=== PATIENT | female | born 1985 | race Caucasian/White ===

== ENCOUNTER 2016-11-21 13:14 | Inpatient (IN) | payer OTHER ==
[2016-11-21] MEDS ORDERED: ONDANSETRON 4 MG/2 ML VIAL IVP STA (13:32)
[2016-11-21] MEDS ORDERED: SODIUM CHLORIDE 0.9% 1,000 ML IV STA (13:32)
[2016-11-21] MEDS ORDERED: DICYCLOMINE 10 MG/ML 2 ML AMP IM STA (13:32)
[2016-11-21] MEDS ORDERED: FAMOTIDINE 20 MG/2 ML VIAL IV STA (13:33)
[2016-11-21] MEDS ORDERED: HYDROmorphone 1 MG/ML 1 ML SYRINGE IVP STA (13:35)
--- NOTE | 2016-11-21 13:38 | ED ---
General Adult HPI - General Chief complaint: Nausea/Vomiting/Diarrhea Stated complaint: Diarrhea Time Seen by Provider: 11/21/16 13:26 Source: patient, RN notes reviewed Limitations: no limitations - History of Present Illness Initial comments: Patient is a pleasant 30-year-old female presenting to the emergency Department with abdominal discomfort and diarrhea. Symptoms present for a couple of days. Patient has nausea and a couple episodes of emesis. Patient did take Zofran with some improvement of nausea. Patient has had loose stools and diarrhea. Patient has abdominal discomfort that is diffuse but mostly lower. Patient has had C. diff 3 times previously and believes this is occurring again. Patient had a fever this morning. - Related Data Home Medications Medication Instructions Recorded Confirmed Diazepam [Valium] 10 mg PO TID 12/27/14 11/21/16 PARoxetine HCL 40 mg PO DAILY 12/27/14 11/21/16 Ranitidine HCl [Zantac] 150 mg PO BID 12/27/14 11/21/16 Methylphenidate HCl [Ritalin] 20 mg PO TID 07/07/15 11/21/16 Ibuprofen [Motrin] 800 mg PO TID 07/08/15 11/21/16 Cyclobenzaprine [Flexeril] 10 mg PO TID PRN 03/27/16 11/21/16 Ondansetron [Zofran] 8 mg PO DAILY PRN 11/21/16 11/21/16 Previous Rx's Medication Instructions Recorded HYDROcodone/APAP 10-325MG [[place] 1 tab PO Q6HR PRN #28 tab 07/09/15 10-325] Allergies Allergy/AdvReac Type Severity Reaction Status Date / Time codeine Allergy Rash/Hives Verified 11/21/16 14:11 haloperidol [From Haldol] Allergy Anaphylaxis Verified 11/21/16 14:11 haloperidol lactate Allergy Anaphylaxis Verified 11/21/16 14:11 [From Haldol] Iodinated Contrast Media - Allergy kidney Verified 11/21/16 14:11 Oral and failure [Iodinated Contrast Media - IV Dye] morphine Allergy Rash/Hives Verified 11/21/16 14:11 Penicillins AdvReac Unknown Verified 11/21/16 14:11 Childhood anabolic steriod Allergy Rash/Hives Uncoded 08/22/16 13:12 Review of Systems ROS Statement: Those systems with pertinent positive or pertinent negative responses have been documented in the HPI. ROS Other: All systems not noted in ROS Statement are negative. Constitutional: Reports: fever Eyes: Denies: eye pain ENT: Denies: ear pain Respiratory: Denies: cough Cardiovascular: Denies: chest pain Endocrine: Reports: fatigue Gastrointestinal: Reports: abdominal pain, nausea, vomiting, diarrhea Genitourinary: Denies: dysuria Musculoskeletal: Denies: back pain Skin: Denies: rash Neurological: Denies: weakness Past Medical History Past Medical History: Asthma, Cancer, Fibromyalgia, GERD/Reflux, Osteoarthritis (OA), Renal Disease Additional Past Medical History / Comment(s): kidney failure x2 due to iodine allergy, lupus, hypoglycemia, back pain, sciatica, cervical CA, ?crohns, c diff dx'd february 2015, knee injury, ovarian cysts History of Any Multi-Drug Resistant Organisms: C-DIFF Date of last positivie culture/infection: 04/13/15 MDRO Source:: stool Past Surgical History: Appendectomy, Cholecystectomy, Hysterectomy, Orthopedic Surgery, Tubal Ligation Additional Past Surgical History / Comment(s): several upper endoscopies, surgery on bilat knees, left wrist, exploratory lap and biopsy of abdomen. Pt states she has had a total of OVER 50 surgeries. PARTIAL HYSTERECTOMY Past Anesthesia/Blood Transfusion Reactions: No Reported Reaction Past Psychological History: ADD/ADHD, Anxiety, Bipolar, PTSD Additional Psychological History / Comment(s): Pt states she is bipolar, manic/ ' depressive, and has anxiety. She is on meds for these and states that they help her. Smoking Status: Current every day smoker Past Alcohol Use History: None Reported Additional Past Alcohol Use History / Comment(s): Pt states she has smoked for 20 yrs about a pack a day or alittle less. Past Drug Use History: None Reported - Past Family History Father Family Medical History: Cancer Additional Family Medical History / Comment(s): "You name it, both sides of my family have had it." Mother Family Medical History: Cancer General Exam Limitations: no limitations General appearance: alert, in no apparent distress Head exam: Present: atraumatic Eye exam: Present: normal appearance, PERRL ENT exam: Present: normal oropharynx Neck exam: Present: normal inspection Respiratory exam: Present: normal lung sounds bilaterally Cardiovascular Exam: Present: regular rate, normal rhythm GI/Abdominal exam: Present: soft, tenderness (Mild diffuse tenderness, moderate lower tenderness), guarding, normal bowel sounds. Absent: distended, rebound, rigid, pulsatile mass Extremities exam: Present: normal inspection Neurological exam: Present: alert Psychiatric exam: Present: normal affect, normal mood Skin exam: Absent: rash Course Vital Signs 11/21/16 13:21 Temperature 99.2 F Pulse Rate 137 H Respiratory 18 Rate Blood Pressure 130/76 O2 Sat by Pulse 98 Oximetry Medical Decision Making - Medical Decision Making Patient reexamined and still complains of discomfort. Abdominal discomfort is more lower right abdomen. Ultrasound has been ordered. Case was discussed in detail with Dr. pugh, who will admit for Dr. Yepez with consult for GI. - Lab Data Result diagrams: 11/21/16 13:35 11/21/16 13:35 Lab Results 11/21/16 11/21/16 11/21/16 Range/Units 13:35 13:35 13:35 WBC 9.1 (3.8-10.6) k/uL RBC 4.35 (3.80-5.40) m/uL Hgb 13.9 (11.4-16.0) gm/dL Hct 42.7 (34.0-46.0) % MCV 98.3 (80.0-100.0) fL MCH 32.1 (25.0-35.0) pg MCHC 32.6 (31.0-37.0) g/dL RDW 14.0 (11.5-15.5) % Plt Count 349 (150-450) k/uL Neutrophils % 73 % Lymphocytes % 22 % Monocytes % 4 % Eosinophils % 1 % Basophils % 1 % Neutrophils # 6.6 (1.3-7.7) k/uL Lymphocytes # 2.0 (1.0-4.8) k/uL Monocytes # 0.4 (0-1.0) k/uL Eosinophils # 0.1 (0-0.7) k/uL Basophils # 0.1 (0-0.2) k/uL PT (9.0-12.0) sec INR (<1.1) APTT (22.0-30.0) sec Sodium 141 (137-145) mmol/L Potassium 4.8 (3.5-5.1) mmol/L Chloride 107 (98-107) mmol/L Carbon Dioxide 22 (22-30) mmol/L Anion Gap 12 mmol/L BUN 5 L (7-17) mg/dL Creatinine 0.68 (0.52-1.04) mg/dL Est GFR (MDRD) Af Amer >60 (>60 ml/min/1.73 sqM) Est GFR (MDRD) Non-Af >60 (>60 ml/min/1.73 sqM) Glucose 106 H (74-99) mg/dL Calcium 9.7 (8.4-10.2) mg/dL Total Bilirubin 0.4 (0.2-1.3) mg/dL AST 18 (14-36) U/L ALT 25 (9-52) U/L Alkaline Phosphatase 84 (38-126) U/L Total Protein 6.8 (6.3-8.2) g/dL Albumin 4.2 (3.5-5.0) g/dL Amylase 63 (30-110) U/L Lipase 85 (23-300) U/L Urine Color Urine Appearance (Clear) Urine pH (5.0-8.0) Ur Specific [place] (1.001-1.035) Urine Protein (Negative) Urine Glucose (UA) (Negative) Urine Ketones (Negative) Urine Blood (Negative) Urine Nitrate (Negative) Urine Bilirubin (Negative) Urine Urobilinogen (<2.0) mg/dL Ur Leukocyte Esterase (Negative) Urine RBC (0-5) /hpf Urine WBC (0-5) /hpf Ur Squamous Epith Cells (0-4) /hpf Urine Mucus (None) /hpf Urine Yeast (Budding) (None) /hpf C. difficile (EIA) Intrp Negative (Negative) 11/21/16 11/21/16 Range/Units 13:35 13:35 WBC (3.8-10.6) k/uL RBC (3.80-5.40) m/uL Hgb (11.4-16.0) gm/dL Hct (34.0-46.0) % MCV (80.0-100.0) fL MCH (25.0-35.0) pg MCHC (31.0-37.0) g/dL RDW (11.5-15.5) % Plt Count (150-450) k/uL Neutrophils % % Lymphocytes % % Monocytes % % Eosinophils % % Basophils % % Neutrophils # (1.3-7.7) k/uL Lymphocytes # (1.0-4.8) k/uL Monocytes # (0-1.0) k/uL Eosinophils # (0-0.7) k/uL Basophils # (0-0.2) k/uL PT 10.5 (9.0-12.0) sec INR 1.0 (<1.1) APTT 25.2 (22.0-30.0) sec Sodium (137-145) mmol/L Potassium (3.5-5.1) mmol/L Chloride (98-107) mmol/L Carbon Dioxide (22-30) mmol/L Anion Gap mmol/L BUN (7-17) mg/dL Creatinine (0.52-1.04) mg/dL Est GFR (MDRD) Af Amer (>60 ml/min/1.73 sqM) Est GFR (MDRD) Non-Af (>60 ml/min/1.73 sqM) Glucose (74-99) mg/dL Calcium (8.4-10.2) mg/dL Total Bilirubin (0.2-1.3) mg/dL AST (14-36) U/L ALT (9-52) U/L Alkaline Phosphatase (38-126) U/L Total Protein (6.3-8.2) g/dL Albumin (3.5-5.0) g/dL Amylase (30-110) U/L Lipase (23-300) U/L Urine Color Light Yellow Urine Appearance Cloudy H (Clear) Urine pH 6.0 (5.0-8.0) Ur Specific [place] 1.006 (1.001-1.035) Urine Protein Negative (Negative) Urine Glucose (UA) Negative (Negative) Urine Ketones Negative (Negative) Urine Blood Negative (Negative) Urine Nitrate Negative (Negative) Urine Bilirubin Negative (Negative) Urine Urobilinogen <2.0 (<2.0) mg/dL Ur Leukocyte Esterase Negative (Negative) Urine RBC <1 (0-5) /hpf Urine WBC 1 (0-5) /hpf Ur Squamous Epith Cells 11 H (0-4) /hpf Urine Mucus Rare H (None) /hpf Urine Yeast (Budding) Rare H (None) /hpf C. difficile (EIA) Intrp (Negative) - Radiology Data Radiology results: image reviewed (Computed tomography scan of the abdomen and pelvis shows left adnexal cyst. Enteritis/colitis.) Disposition Clinical Impression: Acute colitis Disposition: ADMITTED IP TO THIS HOSP
[2016-11-21 14:13] LABS: Basophils # (A) 0.1 k/uL (0-0.2); Basophils % (A) 1 %; CH 32.9; CHCM 33.7; Eosinophils # (A) 0.1 k/uL (0-0.7); Eosinophils % (A) 1 %; HCT 42.7 % (34.0-46.0); HDW 2.36; HGB 13.9 gm/dL (11.4-16.0); Luc # (Auto) 0.05; Luc % (Auto) 1; Lymphocytes % (A) 22 %; MCH 32.1 pg (25.0-35.0); MCHC 32.6 g/dL (31.0-37.0); MCV 98.3 fL (80.0-100.0); Mean Platelet Volume 7.8; Monocytes # (A) 0.4 k/uL (0-1.0); Monocytes % (A) 4 %; Neutrophils # (A) 6.6 k/uL (1.3-7.7); Neutrophils % (A) 73 %; RBC 4.35 m/uL (3.80-5.40); WBC 9.1 k/uL (3.8-10.6); WBC (Perox) 9.01
[2016-11-21 14:19] LABS: Appearance,Urine Cloudy (Clear); Bilirubin,Urine Negative (Negative); Glucose,Urine (UA) Negative (Negative); Ketones,Urine Negative (Negative); Leukocyte Esterase,Urine Negative (Negative); Mucus,Urine Rare /hpf; Nitrite,Urine Negative (Negative); Particle Count 2998; Protein,Urine Negative (Negative); RBC,Urine <1 /hpf (0-5); Specific Gravity,Urine 1.006 (1.001-1.035); Squamous Epithelial Cell,Urine 11 /hpf (0-4); UA Billing (MACRO vs. MICRO) MICRO; Urobilinogen,Urine <2.0 mg/dL (<2.0); WBC,Urine 1 /hpf (0-5)
[2016-11-21 14:20] LABS: ALT 25 U/L (9-52); AST 18 U/L (14-36); Alkaline Phosphatase 84 U/L (38-126); Amylase 63 U/L (30-110); Anion Gap 12 mmol/L; Blood Urea Nitrogen 5 mg/dL (7-17); Calcium 9.7 mg/dL (8.4-10.2); Carbon Dioxide 22 mmol/L (22-30); Chloride 107 mmol/L (98-107); Glucose 106 mg/dL (74-99); Non-African American GFR(MDRD) >60 (>60 ml/min/1.73 sqM); Potassium 4.8 mmol/L (3.5-5.1); Sodium 141 mmol/L (137-145); Total Bilirubin 0.4 mg/dL (0.2-1.3); Total Protein 6.8 g/dL (6.3-8.2)
[2016-11-21 14:26] LABS: Partial Thromboplastin Time 25.2 sec (22.0-30.0); Prothrombin Time 10.5 sec (9.0-12.0)
--- NOTE | 2016-11-21 15:01 | CT ---
EXAMINATION TYPE: CT abdomen pelvis wo con DATE OF EXAM: 11/21/2016 2:33 PM COMPARISON: Prior CT abdomen pelvis dated July 2015 HISTORY: Generalized abdominal pain and diarrhea. History of c diff. CT DLP: 149.80 mGycm Automated exposure control for dose reduction was used. TECHNIQUE: Helical acquisition of images from the lung bases through the pelvis. FINDINGS: LUNG BASES: No significant abnormality is appreciated. Lack of contrast could compromise sensitivity. AORTA: No significant abnormality is appreciated. LIVER/GB: Patient is status post cholecystectomy, liver unremarkable as seen PANCREAS: No significant abnormality is seen. SPLEEN: No significant abnormality is seen. ADRENALS: No significant abnormality is seen. KIDNEYS: No significant abnormality is seen. REPRODUCTIVE ORGANS: There is a cystic left adnexal mass measuring approximately 4 cm in size. Uteru s is not seen. URINARY BLADDER: No significant abnormality is seen. BOWEL: Some colonic wall thickening is nonspecific. There are fluid-filled loops of small bowel. FREE AIR: No Free Air is visible. ASCITES: None visible. PELVIC ADENOPATHY: None visualized. RETROPERITONEAL ADENOPATHY: No Retroperitoneal Adenopathy visible. OSSEOUS STRUCTURES: No significant abnormality is seen. IMPRESSION: CYSTIC LEFT ADNEXAL MASS, RECOMMEND FOLLOW-UP, CONSIDER MANAGEMENT PSYCHOLOGIST CONSULT, CORRELATE FOR ENTERITIS, COLITIS noncontrast exam, follow-up as indicated.
[2016-11-21] MEDS ORDERED: NALOXONE 0.4 MG/ML 1 ML VIAL IV PRN (16:01)
[2016-11-21] MEDS ORDERED: metroNIDAZOLE-NS PMX 500 MG in SALINE 1 100ML.BAG IVPB STA (16:03)
[2016-11-21] MEDS ORDERED: HYDROmorphone 1 MG/ML 1 ML SYRINGE IVP PRN ×3 (16:03→19:20)
[2016-11-21] MEDS ORDERED: SODIUM CHLORIDE 0.9% 1,000 ML IV SCH (16:15)
[2016-11-21] MEDS ORDERED: LORazepam 2 MG/ML SYRINGE IV STA (16:54)
--- NOTE | 2016-11-21 16:54 | US ---
EXAMINATION TYPE: US transvaginal DATE OF EXAM: 11/21/2016 4:42 PM COMPARISON: on PACS CLINICAL HISTORY: Pain, left cystic mass. Partial hyst x 10 years ago TECHNIQUE: Transvaginal (TV) Date of LMP: Partial Hysterectomy EXAM MEASUREMENTS: Uterus: Surgically absent cm Endometrial Stripe: Surgically absent cm Right Ovary: 2.8 x 1.8 x 1.7 cm Left Ovary: 4.3 x 4.6 x 4.2 cm TECHNOLOGIST IMPRESSION: 1. Uterus: Removed 2. Endometrium: Surgically absent 3. Right Ovary: follicles 4. Left Ovary: cyst with internal debris= 3.8 x 4.2 x 3.3 cm Spectral, color and waveform doppler imaging shows good arterial and venous flow within the ovaries ; there is no evidence for ovarian torsion. 5. Bilateral Adnexa: Free fluid seen adjacent to LO 6. Posterior cul-de-sac: no free fluid Grayscale, color Doppler, spectral Doppler imaging performed. IMPRESSION: Left ovarian cystic neoplasm, BODY HANGER consult suggested. Ovarian torsion not evident.
[2016-11-21] MEDS ORDERED: CYCLOBENZAPRINE 10 MG TAB PO PRN (18:55)
[2016-11-21] MEDS ORDERED: DIAZEPAM 2 MG TAB PO SCH (19:00)
[2016-11-21] MEDS ORDERED: DIAZEPAM 5 MG TAB PO SCH (19:21)
[2016-11-21] MEDS: FAMOTIDINE 20 MG TAB PO SCH (20:50)
[2016-11-21] MEDS: ONDANSETRON 4 MG/2 ML VIAL IVP PRN (20:50)
[2016-11-21] MEDS: HYDROmorphone 1 MG/ML 1 ML SYRINGE IVP PRN (23:44)
[2016-11-22] MEDS: SODIUM CHLORIDE 0.9% 1,000 ML IV SCH ×4 (00:41→22:06)
[2016-11-22] MEDS: METHYLPHENIDATE HCL 10 MG TAB PO SCH ×4 (01:34→20:43)
[2016-11-22] MEDS: HYDROmorphone 1 MG/ML 1 ML SYRINGE IVP PRN ×7 (03:35→22:34)
[2016-11-22] MEDS: DIAZEPAM 5 MG TAB PO PRN ×4 (03:48→22:55)
[2016-11-22] MEDS: ONDANSETRON 4 MG/2 ML VIAL IVP PRN ×3 (05:46→18:51)
[2016-11-22 07:52] LABS: Anion Gap 9 mmol/L; Blood Urea Nitrogen 4 mg/dL (7-17); Calcium 8.7 mg/dL (8.4-10.2); Carbon Dioxide 21 mmol/L (22-30); Chloride 111 mmol/L (98-107); Glucose 97 mg/dL (74-99); Non-African American GFR(MDRD) >60 (>60 ml/min/1.73 sqM); Potassium 4.2 mmol/L (3.5-5.1); Sodium 141 mmol/L (137-145)
[2016-11-22] MEDS ORDERED: metroNIDAZOLE 500 MG TAB PO SCH (09:00)
[2016-11-22] MEDS: PARoxetine 20 MG TAB PO SCH (11:10)
[2016-11-22] MEDS: FAMOTIDINE 20 MG TAB PO SCH ×2 (11:15→20:43)
[2016-11-22] MEDS: ENOXAPARIN 40 MG/0.4 ML SYRINGE SQ SCH (11:16)
[2016-11-22] MEDS: PANTOPRAZOLE 40 MG/10 ML VIAL IV SCH (11:21)
--- NOTE | 2016-11-22 12:55 | HP ---
DATE OF ADMISSION: 11/21/2016 PRESENTING COMPLAINT: Diarrhea. HISTORY OF PRESENTING COMPLAINT: This is a 30-year-old patient who has had multiple presentations to the ER. Patient's chronic medical conditions stable include fibromyalgia, GERD, ADHD. Patient also has history of irritable bowel syndrome. Patient also has got chronic pain management through Dr. Salomon. Patient does follow up at [facility]. Patient presented after 5 days of multiple loose stools, watery, no blood, abdominal pain, nausea. She had some vomiting at home, no obvious fever. Patient's fiance is at the bedside. Patient smokes 1-1/2 packs a day. REVIEW OF SYSTEMS: CONSTITUTIONAL: Tired. HEENT: None. RESPIRATORY: None. CARDIOVASCULAR: None. GASTROINTESTINAL: As above. GENITOURINARY: None. MUSCULOSKELETAL: Aches and pains in multiple joints. DERMATOLOGICAL: None. HEMATOLOGICAL: None. LYMPHATIC: None. PSYCHIATRY: Very anxious. NEUROLOGICAL: None. PAST MEDICAL HISTORY: Irritable bowel syndrome, fibromyalgia, GERD, ADHD, rectal cancer, C. diff x1, ovarian cyst. PAST SURGICAL HISTORY: Appendectomy, cholecystectomy, hysterectomy, several upper endoscopy, surgery in both the knees, exploratory laparoscopy and biopsy of the abdomen. Past psych history of bipolar, PTSD, ADHD. Smokes over 1-1/2 packs a day. Lives with fiance. Family history of cancers. HOME MEDICATIONS: 1. Zantac 150 mg p.o. b.i.d. 2. Paxil 40 mg a day. 3. Sertraline 20 mg t.i.d. 4. Motrin 800 mg p.o. t.i.d. 5. [place] 10 one tablet q.6 p.r.n. 6. Valium 5 mg p.o. t.i.d. Allergies to CODEINE, HALDOL, IV CONTRAST DYE, PENICILLIN, ANABOLIC STEROIDS. On examination, temperature 99.2, pulse 137, repeat 114, respiration 18, blood pressure 130/74, pulse ox 99% on room air. GENERAL APPEARANCE: Thin build, sitting, anxious, rather melodramatic. EYES: Pupils equal. Conjunctivae normal. HEENT: External appearance of nose and ears normal. Oral cavity normal. NECK: JVD not raised. Mass not palpable. Respiratory effort normal. LUNGS: Slightly decreased breath sounds. CARDIOVASCULAR: First and second sounds normal. No edema. ABDOMEN: Soft, but patient was even jumping up before even I could touch the belly. No guarding or rigidity, liver and spleen not palpable. LYMPHATIC: No lymph nodes palpable in neck or axillae. PSYCHIATRY: Alert and oriented x3. Mood and affect extremely anxious. NEUROLOGICAL: Moving all 4 limbs. INVESTIGATIONS: White count normal, hemoglobin 13.9. No left shift. Potassium 4.8, BUN 5, creatinine 0.68. CT scan of the abdomen shows a possible left ovarian cyst, questionable colitis. ASSESSMENT: 1. Possible acute gastroenteritis causing dehydration and tachycardia. 2. Chronic nicotine dependence. Patient is an active cigarette smoker. 3. Chronic fibromyalgia. 4. Gastroesophageal reflux disease. 5. Attention deficit hyperactivity disorder. 6. Chronic pain, being followed by Dr. Salomon. PLAN: Patient's C. diff has come back negative, there is no white count. No fever. Tachycardia is likely from patient being dehydrated and being very anxious. I did run a ( ) with the ER physician, Dr. White., The patient claims she was taken 10 mg of Valium. She is actually taking 5. I will put her back on the 5. Will give her 0.5 mg of Dilaudid q.4 unt6il further evaluation by GI and Dr. Gonzalez. Patient has had multiple scopes in the past. Also run on a stool for all parasites and fecal leukocytes. Patient will be put on a clear liquid diet.
[2016-11-22] MEDS: HYDROcodone/APAP 10-325MG 1 EACH TAB PO PRN ×2 (13:55→20:44)
[2016-11-22] MEDS: metroNIDAZOLE-NS PMX 500 MG in SALINE 1 100ML.BAG IVPB SCH ×2 (14:10→22:22)
--- NOTE | 2016-11-22 15:09 | P.GSCN ---
History of Present Illness Consult date: 11/22/16 Reason for Consult: Colitis Requesting physician: Denny Sanchez History of present illness: Patient is a 30-year-old female with complex medical history significant for GERD, cervical cancer, irritable bowel syndrome, and C. diff presenting to the emergency department with complaints of abdominal pain and watery loose stools associated with nausea and vomiting for [address] of abdomen and pelvis with evidence of colonic wall thickening and fluid-filled loops of small bowel; cystic left adnexal mass. Ultrasound with evidence of left ovarian cystic neoplasm. Stool for C. difficile negative 2. Stool culture some process. Surgical consult requested for acute colitis. Upon examination, patient is sitting up in bed crying. Patient complains of lower abdominal pain wrapping around to her back on the right and left side. Patient rates pain 10 out of 10 and is asking to have her Dilaudid increased. Patient complains of nausea without vomiting. Patient states she hasn't had a bowel movement since admission. Denies melena, hematemesis, or hematemesis. T- max in last 24 hours 99.9. No evidence of leukocytosis. Past Medical History Past Medical History: Asthma, Cancer, Fibromyalgia, GERD/Reflux, Osteoarthritis (OA), Renal Disease Additional Past Medical History / Comment(s): kidney failure x2 due to iodine allergy, possibly lupus, hypoglycemia, chronic back pain, sciatica, cervical CA with sx, ?crohns, c diff dx'd february 2016, L knee injury, negative Cdiff , ovarian cysts History of Any Multi-Drug Resistant Organisms: None Reported Year Discovered:: None MDRO Source:: None Past Surgical History: Appendectomy, Cholecystectomy, Hysterectomy, Orthopedic Surgery, Tubal Ligation Additional Past Surgical History / Comment(s): several upper endoscopies, surgery on left knee, left wrist ganglion cystectomy, exploratory lap and biopsy Pt states she has had a total of OVER 50 surgeries. PARTIAL HYSTERECTOMY Past Anesthesia/Blood Transfusion Reactions: No Reported Reaction Past Psychological History: ADD/ADHD, Anxiety, Bipolar, PTSD Additional Psychological History / Comment(s): Pt states she is bipolar, manic/ ' depressive, and has anxiety. She is on meds for these and states that they help her. She resides with her significant other. She has 2 anthony's living with her as well. She is normally independent. Smoking Status: Current every day smoker Past Alcohol Use History: None Reported Additional Past Alcohol Use History / Comment(s): Pt states she has smoked for 20 yrs about a pack a day or alittle less. Past Drug Use History: None Reported - Past Family History Father Family Medical History: Cancer Additional Family Medical History / Comment(s): "You name it, both sides of my family have had it." Mother Family Medical History: Cancer Medications and Allergies Home Medications Medication Instructions Recorded Confirmed Type Diazepam [Valium] 10 mg PO TID 12/27/14 11/21/16 History PARoxetine HCL 40 mg PO DAILY 12/27/14 11/21/16 History Ranitidine HCl [Zantac] 150 mg PO BID 12/27/14 11/21/16 History Methylphenidate HCl [Ritalin] 20 mg PO TID 07/07/15 11/21/16 History Ibuprofen [Motrin] 800 mg PO TID 07/08/15 11/21/16 History Cyclobenzaprine [Flexeril] 10 mg PO TID PRN 03/27/16 11/21/16 History Ondansetron [Zofran] 8 mg PO DAILY PRN 11/21/16 11/21/16 History Allergies Allergy/AdvReac Type Severity Reaction Status Date / Time codeine Allergy Rash/Hives Verified 11/21/16 14:11 haloperidol [From Haldol] Allergy Anaphylaxis Verified 11/21/16 14:11 haloperidol lactate Allergy Anaphylaxis Verified 11/21/16 14:11 [From Haldol] Iodinated Contrast Media - Allergy kidney Verified 11/21/16 14:11 Oral and failure [Iodinated Contrast Media - IV Dye] morphine Allergy Rash/Hives Verified 11/21/16 14:11 Penicillins AdvReac Unknown Verified 11/21/16 14:11 Childhood anabolic steriod Allergy Rash/Hives Uncoded 08/22/16 13:12 Surgical - Exam Vital Signs Temp Pulse Resp BP Pulse Ox 99.2 F 137 H 18 130/76 98 11/21/16 13:21 11/21/16 13:21 11/21/16 13:21 11/21/16 13:21 11/21/16 13:21 GENERAL: Pt awake and alert, sitting up in bed crying, appears in mild distress. ENT: Moist mucous membranes. LUNGS: Breath sounds clear to auscultation bilaterally. No wheezes, rales, or rhonchi. HEART: Heart S1, S2, no S3 or S4. Regular rate and rhythm. No murmurs, rubs or gallops. ABDOMEN: Soft, moderate lower abdomen tenderness, nondistended, normoactive bowel sounds. NEUROLOGICAL: Pt oriented x 3. Results - Labs 11/21/16 13:35 11/22/16 06:45 Abnormal Lab Results - Last 24 Hours (Table) 11/22/16 Range/Units 06:45 Chloride 111 H (98-107) mmol/L Carbon Dioxide 21 L (22-30) mmol/L BUN 4 L (7-17) mg/dL Diabetes panel 11/22/16 Range/Units 06:45 Sodium 141 (137-145) mmol/L Potassium 4.2 (3.5-5.1) mmol/L Chloride 111 H (98-107) mmol/L Carbon Dioxide 21 L (22-30) mmol/L BUN 4 L (7-17) mg/dL Creatinine 0.69 (0.52-1.04) mg/dL Glucose 97 (74-99) mg/dL Calcium 8.7 (8.4-10.2) mg/dL Calcium panel 11/22/16 Range/Units 06:45 Calcium 8.7 (8.4-10.2) mg/dL Pituitary panel 11/22/16 Range/Units 06:45 Sodium 141 (137-145) mmol/L Potassium 4.2 (3.5-5.1) mmol/L Chloride 111 H (98-107) mmol/L Carbon Dioxide 21 L (22-30) mmol/L BUN 4 L (7-17) mg/dL Creatinine 0.69 (0.52-1.04) mg/dL Glucose 97 (74-99) mg/dL Calcium 8.7 (8.4-10.2) mg/dL Adrenal panel 11/22/16 Range/Units 06:45 Sodium 141 (137-145) mmol/L Potassium 4.2 (3.5-5.1) mmol/L Chloride 111 H (98-107) mmol/L Carbon Dioxide 21 L (22-30) mmol/L BUN 4 L (7-17) mg/dL Creatinine 0.69 (0.52-1.04) mg/dL Glucose 97 (74-99) mg/dL Calcium 8.7 (8.4-10.2) mg/dL - Imaging CT scan - abdomen: report reviewed CT scan - pelvis: report reviewed US - pelvic: report reviewed Assessment and Plan Plan: Impression: 1. Intractable abdominal pain associated with nausea and vomiting and loose stools, present on admission. C. diff negative. CT of abdomen and pelvis with evidence of nonspecific colonic wall thickening and fluid-filled loops of small bowel suspect secondary to enteritis. 2. Left ovarian cystic neoplasm. Recommend MANAGER MONITORING consult. 3. History of chronic abdominal pain 5 years duration. Plan: 1. Continue to monitor patient. Continue clear liquid diet, advance as tolerated. Continue supportive treatment and pain management. Continue medical management by medical team. Patient is not a surgical candidate at this time. We'll continue to follow patient. The above impression and plan have been discussed and directed by Dr. Gonzalez. Lonnie HILL acting as scribe for Dr. Fernández.
[2016-11-22 15:20] VITALS: BMI 19.6
[2016-11-22] MEDS ORDERED: metroNIDAZOLE-NS PMX 500 MG in SALINE 1 100ML.BAG IVPB SCH ×2 (16:00)
[2016-11-22] MEDS: DIPHENOX-ATROP 2.5-0.025 MG 1 EACH TAB PO SCH ×2 (20:43→22:21)
[2016-11-23] MEDS: ONDANSETRON 4 MG/2 ML VIAL IVP PRN ×4 (00:48→18:32)
[2016-11-23] MEDS: HYDROmorphone 1 MG/ML 1 ML SYRINGE IVP PRN ×4 (01:25→10:58)
[2016-11-23] MEDS: HYDROcodone/APAP 10-325MG 1 EACH TAB PO PRN ×4 (02:43→21:01)
[2016-11-23] MEDS: DIAZEPAM 5 MG TAB PO PRN ×4 (05:02→22:41)
[2016-11-23] MEDS: SODIUM CHLORIDE 0.9% 1,000 ML IV SCH ×3 (06:16→22:41)
[2016-11-23] MEDS: metroNIDAZOLE-NS PMX 500 MG in SALINE 1 100ML.BAG IVPB SCH ×3 (06:17→22:42)
[2016-11-23] MEDS: ENOXAPARIN 40 MG/0.4 ML SYRINGE SQ SCH (08:52)
[2016-11-23] MEDS: PANTOPRAZOLE 40 MG/10 ML VIAL IV SCH (08:53)
[2016-11-23] MEDS: DIPHENOX-ATROP 2.5-0.025 MG 1 EACH TAB PO SCH (08:53)
[2016-11-23] MEDS: FAMOTIDINE 20 MG TAB PO SCH ×2 (08:53→21:01)
[2016-11-23] MEDS: METHYLPHENIDATE HCL 10 MG TAB PO SCH ×3 (09:15→22:23)
[2016-11-23] MEDS: PARoxetine 20 MG TAB PO SCH (09:15)
--- NOTE | 2016-11-23 11:13 | P.PN ---
Subjective Principal diagnosis: Enteritis Patient is a 30-year-old female with medical history significant for GERD, cervical cancer, irritable bowel syndrome, and C. diff colitis admitted with evidence of enteritis and left ovarian cystic neoplasm. Patient is feeling slightly better than yesterday. Continues to complain of nausea and lower abdominal pain with radiation to her back. Patient had loose stool last night, none this morning. T-max 99.1 at midnight. Objective - Vital Signs Vital signs: Vital Signs Temp 98.5 F 11/23/16 07:55 Pulse 94 11/23/16 07:55 Resp 16 11/23/16 07:55 BP 115/69 11/23/16 07:55 Pulse Ox 99 11/23/16 07:55 Intake & Output 11/22/16 11/23/16 11/23/16 18:59 06:59 18:59 Intake Total 200 120 Output Total 904 500 Balance -704 -380 Weight 50.349 kg Intake: Oral 200 120 Output: Urine 900 500 Stool 4 Other: Voiding Method Bedside Commode # Voids 1 1 1 # Bowel Movements 1 - Exam GENERAL: Pt awake and alert, appears in no acute distress. ENT: Moist mucous membranes. LUNGS: Breath sounds clear to auscultation bilaterally. No wheezes, rales, or rhonchi. HEART: Heart S1, S2, no S3 or S4. Regular rate and rhythm. No murmurs, rubs or gallops. ABDOMEN: Soft, moderate lower abdominal tenderness, nondistended, normoactive bowel sounds. No peritoneal signs. NEUROLOGICAL: Pt oriented x 3. - Labs CBC & Chem 7: 11/21/16 13:35 11/22/16 06:45 Labs: Microbiology - Last 24 Hours (Table) 11/22/16 13:10 Stool for WBCs - Final Stool Assessment and Plan Plan: Impression: 1. Intractable abdominal pain associated with nausea and vomiting and loose stools, present on admission. C. diff negative. CT of abdomen and pelvis with evidence of nonspecific colonic wall thickening and fluid-filled loops of small bowel suspect secondary to enteritis. 2. Left ovarian cystic neoplasm. Recommend CERAMIC TILE INSTALLER consult. 3. History of chronic abdominal pain 5 years duration. Plan: 1. Continue to monitor patient. Continue clear liquid diet, advance as tolerated. Continue supportive treatment and pain management. Continue medical management by medical team. Patient is not a surgical candidate at this time. We'll continue to follow patient. The above impression and plan have been discussed and directed by Dr. Gonzalez. Lonnie HILL acting as scribe for Dr. Fernández.
[2016-11-23] MEDS ORDERED: DIPHENOX-ATROP 2.5-0.025 MG 1 EACH TAB PO PRN (12:16)
--- NOTE | 2016-11-23 15:54 | P.CONS ---
History of Present Illness - Chief Complaint Abdominal pain - History of Present Illness I had the opportunity to see patient for inpatient consultation regard to pain management. Patient is known to me from chronic pain management for neck and general body ache for which she is receiving [place] 10 mg 4 times a day, successfully. The patient now admitted with abdominal discomfort. Abdominal CT negative. C. difficile stool [address] Gonzalez and no surgery indication. Awaiting consultation to Dr. Gar. Review of my office chart indicates that I have had a normal C-spine MRI, lower extremity EMG. Bone scan positive for some uptake in knees and ankles, only. Previous functional history: 30-year-old right-handed white female who is engaged lives with her fianc. Smokes up to pack and a half per day. Denies recreational drugs or alcohol. Is unemployed/disabled, disability pending. Describes independent with cooking laundry standing shower. Apparently lost her license but states that she will get it back. Review of Systems Review of systems: ENT: Denies sneezes or discharge. Eyes: Denies discharge or photophobia. Cardiac: Denies chest pain or palpitation. Pulmonary: Denies cough or shortness of breath. Breast: Denies discharge or lumps. Gastrointestinal: Abdominal discomfort. Genitourinary: Denies discharge or frequency. Musculoskeletal: Gen./whole body aches. Neurologic: Denies motor or sensory change. Endocrine: Denies shakes or sweats. Oncology: Denies cancers. Dermatologic: Denies rash, itching, pruritus. ALLERGY/immunology: Denies sneezes, rashes. Past Medical History Past Medical History: Asthma, Cancer, Fibromyalgia, GERD/Reflux, Osteoarthritis (OA), Renal Disease Additional Past Medical History / Comment(s): kidney failure x2 due to iodine allergy, possibly lupus, hypoglycemia, chronic back pain, sciatica, cervical CA with sx, ?crohns, c diff dx'd february 2016, L knee injury, negative Cdiff , ovarian cysts History of Any Multi-Drug Resistant Organisms: None Reported Year Discovered:: None MDRO Source:: None Past Surgical History: Appendectomy, Cholecystectomy, Hysterectomy, Orthopedic Surgery, Tubal Ligation Additional Past Surgical History / Comment(s): several upper endoscopies, surgery on left knee, left wrist ganglion cystectomy, exploratory lap and biopsy Pt states she has had a total of OVER 50 surgeries. PARTIAL HYSTERECTOMY Past Anesthesia/Blood Transfusion Reactions: No Reported Reaction Past Psychological History: ADD/ADHD, Anxiety, Bipolar, PTSD Additional Psychological History / Comment(s): Pt states she is bipolar, manic/ ' depressive, and has anxiety. She is on meds for these and states that they help her. She resides with her significant other. She has 2 anthony's living with her as well. She is normally independent. Smoking Status: Current every day smoker Past Alcohol Use History: None Reported Additional Past Alcohol Use History / Comment(s): Pt states she has smoked for 20 yrs about a pack a day or alittle less. Past Drug Use History: None Reported - Past Family History Father Family Medical History: Cancer Additional Family Medical History / Comment(s): "You name it, both sides of my family have had it." Mother Family Medical History: Cancer Medications and Allergies Home Medications Medication Instructions Recorded Confirmed Type Diazepam [Valium] 10 mg PO TID 12/27/14 11/21/16 History PARoxetine HCL 40 mg PO DAILY 12/27/14 11/21/16 History Ranitidine HCl [Zantac] 150 mg PO BID 12/27/14 11/21/16 History Methylphenidate HCl [Ritalin] 20 mg PO TID 07/07/15 11/21/16 History Ibuprofen [Motrin] 800 mg PO TID 07/08/15 11/21/16 History Cyclobenzaprine [Flexeril] 10 mg PO TID PRN 03/27/16 11/21/16 History Ondansetron [Zofran] 8 mg PO DAILY PRN 11/21/16 11/21/16 History Allergies Allergy/AdvReac Type Severity Reaction Status Date / Time codeine Allergy Rash/Hives Verified 11/21/16 14:11 haloperidol [From Haldol] Allergy Anaphylaxis Verified 11/21/16 14:11 haloperidol lactate Allergy Anaphylaxis Verified 11/21/16 14:11 [From Haldol] Iodinated Contrast Media - Allergy kidney Verified 11/21/16 14:11 Oral and failure [Iodinated Contrast Media - IV Dye] morphine Allergy Rash/Hives Verified 11/21/16 14:11 Penicillins AdvReac Unknown Verified 11/21/16 14:11 Childhood anabolic steriod Allergy Rash/Hives Uncoded 08/22/16 13:12 Physical Exam Vitals: Vital Signs Temp Pulse Pulse Pulse Resp BP Pulse Ox 11/23/16 10:50 98.4 F 90 20 119/83 100 11/23/16 07:55 98.5 F 94 16 115/69 99 11/23/16 04:00 90 18 11/23/16 00:00 99.1 F 90 18 110/78 98 11/22/16 20:30 98.7 F 90 20 126/75 100 11/22/16 16:40 98.7 F 92 16 103/67 99 Intake and Output 11/23/16 11/23/16 11/23/16 06:59 14:59 22:59 Other: # Voids 1 Skin: Good color, texture, turgor. General: Thin build and comfortable appearance. Head: Normocephalic, atraumatic. Eyes: Symmetric. Pupils equal round. Ears: Symmetric. Hearing within normal limits. Mouth: Clear. Neck: Supple. Carotid without bruit. Cardiac: Regular rate and rhythm. Lungs: Clear anteriorly and posteriorly. Abdomen: Soft active nontender. Extremities: Normal tone. Thin limbs. Neurological: Mental status: Alert, cooperative, pleasant. Cranial nerves: Symmetric facial tone and trapezius. Motor: Normal strength and isolation all 4 limbs. Sensation: Intact throughout. DTRs: Trace, Symmetric and equal throughout. Mobility: Reports that she is bathroom privileges and up and about independently. Results CBC & Chem 7: 11/21/16 13:35 11/22/16 06:45 Labs: Microbiology - Last 24 Hours (Table) 11/22/16 13:10 Stool for WBCs - Final Stool Assessment and Plan (1) Abdominal pain Status: Acute Plan: Impression: 1. Acute abdominal pain. 2. Fibromyalgia and diffuse and multiple pain. 3. Mild osteoarthritis. Comments and plan: Patient had been on Dilaudid IM injection but now discontinued as is not a surgical patient. She is on [place] 10 4 times a day, which is her normal chronic pain management program. Tells me that she can tolerate it currently. Has asked for Flexeril 3 times a day and will allow. This should be her current pain management plan and is of course her chronic pain management program. Noted patient just received a prescription for her [place] and should not require prescription upon discharge. Should follow up with me for her chronic pain management.
[2016-11-23] MEDS: CYCLOBENZAPRINE 10 MG TAB PO SCH ×2 (16:10→21:01)
[2016-11-23 17:01] VITALS: RESP 16
[2016-11-24] MEDS: ONDANSETRON 4 MG/2 ML VIAL IVP PRN ×2 (00:47→08:17)
[2016-11-24] MEDS: HYDROcodone/APAP 10-325MG 1 EACH TAB PO PRN ×2 (03:54→08:50)
[2016-11-24] MEDS: DIAZEPAM 5 MG TAB PO PRN ×2 (04:59→11:26)
[2016-11-24] MEDS: metroNIDAZOLE-NS PMX 500 MG in SALINE 1 100ML.BAG IVPB SCH (06:05)
[2016-11-24] MEDS: SODIUM CHLORIDE 0.9% 1,000 ML IV SCH (07:23)
[2016-11-24] MEDS: CYCLOBENZAPRINE 10 MG TAB PO SCH (08:12)
[2016-11-24] MEDS: METHYLPHENIDATE HCL 10 MG TAB PO SCH (08:13)
[2016-11-24 08:23] VITALS: BP 103/59; PULSE 83; TEMP 98.1
[2016-11-24] MEDS: PANTOPRAZOLE 40 MG/10 ML VIAL IV SCH (08:50)
[2016-11-24] MEDS: FAMOTIDINE 20 MG TAB PO SCH (08:50)
[2016-11-24] MEDS: ENOXAPARIN 40 MG/0.4 ML SYRINGE SQ SCH (08:51)
[2016-11-24] MEDS: PARoxetine 20 MG TAB PO SCH (08:51)
--- NOTE | 2016-11-24 11:36 | P.PN ---
Subjective Principal diagnosis: Enteritis Patient is a 30-year-old female with medical history significant for GERD, cervical cancer, irritable bowel syndrome, and C. diff colitis admitted with evidence of enteritis and left ovarian cystic neoplasm. Patient continues to complain of nausea and lower abdominal pain with radiation to her back. Patient reports no improvement in pain since yesterday. Reports flatus without bowel movement. Tolerating liquid diet. Afebrile. Objective - Vital Signs Vital signs: Vital Signs Temp 98.1 F 11/24/16 08:00 Pulse 83 11/24/16 08:00 Resp 16 11/24/16 08:00 BP 103/59 11/24/16 08:00 Pulse Ox 97 11/24/16 08:00 Intake & Output 11/23/16 11/24/16 11/24/16 18:59 06:59 18:59 Intake Total 337 Balance 337 Intake: Oral 337 Other: Voiding Method Bedside Commode # Voids 1 - Exam GENERAL: Pt awake and alert, appears in no acute distress. ENT: Moist mucous membranes. LUNGS: Breath sounds clear to auscultation bilaterally. No wheezes, rales, or rhonchi. HEART: Heart S1, S2, no S3 or S4. Regular rate and rhythm. No murmurs, rubs or gallops. ABDOMEN: Soft, moderate lower abdominal tenderness, mildly distended, normoactive bowel sounds. No peritoneal signs. NEUROLOGICAL: Pt oriented x 3. - Labs CBC & Chem 7: 11/21/16 13:35 11/22/16 06:45 Assessment and Plan Plan: Impression: 1. Intractable abdominal pain associated with nausea and vomiting and loose stools, present on admission. C. diff negative 2. CT of abdomen and pelvis with evidence of nonspecific colonic wall thickening and fluid-filled loops of small bowel suspect secondary to enteritis. 2. Left ovarian cystic neoplasm. Recommend [facility] consult. 3. History of chronic abdominal pain 5 years duration. Plan: 1. Continue to monitor patient. Continue clear liquid diet, advance as tolerated. Continue supportive treatment and pain management. Continue medical management by medical team. Patient is not a surgical candidate at this time. We'll continue to follow patient. The above impression and plan have been discussed and directed by Dr. Gonzalez. Lonnie HILL acting as scribe for Dr. Fernández.
--- NOTE | 2016-11-26 10:18 | DS ---
DATE OF ADMISSION: 11/21/2016 DATE LEFT AGAINST MEDICAL ADVICE: 11/24/2016 FINAL DIAGNOSES: 1. Acute gastroenteritis, probably viral. 2. Chronic nicotine dependence in an active cigarette smoker. 3. Chronic fibromyalgia. 4. Gastroesophageal reflux disease. 5. Attention deficit hyperactivity disorder. CONSULTATION: Dr. Gonzalez from general surgery, Dr. Wang from GI and Dr. Brien Salomon from pain services. HOSPITAL COURSE: This patient presented with abdominal pain, diarrhea. Negative for C. diff. Patient's diarrhea completely resolved. C. diff. was negative x2. Seen by Dr. Gonzalez from general surgery. Initially put the patient on IV Dilaudid, then felt there was no need for the same. MAPS was carried out on the patient. She was getting 5 mg Valium that was restarted. Dr. Salomon was consulted for further pain management. Dr. Wang gave orders for the pain management. I do not see his dictated consult in there. Patient is doing much better by the time of discharge, but patient decided to leave AGAINST MEDICAL ADVICE early in the day. On examination, abdomen was soft, minimal tenderness. Patient is tolerating some clear liquids. Diarrhea actually has resolved. Patient is afebrile. Normal white count.
[2016-11-28 05:28] LABS: Cryptosporidium parvum Not detected (Not detected); Isospora belli Not detected (Not detected); Microsporidium Not detected (Not detected); Routine Ova and Parasites Not detected
== END 2016-11-24 13:00 | disposition left against medical advice (07) | DRG 392 ==
LOC: EC 13:14 → OBSVTOIN 16:01 → 6PED 16:01 → INTOOBSV 16:01 → 6PED 11-23 02:37 → 5MS5E 11-23 19:32
PROVIDERS: ADMIT Hospitalist; ATTEND Hospitalist
DX: A08.4 Viral intestinal infection, unspecified (principal); E86.0 Dehydration; F31.9 Bipolar disorder, unspecified; F41.9 Anxiety disorder, unspecified; F17.210 Nicotine dependence, cigarettes, uncomplicated; M79.7 Fibromyalgia; K21.9 Gastro-esophageal reflux disease without esophagitis; F90.9 Attention-deficit hyperactivity disorder, unspecified type; Z85.41 Personal history of malignant neoplasm of cervix uteri; M19.90 Unspecified osteoarthritis, unspecified site; J45.909 Unspecified asthma, uncomplicated; F43.10 Post-traumatic stress disorder, unspecified; K58.9 Irritable bowel syndrome, unspecified; G89.29 Other chronic pain; R10.9 Unspecified abdominal pain; M54.9 Dorsalgia, unspecified; N83.209 Unspecified ovarian cyst, unspecified side; M54.30 Sciatica, unspecified side; Z90.49 Acquired absence of other specified parts of digestive tract; Z90.710 Acquired absence of both cervix and uterus; Z91.041 Radiographic dye allergy status; Z88.5 Allergy status to narcotic agent; Z88.8 Allergy status to other drugs, medicaments and biological substances; Z85.048 Personal history of other malignant neoplasm of rectum, rectosigmoid junction, and anus; Z79.1 Long term (current) use of non-steroidal anti-inflammatories (NSAID); Z79.899 Other long term (current) drug therapy
CPT/HCPCS: 36415; 74176; 76830; 80048; 80053; 80299; 81001; 82150; 83690; 85025; 85610; 85730; 87040; 87045; 87046; 87086; 87177; 87207; 87209; 87324; 89055; 93975; 96361; 96365; 96375; 96376; 99285

== ENCOUNTER 2017-03-22 16:20 | Observation (INO) | payer OTHER ==
[2017-03-22] MEDS ORDERED: ONDANSETRON 4 MG/2 ML VIAL IVP STA (17:01)
[2017-03-22] MEDS ORDERED: HYDROmorphone 1 MG/ML 1 ML SYRINGE IVP STA ×2 (17:01→18:52)
[2017-03-22] MEDS ORDERED: SODIUM CHLORIDE 0.9% 1,000 ML IV STA (17:01)
--- NOTE | 2017-03-22 17:24 | ED ---
Abdominal Pain HPI - General Chief Complaint: Abdominal Pain Stated Complaint: Diverticulitis Time Seen by Provider: 03/22/17 16:54 Source: patient, RN notes reviewed Mode of arrival: wheelchair Limitations: no limitations - History of Present Illness Initial Comments: 31-year-old female presents to the emergency department with a chief complaints of left lower quadrant abdominal pain. Patient has been having this pain for the past few days. Patient went to her doctor today and was referred her to the emergency room. Patient notes nausea vomiting diarrhea. She admits to an appendectomy and a cholecystectomy. Patient states that she has had her tubes tied as well. Patient states she continues to have this pain and discomfort so she was concerned. Patient denies any nausea vomiting fever or chills. Patient states she is not currently having any other symptoms. Patient denies any recent fever, chills, shortness of breath, chest pain, back pain, numbness or tingling, dysuria or hematuria, constipation or diarrhea, headaches or visual changes, or any other current symptoms. - Related Data Home Medications Medication Instructions Recorded Confirmed Diazepam [Valium] 10 mg PO TID 12/27/14 03/22/17 PARoxetine HCL 40 mg PO DAILY 12/27/14 03/22/17 Ranitidine HCl [Zantac] 150 mg PO BID 12/27/14 03/22/17 Methylphenidate HCl [Ritalin] 20 mg PO TID 07/07/15 03/22/17 Ibuprofen [Motrin] 800 mg PO TID 07/08/15 03/22/17 Cyclobenzaprine [Flexeril] 10 mg PO TID PRN 03/27/16 03/22/17 Ondansetron [Zofran ODT] 8 mg PO Q12HR PRN 03/22/17 03/22/17 Previous Rx's Medication Instructions Recorded HYDROcodone/APAP 10-325MG [[place] 1 tab PO Q6HR PRN #28 tab 07/09/15 10-325] Allergies Allergy/AdvReac Type Severity Reaction Status Date / Time codeine Allergy Rash/Hives Verified 03/22/17 17:17 morphine Allergy Itching/Bur Verified 03/22/17 17:17 kasi Penicillins Allergy Unknown Verified 03/22/17 17:17 Childhood haloperidol [From Haldol] AdvReac Dystonic Verified 03/22/17 17:17 Reaction Iodinated Contrast Media - AdvReac Kidney Verified 03/22/17 17:17 Oral and Failure [Iodinated Contrast Media - IV Dye] Review of Systems ROS Statement: Those systems with pertinent positive or pertinent negative responses have been documented in the HPI. ROS Other: All systems not noted in ROS Statement are negative. Past Medical History Past Medical History: Asthma, Cancer, Fibromyalgia, GERD/Reflux, Osteoarthritis (OA), Renal Disease Additional Past Medical History / Comment(s): kidney failure x2 due to iodine allergy, possibly lupus, hypoglycemia, chronic back pain, sciatica, cervical CA with sx, ?crohns, c diff dx'd february 2016, L knee injury, negative Cdiff , ovarian cysts History of Any Multi-Drug Resistant Organisms: None Reported Date of last positivie culture/infection: None MDRO Source:: None Past Surgical History: Appendectomy, Cholecystectomy, Hysterectomy, Orthopedic Surgery, Tubal Ligation Additional Past Surgical History / Comment(s): several upper endoscopies, surgery on left knee, left wrist ganglion cystectomy, exploratory lap and biopsy Pt states she has had a total of OVER 50 surgeries. PARTIAL HYSTERECTOMY Past Anesthesia/Blood Transfusion Reactions: No Reported Reaction Past Psychological History: ADD/ADHD, Anxiety, Bipolar, PTSD Additional Psychological History / Comment(s): Pt states she is bipolar, manic/ ' depressive, and has anxiety. She is on meds for these and states that they help her. She resides with her significant other. She has 2 anthony's living with her as well. She is normally independent. Smoking Status: Current every day smoker Past Alcohol Use History: None Reported Additional Past Alcohol Use History / Comment(s): Pt states she has smoked for 20 yrs about a pack a day or alittle less. Past Drug Use History: None Reported - Past Family History Father Family Medical History: Cancer Additional Family Medical History / Comment(s): "You name it, both sides of my family have had it." Mother Family Medical History: Cancer General Exam - General Exam Comments Initial Comments: General: The patient is awake and alert, in no distress, and does not appear acutely ill. Eye: Pupils are equal, round and reactive to light, extra-ocular movements are intact; there is normal conjunctiva bilaterally. No signs of icterus. Ears, nose, mouth and throat: There are moist mucous membranes and no oral lesions. Neck: The neck is supple, there is no tenderness. Cardiovascular: There is a regular rate and rhythm. No murmur, rub or gallop is appreciated. Respiratory: Lungs are clear to auscultation, respirations are non-labored, breath sounds are equal. No wheezes, stridor, rales, or rhonchi. Gastrointestinal: Soft, non-distended, left lower quadrant tenderness of the abdomen without masses or organomegaly noted. There is no rebound or guarding. No CVA tenderness. Bowel sounds are unremarkable. Back: There is no tenderness to palpation in the midline. There is no obvious deformity. No rashes noted. Musculoskeletal: Normal ROM, no tenderness, There is no pedal edema. There is no calf tenderness or swelling. Sensation intact. Pulses equal bilaterally 2+. Neurological: CN II-XII intact, There are no obvious motor or sensory deficits. Coordination appears grossly intact. Speech is normal. Skin: Skin is warm and dry and no rashes or lesions are noted. Psychiatric: Cooperative, appropriate mood & affect, normal judgment. Limitations: no limitations Course Vital Signs 03/22/17 16:33 Temperature 98.9 F Pulse Rate 114 H Respiratory 20 Rate Blood Pressure 136/86 O2 Sat by Pulse 97 Oximetry Medical Decision Making - Medical Decision Making 30-year-old female presents for left lower quadrant abdominal pain. This time even after multiple doses of pain medication the patient continues to have pain and she continues to be tender. This time CAT scan is negative for multiple procedures there is concern for infection versus an etiology for the patient's pain. At this time we will admit the patient for further evaluation. - Lab Data Result diagrams: 03/22/17 17:27 03/22/17 17:27 Lab Results 03/22/17 03/22/17 03/22/17 Range/Units 17:27 17:27 17:27 WBC 8.7 (3.8-10.6) k/uL RBC 3.80 (3.80-5.40) m/uL Hgb 12.4 (11.4-16.0) gm/dL Hct 37.5 (34.0-46.0) % MCV 98.8 (80.0-100.0) fL MCH 32.6 (25.0-35.0) pg MCHC 33.0 (31.0-37.0) g/dL RDW 13.8 (11.5-15.5) % Plt Count 512 H (150-450) k/uL Neutrophils % 61 % Lymphocytes % 33 % Monocytes % 3 % Eosinophils % 1 % Basophils % 1 % Neutrophils # 5.3 (1.3-7.7) k/uL Lymphocytes # 2.9 (1.0-4.8) k/uL Monocytes # 0.2 (0-1.0) k/uL Eosinophils # 0.1 (0-0.7) k/uL Basophils # 0.1 (0-0.2) k/uL Sodium 141 (137-145) mmol/L Potassium 3.8 (3.5-5.1) mmol/L Chloride 112 H (98-107) mmol/L Carbon Dioxide 21 L (22-30) mmol/L Anion Gap 8 mmol/L BUN 3 L (7-17) mg/dL Creatinine 0.65 (0.52-1.04) mg/dL Est GFR (MDRD) Af Amer >60 (>60 ml/min/1.73 sqM) Est GFR (MDRD) Non-Af >60 (>60 ml/min/1.73 sqM) Glucose 88 (74-99) mg/dL Plasma Lactic Acid Horace 0.7 (0.7-2.0) mmol/L Calcium 9.7 (8.4-10.2) mg/dL Total Bilirubin 0.5 (0.2-1.3) mg/dL AST 10 L (14-36) U/L ALT 17 (9-52) U/L Alkaline Phosphatase 79 (38-126) U/L Total Protein 6.6 (6.3-8.2) g/dL Albumin 4.1 (3.5-5.0) g/dL Amylase 70 (30-110) U/L Lipase 82 (23-300) U/L Urine Color Urine Appearance (Clear) Urine pH (5.0-8.0) Ur Specific [place] (1.001-1.035) Urine Protein (Negative) Urine Glucose (UA) (Negative) Urine Ketones (Negative) Urine Blood (Negative) Urine Nitrite (Negative) Urine Bilirubin (Negative) Urine Urobilinogen (<2.0) mg/dL Ur Leukocyte Esterase (Negative) 03/22/17 Range/Units 18:48 WBC (3.8-10.6) k/uL RBC (3.80-5.40) m/uL Hgb (11.4-16.0) gm/dL Hct (34.0-46.0) % MCV (80.0-100.0) fL MCH (25.0-35.0) pg MCHC (31.0-37.0) g/dL RDW (11.5-15.5) % Plt Count (150-450) k/uL Neutrophils % % Lymphocytes % % Monocytes % % Eosinophils % % Basophils % % Neutrophils # (1.3-7.7) k/uL Lymphocytes # (1.0-4.8) k/uL Monocytes # (0-1.0) k/uL Eosinophils # (0-0.7) k/uL Basophils # (0-0.2) k/uL Sodium (137-145) mmol/L Potassium (3.5-5.1) mmol/L Chloride (98-107) mmol/L Carbon Dioxide (22-30) mmol/L Anion Gap mmol/L BUN (7-17) mg/dL Creatinine (0.52-1.04) mg/dL Est GFR (MDRD) Af Amer (>60 ml/min/1.73 sqM) Est GFR (MDRD) Non-Af (>60 ml/min/1.73 sqM) Glucose (74-99) mg/dL Plasma Lactic Acid Horace (0.7-2.0) mmol/L Calcium (8.4-10.2) mg/dL Total Bilirubin (0.2-1.3) mg/dL AST (14-36) U/L ALT (9-52) U/L Alkaline Phosphatase (38-126) U/L Total Protein (6.3-8.2) g/dL Albumin (3.5-5.0) g/dL Amylase (30-110) U/L Lipase (23-300) U/L Urine Color Colorless Urine Appearance Clear (Clear) Urine pH 6.0 (5.0-8.0) Ur Specific [place] 1.002 (1.001-1.035) Urine Protein Negative (Negative) Urine Glucose (UA) Negative (Negative) Urine Ketones Negative (Negative) Urine Blood Negative (Negative) Urine Nitrite Negative (Negative) Urine Bilirubin Negative (Negative) Urine Urobilinogen <2.0 (<2.0) mg/dL Ur Leukocyte Esterase Negative (Negative) Disposition Clinical Impression: Intractable abdominal pain, Hx of Clostridium difficile infection, Abdominal adhesions Disposition: ADMITTED IP TO THIS HOSP Condition: Stable Referrals: Tom Sanchez DO [Primary Care Provider] - 1-2 days Time of Disposition: 19:28 Decision Date: 03/22/17 Decision Time: 19:29
[2017-03-22 17:44] LABS: Basophils # (A) 0.1 k/uL (0-0.2); Basophils % (A) 1 %; CH 32.8; CHCM 33.4; Eosinophils # (A) 0.1 k/uL (0-0.7); Eosinophils % (A) 1 %; HCT 37.5 % (34.0-46.0); HDW 2.35; HGB 12.4 gm/dL (11.4-16.0); Luc # (Auto) 0.12; Luc % (Auto) 1; Lymphocytes # (A) 2.9 k/uL (1.0-4.8); Lymphocytes % (A) 33 %; MCH 32.6 pg (25.0-35.0); MCV 98.8 fL (80.0-100.0); Mean Platelet Volume 7.2; Monocytes # (A) 0.2 k/uL (0-1.0); Monocytes % (A) 3 %; Neutrophils # (A) 5.3 k/uL (1.3-7.7); Neutrophils % (A) 61 %; RDW 13.8 % (11.5-15.5); WBC 8.7 k/uL (3.8-10.6); WBC (Perox) 9.17
[2017-03-22 17:54] LABS: ALT 17 U/L (9-52); AST 10 U/L (14-36); Alkaline Phosphatase 79 U/L (38-126); Amylase 70 U/L (30-110); Anion Gap 8 mmol/L; Blood Urea Nitrogen 3 mg/dL (7-17); Calcium 9.7 mg/dL (8.4-10.2); Carbon Dioxide 21 mmol/L (22-30); Chloride 112 mmol/L (98-107); Glucose 88 mg/dL (74-99); Non-African American GFR(MDRD) >60 (>60 ml/min/1.73 sqM); Potassium 3.8 mmol/L (3.5-5.1); Sodium 141 mmol/L (137-145); Total Bilirubin 0.5 mg/dL (0.2-1.3); Total Protein 6.6 g/dL (6.3-8.2)
--- NOTE | 2017-03-22 18:54 | CT ---
EXAMINATION TYPE: CT abdomen pelvis wo con DATE OF EXAM: 03/22/2017 6:16 PM COMPARISON: 11/21/2016 HISTORY: Generalized pain with nausea CT DLP: 246.6 mGycm Automated exposure control for dose reduction was used. TECHNIQUE: Helical acquisition of images was performed from the lung bases through the pelvis. FINDINGS: Lung bases are clear of infiltrate. There is no pleural effusion. Liver spleen pancreas appear normal. There are clips from cholecystectomy. Bile ducts are not dilated . There is no adrenal mass. Kidneys have normal size and contour. There is no hydronephrosis. Ureters are not dilated. There is no retroperitoneal adenopathy. There is no ascites. I see no intestinal wa ll thickening. There are no dilated loops. Bladder distends smoothly. Appendix is not definitely seen . There is no sign of appendicitis. There is no sign of a pelvic mass. I see no bony destructive proc ess. IMPRESSION: NO SIGN OF ACUTE ABDOMEN AND PELVIS. CHOLECYSTECTOMY. THERE IS CLEARING OF A LEFT OVARIAN CYST APPARE NTLY COMPARED TO LAST EXAM.
[2017-03-22 19:25] LABS: Appearance,Urine Clear (Clear); Bilirubin,Urine Negative (Negative); Glucose,Urine (UA) Negative (Negative); Ketones,Urine Negative (Negative); Leukocyte Esterase,Urine Negative (Negative); Nitrite,Urine Negative (Negative); Protein,Urine Negative (Negative); Specific Gravity,Urine 1.002 (1.001-1.035); UA Billing (MACRO vs. MICRO) CHEM; Urobilinogen,Urine <2.0 mg/dL (<2.0)
[2017-03-22] MEDS ORDERED: ACETAMINOPHEN TAB 325 MG TAB PO PRN (19:29)
[2017-03-22] MEDS ORDERED: NALOXONE 0.4 MG/ML 1 ML VIAL IV PRN (19:29)
[2017-03-22] MEDS ORDERED: DIAZEPAM 5 MG/ML 2 ML SYRINGE IVP STA (19:34)
[2017-03-22] MEDS: IBUPROFEN 800 MG TAB PO SCH (19:58)
[2017-03-22] MEDS ORDERED: DIAZEPAM 5 MG TAB ONE (19:58)
[2017-03-22] MEDS: FAMOTIDINE 20 MG TAB PO SCH (21:30)
[2017-03-22] MEDS: METHYLPHENIDATE HCL 10 MG TAB PO SCH (21:30)
[2017-03-22] MEDS: HYDROcodone/APAP 5-325MG 1 EACH TAB PO PRN (21:30)
[2017-03-22] MEDS ORDERED: DIAZEPAM 10 MG PO SCH (22:00)
[2017-03-22] MEDS: SODIUM CHLORIDE 0.9% 1,000 ML IV SCH (22:08)
[2017-03-22] MEDS: DIAZEPAM 5 MG TAB PO SCH (22:09)
[2017-03-22] MEDS: CYCLOBENZAPRINE 10 MG TAB PO PRN (22:51)
[2017-03-22] MEDS: HYDROmorphone 1 MG/ML 1 ML SYRINGE IV PRN (22:51)
[2017-03-23] MEDS: HYDROmorphone 1 MG/ML 1 ML SYRINGE IV PRN ×8 (01:23→22:25)
[2017-03-23] MEDS: ONDANSETRON 4 MG/2 ML VIAL IVP PRN ×4 (01:23→23:48)
[2017-03-23] MEDS: HYDROcodone/APAP 5-325MG 1 EACH TAB PO PRN ×3 (01:28→11:26)
[2017-03-23] MEDS: SODIUM CHLORIDE 0.9% 1,000 ML IV SCH ×2 (04:38→13:35)
[2017-03-23 05:42] VITALS: BMI 18.8
[2017-03-23] MEDS: CYCLOBENZAPRINE 10 MG TAB PO PRN (07:24)
[2017-03-23] MEDS: PARoxetine 20 MG TAB PO SCH (08:17)
[2017-03-23] MEDS: IBUPROFEN 800 MG TAB PO SCH ×3 (08:24→21:33)
[2017-03-23] MEDS: DIAZEPAM 5 MG TAB PO SCH ×3 (08:24→21:33)
[2017-03-23] MEDS: METHYLPHENIDATE HCL 10 MG TAB PO SCH ×3 (08:26→21:32)
[2017-03-23] MEDS: FAMOTIDINE 20 MG TAB PO SCH ×2 (08:26→21:32)
[2017-03-23 09:39] LABS: ALT 14 U/L (9-52); AST 11 U/L (14-36); Alkaline Phosphatase 53 U/L (38-126); Anion Gap 8 mmol/L; Blood Urea Nitrogen 4 mg/dL (7-17); Calcium 8.9 mg/dL (8.4-10.2); Carbon Dioxide 20 mmol/L (22-30); Chloride 114 mmol/L (98-107); Glucose 85 mg/dL (74-99); Non-African American GFR(MDRD) >60 (>60 ml/min/1.73 sqM); Potassium 3.7 mmol/L (3.5-5.1); Sodium 142 mmol/L (137-145); Total Bilirubin 0.5 mg/dL (0.2-1.3); Total Protein 5.8 g/dL (6.3-8.2)
[2017-03-23 09:43] LABS: Basophils # (A) 0.1 k/uL (0-0.2); Basophils % (A) 1 %; CH 32.2; CHCM 31.3; Eosinophils # (A) 0.3 k/uL (0-0.7); Eosinophils % (A) 3 %; HCT 35.2 % (34.0-46.0); HDW 2.38; HGB 11.2 gm/dL (11.4-16.0); Luc # (Auto) 0.17; Luc % (Auto) 2; Lymphocytes # (A) 4.1 k/uL (1.0-4.8); Lymphocytes % (A) 50 %; MCH 32.8 pg (25.0-35.0); MCHC 31.7 g/dL (31.0-37.0); MCV 103.3 fL (80.0-100.0); Macrocytosis Slight; Mean Platelet Volume 7.3; Monocytes # (A) 0.3 k/uL (0-1.0); Monocytes % (A) 4 %; Neutrophils # (A) 3.4 k/uL (1.3-7.7); Neutrophils % (A) 41 %; RBC 3.41 m/uL (3.80-5.40); RDW 13.8 % (11.5-15.5); WBC 8.4 k/uL (3.8-10.6); WBC (Perox) 8.34
[2017-03-23 13:10] LABS: Manual Review Performed
--- NOTE | 2017-03-23 14:50 | P.GSCN ---
History of Present Illness Consult date: 03/23/17 Reason for Consult: Intractable abdominal pain Requesting physician: Ramirez Garcia History of present illness: Patient is a 31-year-old female, patient of Dr. Sanchez in the outpatient setting. Medical history significant for fibromyalgia, chronic back pain, sciatica, C. difficile colitis, and cervical cancer. Surgical history significant for appendectomy, cholecystectomy, hysterectomy, and tubal ligation. Patient presenting to the emergency department with complains of left lower quadrant pain associated with nausea, vomiting, and diarrhea. Onset of symptoms 2 days ago. No history of fevers, chills, shortness of breath, or chest pain. No history of urinary urgency, hematuria, or dysuria. No history of melena, hematochezia, or hematemesis. CT of abdomen and pelvis negative for acute abdomen with no interstitial no wall thickening. No evidence of leukocytosis. Other admission labs essentially unremarkable. Upon exam, patient complains of umbilical and right lower quadrant pain. Patient states pain is slightly better than yesterday. Patient complains of nausea without vomiting. No further episodes of diarrhea since admission. Patient complains of a mild headache and states she just needs some pain medication so she can sleep. Tolerating clear liquid diet. Past Medical History Past Medical History: Asthma, Cancer, Fibromyalgia, GERD/Reflux, Osteoarthritis (OA), Renal Disease Additional Past Medical History / Comment(s): kidney failure x2 due to iodine allergy, possibly lupus, hypoglycemia, chronic back pain, sciatica, cervical CA with sx, ?crohns, c diff dx'd february 2016, L knee injury, ovarian cysts History of Any Multi-Drug Resistant Organisms: None Reported Year Discovered:: None MDRO Source:: None Past Surgical History: Appendectomy, Cholecystectomy, Hysterectomy, Orthopedic Surgery, Tubal Ligation Additional Past Surgical History / Comment(s): several upper endoscopies, surgery on left knee, left wrist ganglion cystectomy, exploratory lap and biopsy Pt states she has had a total of OVER 50 surgeries. PARTIAL HYSTERECTOMY Past Anesthesia/Blood Transfusion Reactions: No Reported Reaction Past Psychological History: ADD/ADHD, Anxiety, Bipolar, PTSD Additional Psychological History / Comment(s): Pt states she is bipolar, manic/ ' depressive, and has anxiety. She is on meds for these and states that they help her. She resides with her parents. She has 2 anthony's living with her as well. PPO against previous significant other. She is normally independent. Smoking Status: Current every day smoker Past Alcohol Use History: None Reported Additional Past Alcohol Use History / Comment(s): Pt states she has smoked for 20 yrs about a pack a day or alittle less. Past Drug Use History: None Reported - Past Family History Father Family Medical History: Cancer Additional Family Medical History / Comment(s): "You name it, both sides of my family have had it." Mother Family Medical History: Cancer Medications and Allergies Home Medications Medication Instructions Recorded Confirmed Type Diazepam [Valium] 10 mg PO TID 12/27/14 03/22/17 History PARoxetine HCL 40 mg PO DAILY 12/27/14 03/22/17 History Ranitidine HCl [Zantac] 150 mg PO BID 12/27/14 03/22/17 History Methylphenidate HCl [Ritalin] 20 mg PO TID 07/07/15 03/22/17 History Ibuprofen [Motrin] 800 mg PO TID 07/08/15 03/22/17 History Cyclobenzaprine [Flexeril] 10 mg PO TID PRN 03/27/16 03/22/17 History Ondansetron [Zofran ODT] 8 mg PO Q12HR PRN 03/22/17 03/22/17 History Allergies Allergy/AdvReac Type Severity Reaction Status Date / Time codeine Allergy Rash/Hives Verified 03/22/17 17:17 morphine Allergy Itching/Bur Verified 03/22/17 17:17 kasi Penicillins Allergy Unknown Verified 03/22/17 17:17 Childhood haloperidol [From Haldol] AdvReac Dystonic Verified 03/22/17 17:17 Reaction Iodinated Contrast Media - AdvReac Kidney Verified 03/22/17 17:17 Oral and Failure [Iodinated Contrast Media - IV Dye] Surgical - Exam Vital Signs Temp Pulse Resp BP Pulse Ox 98.9 F 114 H 20 136/86 97 03/22/17 16:33 03/22/17 16:33 03/22/17 16:33 03/22/17 16:33 03/22/17 16:33 GENERAL: Pt awake and alert, appears in no acute distress. ENT: Moist mucous membranes. LUNGS: Breath sounds clear to auscultation bilaterally. No wheezes, rales, or rhonchi. HEART: Heart S1, S2, no S3 or S4. Regular rate and rhythm. No murmurs, rubs or gallops. ABDOMEN: Soft, moderate periumbilical and right lower quadrant tenderness, nondistended, normoactive bowel sounds. No peritoneal signs. NEUROLOGICAL: Pt oriented x 3. Results - Labs 03/23/17 08:35 03/23/17 08:35 Abnormal Lab Results - Last 24 Hours (Table) 03/22/17 03/22/17 03/23/17 Range/Units 17:27 17: 08:35 RBC 3.41 L (3.80-5.40) m/uL Hgb 11.2 L (11.4-16.0) gm/dL MCV 103.3 H (80.0-100.0) fL Plt Count 512 H (150-450) k/uL Chloride 112 H (98-107) mmol/L Carbon Dioxide 21 L (22-30) mmol/L BUN 3 L (7-17) mg/dL AST 10 L (14-36) U/L Total Protein (6.3-8.2) g/dL 03/23/17 Range/Units 08:35 RBC (3.80-5.40) m/uL Hgb (11.4-16.0) gm/dL MCV (80.0-100.0) fL Plt Count (150-450) k/uL Chloride 114 H (98-107) mmol/L Carbon Dioxide 20 L (22-30) mmol/L BUN 4 L (7-17) mg/dL AST 11 L (14-36) U/L Total Protein 5.8 L (6.3-8.2) g/dL Diabetes panel 03/22/17 03/23/17 Range/Units 17:27 08:35 Sodium 141 142 (137-145) mmol/L Potassium 3.8 3.7 (3.5-5.1) mmol/L Chloride 112 H 114 H (98-107) mmol/L Carbon Dioxide 21 L 20 L (22-30) mmol/L BUN 3 L 4 L (7-17) mg/dL Creatinine 0.65 0.65 (0.52-1.04) mg/dL Glucose 88 85 (74-99) mg/dL Calcium 9.7 8.9 (8.4-10.2) mg/dL AST 10 L 11 L (14-36) U/L ALT 17 14 (9-52) U/L Alkaline Phosphatase 79 53 (38-126) U/L Total Protein 6.6 5.8 L (6.3-8.2) g/dL Albumin 4.1 3.5 (3.5-5.0) g/dL Calcium panel 03/22/17 03/23/17 Range/Units 17:27 08:35 Calcium 9.7 8.9 (8.4-10.2) mg/dL Albumin 4.1 3.5 (3.5-5.0) g/dL Pituitary panel 03/22/17 03/23/17 Range/Units 17: 08:35 Sodium 141 142 (137-145) mmol/L Potassium 3.8 3.7 (3.5-5.1) mmol/L Chloride 112 H 114 H (98-107) mmol/L Carbon Dioxide 21 L 20 L (22-30) mmol/L BUN 3 L 4 L (7-17) mg/dL Creatinine 0.65 0.65 (0.52-1.04) mg/dL Glucose 88 85 (74-99) mg/dL Calcium 9.7 8.9 (8.4-10.2) mg/dL Adrenal panel 03/22/17 03/23/17 Range/Units 17:27 08:35 Sodium 141 142 (137-145) mmol/L Potassium 3.8 3.7 (3.5-5.1) mmol/L Chloride 112 H 114 H (98-107) mmol/L Carbon Dioxide 21 L 20 L (22-30) mmol/L BUN 3 L 4 L (7-17) mg/dL Creatinine 0.65 0.65 (0.52-1.04) mg/dL Glucose 88 85 (74-99) mg/dL Calcium 9.7 8.9 (8.4-10.2) mg/dL Total Bilirubin 0.5 0.5 (0.2-1.3) mg/dL AST 10 L 11 L (14-36) U/L ALT 17 14 (9-52) U/L Alkaline Phosphatase 79 53 (38-126) U/L Total Protein 6.6 5.8 L (6.3-8.2) g/dL Albumin 4.1 3.5 (3.5-5.0) g/dL - Imaging CT scan - pelvis: report reviewed US - abdomen: report reviewed Assessment and Plan Plan: Impression: 1. Intractable abdominal pain associated with nausea and vomiting and diarrhea , present on admission, improved. CT of abdomen and pelvis unremarkable. 2. History of chronic abdominal pain 5 years duration. Plan: Continue to monitor patient. Continue clear liquid diet, advance as tolerated. Continue IV hydration. Obtain C. diff culture. Continue supportive treatment and pain management. Continue to follow with medical team and gastrointestinal service team. We will continue to follow patient. The above impression and plan have been discussed and directed by Dr. Gonzalez. Lonnie HILL acting as scribe for Dr. Gonzalez.
[2017-03-23] MEDS: HYDROcodone/APAP 5-325MG 1 EACH TAB PO SCH ×3 (15:39→23:48)
[2017-03-23] MEDS: CYCLOBENZAPRINE 10 MG TAB PO SCH ×2 (15:39→21:34)
--- NOTE | 2017-03-23 19:48 | HP ---
DATE OF ADMISSION: CHIEF COMPLAINT: Abdominal pain. HISTORY OF PRESENT ILLNESS: This 31-year-old woman with a past medical history of multiple medical problems, including asthma, history of fibromyalgia, GERD, history of C difficile colitis, history of kidney failure, ADHD, anxiety, bipolar, PTSD, being followed by Dr. Sanchez in the outpatient setting, was not feeling well over the past several days. Patient was complaining of abdominal pain in the left lower quadrant and patient also had some diarrhea on and off. The patient came to [facility] and was admitted for further evaluation and treatment. The patient also had some nausea. In the ER the white count was 8.7, platelets 512. The patient also had a CT scan of the abdomen and pelvis which showed no signs of acute abdomen and cholecystectomy and clearing of a left ovarian cyst, also. The patient was admitted for further evaluation and treatment. There is no history of any fever, rigor, or chills. No history of any headache, loss of consciousness, seizures. Surgical evaluation is in progress. PAST MEDICAL HISTORY: 1. History of asthma. 2. Fibromyalgia. 3. GERD. 4. History of DJD. 5. History of renal failure. 6. History of C difficile. 7. History of appendectomy. 8. Cholecystectomy. HOME MEDICATIONS: 1. Ranitidine 150 mg p.o. b.i.d. 2. Paxil 40 mg p.o. daily. 3. Zofran 8 mg b.i.d. p.r.n. 4. Ritalin 20 mg p.o. t.i.d. 5. Motrin 800 mg t.i.d. 6. Cong[place] 10 mg q.6 p.r.n. 7. Valium 10 mg p.o. t.i.d. 8. Flexeril 10 mg t.i.d. p.r.n. ALLERGIES: 1. CODEINE. 2. MORPHINE. 3. PENICILLINS. 4. HALOPERIDOL. 5. IODINATED CONTRAST DYES. FAMILY HISTORY: History of cancers in the family. SOCIAL HISTORY: History of smoking. No history of alcohol intake. REVIEW OF SYSTEMS: ENT: No diminishing hearing. No diminished vision. CARDIOVASCULAR: No angina or palpitations. RESPIRATORY: As mentioned earlier. GI: As mentioned earlier. : No dysuria, retention. NERVOUS SYSTEM: No numbness or weakness. ALLERGY/IMMUNOLOGY: No asthma, hayfever. MUSCULOSKELETAL: As mentioned earlier. HEMATOLOGY/ONCOLOGY: No history of anemia. ENDOCRINE: No history of diabetes, hypothyroidism. CONSTITUTIONAL: As mentioned earlier. DERMATOLOGY: Negative. RHEUMATOLOGY: Negative. PSYCHIATRY: As mentioned earlier. PHYSICAL EXAMINATION: Patient alert and oriented x3. Pulse 92, blood pressure 113/80, respiration 16, temperature 98 degrees, pulse ox 98% on room air. HEENT: Conjunctivae normal. Oral mucosa moist. NECK: No jugular venous distention. No carotid bruit. No lymph node enlargement. CARDIOVASCULAR SYSTEM: S1, S2 muffled. No S3. No S4. RESPIRATORY SYSTEM: Breath sounds diminished at the bases. No rhonchi. No crackles. ABDOMEN: Soft. Mild diffuse discomfort on palpation. No guarding. No rigidity. No mass palpable. No ascites. Bowel sounds present. LEGS: No edema. No swelling. NERVOUS SYSTEM: Higher functions as mentioned earlier. Moves all 4 limbs. No focal motor or sensory deficit. LYMPHATICS: No lymph node palpable in neck, axillae or groin. SKIN: No ulcer, rash, bleeding. LABS: WBC 8.4, hemoglobin 11.2, MCV 103.3. Sodium 142, potassium 3.7. AST 11. Total protein is 5.8. ASSESSMENT: 1. Abdominal pain, diarrhea, nausea, vomiting for evaluation; possible acute gastroenteritis. 2. Rule out gastritis or peptic ulcer disease. 3. Rule out Clostridium difficile colitis. 4. Anemia, macrocytic anemia, possibly nutritional. 5. Increased chloride. 6. History of Clostridium difficile colitis. 7. History of asthma. 8. History of fibromyalgia. 9. History of gastroesophageal reflux disease. 10. Degenerative joint disease. 11. Severe abdominal pain. 12. History of lupus possibly. 13. History of hypoglycemia. 14. History of degenerative joint disease and chronic back pain. 15. History of Crohn's, apparently. 16. History of cholecystectomy. 17. History of attention deficit disorder, attention deficit hyperactivity disorder. 18. Anxiety, bipolar, post-traumatic stress disorder. 19. History of continued ongoing nicotine dependence. RECOMMENDATIONS AND DISCUSSION: In this 31-year-old woman who presented with multiple complex medical issues, at this time I recommend to continue with the current medications, continue with symptomatic treatment. Otherwise, surgical evaluation. See orders for further details. Prognosis guarded. Further recommendations to follow. Resume the home medications. The pain medication has been addressed. Dr. Salomon is following the patient for pain management. [facility]
[2017-03-23] MEDS: TEMAZEPAM 15 MG CAP PO PRN (22:29)
[2017-03-24] MEDS: HYDROmorphone 1 MG/ML 1 ML SYRINGE IV PRN ×8 (01:36→23:31)
[2017-03-24] MEDS: HYDROcodone/APAP 5-325MG 1 EACH TAB PO SCH ×6 (03:58→23:30)
[2017-03-24] MEDS: SODIUM CHLORIDE 0.9% 1,000 ML IV SCH ×3 (06:25→11:37)
[2017-03-24] MEDS: ONDANSETRON 4 MG/2 ML VIAL IVP PRN ×3 (07:42→23:30)
[2017-03-24] MEDS: FAMOTIDINE 20 MG TAB PO SCH ×2 (08:27→20:36)
[2017-03-24] MEDS: PARoxetine 20 MG TAB PO SCH ×2 (08:27→08:34)
[2017-03-24] MEDS: METHYLPHENIDATE HCL 10 MG TAB PO SCH ×3 (08:31→23:30)
[2017-03-24] MEDS: IBUPROFEN 800 MG TAB PO SCH ×3 (08:31→23:30)
[2017-03-24] MEDS: DIAZEPAM 5 MG TAB PO SCH ×3 (10:16→23:30)
[2017-03-24] MEDS: CYCLOBENZAPRINE 10 MG TAB PO SCH ×3 (10:16→23:30)
--- NOTE | 2017-03-24 10:53 | P.CONS ---
History of Present Illness - Reason for Consult Consult date: 03/24/17 abdominal pain Requesting physician: Andrew Ahmadi - History of Present Illness 31-year-old female patient of Dr. Sanchez with a past medical history of cervical carcinoma, fibromyalgia, GERD, IBS, cholecystectomy, lupus, kidney failure, sciatica with chronic back pain, osteoarthritis, and Clostridium difficile colitis February 2016. Presents with intractable nausea vomiting and multiple episodes of nonbloody watery diarrhea that started over the weekend. Diarrhea improving; small loose stool last night not quantitatively enough to send for analysis. Presently resting comfortably. She was expressing right sided/right lower quadrant abdominal pain. Evaluated by general surgery is no plans for surgical intervention at this time. CT abdomen and pelvis reported no sign of acute abdomen and pelvis. White count 8.4. Hemoglobin 11.2. Platelet 440. LFTs within normal limits. Afebrile. Patient takes multiple medications for abdominal pain and home including Motrin [place] 10, Valium, and Flexeril. Persistently asking nursing staff for IV and oral pain medications. Review of Systems Constitutional: Denies fever, chills, sweats, weight gain, or loss. HEENT: Negative for migraines, blurred vision or loss, earaches, drainage, tinnitus, oral mucosal lesions, dysphagia, or odynophagia. CARDIAC: Negative for chest pain, arrhythmias, or palpitation. RESPIRATORY: Negative for shortness of breath, hemoptysis, cough, or sputum production. GI: See HPI for pertinent findings. : Negative for hematuria, urgency, frequency, polyuria, or dysuria. GYNc: Cervical carcinoma. Denies possibility of . Negative vaginal discharge. MUSCULOSKELETAL: Fibromyalgia. Chronic back pain. Sciatica. Negative for muscle aches, swelling, arthritis, and arthralgias. NEUROLOGIC: Negative for stroke or TIA. ENDOCRINE: Negative for thyroid problems. SKIN: Negative for rash or itching. PSYCHIATRIC: Negative history for depression and anxiety All systems: negative (See HPI) Past Medical History Past Medical History: Asthma, Cancer, Fibromyalgia, GERD/Reflux, Osteoarthritis (OA), Renal Disease Additional Past Medical History / Comment(s): kidney failure x2 due to iodine allergy, possibly lupus, hypoglycemia, chronic back pain, sciatica, cervical CA with sx, ?crohns, c diff dx'd february 2016, L knee injury, ovarian cysts History of Any Multi-Drug Resistant Organisms: None Reported Year Discovered:: None MDRO Source:: None Past Surgical History: Appendectomy, Cholecystectomy, Hysterectomy, Orthopedic Surgery, Tubal Ligation Additional Past Surgical History / Comment(s): several upper endoscopies, surgery on left knee, left wrist ganglion cystectomy, exploratory lap and biopsy Pt states she has had a total of OVER 50 surgeries. PARTIAL HYSTERECTOMY Past Anesthesia/Blood Transfusion Reactions: No Reported Reaction Past Psychological History: ADD/ADHD, Anxiety, Bipolar, PTSD Additional Psychological History / Comment(s): Pt states she is bipolar, manic/ ' depressive, and has anxiety. She is on meds for these and states that they help her. She resides with her parents. She has 2 anthony's living with her as well. PPO against previous significant other. She is normally independent. Smoking Status: Current every day smoker Past Alcohol Use History: None Reported Additional Past Alcohol Use History / Comment(s): Pt states she has smoked for 20 yrs about a pack a day or alittle less. Past Drug Use History: None Reported - Past Family History Father Family Medical History: Cancer Additional Family Medical History / Comment(s): "You name it, both sides of my family have had it." Mother Family Medical History: Cancer Medications and Allergies Home Medications Medication Instructions Recorded Confirmed Type Diazepam [Valium] 10 mg PO TID 12/27/14 03/22/17 History PARoxetine HCL 40 mg PO DAILY 12/27/14 03/22/17 History Ranitidine HCl [Zantac] 150 mg PO BID 12/27/14 03/22/17 History Methylphenidate HCl [Ritalin] 20 mg PO TID 07/07/15 03/22/17 History Ibuprofen [Motrin] 800 mg PO TID 07/08/15 03/22/17 History Cyclobenzaprine [Flexeril] 10 mg PO TID PRN 03/27/16 03/22/17 History Ondansetron [Zofran ODT] 8 mg PO Q12HR PRN 03/22/17 03/22/17 History Allergies Allergy/AdvReac Type Severity Reaction Status Date / Time codeine Allergy Rash/Hives Verified 03/22/17 17:17 morphine Allergy Itching/Bur Verified 03/22/17 17:17 kasi Penicillins Allergy Unknown Verified 03/22/17 17:17 Childhood haloperidol [From Haldol] AdvReac Dystonic Verified 03/22/17 17:17 Reaction Iodinated Contrast Media - AdvReac Kidney Verified 03/22/17 17:17 Oral and Failure [Iodinated Contrast Media - IV Dye] Physical Exam Vitals: Vital Signs Temp Pulse Resp BP Pulse Ox 03/24/17 08:00 89 16 03/24/17 07:00 98 F 89 16 112/66 99 03/23/17 23:00 97.6 F 91 16 110/83 100 03/23/17 15:42 91 16 03/23/17 15:00 98.5 F 91 16 125/79 98 Intake and Output 03/23/17 03/24/17 03/24/17 22:59 06:59 14:59 Other: Voiding Method Bedside Commode Bedside Commode Bedside Commode # Voids 3 6 6 # Bowel Movements 0 Weight 49.895 kg 49.895 kg Patient Weight 03/25/17 06:59 Weight 49.895 kg General appearance: The patient is alert, oriented, in no acute distress. HET: Head is normocephalic and atraumatic. Pupils are equal and reactive. Oropharynx is clear without lesions. Neck: Supple without lymphadenopathy. Trachea midline. Heart: S1 S2. Regular rate and rhythm. Lungs: No crackles or wheezes are heard. Abdomen: Soft, mild midabdominal tenderness, nondistended with bowel sounds. No peritoneal signs. No palpable organomegaly or masses. Extremities: Normal skin color and turgor. No cyanosis, rash, ulceration, clubbing, or edema. Radial and pedal pulses are 2/4 bilaterally. Neurological: No focal deficits. Strength and sensation are grossly intact. Results CBC & Chem 7: 03/23/17 08:35 03/23/17 08:35 Labs: Abnormal Lab Results - Last 24 Hours (Table) 03/23/17 Range/Units 08:35 RBC 3.41 L (3.80-5.40) m/uL Hgb 11.2 L (11.4-16.0) gm/dL MCV 103.3 H (80.0-100.0) fL Microbiology - Last 24 Hours (Table) 03/22/17 17:27 Blood Culture - Preliminary Blood No Growth after [address] scan - abdomen: report reviewed (Reviewed by Dr. Wang) Assessment and Plan (1) Abdominal pain Narrative/Plan: Acute on chronic etiology unclear possible gastroenteritis self-limiting with watery diarrhea improved underlying IBS. Status: Acute Plan: 1. Continue supportive measures per discharge per medicine. If diarrhea worsens sent for stool culture and fecal leukocytes and Clostridium difficile toxin. Wean off IV opiates continue with home medications. Diet as tolerated. Patient can follow up in the GI office after discharge in 2-3 weeks if her symptoms do not improve. Will Follow as needed. Thank you for this kind referral and the opportunity to participate in the care of your patient. This consultation was discussed with Dr. Wang. The impression and plan of care have been directed as dictated.
[2017-03-24] MEDS: LACTATED RINGERS 1,000 ML IV SCH (17:16)
--- NOTE | 2017-03-24 17:17 | P.PN ---
Subjective Patient is a 31-year-old female admitted with intractable abdominal pain. Upon examination, patient continues to complain of umbilical and right lower quadrant pain but states it's better than yesterday. Patient states she had an episode of vomiting this morning. No further diarrhea since admission. Patient is tolerating a clear liquid diet. Afebrile. Objective - Vital Signs Vital signs: Vital Signs Temp 98.0 F 03/24/17 15:00 Pulse 84 03/24/17 15:00 Resp 16 03/24/17 15:00 BP 117/67 03/24/17 15:00 Pulse Ox 98 03/24/17 15:00 Intake & Output 03/23/17 03/24/17 03/24/17 18:59 06:59 18:59 Intake Total 700 Balance 700 Weight 49.895 kg 49.895 kg Intake: Intake, IV Titration 700 Amount Sodium Chloride 0.9% 1, 700 000 ml @ 100 mls/hr IV . Q10H [facility] Rx#:[id number] Other: Voiding Method Bedside Commode Bedside Commode Bedside Commode # Voids 3 6 4 # Bowel Movements 0 - Exam GENERAL: Pt awake and alert, appears in no acute distress. ENT: Moist mucous membranes. LUNGS: Breath sounds clear to auscultation bilaterally. No wheezes, rales, or rhonchi. HEART: Heart S1, S2, no S3 or S4. Regular rate and rhythm. No murmurs, rubs or gallops. ABDOMEN: Soft, moderate periumbilical and right lower quadrant tenderness, nondistended, normoactive bowel sounds. No peritoneal signs. NEUROLOGICAL: Pt oriented x 3. - Labs CBC & Chem 7: 03/23/17 08:35 03/23/17 08:35 Labs: Microbiology - Last 24 Hours (Table) 03/22/17 17:27 Blood Culture - Preliminary Blood No Growth after 24 hours Assessment and Plan Plan: Impression: 1. Intractable abdominal pain associated with nausea and vomiting and diarrhea , present on admission, improved. CT of abdomen and pelvis unremarkable. 2. History of chronic abdominal pain 5 years duration. Plan: Patient will undergo an EGD tomorrow. Patient will be nothing by mouth after midnight. Continue IV hydration. Obtain C. diff culture. Continue supportive treatment and pain management. Continue to follow with medical team and gastrointestinal service team. We will continue to follow patient. The above impression and plan have been discussed and directed by Dr. Gonzalez. Lonnie HILL acting as scribe for Dr. Gonzalez.
--- NOTE | 2017-03-24 19:25 | PN ---
DATE OF SERVICE: 03/24/2017 This 31-year-old woman was admitted with diffuse abdominal pain and also had some diarrhea. The patient also had the gastritis. No chest pain or palpitations. No fever. Gastroenterology and Surgery are following the patient closely. On exam, alert and oriented x3. Pulse 91, blood pressure 120/83, respirations 16, temperature 97.6, pulse ox 100% on room air. HEENT: Conjunctivae normal. NECK: No jugular venous distension. CARDIOVASCULAR: S1 and S2 muffled. RESPIRATORY: Breath sounds diminished in the bases. No rhonchi. No crackles. ABDOMEN: Soft. Mild diffuse tenderness present. No guarding. No rigidity. No mass palpable. LEGS: No edema. NERVOUS SYSTEM: No focal deficits. LABS: WBC 8.3, hemoglobin is 11.2. Otherwise, other labs are noted. ASSESSMENT: 1. Diffuse abdominal pain, diarrhea, nausea, vomiting, present on admission, possible acute gastroenteritis. 2. Rule out gastritis or peptic ulcer disease. 3. Rule out Clostridium difficile colitis. 4. Anemia, macrocytic anemia, possibly nutritional. 5. Increased chloride. 6. History of Clostridium difficile colitis. 7. History of asthma, fibromyalgia. 8. History of gastroesophageal reflux disease. 9. History of degenerative joint disease. 10. History of severe abdominal pain. 11. History of lupus possibly. 12. History of hypoglycemia. 13. History of degenerative joint disease and chronic back pain. 14. History of Crohn disease apparently. 15. History of cholecystectomy. 17. Anxiety, posttraumatic disorder and continued ongoing nicotine dependence. 18. FULL CODE. RECOMMENDATIONS AND DISCUSSION: I recommend to continue current symptomatic treatment. Otherwise, will check the CRP and ESR. Otherwise, I would also recommend possible upper endoscopy with the possible peptic ulcer disease or gastritis. Will follow the patient closely. Prognosis guarded. Further recommendations to follow. See orders for further details. MTDD
[2017-03-24] MEDS: TEMAZEPAM 15 MG CAP PO PRN (23:30)
[2017-03-25] MEDS: SODIUM CHLORIDE 0.9% 1,000 ML IV SCH ×3 (00:06→17:35)
[2017-03-25] MEDS: HYDROmorphone 1 MG/ML 1 ML SYRINGE IV PRN ×7 (02:26→22:46)
[2017-03-25] MEDS: HYDROcodone/APAP 5-325MG 1 EACH TAB PO SCH ×6 (03:58→23:34)
[2017-03-25] MEDS: CYCLOBENZAPRINE 10 MG TAB PO SCH ×3 (07:52→23:34)
[2017-03-25] MEDS: FAMOTIDINE 20 MG TAB PO SCH ×2 (07:52→20:14)
[2017-03-25] MEDS: PARoxetine 20 MG TAB PO SCH (07:53)
[2017-03-25] MEDS: METHYLPHENIDATE HCL 10 MG TAB PO SCH ×3 (07:57→21:54)
[2017-03-25] MEDS: ONDANSETRON 4 MG/2 ML VIAL IVP PRN ×2 (07:58→15:40)
[2017-03-25] MEDS: IBUPROFEN 800 MG TAB PO SCH ×3 (07:58→21:54)
[2017-03-25] MEDS: DIAZEPAM 5 MG TAB PO SCH ×3 (07:59→23:35)
[2017-03-25] MEDS ORDERED: GLYCOPYRROLATE 0.2 MG/ML 2 ML VIAL ONE (14:25)
[2017-03-25] MEDS ORDERED: MIDAZOLAM 2 MG/2 ML VIAL ONE (14:25)
[2017-03-25] MEDS ORDERED: PROPOFOL 10 MG/ML 20 ML VIAL IV ONE (14:25)
[2017-03-25] MEDS ORDERED: LIDOCAINE 1% INJ 10MG/ML (20 ML MDV) ONE (14:25)
[2017-03-25] MEDS ORDERED: fentaNYL (PF) 50 MCG/ML 2 ML AMP ONE (14:25)
[2017-03-25] MEDS ORDERED: IV FLUID CONTINUATION 1,000 ML IV ONE (14:26)
--- NOTE | 2017-03-25 14:35 | P.OP ---
Date of Procedure: 03/25/17 Preoperative Diagnosis: Epigastric abdominal pain Postoperative Diagnosis: Antral ulcer Procedure(s) Performed: EGD Implants: Anesthesia: MAC Surgeon: Shaan Gonzalez Pathology: other (Antral ulcer) Condition: stable Disposition: PACU Indications for Procedure: Operative Findings: Description of Procedure: The patient's placed on the endoscopy table in the lateral position. She received IV sedation. The gastroscope placed oropharynx passed into the esophagus and stomach. The scope was then placed through the pylorus. The first and second portion of the duodenum appeared normal. The scope was then brought back the antrum and at the pylorus there was a large ulcer seen. There was a fibrinopurulent exudate in the ulcer. There is no active bleeding. The edge of the ulcer was biopsied. And photographed. The scope was unretroflexed and remainder of the stomach appeared normal. The GE junction at 47 is. The distal esophagus appeared minimally inflamed the proximal esophagus. Normal. Scope was withdrawn for patient.
[2017-03-25] MEDS: LACTATED RINGERS 1,000 ML IV SCH (16:11)
--- NOTE | 2017-03-25 17:21 | PN ---
DATE OF SERVICE: 03/25/2017 This 31-year-old woman was admitted with severe abdominal pain. She had an EGD done by Dr. Gonzalez and the EGD showed a large pyloric ulcer. Fibrinopurulent exudate was also noted. The patient is being closely monitored. No chest. No palpitation. No fever. On exam, alert and oriented x3. Pulse is 72, blood pressure 100/61, respiration 18, temperature 97.8, pulse ox 99% on room air. HEENT: Conjunctivae normal. NECK: No jugular venous distention. CARDIOVASCULAR SYSTEM: S1, S2 muffled. RESPIRATORY SYSTEM: Breath sounds diminished at the bases. No rhonchi. No crackles. ABDOMEN: Soft. Mild diffuse discomfort. No guarding. No rigidity. No mass palpable. LEGS: No edema. No swelling. NERVOUS SYSTEM: No focal deficit. LABS: WBC 8.4, hemoglobin 11.2. ASSESSMENT: 1. Diffuse abdominal pain, severe, status post esophagogastroduodenoscopy showing peptic ulcer disease and a pyloric ulcer. 2. Diarrhea, nausea, vomiting; possible acute gastroenteritis, present on admission. 3. No evidence of Clostridium difficile colitis. 4. Anemia, macrocytic; anemia of possibly nutrition. 5. Increased chloride. 6. History of Clostridium difficile colitis. 7. History of asthma. 8. Fibromyalgia. 9. History of gastroesophageal reflux disease. 10. History of degenerative joint disease. 11. Severe abdominal pain. 12. History of lupus, possibly. 13. History of hypoglycemia. 14. History of degenerative joint disease and chronic back pain. 15. History of Crohn's disease, apparently. 16. History of cholecystectomy. 17. History of anxiety, post-traumatic stress disorder. 18. Continued ongoing nicotine dependence. 19. FULL CODE. RECOMMENDATIONS AND DISCUSSION: I recommend to continue with the current medications, continue with the monitoring, symptomatic treatment. Otherwise, at this time I would recommend proton pump inhibitors. Closely monitor with Surgery and Gastroenterology. Guarded prognosis because of multiple complex medical issues. Further recommendations to follow. Patient is still complaining of severe abdominal pain. We will initiate the diet and advance it slowly as tolerated.
[2017-03-25] MEDS: PANTOPRAZOLE 40 MG/10 ML VIAL IVP SCH (20:14)
[2017-03-25 22:21] VITALS: RESP 16
[2017-03-25] MEDS: TEMAZEPAM 15 MG CAP PO PRN (23:35)
[2017-03-26] MEDS: HYDROcodone/APAP 5-325MG 1 EACH TAB PO SCH ×5 (04:08→19:59)
[2017-03-26] MEDS: ONDANSETRON 4 MG/2 ML VIAL IVP PRN ×2 (06:31→16:13)
[2017-03-26] MEDS: METHYLPHENIDATE HCL 10 MG TAB PO SCH ×3 (07:32→22:25)
[2017-03-26] MEDS: FAMOTIDINE 20 MG TAB PO SCH ×2 (07:33→21:01)
[2017-03-26] MEDS: PANTOPRAZOLE 40 MG/10 ML VIAL IVP SCH ×2 (07:33→21:01)
[2017-03-26] MEDS: CYCLOBENZAPRINE 10 MG TAB PO SCH ×2 (07:33→16:13)
[2017-03-26] MEDS: HYDROmorphone 1 MG/ML 1 ML SYRINGE IV PRN ×4 (07:34→22:25)
[2017-03-26] MEDS: DIAZEPAM 5 MG TAB PO SCH ×2 (07:37→16:13)
[2017-03-26] MEDS: IBUPROFEN 800 MG TAB PO SCH (07:38)
[2017-03-26] MEDS: SODIUM CHLORIDE 0.9% 1,000 ML IV SCH ×2 (09:49→15:29)
[2017-03-26] MEDS: PARoxetine 20 MG TAB PO SCH (09:52)
--- NOTE | 2017-03-26 10:22 | P.PN ---
Progress Note - Text The patient states that she still has some complaints of abdominal pain. She is also had some diarrhea. On exam her vital signs are stable. Her abdomen soft. There is minimal tenderness throughout. There is no rebound or guarding. I discussed with patient that she has a large ulcer. Patient states that she consumed a large quantity of Motrin recently. I discussed through that all NSAIDs will need to be stopped. She'll continue IV Protonix.
[2017-03-26] MEDS: SUCRALFATE 1 GM TAB PO SCH (21:01)
[2017-03-26 21:58] VITALS: TEMP 97.7
[2017-03-27] MEDS: CYCLOBENZAPRINE 10 MG TAB PO SCH ×2 (00:03→08:00)
[2017-03-27] MEDS: HYDROcodone/APAP 5-325MG 1 EACH TAB PO SCH ×4 (00:03→12:44)
[2017-03-27] MEDS: DIAZEPAM 5 MG TAB PO SCH ×2 (00:03→07:59)
[2017-03-27] MEDS: TEMAZEPAM 15 MG CAP PO PRN (00:03)
[2017-03-27] MEDS: ONDANSETRON 4 MG/2 ML VIAL IVP PRN ×2 (00:08→08:00)
[2017-03-27] MEDS: HYDROmorphone 1 MG/ML 1 ML SYRINGE IV PRN ×2 (04:57→12:44)
[2017-03-27 07:14] LABS: Basophils % (A) 1 %; CH 32.3; CHCM 31.9; Eosinophils # (A) 0.4 k/uL (0-0.7); Eosinophils % (A) 6 %; HCT 36.4 % (34.0-46.0); HDW 2.38; HGB 11.4 gm/dL (11.4-16.0); Luc # (Auto) 0.12; Luc % (Auto) 2; Lymphocytes # (A) 2.8 k/uL (1.0-4.8); Lymphocytes % (A) 41 %; MCH 31.9 pg (25.0-35.0); MCHC 31.4 g/dL (31.0-37.0); MCV 101.8 fL (80.0-100.0); Macrocytosis Slight; Mean Platelet Volume 7.3; Monocytes # (A) 0.3 k/uL (0-1.0); Monocytes % (A) 5 %; Neutrophils # (A) 3.1 k/uL (1.3-7.7); Neutrophils % (A) 46 %; RBC 3.58 m/uL (3.80-5.40); RDW 13.8 % (11.5-15.5); WBC 6.9 k/uL (3.8-10.6); WBC (Perox) 7.21
[2017-03-27 07:44] LABS: Anion Gap 8 mmol/L; Blood Urea Nitrogen 6 mg/dL (7-17); Calcium 9.3 mg/dL (8.4-10.2); Carbon Dioxide 26 mmol/L (22-30); Chloride 108 mmol/L (98-107); Glucose 99 mg/dL (74-99); Non-African American GFR(MDRD) >60 (>60 ml/min/1.73 sqM); Potassium 3.9 mmol/L (3.5-5.1); Sodium 142 mmol/L (137-145)
[2017-03-27] MEDS: METHYLPHENIDATE HCL 10 MG TAB PO SCH (07:59)
[2017-03-27] MEDS: SUCRALFATE 1 GM TAB PO SCH ×2 (08:00→12:45)
[2017-03-27] MEDS: FAMOTIDINE 20 MG TAB PO SCH (08:00)
[2017-03-27] MEDS: PANTOPRAZOLE 40 MG/10 ML VIAL IVP SCH (08:00)
[2017-03-27] MEDS: PARoxetine 20 MG TAB PO SCH (08:01)
[2017-03-27 09:16] VITALS: BP 112/69; PULSE 69
--- NOTE | 2017-03-27 09:26 | PN ---
DATE OF SERVICE: 03/26/2017 This 31-year-old woman who was admitted to step-down unit also has peptic ulcer disease. The patient is. No chest pain or palpitations. No fever. On exam, alert, oriented x3. Pulse 92, blood pressure 190/74, respirations 16, pulse ox 97% on room air. HEENT: Conjunctivae normal. NECK: Supple. No JVD. CARDIOVASCULAR: S1 and S2 muffled. LUNGS: Breath sounds diminished in the bases. No rhonchi, no crackles. ABDOMEN: Soft. Mild diffuse discomfort. No guarding. No rebound. No mass palpable. EXTREMITIES: Legs, no edema. NERVOUS SYSTEM: No focal deficits. LABS: WBC 8, hemoglobin 11.2, CO2 is 20. ASSESSMENT: 1. Diffuse abdominal pains, severe, status post EGD showing peptic ulcer disease and pyloric ulcers, possibly secondary to NSAID usage. 2. Diarrhea, nausea, vomiting, possible acute gastroenteritis, present on admission. 3. No evidence of Clostridium difficile colitis. 4. Anemia, microcytic anemia, possibly nutritional. 5. Increased chloride. 6. History of Clostridium difficile colitis. 7. History of asthma. 8. Fibromyalgia. 9. History of gastroesophageal reflux disease. 10. History of degenerative joint disease. 11. Severe abdominal pain. 12. History of lupus, possible. 13. History of degenerative joint disease as well as chronic back pain. 14. History of Crohn disease in the past. 15. History of cholecystectomy. 16. Anxiety, posttraumatic stress disorder. 17. Continued ongoing nicotine dependence. 18. FULL CODE. RECOMMENDATIONS: Continue with monitoring. Continue with monitoring and symptomatic treatment. At this time I would recommend to monitor closely. Continue with current medications. Continue with . Prognosis is guarded because of multiple complex medical issues. Further recommendations to follow. MTDD
--- NOTE | 2017-03-27 13:00 | P.PN ---
Progress Note - Text The patient is doing well. She'll be discharged home today. On exam her vital signs stable her abdomen soft. There patient was discharged home. She will receive omeprazole. She's been instructed to stop all NSAIDs.
--- NOTE | 2017-03-28 15:02 | DS ---
DATE OF ADMISSION: 03/22/2017 DATE OF DISCHARGE: 03/27/2017 FINAL DIAGNOSES: 1. Diffuse abdominal pain, severe. Status post esophagogastroduodenoscopy showing peptic ulcer disease and pyloric ulcer, possibly secondary to NSAID usage. 2. Diarrhea, nausea and vomiting, possible acute gastroenteritis, present on admission. 3. No evidence of Clostridium difficile colitis. 4. Anemia, microcytic anemia, possibly nutritional. 5. Increased chloride. 6. History of Clostridium difficile colitis remotely. 7. History of asthma. 8. Fibromyalgia. 9. History of gastroesophageal reflux disease. 10. History of degenerative joint disease. 11. History of severe abdominal pain. 12. History of lupus possibly previously. 13. History of degenerative joint disease as well as chronic back pain. 14. History of Crohn's disease in the past. 15. History of cholecystectomy. 16. Anxiety, posttraumatic stress disorder. 17. Continued ongoing nicotine dependence. 18. FULL CODE. DISCHARGE DISPOSITION: Patient will be discharged in stable condition with guarded prognosis. Cleared by surgery. HISTORY OF PRESENT ILLNESS: This 31-year-old woman with a past medical history of multiple medical problems being followed by Dr. Sanchez in the outpatient setting presented with abdominal pain. The patient underwent EGD by Dr. Gonzalez which showed pyloric ulcer, treated symptomatically and improved significantly. On exam, vitals are stable. CARDIOVASCULAR SYSTEM: S1, S2 muffled. ABDOMEN: Soft. CENTRAL NERVOUS SYSTEM: No focal deficits. LABS: Hemoglobin 11.4. DISCHARGE ADVICE : 1. Diet is soft, bland. 2. No tea. 3. No coffee. 4. No pop. MEDICATIONS: 1. Flexeril 10 mg t.i.d. p.r.n. 2. Valium 10 mg p.o. t.i.d. 3. [place] 10 mg q.6 p.r.n. 4. Ritalin 20 mg p.o. t.i.d. 5. Zofran 8 mg b.i.d. 6. Protonix 40 mg b.i.d. 7. Paxil 40 mg p.o. daily. 8. Carafate 1 gram p.o. a.c. and q.h.s. Follow-up with Dr. Gonzalez as recommended.
== END 2017-03-27 13:30 | disposition home or self-care (01) ==
LOC: EC 16:20 → SUPCPDRO 16:20 → 5MS5E 19:43 → INTOOBSV 19:43
PROVIDERS: ADMIT Internal Medicine; ATTEND Internal Medicine
DX: K25.9 Gastric ulcer, unspecified as acute or chronic, without hemorrhage or perforation (principal); M79.7 Fibromyalgia; M19.90 Unspecified osteoarthritis, unspecified site; K21.9 Gastro-esophageal reflux disease without esophagitis; J45.909 Unspecified asthma, uncomplicated; G89.29 Other chronic pain; F90.9 Attention-deficit hyperactivity disorder, unspecified type; F43.10 Post-traumatic stress disorder, unspecified; F31.9 Bipolar disorder, unspecified; F17.200 Nicotine dependence, unspecified, uncomplicated; R51 Headache; K50.90 Crohn's disease, unspecified, without complications; D50.9 Iron deficiency anemia, unspecified; K58.9 Irritable bowel syndrome, unspecified; M54.30 Sciatica, unspecified side; K29.50 Unspecified chronic gastritis without bleeding; Z79.899 Other long term (current) drug therapy; Z88.5 Allergy status to narcotic agent; Z88.0 Allergy status to penicillin; Z88.8 Allergy status to other drugs, medicaments and biological substances; Z91.041 Radiographic dye allergy status; Z85.41 Personal history of malignant neoplasm of cervix uteri; Z86.19 Personal history of other infectious and parasitic diseases
CPT/HCPCS: 43239 ×2; 96376 ×5; 96361 ×3; 96374; 96375; 99285; 36415; 88305; 80053 ×2; 80048; 85652; 82150; 83605; 83690; 85025 ×3; 86140; 81003; 88342; 87040; 74176; G0378 ×7; J2250; J2405 ×6; J2001; J3010; J1170 ×6; J2704; C9113 ×3

== ENCOUNTER 2017-04-11 13:01 | Observation (INO) | payer OTHER ==
[2017-04-11] MEDS ORDERED: SODIUM CHLORIDE 0.9% 1,000 ML IV STA (13:27)
[2017-04-11] MEDS ORDERED: HYDROmorphone 1 MG/ML 1 ML SYRINGE IVP STA ×2 (13:27→15:47)
[2017-04-11] MEDS ORDERED: METOCLOPRAMIDE 5 MG/ML 2 ML VIAL IVP STA (13:27)
[2017-04-11] MEDS ORDERED: PANTOPRAZOLE 40 MG/10 ML VIAL IVP STA (13:27)
[2017-04-11] MEDS ORDERED: SODIUM CHLORIDE 0.9% 2,000 ML IV STA (13:27)
--- NOTE | 2017-04-11 13:39 | ED ---
General Adult HPI - General Chief complaint: Abdominal Pain Stated complaint: Abd Pain Time Seen by Provider: 04/11/17 13:12 Source: patient, EMS, RN notes reviewed, old records reviewed Mode of arrival: EMS Limitations: no limitations - History of Present Illness Initial comments: If complaint and history of present illness is a 31-year-old female here with a complaint of abdominal pain. For the past 2 days she's had what she thinks a recurrence of her C. diff diarrhea. She's had a 4 times in the past. Patient was recently in hospital for abdominal pain and she was diagnosed according to her with a stomach ulcer. She was supposed to have another EGD done which was supposed to be scheduled for the future. Patient complains of nausea vomiting and diarrhea - Related Data Home Medications Medication Instructions Recorded Confirmed Methylphenidate HCl [Ritalin] 20 mg PO BID 07/07/15 04/11/17 Cyclobenzaprine [Flexeril] 10 mg PO TID PRN 03/27/16 04/11/17 Ondansetron [Zofran ODT] 8 mg PO Q12HR PRN 03/22/17 04/11/17 Diazepam [Valium] 5 mg PO TID 04/11/17 04/11/17 Lurasidone HCl [Latuda] 20 mg PO DAILY 04/11/17 04/11/17 Previous Rx's Medication Instructions Recorded HYDROcodone/APAP 10-325MG [[place] 1 tab PO Q6HR PRN #28 tab 07/09/15 10-325] Pantoprazole Sodium [Protonix] 40 mg PO BID #60 tablet. 03/27/17 Sucralfate [Carafate] 1 gm PO ACHS #120 tab 03/27/17 Allergies Allergy/AdvReac Type Severity Reaction Status Date / Time codeine Allergy Rash/Hives Verified 04/11/17 14:36 morphine Allergy Itching/Bur Verified 04/11/17 14:36 kasi Penicillins Allergy Unknown Verified 04/11/17 14:36 Childhood haloperidol [From Haldol] AdvReac Dystonic Verified 04/11/17 14:36 Reaction Iodinated Contrast Media - AdvReac Kidney Verified 04/11/17 14:36 Oral and Failure [Iodinated Contrast Media - IV Dye] Review of Systems ROS Statement: Those systems with pertinent positive or pertinent negative responses have been documented in the HPI. Review of systems no headache or visual acuity changes no chest pain or shortness of breath. Patient reports with this intestinal discomfort also has some low back pain denies any blood in the vomit or the stool. States it appears to be the same as when she had C. diff on 4 previous occasions. Patient denying any neuro deficits. All systems were reviewed. Past medical problems significant for cervical cancer, asthma, fibromyalgia, GERD, she also reports stomach ulcer. Also osteoarthritis, renal disease i.e. kidney failure on 2 occasions 1 because of steroids second because of iodine dye. Patient states she has on occasion recently taken Motrin which I discussed with her bed both for the ulcer bed for her kidneys. Tylenol only. The patient's past medical problems also include ADD, ADHD bipolar disorder and PTSD. Her surgeries include appendectomy, partial hysterectomy, cholecystectomy , tubal ligation prior to that several upper endoscopies. Her ALLERGIES include codeine, morphine, penicillin, haloperidol, and iodine contrast material. Patient reports she can take Dilaudid. Patient does smoke strongly encouraged to stop also advised that this makes stomach ulcers and gastritis worse. Denies alcohol use. ROS Other: All systems not noted in ROS Statement are negative. Past Medical History Past Medical History: Asthma, Cancer, Fibromyalgia, GERD/Reflux, Osteoarthritis (OA), Renal Disease Additional Past Medical History / Comment(s): kidney failure x2 due to iodine allergy, possibly lupus, hypoglycemia, chronic back pain, sciatica, cervical CA with sx, ?crohns, c diff dx'd february 2016, L knee injury, ovarian cysts History of Any Multi-Drug Resistant Organisms: None Reported, C-DIFF Date of last positivie culture/infection: March 2016 MDRO Source:: None Past Surgical History: Appendectomy, Cholecystectomy, Hysterectomy, Orthopedic Surgery, Tubal Ligation Additional Past Surgical History / Comment(s): several upper endoscopies, surgery on left knee, left wrist ganglion cystectomy, exploratory lap and biopsy Pt states she has had a total of OVER 50 surgeries. PARTIAL HYSTERECTOMY Past Anesthesia/Blood Transfusion Reactions: No Reported Reaction Past Psychological History: ADD/ADHD, Anxiety, Bipolar, PTSD Additional Psychological History / Comment(s): Pt states she is bipolar, manic/ ' depressive, and has anxiety. She is on meds for these and states that they help her. She resides with her parents. She has 2 anthony's living with her as well. PPO against previous significant other. She is normally independent. Smoking Status: Current every day smoker Past Alcohol Use History: None Reported Additional Past Alcohol Use History / Comment(s): Pt states she has smoked for 20 yrs about a pack a day or alittle less. Past Drug Use History: None Reported - Past Family History Father Family Medical History: Cancer Additional Family Medical History / Comment(s): "You name it, both sides of my family have had it." Mother Family Medical History: Cancer General Exam - General Exam Comments Initial Comments: General: The patient is awake and alert, no abdominal pain and diarrhea. No blood noted in the stool. Vital signs temp 98.9 pulse 1:15 over story rate 18 pulse ox 90% room air blood pressure 140/77 Eye: Pupils are equal, round and reactive to light, extra-ocular movements are intact ; there is normal conjunctiva bilaterally. No signs of icterus. Ears, nose, mouth and throat: There are moist mucous membranes and no oral lesions. Neck: The neck is supple, there is no tenderness . Cardiovascular: And chronic heart rate, 1:15. No murmur, rub or gallop is appreciated. Respiratory: Lungs are clear to auscultation, respirations are non-labored, breath sounds are equal. No wheezes, stridor, rales, or rhonchi. Gastrointestinal: Tender abdomen to palpation. Voluntary guarding. Active bowel sounds. Diarrhea.. Back: No rashes, complains low back discomfort associated with the diarrhea. Musculoskeletal: Normal ROM, no tenderness, There is no pedal edema. There is no calf tenderness or swelling. Sensation intact. Neurological: CN II-XII intact, There are no obvious motor or sensory deficits. Coordination appears grossly intact. Speech is normal. Skin: Skin is warm and dry and no rashes or lesions are noted. Psychiatric: She bipolar disorder and PTSD. No complaints of depression at this time. Limitations: no limitations Course Vital Signs 04/11/17 13:03 Temperature 98.9 F Pulse Rate 115 H Respiratory 18 Rate Blood Pressure 140/77 O2 Sat by Pulse 98 Oximetry Medical Decision Making - Medical Decision Making Vital decision making the patient's white count 8 hemoglobin 12.4 hematocrit of 37, the potassium is 4.8 BUN 3 creatinine 0.55 GFR greater than 60 amylase lipase normal limits. Urine clean. C. diff is negative. X-ray was done and reviewed by radiologist his impression is; nonspecific abdomen single prominent bowel loop was seen in the right abdomen which could relate to ileus, enteritis, ileus or colitis. Correlate clinically. As read by Dr. mora Case discussed Dr. Velez patient be admitted to hospital for gastroenteritis. She most the patient started on Levaquin and Flagyl until cultures return. - Lab Data Result diagrams: 04/11/17 14:15 04/11/17 14:15 Lab Results 04/11/17 04/11/17 04/11/17 Range/Units 14:15 14:15 14:15 WBC 8.0 (3.8-10.6) k/uL RBC 3.79 L (3.80-5.40) m/uL Hgb 12.4 (11.4-16.0) gm/dL Hct 37.7 (34.0-46.0) % MCV 99.6 (80.0-100.0) fL MCH 32.6 (25.0-35.0) pg MCHC 32.8 (31.0-37.0) g/dL RDW 14.1 (11.5-15.5) % Plt Count 405 (150-450) k/uL Neutrophils % 73 % Lymphocytes % 22 % Monocytes % 4 % Eosinophils % 0 % Basophils % 0 % Neutrophils # 5.8 (1.3-7.7) k/uL Lymphocytes # 1.7 (1.0-4.8) k/uL Monocytes # 0.3 (0-1.0) k/uL Eosinophils # 0.0 (0-0.7) k/uL Basophils # 0.0 (0-0.2) k/uL Sodium 139 (137-145) mmol/L Potassium 4.8 (3.5-5.1) mmol/L Chloride 114 H (98-107) mmol/L Carbon Dioxide 19 L (22-30) mmol/L Anion Gap 6 mmol/L BUN 3 L (7-17) mg/dL Creatinine 0.55 (0.52-1.04) mg/dL Est GFR (MDRD) Af Amer >60 (>60 ml/min/1.73 sqM) Est GFR (MDRD) Non-Af >60 (>60 ml/min/1.73 sqM) Glucose 104 H (74-99) mg/dL Plasma Lactic Acid Horace (0.7-2.0) mmol/L Calcium 9.1 (8.4-10.2) mg/dL Total Bilirubin 0.5 (0.2-1.3) mg/dL AST 15 (14-36) U/L ALT 15 (9-52) U/L Alkaline Phosphatase 77 (38-126) U/L Total Protein 6.1 L (6.3-8.2) g/dL Albumin 3.7 (3.5-5.0) g/dL Amylase 53 (30-110) U/L Lipase 94 (23-300) U/L Urine Color Urine Appearance (Clear) Urine pH (5.0-8.0) Ur Specific [place] (1.001-1.035) Urine Protein (Negative) Urine Glucose (UA) (Negative) Urine Ketones (Negative) Urine Blood (Negative) Urine Nitrite (Negative) Urine Bilirubin (Negative) Urine Urobilinogen (<2.0) mg/dL Ur Leukocyte Esterase (Negative) C. difficile (EIA) Intrp Negative (Negative) 04/11/17 04/11/17 Range/Units 14:15 14:15 WBC (3.8-10.6) k/uL RBC (3.80-5.40) m/uL Hgb (11.4-16.0) gm/dL Hct (34.0-46.0) % MCV (80.0-100.0) fL MCH (25.0-35.0) pg MCHC (31.0-37.0) g/dL RDW (11.5-15.5) % Plt Count (150-450) k/uL Neutrophils % % Lymphocytes % % Monocytes % % Eosinophils % % Basophils % % Neutrophils # (1.3-7.7) k/uL Lymphocytes # (1.0-4.8) k/uL Monocytes # (0-1.0) k/uL Eosinophils # (0-0.7) k/uL Basophils # (0-0.2) k/uL Sodium (137-145) mmol/L Potassium (3.5-5.1) mmol/L Chloride (98-107) mmol/L Carbon Dioxide (22-30) mmol/L Anion Gap mmol/L BUN (7-17) mg/dL Creatinine (0.52-1.04) mg/dL Est GFR (MDRD) Af Amer (>60 ml/min/1.73 sqM) Est GFR (MDRD) Non-Af (>60 ml/min/1.73 sqM) Glucose (74-99) mg/dL Plasma Lactic Acid Horace 0.7 (0.7-2.0) mmol/L Calcium (8.4-10.2) mg/dL Total Bilirubin (0.2-1.3) mg/dL AST (14-36) U/L ALT (9-52) U/L Alkaline Phosphatase (38-126) U/L Total Protein (6.3-8.2) g/dL Albumin (3.5-5.0) g/dL Amylase (30-110) U/L Lipase (23-300) U/L Urine Color Yellow Urine Appearance Clear (Clear) Urine pH 6.0 (5.0-8.0) Ur Specific [place] 1.007 (1.001-1.035) Urine Protein Negative (Negative) Urine Glucose (UA) Negative (Negative) Urine Ketones Negative (Negative) Urine Blood Negative (Negative) Urine Nitrite Negative (Negative) Urine Bilirubin Negative (Negative) Urine Urobilinogen <2.0 (<2.0) mg/dL Ur Leukocyte Esterase Negative (Negative) C. difficile (EIA) Intrp (Negative) Disposition Clinical Impression: Gastroenteritis Disposition: ADMITTED IP TO THIS [facility] Condition: Fair Referrals: Tom Sanchez DO [Primary Care Provider] - 1-2 days
[2017-04-11 14:35] LABS: Basophils % (A) 0 %; CH 32.7; Eosinophils % (A) 0 %; HCT 37.7 % (34.0-46.0); HDW 2.39; HGB 12.4 gm/dL (11.4-16.0); Luc # (Auto) 0.09; Luc % (Auto) 1; Lymphocytes # (A) 1.7 k/uL (1.0-4.8); Lymphocytes % (A) 22 %; MCH 32.6 pg (25.0-35.0); MCHC 32.8 g/dL (31.0-37.0); MCV 99.6 fL (80.0-100.0); Mean Platelet Volume 7.4; Monocytes # (A) 0.3 k/uL (0-1.0); Monocytes % (A) 4 %; Neutrophils # (A) 5.8 k/uL (1.3-7.7); Neutrophils % (A) 73 %; RBC 3.79 m/uL (3.80-5.40); RDW 14.1 % (11.5-15.5); WBC (Perox) 8.65
[2017-04-11 14:39] LABS: ALT 15 U/L (9-52); AST 15 U/L (14-36); Alkaline Phosphatase 77 U/L (38-126); Amylase 53 U/L (30-110); Anion Gap 6 mmol/L; Blood Urea Nitrogen 3 mg/dL (7-17); Calcium 9.1 mg/dL (8.4-10.2); Carbon Dioxide 19 mmol/L (22-30); Chloride 114 mmol/L (98-107); Glucose 104 mg/dL (74-99); Non-African American GFR(MDRD) >60 (>60 ml/min/1.73 sqM); Potassium 4.8 mmol/L (3.5-5.1); Sodium 139 mmol/L (137-145); Total Bilirubin 0.5 mg/dL (0.2-1.3); Total Protein 6.1 g/dL (6.3-8.2)
[2017-04-11 14:40] LABS: Appearance,Urine Clear (Clear); Bilirubin,Urine Negative (Negative); Glucose,Urine (UA) Negative (Negative); Ketones,Urine Negative (Negative); Leukocyte Esterase,Urine Negative (Negative); Nitrite,Urine Negative (Negative); Protein,Urine Negative (Negative); Specific Gravity,Urine 1.007 (1.001-1.035); UA Billing (MACRO vs. MICRO) CHEM; Urobilinogen,Urine <2.0 mg/dL (<2.0)
--- NOTE | 2017-04-11 15:06 | XR ---
EXAMINATION TYPE: XR abdomen 2V DATE OF EXAM: 04/11/2017 COMPARISON: NONE HISTORY: Nausea, vomiting and diarrhea TECHNIQUE: 3 view abdominal series FINDINGS: The osseous structures are intact. The bowel gas pattern is nonspecific. Lung bases are clear. Surg ical clips are noted. Calcification pelvis is nonspecific but likely vascular. IMPRESSION: 1. Nonspecific abdomen. Single prominent bowel loop is seen in the right abdomen which could relate to an ileus, enteritis, ileus or colitis. Correlate clinically
[2017-04-11] MEDS ORDERED: metroNIDAZOLE-NS PMX 500 MG in SALINE 1 100ML.BAG IVPB STA (15:57)
[2017-04-11] MEDS ORDERED: LEVOFLOXACIN 500MG-D5W PMX 500 MG in DEXTROSE/WATER 1 100ML.BAG IVPB STA (15:58)
[2017-04-11] MEDS ORDERED: ONDANSETRON 4 MG/2 ML VIAL IVP PRN (16:02)
[2017-04-11] MEDS ORDERED: NALOXONE 0.4 MG/ML 1 ML VIAL IV PRN (16:02)
[2017-04-11] MEDS: HYDROmorphone 1 MG/ML 1 ML SYRINGE IV PRN ×3 (16:57→22:49)
[2017-04-11] MEDS: SODIUM CHLORIDE 0.9% 1,000 ML IV SCH (18:05)
[2017-04-11] MEDS: DIAZEPAM 5 MG TAB PO PRN (19:37)
[2017-04-11] MEDS: ONDANSETRON 4 MG/2 ML VIAL IVP PRN (19:38)
[2017-04-11] MEDS: HYDROcodone/APAP 10-325MG 1 EACH TAB PO PRN (19:38)
[2017-04-11] MEDS: METHYLPHENIDATE HCL 10 MG TAB PO SCH (19:52)
[2017-04-11 23:22] VITALS: RESP 16
[2017-04-11] MEDS: metroNIDAZOLE-NS PMX 500 MG in SALINE 1 100ML.BAG IVPB SCH (23:59)
[2017-04-12] MEDS: HYDROcodone/APAP 10-325MG 1 EACH TAB PO PRN ×4 (01:18→19:22)
[2017-04-12] MEDS: ONDANSETRON 4 MG/2 ML VIAL IVP PRN ×4 (01:18→21:35)
[2017-04-12] MEDS: CYCLOBENZAPRINE 10 MG TAB PO PRN ×3 (01:19→17:23)
[2017-04-12] MEDS: HYDROmorphone 1 MG/ML 1 ML SYRINGE IV PRN ×6 (01:44→21:35)
[2017-04-12] MEDS: SODIUM CHLORIDE 0.9% 1,000 ML IV SCH ×2 (01:47→14:24)
[2017-04-12] MEDS: metroNIDAZOLE-NS PMX 500 MG in SALINE 1 100ML.BAG IVPB SCH ×4 (06:19→23:24)
[2017-04-12] MEDS: METHYLPHENIDATE HCL 10 MG TAB PO SCH ×3 (07:11→18:23)
[2017-04-12] MEDS: PANTOPRAZOLE 40 MG/10 ML VIAL IV SCH (07:55)
[2017-04-12 07:56] LABS: Basophils # (A) 0.1 k/uL (0-0.2); Basophils % (A) 1 %; CH 32.6; CHCM 31.9; Eosinophils # (A) 0.1 k/uL (0-0.7); Eosinophils % (A) 2 %; HDW 2.31; HGB 11.4 gm/dL (11.4-16.0); Luc # (Auto) 0.16; Luc % (Auto) 2; Lymphocytes # (A) 3.5 k/uL (1.0-4.8); Lymphocytes % (A) 43 %; MCH 32.5 pg (25.0-35.0); MCHC 31.6 g/dL (31.0-37.0); Macrocytosis Slight; Mean Platelet Volume 7.3; Monocytes # (A) 0.3 k/uL (0-1.0); Monocytes % (A) 4 %; Neutrophils # (A) 3.9 k/uL (1.3-7.7); Neutrophils % (A) 48 %; RBC 3.49 m/uL (3.80-5.40); WBC (Perox) 8.13
[2017-04-12 07:57] LABS: ALT 15 U/L (9-52); AST 16 U/L (14-36); Alkaline Phosphatase 73 U/L (38-126); Anion Gap 8 mmol/L; Blood Urea Nitrogen <2 mg/dL (7-17); Carbon Dioxide 16 mmol/L (22-30); Chloride 118 mmol/L (98-107); Glucose 113 mg/dL (74-99); Non-African American GFR(MDRD) >60 (>60 ml/min/1.73 sqM); Sodium 142 mmol/L (137-145); Total Bilirubin 0.5 mg/dL (0.2-1.3); Total Protein 5.9 g/dL (6.3-8.2)
[2017-04-12] MEDS: LURASIDONE 40 MG TAB PO SCH ×2 (07:57→08:27)
[2017-04-12] MEDS: PARoxetine 20 MG TAB PO SCH ×2 (07:58→08:27)
[2017-04-12] MEDS: DIAZEPAM 5 MG TAB PO PRN ×3 (08:04→23:31)
[2017-04-12] MEDS: BARIUM SULFATE 450 ML ORAL.SUSP BOTTLE PO PRN ×2 (13:36→17:18)
[2017-04-12] MEDS ORDERED: LEVOFLOXACIN 500MG-D5W PMX 500 MG in DEXTROSE/WATER 1 100ML.BAG IVPB SCH (16:00)
--- NOTE | 2017-04-12 16:01 | HP ---
DATE OF ADMISSION: 04/11/2017 This dictation is both H&P and discharge summary. HISTORY AND PHYSICAL EXAMINATION/DISCHARGE SUMMARY: Patient is a 31-year-old female with a history of peptic ulcer disease with recent upper GI endoscopy showing peptic ulcer disease came in with abdominal pain in the right lower quadrant and she does believe she has colitis. Patient has severe 10/10 pain, nonradiating in the right lower quadrant along with nausea, vomiting, although nausea and vomiting was not evidence of any of the staff here. The patient was also complaining of diarrhea and C. difficile is negative. The patient so far did not have any diarrhea today and patient believes she has colitis. Patient was started on levofloxacin and metronidazole and was subsequently admitted here. The patient is ALLERGIC TO CONTRAST and probably because of that reason, CT of the abdomen was not done but we do a prep and do a CT with contrast and if that is negative, patient will be discharged. That will complete her work-up for her abdominal pain. Patient in the past was extensively worked up in the past except for the peptic ulcer disease. No significant abnormality was evident at that time and patient denied any fever, chills. Patient denied any dysuria. Patient was complaining of minimal dysuria but UA is within normal limits. Patient is requesting to increase Dilaudid to 1 mg which I declined to do unless I see any evidence of pathology that contributes to her pain. Patient does not have any leukocytosis. ESR and CRP will be obtained. Patient was once diagnosed with Crohn's disease, although there is no evidence of Crohn's disease in her extensive medical record review in the past. ROS: all others systems were reviewed and were negative. Home medications include: 1. Methylphenidate. 2. Cyclobenzaprine. 3. Ondansetron. 4. Diazepam. 5. Latuda. 6. Hydrocodone acetaminophen. 7. Pantoprazole. 8. ( ). ALLERGIES: CODEINE, MORPHINE, PENICILLIN, HALOPERIDOL, IODINATED RADIOCONTRAST. Past medical history significant for fibromyalgia, gastroesophageal reflux disease, osteoarthritis, renal disease, sciatica, appendectomy, cholecystectomy, hysterectomy, orthopedic surgery and tubal ligation surgery, ADHD, anxiety, bipolar, PTSD. The patient does smoke every day. Denied any alcohol abuse or drug abuse. FAMILY HISTORY: Father had cancer and mother had some kind of cancer. PHYSICAL EXAMINATION: Temperature 98.0, pulse of 93, respiratory rate of 16, blood pressure is 121/71. Saturating at 97% on room air. GENERAL: The patient is alert and oriented x3, not in any acute distress. Well developed, well nourished. HEENT: Pupils are round and equally reacting to light. EOMI. No scleral icterus. No conjunctival pallor. Normocephalic, atraumatic. No pharyngeal erythema. No thyromegaly. CARDIOVASCULAR: S1 and S2 present. No murmurs, rubs, or gallops. PULMONARY: Chest is clear to auscultation, no wheezing or crackles. ABDOMEN: Soft, nontender. Patient has voluntary guarding. No rigidity. Patient does not have any guarding but does have tenderness in the right lower quadrant that is subjective in nature, although I do not believe patient has any real tenderness in that area. MUSCULOSKELETAL: No joint swelling or deformity. EXTREMITIES: No cyanosis, clubbing, or pedal edema. NEUROLOGICAL: Gross neurological examination did not reveal any focal deficits. SKIN: No rashes. LABORATORY DATA: CBC, CMP are abnormal for elevated MCV of 103.0, chloride of 118 leading to nonanion gap metabolic acidosis with bicarbonate of 16. IV fluids will be discontinued. I do not see a necessity for IV fluids either as I did not see any significant diarrhea today and patient does not appear to be dehydrated. Patient appears to be well hydrated clinically. ASSESSMENT AND PLAN: 1. Abdominal pain; unsure of the exact etiology. Further work-up will be done. My suspicion is high that patient is malingering with primary gain of seeking narcotics. We will obtain a CT of the abdomen to complete the work-up and also ESR and CRP, if they are negative, patient will be discharged without any pain medications, although patient is taking ibuprofen. The patient stopped taking ibuprofen, it is documented in the list that patient is taking ibuprofen. Patient cannot take that medication because of peptic ulcer disease and that will be discontinued. Patient is on pantoprazole here, will be given Prilosec instead of Zantac and if all the work-up above mentioned work-up is negative, patient will be discharged today. 2. Peptic ulcer disease, management as mentioned above. Patient is supposed to follow up with Dr. Gonzalez which he will do as an outpatient. Patient will be discharged to follow up with Dr. Tom Sanchez in 3 to 7 days. 3. Fibromyalgia. 4. Posttraumatic stress disorder. 5. Non-anion gap metabolic acidosis secondary to hyperchloremia, which is again secondary to IV fluids, which will be discontinued. Patient will be discharged if all the work-up is negative and if any other work-ups shows any significant abnormality. Patient will be treated accordingly. As of now, my suspicion is high the patient is malingering. Until then, the patient IV antibiotics will be continued until we rule out colitis. This dictation is both H&P and discharge summary. [facility]
--- NOTE | 2017-04-12 19:21 | CT ---
EXAMINATION TYPE: CT abdomen pelvis wo con DATE OF EXAM: 04/12/2017 COMPARISON: 03/22/2017 HISTORY: Right lower quadrant pain. History of C. diff and diverticulitis. CT DLP: 600.00 mGycm Automated exposure control for dose reduction was used. TECHNIQUE: Helical acquisition of images was performed from the lung bases through the pelvis. FINDINGS: The lung bases are clear. There is no pleural effusion. Heart size is normal. Liver spleen pancreas appear normal. Bile ducts are not dilated. There are clips from cholecystectomy . There is no adrenal mass. Kidneys have normal size. There is no hydronephrosis. There is no retroperi toneal adenopathy. Bladder distends smoothly. I see no intestinal wall thickening. There are no dilat ed loops. I see no bony destructive process. There appears to be some free fluid in the pelvis. Appen hitesh is not definitely seen. I see no specific sign of appendicitis. IMPRESSION: THERE IS NEW FREE FLUID IN THE PELVIS COMPARED TO LAST EXAM. The clinical significance is not clear. Appendix is not seen.
[2017-04-12 21:40] VITALS: TEMP 98.2
[2017-04-13] MEDS: HYDROmorphone 1 MG/ML 1 ML SYRINGE IV PRN ×4 (00:26→09:23)
[2017-04-13] MEDS: HYDROcodone/APAP 10-325MG 1 EACH TAB PO PRN ×2 (01:09→08:08)
[2017-04-13] MEDS: ONDANSETRON 4 MG/2 ML VIAL IVP PRN ×2 (03:29→09:22)
[2017-04-13] MEDS: CYCLOBENZAPRINE 10 MG TAB PO PRN (03:31)
[2017-04-13] MEDS: METHYLPHENIDATE HCL 10 MG TAB PO SCH (06:14)
[2017-04-13] MEDS: metroNIDAZOLE-NS PMX 500 MG in SALINE 1 100ML.BAG IVPB SCH (06:15)
[2017-04-13 07:36] VITALS: BP 112/76; PULSE 89
[2017-04-13] MEDS: DIAZEPAM 5 MG TAB PO PRN (08:07)
[2017-04-13] MEDS: PANTOPRAZOLE 40 MG/10 ML VIAL IV SCH (08:09)
[2017-04-13] MEDS: LURASIDONE 40 MG TAB PO SCH (08:09)
[2017-04-13] MEDS: PARoxetine 20 MG TAB PO SCH (08:10)
--- NOTE | 2017-04-14 07:26 | DS ---
DATE OF ADMISSION: 04/11/2017 DATE OF DISCHARGE: 04/13/2017 Please refer to my dictation of H&P for further details. Patient is still complaining of abdominal pain now today on the left side. I believe patient is malingering. No significant pathology was identified on her workup. A CT of the abdomen did show some free fluid in the pelvis, although significance of which is I do not believe it is significant. Patient will be discharged to follow with primary care physician. Patient definitely has narcotic seeking behavior. The patient was seen and examined on the day of discharge. Vitals are stable. PHYSICAL EXAMINATION: GENERAL: The patient is alert and oriented x3, not in any acute distress. Well developed, well nourished. HEENT: Pupils are round and equally reacting to light. EOMI. No scleral icterus. No conjunctival pallor. Normocephalic, atraumatic. No pharyngeal erythema. No thyromegaly. CARDIOVASCULAR: S1 and S2 present. No murmurs, rubs, or gallops. PULMONARY: Chest is clear to auscultation, no wheezing or crackles. ABDOMEN: The patient has subjective tenderness on the left side of the abdomen. Right side tenderness resolved at this point of time. MUSCULOSKELETAL: No joint swelling or deformity. EXTREMITIES: No cyanosis, clubbing, or pedal edema. NEUROLOGICAL: Gross neurological examination did not reveal any focal deficits. SKIN: No rashes. ASSESSMENT AND PLAN: 1. Abdominal pain. The patient does have history of peptic ulcer disease because of which ibuprofen will be discontinued and patient will need to continue with Protonix. Patient has follow up with Dr. Gonzalez for possible Steph fundoplication evaluation as an outpatient. 2. Peptic ulcer disease. 3. Fibromyalgia. 4. Posttraumatic stress disorder. 5. Non-anion gap metabolic acidosis secondary to hyperchloremia. IV fluids were discontinued. Patient will be discharged today. DISCHARGE DIET: Low spicy diet. Activity as tolerated. Follow up as mentioned above. Spent greater than 35 minutes in total discharge process.
== END 2017-04-13 10:58 | disposition home or self-care (01) ==
LOC: EC 13:01 → 5MS5E 16:03
PROVIDERS: ADMIT Internal Medicine; ATTEND Internal Medicine
DX: R10.9 Unspecified abdominal pain (principal); K27.9 Peptic ulcer, site unspecified, unspecified as acute or chronic, without hemorrhage or perforation; M79.7 Fibromyalgia; F43.10 Post-traumatic stress disorder, unspecified; E87.2 Acidosis; E87.8 Other disorders of electrolyte and fluid balance, not elsewhere classified; Z76.5 Malingerer [conscious simulation]; R11.2 Nausea with vomiting, unspecified; F31.9 Bipolar disorder, unspecified; F41.9 Anxiety disorder, unspecified; K21.9 Gastro-esophageal reflux disease without esophagitis; M19.90 Unspecified osteoarthritis, unspecified site; A04.7 Enterocolitis due to Clostridium difficile; N19 Unspecified kidney failure; J45.909 Unspecified asthma, uncomplicated; Z85.41 Personal history of malignant neoplasm of cervix uteri; Z79.899 Other long term (current) drug therapy; Z88.5 Allergy status to narcotic agent; Z88.0 Allergy status to penicillin; Z88.8 Allergy status to other drugs, medicaments and biological substances; Z91.041 Radiographic dye allergy status; Z90.49 Acquired absence of other specified parts of digestive tract; F17.210 Nicotine dependence, cigarettes, uncomplicated; Z90.710 Acquired absence of both cervix and uterus
CPT/HCPCS: 96375 ×3; 96361 ×4; 96376 ×2; 96365 ×2; 99285 ×2; 96366; 96367; 36415; 80053 ×2; 85652; 82150; 83605; 83690; 85025 ×2; 86140; 81003; 87324; 87086; 87045; 87046; 74020; 74176; G0378 ×3; J2765; J2405 ×3; J1956; J1170 ×3; C9113 ×3

== ENCOUNTER 2017-08-01 12:50 | Observation (INO) | payer OTHER ==
[2017-08-01] MEDS ORDERED: ONDANSETRON 4 MG/2 ML VIAL IVP STA (14:34)
[2017-08-01] MEDS ORDERED: SODIUM CHLORIDE 0.9% 2,000 ML IV STA (14:34)
[2017-08-01] MEDS ORDERED: FAMOTIDINE 20 MG/2 ML VIAL IV STA (14:37)
--- NOTE | 2017-08-01 14:42 | ED ---
Nausea/Vomiting/Diarrhea HPI - General Chief complaint: Nausea/Vomiting/Diarrhea Stated complaint: Dr Sent/Vomiting Time Seen by Provider: 08/01/17 14:17 Source: patient Mode of arrival: ambulatory Limitations: no limitations - History of Present Illness Initial comments: Patient presents for nausea vomiting diarrhea. States she was seen her primary care office today, tried drinking after antiemetics there and vomited it up, so she was sent to the ER. This has been a recurrent problem for the patient over at least the past year. Patient has a history of intractable abdominal pain, peptic ulcer disease, fibromyalgia, C. diff, multiple abdominal surgeries. Patient states she has been expressing nausea vomiting diarrhea for the past 1 week. Patient states her abdominal pain is the same as it usually is. Patient denies fevers at home. Denies blood in her stool, vaginal discharge, vaginal bleeding, urinary symptoms. Patient states she's been eating and drinking less. Patient states she was seen 4 days ago at [facility] for the same symptoms, was told she had strep throat although confirmation test was not done , was discharged on azithromycin. Denies sore throat this time. MD complaint: nausea, vomiting, diarrhea, abdominal pain Description of Vomiting: food contents, watery Associated Abdominal Pain: Yes (Chronic) Location: epigastric Radiation: none Severity: mild Quality: other (Burning) Consistency: constant Worsens with: eating - Related Data Home Medications Medication Instructions Recorded Confirmed Methylphenidate HCl [Ritalin] 20 mg PO TID 07/07/15 08/01/17 Diazepam [Valium] 10 mg PO TID 04/11/17 08/01/17 Ondansetron HCl [Zofran] 4 mg PO Q8H PRN 04/11/17 08/01/17 PARoxetine HCL [Paxil] 40 mg PO DAILY 04/11/17 08/01/17 Previous Rx's Medication Instructions Recorded HYDROcodone/APAP 10-325MG [Powderly 1 tab PO Q6HR PRN #28 tab 07/09/15 10-325] Omeprazole [PriLOSEC] 40 mg PO AC-BRKFST #30 capsule. 04/13/17 Allergies Allergy/AdvReac Type Severity Reaction Status Date / Time codeine Allergy Rash/Hives Verified 08/01/17 14:47 morphine Allergy Itching/Bur Verified 08/01/17 14:47 kasi Penicillins Allergy Unknown Verified 08/01/17 14:47 Childhood haloperidol [From Haldol] AdvReac Dystonic Verified 08/01/17 14:47 Reaction Iodinated Contrast- Oral and AdvReac Kidney Verified 08/01/17 14:47 IV Dye Failure [Iodinated Contrast Media - IV Dye] Review of Systems ROS Statement: Those systems with pertinent positive or pertinent negative responses have been documented in the HPI. ROS Other: All systems not noted in ROS Statement are negative. Constitutional: Denies: fever, chills Eyes: Denies: vision change ENT: Denies: ear pain, throat pain Respiratory: Denies: cough, dyspnea Cardiovascular: Denies: chest pain, palpitations Endocrine: Reports: fatigue Gastrointestinal: Reports: abdominal pain, nausea, vomiting, diarrhea. Denies: constipation, hematemesis, melena, hematochezia Genitourinary: Denies: urgency, dysuria Musculoskeletal: Denies: back pain Skin: Denies: rash Neurological: Denies: headache, weakness, numbness, paresthesias, confusion Past Medical History Past Medical History: Asthma, Cancer, Fibromyalgia, GERD/Reflux, Osteoarthritis (OA), Renal Disease Additional Past Medical History / Comment(s): egd-antral ulcer, kidney failure x2 due to iodine allergy, "possibly lupus", hypoglycemia, chronic back pain, sciatica, cervical CA with sx, "?crohns", had c diff february 2016(first dx 4 years ago) , L knee injury, ovarian cysts History of Any Multi-Drug Resistant Organisms: None Reported Date of last positivie culture/infection: March 2016 MDRO Source:: None Past Surgical History: Appendectomy, Cholecystectomy, Hysterectomy, Orthopedic Surgery, Tubal Ligation Additional Past Surgical History / Comment(s): several upper endoscopies, surgery on left knee, left wrist ganglion cystectomy, exploratory lap and biopsy Pt states she has had a total of OVER 50 surgeries. PARTIAL HYSTERECTOMY Past Anesthesia/Blood Transfusion Reactions: No Reported Reaction Additional Past Anesthesia/Blood Transfusion Reaction / Comment(s): clausterphobia Past Psychological History: ADD/ADHD, Anxiety, Bipolar, PTSD Smoking Status: Current every day smoker Past Alcohol Use History: None Reported Past Drug Use History: None Reported - Past Family History Father History Unknown: Yes Family Medical History: Cancer Additional Family Medical History / Comment(s): does'nt know her real dad's med hx. but grandpa had cancer Mother Family Medical History: Cancer, Diabetes Mellitus, Hypertension Additional Family Medical History / Comment(s): past etoh abuse, breast cancer, cardiac problems General Exam Limitations: no limitations General appearance: alert, in no apparent distress, other (Sitting up in bed. No acute distress. Conversing normally. Not appear in pain.) Head exam: Present: atraumatic, normocephalic Eye exam: Present: normal appearance ENT exam: Present: normal oropharynx, normal external ear exam Neck exam: Present: normal inspection Respiratory exam: Present: normal lung sounds bilaterally. Absent: respiratory distress, wheezes, rhonchi, stridor, accessory muscle use Cardiovascular Exam: Present: regular rate, normal rhythm GI/Abdominal exam: Present: soft, normal bowel sounds. Absent: distended, tenderness, guarding Extremities exam: Present: other (No obvious deformities) Neurological exam: Present: alert, oriented X3 Psychiatric exam: Present: normal affect, normal mood Skin exam: Present: warm, dry. Absent: rash Course Vital Signs 08/01/17 08/01/17 08/01/17 13:25 13:34 16:50 Temperature 99.4 F 97.8 F Pulse Rate 125 H 102 H Respiratory 22 16 Rate Blood Pressure 158/95 119/75 O2 Sat by Pulse 100 99 Oximetry 08/01/17 17:39 Temperature Pulse Rate 100 Respiratory 20 Rate Blood Pressure 131/67 O2 Sat by Pulse 98 Oximetry Medical Decision Making - Medical Decision Making Patient has a history of similar chronic symptoms. The symptoms are not new, recurrent over the past one year. Patient states she is concerned she may have C. diff again. Patient able to provide urine sample and stool studies in the ER , we'll send for C. diff. Patient given IV fluids, Zofran, Pepcid. Patient does not request pain medications upon initial evaluation, per patient's previous discharge summary patient did exhibit narcotic seeking behavior. C. diff negative White blood count cell count within normal limits KUB shows nonobstructive pattern or free air per ED read. 17:28 patient reassess. Patient states she still feels nauseated after IV nausea meds. Heart rate is improved after IV fluids. Patient states she tried taking a small sip of water and Tylenol pill, however she vomited up. Patient states she does not feel comfortable going home, states she cannot eat or drink anything despite nausea meds at home. Patient has tried Zofran ODT, Zofran tablets, Reglan at home wihtout relief. Patient states she feels she needs to stay at least one day in the hospital for IV hydration and IV nausea medications. Patient does state that Toradol resolved her abdominal pain. Plan for admission for intractable nausea, inability to tolerate oral intake. Spoke with Dr. Ahmadi, Updated with patient condition results, agrees with observation. Well admit to observation at this time. Patient updated with all results and plan. - Lab Data Result diagrams: 08/01/17 15:00 08/01/17 15:00 Lab Results 08/01/17 08/01/17 08/01/17 Range/Units 15:00 15:00 15:00 WBC 9.6 (3.8-10.6) k/uL RBC 4.25 (3.80-5.40) m/uL Hgb 13.6 (11.4-16.0) gm/dL Hct 41.3 (34.0-46.0) % MCV 97.3 (80.0-100.0) fL MCH 32.1 (25.0-35.0) pg MCHC 33.0 (31.0-37.0) g/dL RDW 13.6 (11.5-15.5) % Plt Count 398 (150-450) k/uL Neutrophils % 71 % Lymphocytes % 23 % Monocytes % 3 % Eosinophils % 1 % Basophils % 1 % Neutrophils # 6.9 (1.3-7.7) k/uL Lymphocytes # 2.2 (1.0-4.8) k/uL Monocytes # 0.3 (0-1.0) k/uL Eosinophils # 0.1 (0-0.7) k/uL Basophils # 0.0 (0-0.2) k/uL Sodium 138 (137-145) mmol/L Potassium 4.7 (3.5-5.1) mmol/L Chloride 110 H (98-107) mmol/L Carbon Dioxide 19 L (22-30) mmol/L Anion Gap 9 mmol/L BUN 4 L (7-17) mg/dL Creatinine 0.80 (0.52-1.04) mg/dL Est GFR (MDRD) Af Amer >60 (>60 ml/min/1.73 sqM) Est GFR (MDRD) Non-Af >60 (>60 ml/min/1.73 sqM) Glucose 92 (74-99) mg/dL Calcium 10.0 (8.4-10.2) mg/dL Total Bilirubin 0.5 (0.2-1.3) mg/dL AST 20 (14-36) U/L ALT 38 (9-52) U/L Alkaline Phosphatase 83 (38-126) U/L Total Protein 6.9 (6.3-8.2) g/dL Albumin 4.4 (3.5-5.0) g/dL Lipase 113 (23-300) U/L Urine Color Urine Appearance (Clear) Urine pH (5.0-8.0) Ur Specific [place] (1.001-1.035) Urine Protein (Negative) Urine Glucose (UA) (Negative) Urine Ketones (Negative) Urine Blood (Negative) Urine Nitrite (Negative) Urine Bilirubin (Negative) Urine Urobilinogen (<2.0) mg/dL Ur Leukocyte Esterase (Negative) Urine HCG, Qual Not Detected (Not Detectd) C. difficile (EIA) Intrp (Negative) 08/01/17 08/01/17 Range/Units 15:00 16:41 WBC (3.8-10.6) k/uL RBC (3.80-5.40) m/uL Hgb (11.4-16.0) gm/dL Hct (34.0-46.0) % MCV (80.0-100.0) fL MCH (25.0-35.0) pg MCHC (31.0-37.0) g/dL RDW (11.5-15.5) % Plt Count (150-450) k/uL Neutrophils % % Lymphocytes % % Monocytes % % Eosinophils % % Basophils % % Neutrophils # (1.3-7.7) k/uL Lymphocytes # (1.0-4.8) k/uL Monocytes # (0-1.0) k/uL Eosinophils # (0-0.7) k/uL Basophils # (0-0.2) k/uL Sodium (137-145) mmol/L Potassium (3.5-5.1) mmol/L Chloride (98-107) mmol/L Carbon Dioxide (22-30) mmol/L Anion Gap mmol/L BUN (7-17) mg/dL Creatinine (0.52-1.04) mg/dL Est GFR (MDRD) Af Amer (>60 ml/min/1.73 sqM) Est GFR (MDRD) Non-Af (>60 ml/min/1.73 sqM) Glucose (74-99) mg/dL Calcium (8.4-10.2) mg/dL Total Bilirubin (0.2-1.3) mg/dL AST (14-36) U/L ALT (9-52) U/L Alkaline Phosphatase (38-126) U/L Total Protein (6.3-8.2) g/dL Albumin (3.5-5.0) g/dL Lipase (23-300) U/L Urine Color Colorless Urine Appearance Clear (Clear) Urine pH 6.0 (5.0-8.0) Ur Specific [place] 1.002 (1.001-1.035) Urine Protein Negative (Negative) Urine Glucose (UA) Negative (Negative) Urine Ketones Negative (Negative) Urine Blood Negative (Negative) Urine Nitrite Negative (Negative) Urine Bilirubin Negative (Negative) Urine Urobilinogen <2.0 (<2.0) mg/dL Ur Leukocyte Esterase Negative (Negative) Urine HCG, Qual (Not Detectd) C. difficile (EIA) Intrp Negative (Negative) Disposition Clinical Impression: Intractable nausea and vomiting Disposition: ADMITTED IP TO THIS HOSP Condition: Good Referrals: Tom Sanchez DO [Primary Care Provider] - 1-2 days - Out of Hospital Transfer - Req. Specs Out of Hospital Transfer - Requested Specifics: Other Non-Acute (Observation)
[2017-08-01 15:36] LABS: Appearance,Urine Clear (Clear); Bilirubin,Urine Negative (Negative); Glucose,Urine (UA) Negative (Negative); Ketones,Urine Negative (Negative); Leukocyte Esterase,Urine Negative (Negative); Nitrite,Urine Negative (Negative); Protein,Urine Negative (Negative); Specific Gravity,Urine 1.002 (1.001-1.035); UA Billing (MACRO vs. MICRO) CHEM; Urobilinogen,Urine <2.0 mg/dL (<2.0)
[2017-08-01 15:37] LABS: Basophils % (A) 1 %; CH 32.3; CHCM 33.3; Eosinophils # (A) 0.1 k/uL (0-0.7); Eosinophils % (A) 1 %; HCT 41.3 % (34.0-46.0); HDW 2.46; HGB 13.6 gm/dL (11.4-16.0); Luc # (Auto) 0.13; Luc % (Auto) 1; Lymphocytes # (A) 2.2 k/uL (1.0-4.8); Lymphocytes % (A) 23 %; MCH 32.1 pg (25.0-35.0); MCV 97.3 fL (80.0-100.0); Mean Platelet Volume 7.3; Monocytes # (A) 0.3 k/uL (0-1.0); Monocytes % (A) 3 %; Neutrophils # (A) 6.9 k/uL (1.3-7.7); Neutrophils % (A) 71 %; RBC 4.25 m/uL (3.80-5.40); RDW 13.6 % (11.5-15.5); WBC 9.6 k/uL (3.8-10.6); WBC (Perox) 9.46
[2017-08-01 15:50] LABS: ALT 38 U/L (9-52); AST 20 U/L (14-36); Alkaline Phosphatase 83 U/L (38-126); Anion Gap 9 mmol/L; Blood Urea Nitrogen 4 mg/dL (7-17); Carbon Dioxide 19 mmol/L (22-30); Chloride 110 mmol/L (98-107); Glucose 92 mg/dL (74-99); Non-African American GFR(MDRD) >60 (>60 ml/min/1.73 sqM); Potassium 4.7 mmol/L (3.5-5.1); Sodium 138 mmol/L (137-145); Total Bilirubin 0.5 mg/dL (0.2-1.3); Total Protein 6.9 g/dL (6.3-8.2)
--- NOTE | 2017-08-01 15:59 | XR ---
EXAMINATION TYPE: XR KUB DATE OF EXAM: 08/01/2017 COMPARISON: 08/22/2016 HISTORY: Nausea and vomiting TECHNIQUE: One view abdominal series FINDINGS: The osseous structures are intact. The bowel gas pattern is nonspecific. Lung bases are clear. Prev ious surgery involving the gallbladder fossa noted. 3 mm calcification overlying the right kidney. IMPRESSION: 1. Nonspecific abdomen. Questionable 3 mm right renal calculus.
[2017-08-01] MEDS ORDERED: KETOROLAC 30 MG/ML 1 ML VIAL IVP STA (16:06)
[2017-08-01] MEDS ORDERED: ACETAMINOPHEN TAB 325 MG TAB PO STA (16:07)
[2017-08-01] MEDS ORDERED: METOCLOPRAMIDE 5 MG/ML 2 ML VIAL IVP STA (17:25)
[2017-08-01] MEDS ORDERED: ONDANSETRON 4 MG/2 ML VIAL IVP PRN (17:42)
[2017-08-01] MEDS ORDERED: SODIUM CHLORIDE 0.9% 1,000 ML IV SCH (17:45)
[2017-08-01 20:43] VITALS: BMI 22.4
[2017-08-01] MEDS ORDERED: TEMAZEPAM 15 MG CAP PO PRN (20:52)
[2017-08-01] MEDS: NICOTINE 14MG/24HR PATCH TRANSDERM SCH (21:10)
[2017-08-01] MEDS: METHYLPHENIDATE HCL 10 MG TAB PO SCH (21:10)
[2017-08-01] MEDS: HEPARIN SODIUM,PORCINE 5,000 UNIT/ML 1 ML VIAL SQ SCH (21:20)
[2017-08-01] MEDS: LORazepam 2 MG/ML INJ IV PRN (21:20)
[2017-08-01] MEDS: D5-0.9% NACL WITH KCL 20 MEQ/L 1,000 ML IV SCH (21:38)
[2017-08-01] MEDS: KETOROLAC 30 MG/ML 1 ML VIAL IVP SCH (23:14)
[2017-08-02] MEDS: HYDROmorphone 1 MG/ML 1 ML SYRINGE IVP PRN ×2 (01:13→07:44)
[2017-08-02] MEDS: ONDANSETRON 4 MG/2 ML VIAL IVP PRN ×4 (01:23→19:45)
[2017-08-02] MEDS: LORazepam 2 MG/ML INJ IV PRN ×4 (03:23→21:06)
[2017-08-02] MEDS: KETOROLAC 30 MG/ML 1 ML VIAL IVP SCH ×3 (05:04→18:08)
--- NOTE | 2017-08-02 06:09 | HP ---
HISTORY AND PHYSICAL DATE OF SERVICE: 08/01/2017 CHIEF COMPLAINT: Chief complaints are nausea, vomiting, diarrhea. HISTORY OF PRESENT ILLNESS: This 31-year-old woman with a past medical history of recurrent C difficile colitis, history of asthma, history fibromyalgia, DJD being followed by Dr. Sanchez in the outpatient setting also had ADD/ADHD, anxiety, bipolar, PTSD. Apparently patient had recurrent C difficile colitis but the most recent C difficile colitis was negative, but currently the patient is complaining of diarrhea, nausea, vomiting, abdominal pain. The patient went to [facility] and was diagnosed to have and as well as influenza. Patient was started on medication. Because of diarrhea, the patient stopped Zithromax and the patient was recommended to come to the hospital at this time. There is no history of any fever, rigors. No history of headache, loss of consciousness or seizures. Otherwise the initial labs were CBC within normal limits. The patient was admitted for further evaluation. C. difficile was negative. A chest x-ray was also done on admission which showed nonspecific findings also. There is no history of any fever or rigors. No history of headache, loss of consciousness or seizures. Patient had a CAT scan on 04/12/2017, which showed free fluid in the pelvis, the clinical significance unclear. PAST MEDICAL HISTORY: History of a past medical history of GERD, fibromyalgia, DJD, history of appendectomy and cholecystectomy, ADD/ADHD. MEDICATIONS: Medications prior to admission include: 1. Paxil 40 mg p.o. daily. 2. Zofran 4 mg p.o. q.8 p.r.n. 3. Prilosec 40 mg p.o. breakfast. 4. Ritalin 20 mg p.o. t.i.d. 5. Brea 10 mg q.6 p.r.n. 6. Valium 10 mg p.o. t.i.d. ALLERGIES: Allergies are CODEINE, MORPHINE, PENICILLIN, HALDOL. FAMILY HISTORY: History of cancer in the family. SOCIAL HISTORY: History of smoking. No history of alcohol intake. REVIEW OF SYSTEMS: ENT: No diminished hearing or diminished vision. CARDIOVASCULAR SYSTEM: As mentioned earlier. RESPIRATORY SYSTEM: As mentioned earlier. GI: As mentioned earlier. No dysuria. NERVOUS SYSTEM: No numbness or weakness. ALLERGY/IMMUNOLOGY: No asthma or hayfever. MUSCULOSKELETAL: As mentioned earlier. HEMATOLOGY/ONCOLOGY: No history of anemia. ENDOCRINE: No history of diabetes or hypothyroidism. CONSTITUTIONAL: As mentioned earlier. DERMATOLOGY: Negative. RHEUMATOLOGY: Negative. PSYCHIATRY: As mentioned earlier. PHYSICAL EXAMINATION: The patient is alert and oriented x3. Pulse is 100, blood pressure 131/67, respirations 20, temperature 97.8, pulse ox 98% on room air. HEENT: Conjunctivae clear. NECK: No jugular venous distention. CARDIOVASCULAR: S1 and S2 muffled. RESPIRATORY: Breath sounds diminished at the bases. A few scattered rhonchi and crackles. ABDOMEN: Soft, diffuse discomfort to palpation. LEGS: No edema, no swelling. NERVOUS SYSTEM: Higher function as mentioned. Moves all 4 limbs. no focal deficits. LYMPHATICS: No lymphadenopathy of the skin, axillae or groin. SKIN: No ulcers, rashes or bleeding. LABS: Labs are CBC within normal. CO2 19, otherwise UA noted. ASSESSMENT: 1. Nausea, vomiting, diarrhea, rule out acute gastroenteritis and Clostridium difficile colitis. 2. History of recently diagnosed influenza and as well as strep infection. 3. History of asthma. 4. Fibromyalgia. 5. History of previous recurrent Clostridium difficile colitis in the remote past. 6. History of degenerative joint disease. 7. History hyperglycemia. 8. Chronic back pain. 9. History of Crohn disease. 10.History of appendectomy. 11.History of cholecystectomy. 12.History of attention deficit disorder/attention deficit hyperactivity disorder, bipolar, anxiety posttraumatic stress disorder. 13.nicotine dependence. RECOMMENDATIONS AND DISCUSSION: This 31-year-old woman who presented with multiple complex medical issues, will monitor the patient closely. Continue the current medications. Continue symptomatic treatment. Check for C. difficile colitis. I would also get a surgical and infectious disease opinion also. Prognosis guarded because of multiple complex medical issues. Further recommendations to follow A copy of dictation forwarded to otherwise continue to monitor. See orders for details. IV fluids. Symptomatic treatment of pain and medications reconciliation will also be done. Prognosis guarded. Discussed with the patient who understands and agrees. JUSTYNA / AMERICO: [id number] / KIERRA
[2017-08-02] MEDS: PANTOPRAZOLE 40 MG/10 ML VIAL IV SCH (07:46)
[2017-08-02 07:55] LABS: Basophils % (A) 1 %; CH 31.9; CHCM 32.4; Eosinophils # (A) 0.2 k/uL (0-0.7); Eosinophils % (A) 4 %; HCT 35.1 % (34.0-46.0); HGB 11.4 gm/dL (11.4-16.0); Luc # (Auto) 0.14; Luc % (Auto) 2; Lymphocytes # (A) 2.8 k/uL (1.0-4.8); Lymphocytes % (A) 45 %; MCH 32.1 pg (25.0-35.0); MCHC 32.4 g/dL (31.0-37.0); Mean Platelet Volume 6.8; Monocytes # (A) 0.3 k/uL (0-1.0); Monocytes % (A) 5 %; Neutrophils # (A) 2.8 k/uL (1.3-7.7); Neutrophils % (A) 44 %; RBC 3.55 m/uL (3.80-5.40); RDW 13.5 % (11.5-15.5); WBC 6.3 k/uL (3.8-10.6); WBC (Perox) 6.62
[2017-08-02] MEDS: D5-0.9% NACL WITH KCL 20 MEQ/L 1,000 ML IV SCH ×2 (08:19→18:08)
[2017-08-02 08:22] LABS: ALT 31 U/L (9-52); AST 14 U/L (14-36); Alkaline Phosphatase 56 U/L (38-126); Anion Gap 8 mmol/L; Blood Urea Nitrogen 3 mg/dL (7-17); Calcium 8.8 mg/dL (8.4-10.2); Carbon Dioxide 19 mmol/L (22-30); Chloride 113 mmol/L (98-107); Glucose 93 mg/dL (74-99); Magnesium 1.9 mg/dL (1.6-2.3); Non-African American GFR(MDRD) >60 (>60 ml/min/1.73 sqM); Phosphorus 3.2 mg/dL (2.5-4.5); Potassium 4.2 mmol/L (3.5-5.1); Sodium 140 mmol/L (137-145); Total Bilirubin 0.3 mg/dL (0.2-1.3); Total Protein 5.7 g/dL (6.3-8.2)
[2017-08-02] MEDS: HEPARIN SODIUM,PORCINE 5,000 UNIT/ML 1 ML VIAL SQ SCH ×2 (09:26→21:06)
[2017-08-02] MEDS: PARoxetine 20 MG TAB PO SCH (09:27)
[2017-08-02] MEDS: METHYLPHENIDATE HCL 10 MG TAB PO SCH ×3 (09:27→23:35)
[2017-08-02] MEDS: HYDROmorphone 0.5 MG/0.5 ML SYRINGE IVP PRN ×3 (13:04→21:06)
--- NOTE | 2017-08-02 13:29 | P.GSCN ---
History of Present Illness Consult date: 08/02/17 Reason for Consult: Abdominal pain History of present illness: 31-year-old female being seen at the request of the attending for a surgical eval for a chief complaint of nausea vomiting diarrhea and abdominal pain patient apparently was at her primary care doctor's office on the day of the event stated that she could not keep anything down was given an antiemetic was told to come to the emergency room. Patient stated over the last year she has had reoccurring episodes. Patient gives a history of having persistent abdominal pain, C. diff, peptic ulcer disease and fibromyalgia. Patient states about 4 days ago she was at [facility] for the same symptoms and was told at that time she had strep throat discharged on prescription for antibiotics denies any sore throat or difficulty swallowing on admission additionally patient reports that she has had since midnight couple watery stools painless no blood noted patient on March 22 this year underwent EGD as part of a workup for epigastric pain. EGD showed antral ulcer no acute findings patient is very talkative and is asking for her iv dilaudid dose and frequency be increased. Patient does not appear in any acute distress. Stool culture sent progress currently showing no growth to date nursing reports is been no document stool no documented nausea or vomiting Review of Systems Essentially unremarkable except as mentioned in the present illness Past Medical History Past Medical History: Asthma, Cancer, Fibromyalgia, GERD/Reflux, Osteoarthritis (OA), Renal Disease Additional Past Medical History / Comment(s): egd-antral ulcer, kidney failure x2 due to iodine allergy, "possibly lupus", hypoglycemia, chronic back pain, sciatica, cervical CA with sx, "?crohns", had c diff february 2016(first dx 4 years ago) , L knee injury, ovarian cysts, scoliosis History of Any Multi-Drug Resistant Organisms: None Reported Year Discovered:: March 2016 MDRO Source:: None Past Surgical History: Appendectomy, Cholecystectomy, Hysterectomy, Orthopedic Surgery, Tubal Ligation Additional Past Surgical History / Comment(s): several upper endoscopies,13 surgerys on left knee, left wrist ganglion cystectomy, exploratory lap and biopsy Pt states she has had a total of OVER 50 surgeries. PARTIAL HYSTERECTOMY Past Anesthesia/Blood Transfusion Reactions: No Reported Reaction Additional Past Anesthesia/Blood Transfusion Reaction / Comm: clausterphobia Past Psychological History: ADD/ADHD, Anxiety, Bipolar, PTSD Additional Psychological History / Comment(s): Pt states she is bipolar, manic/ ' depressive, and has anxiety. She is on meds for these and states that they help her. She resides with her parents. She has 2 anthony's living with her as well. PPO against previous significant other. She is normally independent. Smoking Status: Current every day smoker Past Alcohol Use History: None Reported Additional Past Alcohol Use History / Comment(s): Pt states she hstarted smoking at age 11, was smoking 3 ppd now down to 1 ppd. Past Drug Use History: None Reported - Past Family History Father History Unknown: Yes Family Medical History: Cancer Additional Family Medical History / Comment(s): does'nt know her real dad's med hx. but grandpa had cancer Mother Family Medical History: Cancer, Diabetes Mellitus, Hypertension Additional Family Medical History / Comment(s): past etoh abuse, breast cancer, cardiac problems Medications and Allergies Home Medications Medication Instructions Recorded Confirmed Type Methylphenidate HCl [Ritalin] 20 mg PO TID 07/07/15 08/01/17 History HYDROcodone/APAP 10-325MG [[place] 1 tab PO Q6HR PRN #28 tab 07/09/15 08/01/17 Rx 10-325] Diazepam [Valium] 10 mg PO TID 04/11/17 08/01/17 History Ondansetron HCl [Zofran] 4 mg PO Q8H PRN 04/11/17 08/01/17 History PARoxetine HCL [Paxil] 40 mg PO DAILY 04/11/17 08/01/17 History [facility]eprazole [PriLOSEC] [facility] 04/13/17 08/01/17 Rx Cyclobenzaprine [Flexeril] 1 tab PO TID 08/01/17 08/01/17 History Allergies Allergy/AdvReac Type Severity Reaction Status Date / Time codeine Allergy Rash/Hives Verified 08/01/17 14:47 morphine Allergy Itching/Bur Verified 08/01/17 14:47 kasi Penicillins Allergy Unknown Verified 08/01/17 14:47 Childhood haloperidol [From Haldol] AdvReac Dystonic Verified 08/01/17 14:47 Reaction Iodinated Contrast- Oral and AdvReac Kidney Verified 08/01/17 14:47 IV Dye Failure [Iodinated Contrast Media - IV Dye] steriods Allergy Unknown Uncoded 08/01/17 20:53 Surgical - Exam Vital Signs Pulse Resp BP Pulse Ox 125 H 22 158/95 100 08/01/17 13:25 08/01/17 13:25 08/01/17 13:25 08/01/17 13:25 GENERAL APPEARANCE: 31-year-old female patient is alert, oriented, in no acute distress. Talkative VITAL SIGNS: Reviewed HEENT: Head is normocephalic and atraumatic. Pupils are equal and reactive. The nares are patent. Oropharynx is clear without lesions. No evidence of oral thrush NECK: Supple without lymphadenopathy. Traches midline. HEART: S1, S2. Regular rate and rhythm. No murmur noted LUNGS: No crackles or wheezes are heard. On room air no cough noted ABDOMEN: Soft, nontender, nondistended with good bowel sounds. No peritoneal signs. No palpable organomegaly or masses. No facial grimacing with palpitation to the abdominal wall EXTREMITIES: Normal skin color and turgor. No cyanosis, rash, ulceration, clubbing or edema. Radial pedal pulses are 2/4 bilaterally. NEUROLOGICAL: No focal deficits. Strength and sensation are grossly intact. Results - Labs 08/02/17 07:39 08/02/17 07:39 Abnormal Lab Results - Last 24 Hours (Table) 08/01/17 08/02/17 08/02/17 Range/Units 15:00 07:39 07:39 RBC 3.55 L (3.80-5.40) m/uL Chloride 110 H 113 H (98-107) mmol/L Carbon Dioxide 19 L 19 L (22-30) mmol/L BUN 4 L 3 L (7-17) mg/dL Total Protein 5.7 L (6.3-8.2) g/dL Albumin 3.4 L (3.5-5.0) g/dL Microbiology - Last 24 Hours (Table) 08/01/17 16:41 Stool for WBCs - Final Stool 08/01/17 16:41 Stool Culture - Preliminary Stool Diabetes panel 08/01/17 08/02/17 Range/Units 15:00 07:39 Sodium 138 140 (137-145) mmol/L Potassium 4.7 4.2 (3.5-5.1) mmol/L Chloride 110 H 113 H (98-107) mmol/L Carbon Dioxide 19 L 19 L (22-30) mmol/L BUN 4 L 3 L (7-17) mg/dL Creatinine 0.80 0.74 (0.52-1.04) mg/dL Glucose 92 93 (74-99) mg/dL Calcium 10.0 8.8 (8.4-10.2) mg/dL AST 20 14 (14-36) U/L ALT 38 31 (9-52) U/L Alkaline Phosphatase 83 56 (38-126) U/L Total Protein 6.9 5.7 L (6.3-8.2) g/dL Albumin 4.4 3.4 L (3.5-5.0) g/dL Calcium panel 08/01/17 08/02/17 Range/Units 15:00 07:39 Calcium 10.0 8.8 (8.4-10.2) mg/dL Phosphorus 3.2 (2.5-4.5) mg/dL Albumin 4.4 3.4 L (3.5-5.0) g/dL Pituitary panel 08/01/17 08/02/17 Range/Units 15:00 07:39 Sodium 138 140 (137-145) mmol/L Potassium 4.7 4.2 (3.5-5.1) mmol/L Chloride 110 H 113 H (98-107) mmol/L Carbon Dioxide 19 L 19 L (22-30) mmol/L BUN 4 L 3 L (7-17) mg/dL Creatinine 0.80 0.74 (0.52-1.04) mg/dL Glucose 92 93 (74-99) mg/dL Calcium 10.0 8.8 (8.4-10.2) mg/dL Adrenal panel 08/01/17 08/02/17 Range/Units 15:00 07:39 Sodium 138 140 (137-145) mmol/L Potassium 4.7 4.2 (3.5-5.1) mmol/L Chloride 110 H 113 H (98-107) mmol/L Carbon Dioxide 19 L 19 L (22-30) mmol/L BUN 4 L 3 L (7-17) mg/dL Creatinine 0.80 0.74 (0.52-1.04) mg/dL Glucose 92 93 (74-99) mg/dL Calcium 10.0 8.8 (8.4-10.2) mg/dL Total Bilirubin 0.5 0.3 (0.2-1.3) mg/dL AST 20 14 (14-36) U/L ALT 38 31 (9-52) U/L Alkaline Phosphatase 83 56 (38-126) U/L Total Protein 6.9 5.7 L (6.3-8.2) g/dL Albumin 4.4 3.4 L (3.5-5.0) g/dL Assessment and Plan Plan: Impression Present on admission nausea vomiting frequent stooling unclear etiology possible viral gastroenteritis History of a recent diagnosis of influenza as well as strep per patient report 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 Attention deficit disorder Anxiety depressive disorder nonspecified Active dependent nicotine dependency EGD done 03/25/2017 showed antral ulcer Plan No evidence of an acute surgical abdomen at this time No plan to repeat an EGD Defer to admitting service and other consultants of management of other medical issues as they arise Follow up on stool studies pending Continue the PPI as ordered Anti-emetics as ordered Pain management per the attending IV fluid for rehydration Will follow surgical course addressing clinical issues as they arise The above impression and plan of care have been discussed and directed by signing physician. Shana Saxena nurse practitioner acting as scribe for signing physician.
[2017-08-02] MEDS: ERYTHROMYCIN IV 500 MG in SODIUM CHLORIDE 0.9% 250 ML IVPB SCH ×2 (15:05→22:15)
[2017-08-02] MEDS: CYCLOBENZAPRINE 10 MG TAB PO SCH ×2 (15:05→23:35)
--- NOTE | 2017-08-02 18:57 | PN ---
PROGRESS NOTE DATE OF SERVICE: 08/02/2017 INTERVAL HISTORY: This 31-year-old woman who was admitted with nausea, vomiting and diarrhea and possibly acute gastritis is being closely monitored at this time. Surgery is following the patient closely. The C. diff. is negative. Influenza also negative. EXAM: Alert, oriented x3. Pulse 92, blood pressure 114/70, respirations 18, temperature 99.4, pulse ox 99% on room air. HEENT: Conjunctivae normal. NECK: No jugular venous distention. CARDIOVASCULAR: S1, S2 muffled. RESPIRATORY: Breath sounds diminished in the bases. No rhonchi. No crackles. ABDOMEN: Soft. Mild diffuse discomfort on palpation. No guarding. No rigidity. No mass palpable. LEGS: No edema. NERVOUS SYSTEM: No focal deficits. LABS: CBC within normal limits. Sodium 140, potassium 4.2. ASSESSMENT: 1. Nausea, vomiting diarrhea, possible acute gastroenteritis. Clostridium difficile ruled out. 2. Influenza negative. 3. History of asthma. 4. Fibromyalgia. 5. History of previous recurrent Clostridium difficile colitis in the remote past. 6. History of degenerative joint disease. 7. History hypoglycemia. 8. Chronic back pain. 9. History of Crohn disease. 10.History of appendectomy. 11.History of cholecystectomy. 12.History attention deficit hyperactivity disorder, anxiety, posttraumatic stress disorder. 13.History of nicotine dependence. 14.FULL CODE. DISCUSSION AND RECOMMENDATIONS: I recommend to continue current management. Continue monitoring and symptomatic treatment. Otherwise at this time, I recommend continuing to monitor. Otherwise, the prognosis guarded and further recommendations to follow. MMODL / IJN: [id number] /
[2017-08-02] MEDS: NICOTINE 14MG/24HR PATCH TRANSDERM SCH ×2 (21:06→21:11)
--- NOTE | 2017-08-02 22:57 | P.CONS ---
History of Present Illness - Reason for Consult Consult date: 08/02/17 - Chief Complaint Abdominal pain - History of Present Illness 31-year-old female who presents to the emergency center with ongoing difficulty with abdominal pain associated with nausea and emesis and feeling very weak overall. His related over the last several days she has had several emergency room visits. She was at [facility], as well as [facility]. She relates that did nothing for her and she left both facilities. She relates that she's been having worsening abdominal pain. She is having copious amounts of diarrhea. She relates that she has a history of C. diff in the past. And is concerned that it does come back. She feels quite poorly overall. Innocent desire of improved pain control. She relates that Dilaudid is effective. Zofran also helps. But is having some emesis even despite having Zofran therapy. She is denying hematemesis, melena or hematochezia. She relates that the bowel and stool feel like when she had C. diff in the past. She believes she had a fever at home. Review of Systems Patient relates that she is miserable. HEENT:Denies headache or acute visual change. Denies sinus or mouth discomforts. Denies neck stiffness or pain. Denies difficulty on swallowing. Complains of some oral cavity dryness and discomfort no true difficulty swallowing Lungs: Denies significant shortness of breath, cough, sputum production, or hemoptysis. Cardiovascular: Denies significant shortness of breath, chest pain, chest wall pain, orthopnea, dyspnea on exertion, syncope Gastrointestinal: As per the HPI Musculoskeletal: denies significant myalgias or arthralgias. No new joint swelling. Denies new back pain. Skin: Denies new rash or lesions. No new ulcers or wounds are related.. Neuro: Complains of headache feels poorly overall. Psychiatric: Chronic anxiety and depression, bipolar Endocrine: Complains of severe fatigue and has had some mild weight loss Past Medical History Past Medical History: Asthma, Cancer, Fibromyalgia, GERD/Reflux, Osteoarthritis (OA), Renal Disease Additional Past Medical History / Comment(s): egd-antral ulcer, kidney failure x2 due to iodine allergy, "possibly lupus", hypoglycemia, chronic back pain, sciatica, cervical CA with sx, "?crohns", had c diff february 2016(first dx 4 years ago) , L knee injury, ovarian cysts, scoliosis History of Any Multi-Drug Resistant Organisms: None Reported Year Discovered:: March 2016 MDRO Source:: None Past Surgical History: Appendectomy, Cholecystectomy, Hysterectomy, Orthopedic Surgery, Tubal Ligation Additional Past Surgical History / Comment(s): several upper endoscopies,13 surgerys on left knee, left wrist ganglion cystectomy, exploratory lap and biopsy Pt states she has had a total of OVER 50 surgeries. PARTIAL HYSTERECTOMY Past Anesthesia/Blood Transfusion Reactions: No Reported Reaction Additional Past Anesthesia/Blood Transfusion Reaction / Comm: clausterphobia Past Psychological History: ADD/ADHD, Anxiety, Bipolar, PTSD Additional Psychological History / Comment(s): Pt states she is bipolar, manic/ ' depressive, and has anxiety. She is on meds for these and states that they help her. She resides with her parents. She has 2 daughters that live with her .PPO against previous significant other. She is normally independent. Smoking Status: Current every day smoker Past Alcohol Use History: None Reported Additional Past Alcohol Use History / Comment(s): Pt states she hstarted smoking at age 11, was smoking 3 ppd now down to 1 ppd. Past Drug Use History: None Reported - Past Family History Father History Unknown: Yes Family Medical History: Cancer Additional Family Medical History / Comment(s): does'nt know her real dad's med hx. but grandpa had cancer Mother Family Medical History: Cancer, Diabetes Mellitus, Hypertension Additional Family Medical History / Comment(s): past etoh abuse, breast cancer, cardiac problems Medications and Allergies Home Medications and Allergies Comment(s): Current Medications Benzocaine/Menthol (Cepacol Lozenge) 1 each MUCOUS MEM Q4HR PRN PRN Reason: Sore Throat Cyclobenzaprine HCl (Flexeril) 10 mg PO TID MAC Last Admin: 08/02/17 15:05 Dose: 10 mg Heparin Sodium (Porcine) (Heparin) 5,000 unit SQ Q12HR MAC Last Admin: 08/02/17 21:06 Dose: 5,000 unit Hydromorphone HCl (Dilaudid Syringe) 0.5 mg IVP Q4HR PRN PRN Reason: Severe Pain Last Admin: 08/02/17 21:06 Dose: 0.5 mg Potassium Chloride/Dextrose/Sod Cl (D5%-Ns-Kcl 20 Meq/L Iv Solution) 1,000 mls @ 100 mls/hr IV .Q10H [facility] Last Admin: 08/02/17 18:08 Dose: 100 mls/hr Erythromycin Lactobionate 500 (mg/ Sodium Chloride) 250 mls @ 125 mls/hr IVPB Q6H [facility] Last Admin: 08/02/17 22:15 Dose: 125 mls/hr Lorazepam (Ativan) 1 mg IV Q6HR PRN PRN Reason: Anxiety Last Admin: 08/02/17 21:06 Dose: 1 mg Methylphenidate HCl (Ritalin) 20 mg PO TID [facility] Last Admin: 08/02/17 15:05 Dose: 20 mg Nicotine (Habitrol 14mg/24hr Patch) 1 patch TRANSDERM HS [facility] Last Admin: 08/02/17 21:11 Dose: Not Given Ondansetron HCl (Zofran) 4 mg IVP Q6HR PRN PRN Reason: Nausea And Vomiting Last Admin: 08/02/17 19:45 Dose: 4 mg Pantoprazole Sodium (Protonix) 40 mg IV DAILY [facility] Last Admin: 08/02/17 07:46 Dose: 40 mg Paroxetine HCl (Paxil) 40 mg PO DAILY [facility] Last Admin: 08/02/17 09:27 Dose: Not Given Temazepam (Restoril) 15 mg PO HS PRN PRN Reason: Insomnia Home Medications Medication Instructions Recorded Confirmed Type Methylphenidate HCl [Ritalin] 20 mg PO TID 07/07/15 08/01/17 History HYDROcodone/APAP 10-325MG [[place] 1 tab PO Q6HR PRN #28 tab 07/09/15 08/01/17 Rx 10-325] Diazepam [Valium] 10 mg PO TID 04/11/17 08/01/17 History Ondansetron HCl [Zofran] 4 mg PO Q8H PRN 04/11/17 08/01/17 History PARoxetine HCL [Paxil] 40 mg PO DAILY 04/11/17 08/01/17 History Omeprazole [PriLOSEC] 40 mg PO [facility] #30 capsule. 04/13/17 08/01/17 Rx Cyclobenzaprine [Flexeril] 1 tab PO TID 08/01/17 08/01/17 History Allergies Allergy/AdvReac Type Severity Reaction Status Date / Time codeine Allergy Rash/Hives Verified 08/01/17 14:47 morphine Allergy Itching/Bur Verified 08/01/17 14:47 kasi Penicillins Allergy Unknown Verified 08/01/17 14:47 Childhood haloperidol [From Haldol] AdvReac Dystonic Verified 08/01/17 14:47 Reaction Iodinated Contrast- Oral and AdvReac Kidney Verified 08/01/17 14:47 IV Dye Failure [Iodinated Contrast Media - IV Dye] steriods Allergy Unknown Uncoded 08/01/17 20:53 Physical Exam Vitals: Vital Signs Temp Pulse Resp BP Pulse Ox 08/02/17 18:54 97.0 F L 78 20 111/68 94 L 08/02/17 15:00 97.5 F L 107 H 18 126/77 97 08/02/17 07:00 99.4 F 92 18 114/70 99 08/01/17 23:00 98.4 F 95 18 122/87 100 Intake and Output 08/02/17 08/02/17 08/02/17 06:59 14:59 22:59 Intake Total 0 Output Total 50 Balance 0 -50 Intake: Oral 0 Output: Emesis 50 Other: # Voids 3 1 1 # Bowel Movements 1 31-year-old female who appears to be uncomfortable HEENT: Anicteric conjunctiva are pink and moist nasal mucosa grossly intact without significant lesions, thrush without other lesions Neck: The neck is supple without significant lymphadenopathy or thyromegaly. Lungs: Symmetrical air entry however expiratory wheezes are scattered without tate bronchial sounds. No dullness or egophony Heart: Regular rate and rhythm with an audible S1-S2, no S3 no S4. There is no significant murmur click or rub, PMI was nondisplaced. Abdomen: Positive bowel sounds soft there is distinct tenderness in the right lower quadrant. Other quadrants have only minimal tenderness. There was no guarding or rebound. No organomegaly. No bruising to the abdominal wall. Extremities: The upper extremities have excellent pulses they are symmetric, no significant petechiae or telangiectasia. No splinter hemorrhages were noted. The lower extremities are free from significant edema. The peripheral pulses were 2+ and symmetric. Neuro: Awake alert oriented to person place and time. There are no acute new gross focal sensory motor deficits. Patient is very anxious. Results Results: Laboratory Results WBC 6.3 k/uL (3.8-10.6) 08/02/17 07:39 RBC 3.55 m/uL (3.80-5.40) L 08/02/17 07:39 Hgb 11.4 gm/dL (11.4-16.0) 08/02/17 07:39 Hct 35.1 % (34.0-46.0) 08/02/17 07:39 MCV 99.0 fL (80.0-100.0) 08/02/17 07:39 MCH 32.1 pg (25.0-35.0) 08/02/17 07:39 MCHC 32.4 g/dL (31.0-37.0) 08/02/17 07:39 RDW 13.5 % (11.5-15.5) 08/02/17 07:39 Plt Count 345 k/uL (150-450) 08/02/17 07:39 Neutrophils % 44 % 08/02/17 07:39 Lymphocytes % 45 % 08/02/17 07:39 Monocytes % 5 % 08/02/17 07:39 Eosinophils % 4 % 08/02/17 07:39 Basophils % 1 % 08/02/17 07:39 Neutrophils # 2.8 k/uL (1.3-7.7) 08/02/17 07:39 Lymphocytes # 2.8 k/uL (1.0-4.8) 08/02/17 07:39 Monocytes # 0.3 k/uL (0-1.0) 08/02/17 07:39 Eosinophils # 0.2 k/uL (0-0.7) 08/02/17 07:39 Basophils # 0.0 k/uL (0-0.2) 08/02/17 07:39 Sodium 140 mmol/L (137-145) 08/02/17 07:39 Potassium 4.2 mmol/L (3.5-5.1) 08/02/17 07:39 Chloride 113 mmol/L (98-107) H 08/02/17 07:39 Carbon Dioxide 19 mmol/L (22-30) L 08/02/17 07:39 Anion Gap 8 mmol/L 08/02/17 07:39 BUN 3 mg/dL (7-17) L 08/02/17 07:39 Creatinine 0.74 mg/dL (0.52-1.04) 08/02/17 07:39 Est GFR (MDRD) Af Amer >60 (>60 ml/min/1.73 sqM) 08/02/17 07:39 Est GFR (MDRD) Non-Af >60 (>60 ml/min/1.73 sqM) 08/02/17 07:39 Glucose 93 mg/dL (74-99) 08/02/17 07:39 Calcium 8.8 mg/dL (8.4-10.2) 08/02/17 07:39 Phosphorus 3.2 mg/dL (2.5-4.5) 08/02/17 07:39 Magnesium 1.9 mg/dL (1.6-2.3) 08/02/17 07:39 Total Bilirubin 0.3 mg/dL (0.2-1.3) 08/02/17 07:39 AST 14 U/L (14-36) 08/02/17 07:39 ALT 31 U/L (9-52) 08/02/17 07:39 Alkaline Phosphatase 56 U/L (38-126) 08/02/17 07:39 Total Protein 5.7 g/dL (6.3-8.2) L 08/02/17 07:39 Albumin 3.4 g/dL (3.5-5.0) L 08/02/17 07:39 Lipase 121 U/L (23-300) 08/02/17 07:39 Urine Color Colorless 08/01/17 15:00 Urine Appearance Clear (Clear) 08/01/17 15:00 Urine pH 6.0 (5.0-8.0) 08/01/17 15:00 Ur Specific [place] 1.002 (1.001-1.035) 08/01/17 15:00 Urine Protein Negative (Negative) 08/01/17 15:00 Urine Glucose (UA) Negative (Negative) 08/01/17 15:00 Urine Ketones Negative (Negative) 08/01/17 15:00 Urine Blood Negative (Negative) 08/01/17 15:00 Urine Nitrite Negative (Negative) 08/01/17 15:00 Urine Bilirubin Negative (Negative) 08/01/17 15:00 Urine Urobilinogen <2.0 mg/dL (<2.0) 08/01/17 15:00 Ur Leukocyte Esterase Negative (Negative) 08/01/17 15:00 Urine HCG, Qual Not Detected (Not Detectd) 08/01/17 15:00 C. difficile (EIA) Intrp Negative (Negative) 08/01/17 16:41 Influenza Type A RNA Not Detected (Not Detectd) 08/01/17 23:40 Influenza Type B (PCR) Not Detected (Not Detectd) 08/01/17 23:40 CBC & Chem 7: 08/02/17 07:39 08/02/17 07:39 Labs: Abnormal Lab Results - Last 24 Hours (Table) 08/02/17 08/02/17 Range/Units 07:39 07:39 RBC 3.55 L (3.80-5.40) m/uL Chloride 113 H (98-107) mmol/L Carbon Dioxide 19 L (22-30) mmol/L BUN 3 L (7-17) mg/dL Total Protein 5.7 L (6.3-8.2) g/dL Albumin 3.4 L (3.5-5.0) g/dL Microbiology - Last 24 Hours (Table) 08/01/17 16:41 Stool for WBCs - Final Stool 08/01/17 16:41 Stool Culture - Preliminary Stool Microbiology 08/01/17 16:41 Stool Stool for WBCs - Final 08/01/17 16:41 Stool Stool Culture - Preliminary Assessment and Plan (1) Intractable nausea and vomiting Narrative/Plan: 31-year-old female presents to hospital with ongoing nausea and emesis and worsening abdominal pain. She relates that she's been to 2 other hospitals in the last few days because it did nothing for her she came to our facility. Surgical consult is in progress. The patient is concerned that she has recurrent C. diff colitis. We discussed that her stool is been tested and is negative for C. diff. Over she continues to talk about her ongoing C. diff colitis she knows what is like when she has her C. diff. We discussed there are other potentials for abdominal pain and diarrhea. Stool cultures are in process. Patient does have some thrush and some Mycelex atrocious can be given. Pain control as per the primary service Needs ongoing significant anxiolytic therapy, would like to have Valium as well as her Ativan. Suggested this point in time that only one is appropriate and is being given per the primary service. She states that she is going to be good and not signout AMA until she feels better. It this time does not appear to have C. diff and constantly does not need antimicrobial therapy. Stool culture may further help direct if any other intervention is needed. Is noted she has no fever, no leukocytosis and is evidence of any bloody stool. Shiga toxin associated disease is highly unlikely. And she has no travel. Status: Acute (2) Abdominal pain Status: Acute
[2017-08-02] MEDS: BENZOCAINE/MENTHOL LOZENG 1 EACH LOZENGE MUCOUS MEM PRN (23:32)
[2017-08-03] MEDS: HYDROmorphone 0.5 MG/0.5 ML SYRINGE IVP PRN ×6 (01:13→21:26)
[2017-08-03] MEDS: ONDANSETRON 4 MG/2 ML VIAL IVP PRN ×4 (01:14→23:10)
[2017-08-03] MEDS: ERYTHROMYCIN IV 500 MG in SODIUM CHLORIDE 0.9% 250 ML IVPB SCH ×3 (03:39→16:50)
[2017-08-03] MEDS: LORazepam 2 MG/ML INJ IV PRN ×4 (03:39→21:26)
[2017-08-03] MEDS: BENZOCAINE/MENTHOL LOZENG 1 EACH LOZENGE MUCOUS MEM PRN ×4 (05:10→21:27)
[2017-08-03] MEDS: D5-0.9% NACL WITH KCL 20 MEQ/L 1,000 ML IV SCH ×2 (05:38→14:15)
[2017-08-03 07:58] LABS: Basophils % (A) 0 %; CH 32.8; CHCM 33.4; Eosinophils # (A) 0.3 k/uL (0-0.7); Eosinophils % (A) 4 %; HCT 33.8 % (34.0-46.0); Luc # (Auto) 0.13; Luc % (Auto) 2; Lymphocytes # (A) 2.7 k/uL (1.0-4.8); Lymphocytes % (A) 39 %; MCH 32.1 pg (25.0-35.0); MCHC 32.5 g/dL (31.0-37.0); MCV 98.8 fL (80.0-100.0); Mean Platelet Volume 7.5; Monocytes # (A) 0.3 k/uL (0-1.0); Monocytes % (A) 4 %; Neutrophils # (A) 3.5 k/uL (1.3-7.7); Neutrophils % (A) 51 %; RBC 3.42 m/uL (3.80-5.40); RDW 14.1 % (11.5-15.5); WBC 6.9 k/uL (3.8-10.6); WBC (Perox) 7.07
[2017-08-03] MEDS: METHYLPHENIDATE HCL 10 MG TAB PO SCH ×3 (08:01→23:18)
[2017-08-03] MEDS: CYCLOBENZAPRINE 10 MG TAB PO SCH ×3 (08:01→23:18)
[2017-08-03] MEDS: PARoxetine 20 MG TAB PO SCH (08:02)
[2017-08-03 08:06] LABS: Anion Gap 8 mmol/L; Blood Urea Nitrogen 2 mg/dL (7-17); Carbon Dioxide 20 mmol/L (22-30); Chloride 110 mmol/L (98-107); Glucose 87 mg/dL (74-99); Non-African American GFR(MDRD) >60 (>60 ml/min/1.73 sqM); Potassium 3.9 mmol/L (3.5-5.1); Sodium 138 mmol/L (137-145)
[2017-08-03] MEDS: PANTOPRAZOLE 40 MG/10 ML VIAL IV SCH (08:57)
[2017-08-03] MEDS: HEPARIN SODIUM,PORCINE 5,000 UNIT/ML 1 ML VIAL SQ SCH ×2 (08:57→21:28)
--- NOTE | 2017-08-03 12:23 | P.PN ---
Subjective Progress Note Date: 08/03/17 31-year-old female being seen and examined at the bedside. Patient is sitting up in bed. Patient states that she continues to have nausea sensation reportedly has been vomiting. Nursing reports they have not witnessed any emesis. Patient states no blood in the emesis. Patient states that if she drinks something she vomits right after. Patient is known to Dr. pérez service. Patient recently underwent an EGD in February 2017 as reported findings that showed antral ulcer with no acute findings.. Patient states abdominal pain unchanged. Objective - Vital Signs Vital signs: Vital Signs Temp 98.1 F 08/03/17 05:50 Pulse 89 08/03/17 05:50 Resp 20 08/03/17 05:50 BP 105/62 08/03/17 05:50 Pulse Ox 97 08/03/17 05:50 Intake & Output 08/02/17 08/03/17 08/03/17 18:59 06:59 18:59 Output Total 50 Balance -50 Output: Emesis 50 Other: # Voids 1 5 # Bowel Movements 1 - Exam Physical exam 31-year-old female sitting up in bed talkative anxious appears in no acute distress Lungs essentially clear adequate air movement Heart S1-S2 audible regular no murmur Abdomen soft not able to appreciate any facial grimacing with palpitation to the abdominal wall positive bowel sounds no document stool reports a nausea sensation Extremities no edema noted - Labs CBC & Chem 7: 08/03/17 07:29 08/03/17 07:29 Labs: Abnormal Lab Results - Last 24 Hours (Table) 08/03/17 08/03/17 Range/Units 07:29 07:29 RBC 3.42 L (3.80-5.40) m/uL Hgb 11.0 L (11.4-16.0) gm/dL Hct 33.8 L (34.0-46.0) % Chloride 110 H (98-107) mmol/L Carbon Dioxide 20 L (22-30) mmol/L BUN 2 L (7-17) mg/dL Assessment and Plan Plan: Impression Present on admission nausea vomiting frequent stooling unclear etiology possible viral gastroenteritis History of a recent diagnosis of influenza as well as strep per patient report 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 Attention deficit disorder Anxiety depressive disorder nonspecified Active dependent nicotine dependency EGD done 03/25/2017 showed antral ulcer Plan No evidence of an acute surgical abdomen at this time No plan to repeat an EGD Defer to admitting service and other consultants of management of other medical issues as they arise Continue the PPI as ordered Anti-emetics as ordered Pain management per the attending IV fluid for rehydration Will follow surgical course addressing clinical issues as they arise The above impression and plan of care have been discussed and directed by signing physician. Shana Saxena nurse practitioner acting as scribe for signing physician.
[2017-08-03] MEDS ORDERED: AZITHROMYCIN 500 MG in SODIUM CHLORIDE 0.9% 250 ML IVPB SCH ×2 (16:00→22:00)
--- NOTE | 2017-08-03 18:52 | PN ---
PROGRESS NOTE DATE OF SERVICE: 08/03/2017 This 31-year-old woman who was admitted with intractable nausea and vomiting is being closely monitored at this time. The patient has less abdominal pain, also. The patient had previous C. difficile colitis and there is no evidence of any active C. difficile colitis at this time. No chest pain. No palpitations. No fever. The patient is mildly anxious. EXAM: Alert and oriented x3. Pulse 89, blood pressure 104/62, respirations 20, temperature 98.1, pulse ox 97% room air. HEENT: Conjunctivae normal. NECK: No jugular venous distention. CARDIOVASCULAR: S1, S2 muffled. RESPIRATORY: Breath sounds diminished in the bases. No rhonchi. No crackles. ABDOMEN: Soft. Mild diffuse tenderness. No guarding. No rigidity. No mass palpable. LEGS: No edema. NERVOUS SYSTEM: No focal deficits. LABS: WBC 6.9, hemoglobin is 11. ASSESSMENT: 1. Nausea, vomiting, diarrhea, possible acute gastroenteritis. Clostridium difficile ruled out. Possible irritable bowel syndrome acute exacerbation. 2. Influenza negative. 3. History of asthma. 4. Fibromyalgia. 5. History of anxiety state. 6. History of previous Clostridium difficile colitis in the remote past. 7. History of degenerative joint disease. 8. History hypoglycemia. 9. Chronic back pain. 10.History of Crohn disease. 11.History of appendectomy. 12.History of cholecystectomy. 13.History of attention deficit hyperactivity disorder. 14.Anxiety, posttraumatic stress disorder. 15.History of nicotine dependence. 16.FULL CODE. RECOMMENDATIONS AND DISCUSSION: Recommended to continue current management. Continue symptomatic treatment. Otherwise at this time, will monitor the patient closely. Continue the current medications. Otherwise psychiatric evaluation and follow closely with multiple consultants, including Surgery as well as Infectious Disease. Further recommendations to follow. See orders for further details. MMODL / IJN: [id number] /
[2017-08-03] MEDS: NICOTINE 14MG/24HR PATCH TRANSDERM SCH (21:28)
--- NOTE | 2017-08-03 21:40 | P.PN ---
Subjective Progress Note Date: 08/03/17 Principal diagnosis: Abdominal pain with nausea and emesis 31-year-old female who presents to the emergency center with ongoing difficulty with abdominal pain associated with nausea and emesis and feeling very weak overall. His related over the last several days she has had several emergency room visits. She was at [facility], as well as [facility]. She relates that did nothing for her and she left both facilities. She relates that she's been having worsening abdominal pain. She is having copious amounts of diarrhea. She relates that she has a history of C. diff in the past. And is concerned that it does come back. She feels quite poorly overall. Innocent desire of improved pain control. She relates that Dilaudid is effective. Zofran also helps. But is having some emesis even despite having Zofran therapy. She is denying hematemesis, melena or hematochezia. She relates that the bowel and stool feel like when she had C. diff in the past. She believes she had a fever at home. Patient was eating some brady crackers. Shortly after ingesting them she again has emesis. With her abdominal pain is modestly well controlled with current medications. Objective - Vital Signs Vital signs: Vital Signs Temp 97.4 F L 08/03/17 15:00 Pulse 99 08/03/17 15:00 Resp 16 08/03/17 15:00 BP 120/78 08/03/17 15:00 Pulse Ox 96 08/03/17 15:00 Intake & Output 08/03/17 08/03/17 08/04/17 06:59 18:59 06:59 Output Total 50 Balance -50 Output: Emesis 50 Other: # Voids 5 4 - Exam 31-year-old female who appears to be uncomfortable HEENT: Anicteric conjunctiva are pink and moist nasal mucosa grossly intact without significant lesions, thrush without other lesions the oral cavity is dry Neck: The neck is supple without significant lymphadenopathy or thyromegaly. Lungs: Symmetrical air entry however expiratory wheezes are scattered without tate bronchial sounds. No dullness or egophony Heart: Regular rate and rhythm with an audible S1-S2, no S3 no S4. There is no significant murmur click or rub, PMI was nondisplaced. Abdomen: Positive bowel sounds soft there is distinct tenderness in the right lower quadrant. Other quadrants have only minimal tenderness. There was no guarding or rebound. No organomegaly. No bruising to the abdominal wall. Extremities: The upper extremities have excellent pulses they are symmetric, no significant petechiae or telangiectasia. No splinter hemorrhages were noted. The lower extremities are free from significant edema. The peripheral pulses were 2+ and symmetric. Neuro: Awake alert oriented to person place and time. There are no acute new gross focal sensory motor deficits. Patient is very anxious. - Labs CBC & Chem 7: 08/03/17 07:29 08/03/17 07:29 Labs: Abnormal Lab Results - Last 24 Hours (Table) 08/03/17 08/03/17 08/03/17 Range/Units 07: 07: 17:06 RBC 3.42 L (3.80-5.40) m/uL Hgb 11.0 L (11.4-16.0) gm/dL Hct 33.8 L (34.0-46.0) % Chloride 110 H (98-107) mmol/L Carbon Dioxide 20 L (22-30) mmol/L BUN 2 L (7-17) mg/dL U Benzodiazepines Scrn Detected H (NotDetected) Laboratory Results WBC 6.9 k/uL (3.8-10.6) 08/03/17: RBC 3.42 m/uL (3.80-5.40) L 08/03/17: Hgb 11.0 gm/dL (11.4-16.0) L 08/03/17: Hct 33.8 % (34.0-46.0) L 08/03/17: MCV 98.8 fL (80.0-100.0) 08/03/17: MCH 32.1 pg (25.0-35.0) 08/03/17: MCHC 32.5 g/dL (31.0-37.0) 08/03/17: RDW 14.1 % (11.5-15.5) 08/03/17: Plt Count 321 k/uL (150-450) 08/03/17: Neutrophils % 51 % 08/03/17: Lymphocytes % 39 % 08/03/17 07:29 Monocytes % 4 % 08/03/17 07:29 Eosinophils % 4 % 08/03/17 07:29 Basophils % 0 % 08/03/17 07:29 Neutrophils # 3.5 k/uL (1.3-7.7) 08/03/17 07:29 Lymphocytes # 2.7 k/uL (1.0-4.8) 08/03/17 07:29 Monocytes # 0.3 k/uL (0-1.0) 08/03/17 07:29 Eosinophils # 0.3 k/uL (0-0.7) 08/03/17 07:29 Basophils # 0.0 k/uL (0-0.2) 08/03/17 07:29 Sodium 138 mmol/L (137-145) 08/03/17 07:29 Potassium 3.9 mmol/L (3.5-5.1) 08/03/17 07:29 Chloride 110 mmol/L (98-107) H 08/03/17 07:29 Carbon Dioxide 20 mmol/L (22-30) L 08/03/17 07:29 Anion Gap 8 mmol/L 08/03/17 07:29 BUN 2 mg/dL (7-17) L 08/03/17 07:29 Creatinine 0.73 mg/dL (0.52-1.04) 08/03/17 07:29 Est GFR (MDRD) Af Amer >60 (>60 ml/min/1.73 sqM) 08/03/17 07:29 Est GFR (MDRD) Non-Af >60 (>60 ml/min/1.73 sqM) 08/03/17 07:29 Glucose 87 mg/dL (74-99) 08/03/17 07:29 Calcium 9.0 mg/dL (8.4-10.2) 08/03/17 07:29 Phosphorus 3.2 mg/dL (2.5-4.5) 08/02/17 07:39 Magnesium 1.9 mg/dL (1.6-2.3) 08/02/17 07:39 Total Bilirubin 0.3 mg/dL (0.2-1.3) 08/02/17 07:39 AST 14 U/L (14-36) 08/02/17 07:39 ALT 31 U/L (9-52) 08/02/17 07:39 Alkaline Phosphatase 56 U/L (38-126) 08/02/17 07:39 Total Protein 5.7 g/dL (6.3-8.2) L 08/02/17 07:39 Albumin 3.4 g/dL (3.5-5.0) L 08/02/17 07:39 Lipase 121 U/L (23-300) 08/02/17 07:39 Urine Color Colorless 08/01/17 15:00 Urine Appearance Clear (Clear) 08/01/17 15:00 Urine pH 6.0 (5.0-8.0) 08/01/17 15:00 Ur Specific [place] 1.002 (1.001-1.035) 08/01/17 15:00 Urine Protein Negative (Negative) 08/01/17 15:00 Urine Glucose (UA) Negative (Negative) 08/01/17 15:00 Urine Ketones Negative (Negative) 08/01/17 15:00 Urine Blood Negative (Negative) 08/01/17 15:00 Urine Nitrite Negative (Negative) 08/01/17 15:00 Urine Bilirubin Negative (Negative) 08/01/17 15:00 Urine Urobilinogen <2.0 mg/dL (<2.0) 08/01/17 15:00 Ur Leukocyte Esterase Negative (Negative) 08/01/17 15:00 Urine HCG, Qual Not Detected (Not Detectd) 08/01/17 15:00 Urine Opiates Screen Not Detected (NotDetected) 08/03/17 17:06 Ur Oxycodone Screen Not Detected (NotDetected) 08/03/17 17:06 Urine Methadone Screen Not Detected (NotDetected) 08/03/17 17:06 Ur Propoxyphene Screen Not Detected (NotDetected) 08/03/17 17:06 Ur Barbiturates Screen Not Detected (NotDetected) 08/03/17 17:06 U Tricyclic Antidepress Not Detected (NotDetected) 08/03/17 17:06 Ur Phencyclidine Scrn Not Detected (NotDetected) 08/03/17 17:06 Ur Amphetamines Screen Not Detected (NotDetected) 08/03/17 17:06 U Methamphetamines Scrn Not Detected (NotDetected) 08/03/17 17:06 U Benzodiazepines Scrn Detected (NotDetected) H 08/03/17 17:06 Urine Cocaine Screen Not Detected (NotDetected) 08/03/17 17:06 U Marijuana (THC) Screen Not Detected (NotDetected) 08/03/17 17:06 C. difficile (EIA) Intrp Negative (Negative) 08/01/17 16:41 Influenza Type A RNA Not Detected (Not Detectd) 08/01/17 23:40 Influenza Type B (PCR) Not Detected (Not Detectd) 08/01/17 23:40 Microbiology 08/01/17 16:41 Stool Stool for WBCs - Final 08/01/17 16:41 Stool Stool Culture - Preliminary Assessment and Plan (1) Intractable nausea and vomiting Narrative/Plan: 31-year-old female presents to hospital with ongoing nausea and emesis and worsening abdominal pain. She relates that she's been to 2 other hospitals in the last few days because it did nothing for her she came to our facility. Surgical consult is in progress. The patient is concerned that she has recurrent C. diff colitis. We discussed that her stool is been tested and is negative for C. diff. Over she continues to talk about her ongoing C. diff colitis she knows what is like when she has her C. diff. We discussed there are other potentials for abdominal pain and diarrhea. Stool cultures are in process. Patient does have some thrush and some Mycelex troches can be given. Pain control as per the primary service Needs ongoing significant anxiolytic therapy, would like to have Valium as well as her Ativan. Suggested this point in time that only one is appropriate and is being given per the primary service. She states that she is going to be good and not signout AMA until she feels better. It this time does not appear to have C. diff and constantly does not need antimicrobial therapy. Stool culture may further help direct if any other intervention is needed. Is noted she has no fever, no leukocytosis and is evidence of any bloody stool. Shiga toxin associated disease is highly unlikely. And she has no travel. Patient does appear to be somewhat dehydrated. A liter of fluid be given today. Will hopefully help with her nausea and emesis. Continue with the current supportive care. Status: Acute (2) Abdominal pain Status: Acute
[2017-08-03] MEDS ORDERED: SODIUM CHLORIDE 0.9% 1,000 ML IV ONE (21:41)
[2017-08-03] MEDS: CLOTRIMAZOLE TROCHE 10 MG TROCHE MUCOUS MEM SCH (23:19)
[2017-08-04] MEDS: CLOTRIMAZOLE TROCHE 10 MG TROCHE MUCOUS MEM SCH ×2 (00:41→07:46)
[2017-08-04] MEDS: D5-0.9% NACL WITH KCL 20 MEQ/L 1,000 ML IV SCH (00:42)
[2017-08-04] MEDS: HYDROmorphone 0.5 MG/0.5 ML SYRINGE IVP PRN ×3 (01:05→09:13)
[2017-08-04] MEDS: LORazepam 2 MG/ML INJ IV PRN ×2 (03:31→09:14)
[2017-08-04] MEDS ORDERED: AZITHROMYCIN 500 MG in SODIUM CHLORIDE 0.9% 250 ML IVPB SCH (06:00)
[2017-08-04] MEDS: ONDANSETRON 4 MG/2 ML VIAL IVP PRN (06:31)
[2017-08-04 08:03] LABS: Basophils % (A) 1 %; CH 32.1; CHCM 32.6; Eosinophils # (A) 0.2 k/uL (0-0.7); Eosinophils % (A) 4 %; HCT 35.8 % (34.0-46.0); HDW 2.43; HGB 11.5 gm/dL (11.4-16.0); Luc # (Auto) 0.14; Luc % (Auto) 2; Lymphocytes % (A) 46 %; MCH 31.9 pg (25.0-35.0); MCHC 32.2 g/dL (31.0-37.0); MCV 99.1 fL (80.0-100.0); Mean Platelet Volume 6.8; Monocytes # (A) 0.3 k/uL (0-1.0); Monocytes % (A) 4 %; Neutrophils # (A) 2.8 k/uL (1.3-7.7); Neutrophils % (A) 44 %; RBC 3.62 m/uL (3.80-5.40); RDW 13.2 % (11.5-15.5); WBC 6.5 k/uL (3.8-10.6); WBC (Perox) 6.72
[2017-08-04 08:17] VITALS: BP 125/75; PULSE 102; RESP 18; TEMP 97.4
[2017-08-04 08:20] LABS: Anion Gap 11 mmol/L; Blood Urea Nitrogen 2 mg/dL (7-17); Calcium 9.2 mg/dL (8.4-10.2); Carbon Dioxide 20 mmol/L (22-30); Chloride 110 mmol/L (98-107); Glucose 92 mg/dL (74-99); Non-African American GFR(MDRD) >60 (>60 ml/min/1.73 sqM); Potassium 3.7 mmol/L (3.5-5.1); Sodium 141 mmol/L (137-145)
[2017-08-04] MEDS: PANTOPRAZOLE 40 MG/10 ML VIAL IV SCH (09:14)
[2017-08-04] MEDS: METHYLPHENIDATE HCL 10 MG TAB PO SCH (09:14)
[2017-08-04] MEDS: PARoxetine 20 MG TAB PO SCH (09:15)
[2017-08-04] MEDS: CYCLOBENZAPRINE 10 MG TAB PO SCH (09:15)
[2017-08-04] MEDS: HEPARIN SODIUM,PORCINE 5,000 UNIT/ML 1 ML VIAL SQ SCH (09:15)
--- NOTE | 2017-08-04 12:57 | P.DS ---
Providers Date of admission: 08/02/17 08:44 Attending physician: Andrew Ahmadi Consults: 08/01/17 20:51 Consult Physician Routine Consulting Provider: Shaan Gonzalez Consult Reason/Comments: abd pain Do you want consulting provider notified?: Yes 08/01/17 20:54 Consult Physician Routine Consulting Provider: Tino Mckeon Consult Reason/Comments: recent flu? Do you want consulting provider notified?: Yes 08/03/17 13:01 Consult Physician Routine Consulting Provider: Miguel Henry Consult Reason/Comments: anxiety, bipolar, depression Do you want consulting provider notified?: Yes Primary care physician: [facility] Course: This 28-year-old woman was admitted with abdominal pain nausea vomiting and multiple symptomology. Treated symptomatically. However the patient left the hospital hospital AGAINST MEDICAL ADVICE. Prognosis guarded. Final diagnosis 1. Nausea and diarrhea possible acute gastroenteritis C. difficile ruled out, possibility of bowel syndrome acute exacerbation. 2. Influenza negative 3. History of asthma. 4. Fibromyalgia. 5. History of anxiety state. 6. History of previous C. difficile colitis in the remote past. 7. History of DJD. 8. History of hypoglycemia. 9. Chronic back pain. 10. History: Crohn's disease. 11. History of appendectomy. 12. History of cholecystectomy. 13. History of ADHD. 14. Anxiety posttraumatic stress disorder. Patient Condition at Discharge: Good Plan - Discharge Summary New Discharge Prescriptions: New Erythromycin Base [Erythromycin] 500 mg PO Q8HR #30 tablet Ondansetron [Zofran] 4 mg PO Q8HR PRN #21 tab PRN Reason: Nausea And Vomiting No Action Methylphenidate HCl [Ritalin] 20 mg PO TID HYDROcodone/APAP 10-325MG [[place] 10-325] 1 tab PO Q6HR PRN #28 tab PRN Reason: Pain Diazepam [Valium] 10 mg PO TID Ondansetron HCl [Zofran] 4 mg PO Q8H PRN PRN Reason: Nausea PARoxetine HCL [Paxil] 40 mg PO DAILY Omeprazole [PriLOSEC] 40 mg PO AC-BRKFST #30 capsule. Cyclobenzaprine [Flexeril] 1 tab PO TID Discharge Medication List Methylphenidate HCl [Ritalin] 20 mg PO TID 07/07/15 [History] HYDROcodone/APAP 10-325MG [[place] 10-325] 1 tab PO Q6HR PRN #28 tab 07/09/15 [Rx] Diazepam [Valium] 10 mg PO TID 04/11/17 [History] Ondansetron HCl [Zofran] 4 mg PO Q8H PRN 04/11/17 [History] PARoxetine HCL [Paxil] 40 mg PO DAILY 04/11/17 [History] Omeprazole [PriLOSEC] 40 mg PO AC-BRKFST #30 capsule. 04/13/17 [Rx] Cyclobenzaprine [Flexeril] 1 tab PO TID 08/01/17 [History] Erythromycin Base [Erythromycin] 500 mg PO Q8HR #30 tablet 08/04/17 [Rx] Ondansetron [Zofran] 4 mg PO Q8HR PRN #21 tab 08/04/17 [Rx] Follow up Appointment(s)/Referral(s): Braydon Hickman DO [Medical Doctor] - 1 Week Tom Sanchez DO [Primary Care Provider] - 1-2 days Discharge Disposition: Left Against Medical Advice
--- NOTE | 2017-08-04 20:00 | P.PN ---
Subjective Progress Note Date: 08/04/17 Principal diagnosis: Abdominal pain with nausea and emesis 31-year-old female who presents to the emergency center with ongoing difficulty with abdominal pain associated with nausea and emesis and feeling very weak overall. His related over the last several days she has had several emergency room visits. She was at [facility], as well as [facility]. She relates that did nothing for her and she left both facilities. She relates that she's been having worsening abdominal pain. She is having copious amounts of diarrhea. She relates that she has a history of C. diff in the past. And is concerned that it does come back. She feels quite poorly overall. Innocent desire of improved pain control. She relates that Dilaudid is effective. Zofran also helps. But is having some emesis even despite having Zofran therapy. She is denying hematemesis, melena or hematochezia. She relates that the bowel and stool feel like when she had C. diff in the past. She believes she had a fever at home. With her abdominal pain is modestly well controlled with current medications. Patient however is very unhappy about her stay. He will be signing out AMA. Objective - Vital Signs Vital signs: Vital Signs Temp 97.4 F L 08/04/17 07:00 Pulse 102 H 08/04/17 07:00 Resp 18 08/04/17 07:00 BP 125/75 08/04/17 07:00 Pulse Ox 97 08/04/17 07:00 Intake & Output 08/04/17 08/04/17 08/05/17 06:59 18:59 06:59 Other: # Voids 5 - Exam 31-year-old female who appears to be uncomfortable HEENT: Anicteric conjunctiva are pink and moist nasal mucosa grossly intact without significant lesions, thrush without other lesions the oral cavity is dry Neck: The neck is supple without significant lymphadenopathy or thyromegaly. Lungs: Symmetrical air entry however expiratory wheezes are scattered without tate bronchial sounds. No dullness or egophony Heart: Regular rate and rhythm with an audible S1-S2, no S3 no S4. There is no significant murmur click or rub, PMI was nondisplaced. Abdomen: Positive bowel sounds soft there is distinct tenderness in the right lower quadrant. Other quadrants have only minimal tenderness. There was no guarding or rebound. No organomegaly. No bruising to the abdominal wall. Extremities: The upper extremities have excellent pulses they are symmetric, no significant petechiae or telangiectasia. No splinter hemorrhages were noted. The lower extremities are free from significant edema. The peripheral pulses were 2+ and symmetric. Neuro: Awake alert oriented to person place and time. There are no acute new gross focal sensory motor deficits. Patient is very anxious. Relates she'll be signing out AMA. Does not like how she is treated. - Labs CBC & Chem 7: 08/04/17 07:38 08/04/17 07:38 Labs: Abnormal Lab Results - Last 24 Hours (Table) 08/04/17 08/04/17 Range/Units 07:38 07:38 RBC 3.62 L (3.80-5.40) m/uL Chloride 110 H (98-107) mmol/L Carbon Dioxide 20 L (22-30) mmol/L BUN 2 L (7-17) mg/dL Microbiology - Last 24 Hours (Table) 08/01/17 16:41 Stool Culture - Final Stool Laboratory Results WBC 6.5 k/uL (3.8-10.6) 08/04/17 07:38 RBC 3.62 m/uL (3.80-5.40) L 08/04/17 07:38 Hgb 11.5 gm/dL (11.4-16.0) 08/04/17 07:38 Hct 35.8 % (34.0-46.0) 08/04/17 07:38 MCV 99.1 fL (80.0-100.0) 08/04/17 07:38 MCH 31.9 pg (25.0-35.0) 08/04/17 07:38 MCHC 32.2 g/dL (31.0-37.0) 08/04/17 07:38 RDW 13.2 % (11.5-15.5) 08/04/17 07:38 Plt Count 350 k/uL (150-450) 08/04/17 07:38 Neutrophils % 44 % 08/04/17 07:38 Lymphocytes % 46 % 08/04/17 07:38 Monocytes % 4 % 08/04/17 07:38 Eosinophils % 4 % 08/04/17 07:38 Basophils % 1 % 08/04/17 07:38 Neutrophils # 2.8 k/uL (1.3-7.7) 08/04/17 07:38 Lymphocytes # 3.0 k/uL (1.0-4.8) 08/04/17 07:38 Monocytes # 0.3 k/uL (0-1.0) 08/04/17 07:38 Eosinophils # 0.2 k/uL (0-0.7) 08/04/17 07:38 Basophils # 0.0 k/uL (0-0.2) 08/04/17 07:38 Sodium 141 mmol/L (137-145) 08/04/17 07:38 Potassium 3.7 mmol/L (3.5-5.1) 08/04/17 07:38 Chloride 110 mmol/L (98-107) H 08/04/17 07:38 Carbon Dioxide 20 mmol/L (22-30) L 08/04/17 07:38 Anion Gap 11 mmol/L 08/04/17 07:38 BUN 2 mg/dL (7-17) L 08/04/17 07:38 Creatinine 0.77 mg/dL (0.52-1.04) 08/04/17 07:38 Est GFR (MDRD) Af Amer >60 (>60 ml/min/1.73 sqM) 08/04/17 07:38 Est GFR (MDRD) Non-Af >60 (>60 ml/min/1.73 sqM) 08/04/17 07:38 Glucose 92 mg/dL (74-99) 08/04/17 07:38 Calcium 9.2 mg/dL (8.4-10.2) 08/04/17 07:38 Phosphorus 3.2 mg/dL (2.5-4.5) 08/02/17 07:39 Magnesium 1.9 mg/dL (1.6-2.3) 08/02/17 07:39 Total Bilirubin 0.3 mg/dL (0.2-1.3) 08/02/17 07:39 AST 14 U/L (14-36) 08/02/17 07:39 ALT 31 U/L (9-52) 08/02/17 07:39 Alkaline Phosphatase 56 U/L (38-126) 08/02/17 07:39 Total Protein 5.7 g/dL (6.3-8.2) L 08/02/17 07:39 Albumin 3.4 g/dL (3.5-5.0) L 08/02/17 07:39 Lipase 121 U/L (23-300) 08/02/17 07:39 Urine Color Colorless 08/01/17 15:00 Urine Appearance Clear (Clear) 08/01/17 15:00 Urine pH 6.0 (5.0-8.0) 08/01/17 15:00 Ur Specific [place] 1.002 (1.001-1.035) 08/01/17 15:00 Urine Protein Negative (Negative) 08/01/17 15:00 Urine Glucose (UA) Negative (Negative) 08/01/17 15:00 Urine Ketones Negative (Negative) 08/01/17 15:00 Urine Blood Negative (Negative) 08/01/17 15:00 Urine Nitrite Negative (Negative) 08/01/17 15:00 Urine Bilirubin Negative (Negative) 08/01/17 15:00 Urine Urobilinogen <2.0 mg/dL (<2.0) 08/01/17 15:00 Ur Leukocyte Esterase Negative (Negative) 08/01/17 15:00 Urine HCG, Qual Not Detected (Not Detectd) 08/01/17 15:00 Urine Opiates Screen Not Detected (NotDetected) 08/03/17 17:06 Ur Oxycodone Screen Not Detected (NotDetected) 08/03/17 17:06 Urine Methadone Screen Not Detected (NotDetected) 08/03/17 17:06 Ur Propoxyphene Screen Not Detected (NotDetected) 08/03/17 17:06 Ur Barbiturates Screen Not Detected (NotDetected) 08/03/17 17:06 U Tricyclic Antidepress Not Detected (NotDetected) 08/03/17 17:06 Ur Phencyclidine Scrn Not Detected (NotDetected) 08/03/17 17:06 Ur Amphetamines Screen Not Detected (NotDetected) 08/03/17 17:06 U Methamphetamines Scrn Not Detected (NotDetected) 08/03/17 17:06 U Benzodiazepines Scrn Detected (NotDetected) H 08/03/17 17:06 Urine Cocaine Screen Not Detected (NotDetected) 08/03/17 17:06 U Marijuana (THC) Screen Not Detected (NotDetected) 08/03/17 17:06 C. difficile (EIA) Intrp Negative (Negative) 08/01/17 16:41 Influenza Type A RNA Not Detected (Not Detectd) 08/01/17 23:40 Influenza Type B (PCR) Not Detected (Not Detectd) 08/01/17 23:40 Microbiology 08/01/17 16:41 Stool Stool Culture - Final 08/01/17 16:41 Stool Stool for WBCs - Final Assessment and Plan (1) Intractable nausea and vomiting Narrative/Plan: 31-year-old female presents to hospital with ongoing nausea and emesis and worsening abdominal pain. She relates that she's been to 2 other hospitals in the last few days because it did nothing for her she came to our facility. Surgical consult is in progress. The patient is concerned that she has recurrent C. diff colitis. We discussed that her stool is been tested and is negative for C. diff. Over she continues to talk about her ongoing C. diff colitis she knows what is like when she has her C. diff. We discussed there are other potentials for abdominal pain and diarrhea. Stool cultures are in process. Patient does have some thrush and some Mycelex troches can be given. Pain control as per the primary service Needs ongoing significant anxiolytic therapy, would like to have Valium as well as her Ativan. Suggested this point in time that only one is appropriate and is being given per the primary service. She states that she is going to be good and not signout AMA until she feels better. It this time does not appear to have C. diff and constantly does not need antimicrobial therapy. Stool culture may further help direct if any other intervention is needed. Is noted she has no fever, no leukocytosis and is evidence of any bloody stool. Shiga toxin associated disease is highly unlikely. And she has no travel. Patient was fluid resuscitated with some improvement. She however is very unhappy with her overall situation, especially reducing pain medications. She will leaving AMA. Her throat Meissen is described to her pharmacy to complete treatment of her strep throat. Status: Acute (2) Abdominal pain Status: Acute
== END 2017-08-04 11:58 | disposition left against medical advice (07) ==
LOC: EC 12:50 → 4MS4W 17:42 → OBSVTOIN 08-02 08:44 → INTOOBSV 08-02 08:44
PROVIDERS: ADMIT Hospitalist; ATTEND Hospitalist
DX: R19.7 Diarrhea, unspecified (principal); R11.2 Nausea with vomiting, unspecified; J45.909 Unspecified asthma, uncomplicated; F31.9 Bipolar disorder, unspecified; M79.7 Fibromyalgia; F41.1 Generalized anxiety disorder; K21.9 Gastro-esophageal reflux disease without esophagitis; G89.29 Other chronic pain; M19.90 Unspecified osteoarthritis, unspecified site; F90.9 Attention-deficit hyperactivity disorder, unspecified type; F43.10 Post-traumatic stress disorder, unspecified; F17.200 Nicotine dependence, unspecified, uncomplicated; K50.90 Crohn's disease, unspecified, without complications; M41.9 Scoliosis, unspecified; E86.0 Dehydration; B37.9 Candidiasis, unspecified; J02.0 Streptococcal pharyngitis; Z86.19 Personal history of other infectious and parasitic diseases; Z79.899 Other long term (current) drug therapy; Z87.11 Personal history of peptic ulcer disease; Z88.5 Allergy status to narcotic agent; Z88.0 Allergy status to penicillin; Z88.8 Allergy status to other drugs, medicaments and biological substances; Z91.041 Radiographic dye allergy status; Z85.41 Personal history of malignant neoplasm of cervix uteri; Z90.49 Acquired absence of other specified parts of digestive tract; Z82.49 Family history of ischemic heart disease and other diseases of the circulatory system
CPT/HCPCS: 96376 ×4; 96361 ×4; 96365; 96366 ×3; 96367; 96372 ×4; 96375 ×3; 96374; 99285; 36415; 80053 ×2; 80048 ×2; 83690 ×2; 83735; 84100; 85025 ×4; 81003; 81025; 87324; 80306; 87045; 89055; 87046; 87502; 74000; G0378 ×4; J1364 ×2; J2060 ×4; J1644 ×4; J2765; J2405 ×4; J0456; J1885 ×2; J1170 ×4; C9113 ×3

== ENCOUNTER 2017-09-08 17:41 | Emergency (ER) | payer OTHER ==
[2017-09-08] MEDS ORDERED: LORazepam 1 MG TAB PO STA (17:53)
--- NOTE | 2017-09-08 17:57 | ED ---
Anxiety HPI - General Chief Complaint: Anxiety Stated Complaint: Anxiety Time Seen by Provider: 09/08/17 17:42 Source: patient, EMS, RN notes reviewed, old records reviewed Mode of arrival: EMS - History of Present Illness Initial Comments: 31-year-old female presents emergency Department chief complaint of anxiety attack. Patient reports that she woke up this morning and had it. Patient states that she suffered from anxiety for a long time. She is to have medication. Patient states that she's had no suicidal thoughts. She called EMS that she fell she couldn't breathe anymore. Patient states that she got an argument with her brother last night which spurred on this anxiety attack. Patient states that she has no fever or chills, chest pain, nausea or vomiting. She states that she feels like her heart is racing cannot stop. Patient reports she did not see any counseling services for psych services at this time. - Related Data Home Medications: Home Medications Medication Instructions Recorded Confirmed Methylphenidate HCl [Ritalin] 20 mg PO TID 07/07/15 09/08/17 Diazepam [Valium] 10 mg PO TID 04/11/17 09/08/17 Ondansetron HCl [Zofran] 4 mg PO Q8H PRN 04/11/17 09/08/17 PARoxetine HCL [Paxil] 40 mg PO DAILY 04/11/17 09/08/17 Cyclobenzaprine [Flexeril] 1 tab PO TID 08/01/17 09/08/17 Fluticasone Nasal [place] [Flonase 2 spray EA NOSTRIL DAILY 09/08/17 09/08/17 Nasal [place]] Loratadine 10 mg PO DAILY 09/08/17 09/08/17 Lurasidone [Latuda] 40 mg PO DAILY 09/08/17 09/08/17 Naproxen [Naprosyn] 500 mg PO BID 09/08/17 09/08/17 Propranolol HCl [Propranolol HCl 60 mg PO DAILY 09/08/17 09/08/17 ER] Ranitidine HCl [Zantac] 150 mg PO BID 09/08/17 09/08/17 Previous Rx's Medication Instructions Recorded LORazepam [Ativan] 0.5 mg PO BID #8 tab 09/08/17 Allergies/Adverse Reactions: Allergies Allergy/AdvReac Type Severity Reaction Status Date / Time codeine Allergy Rash/Hives Verified 09/08/17 18:53 morphine Allergy Itching/Bur Verified 09/08/17 18:53 kasi Penicillins Allergy Unknown Verified 09/08/17 18:53 Childhood haloperidol [From Haldol] AdvReac Dystonic Verified 09/08/17 18:53 Reaction Iodinated Contrast- Oral and AdvReac Kidney Verified 09/08/17 18:53 IV Dye Failure [Iodinated Contrast Media - IV Dye] steriods Allergy Unknown Uncoded 09/08/17 17:43 Review of Systems ROS Statement: Those systems with pertinent positive or pertinent negative responses have been documented in the HPI. ROS Other: All systems not noted in ROS Statement are negative. Past Medical History Past Medical History: Asthma, Cancer, Fibromyalgia, GERD/Reflux, Osteoarthritis (OA), Renal Disease Additional Past Medical History / Comment(s): egd-antral ulcer, kidney failure x2 due to iodine allergy, "possibly lupus", hypoglycemia, chronic back pain, sciatica, cervical CA with sx, "?crohns", had c diff february 2016(first dx 4 years ago) , L knee injury, ovarian cysts, scoliosis History of Any Multi-Drug Resistant Organisms: None Reported Date of last positivie culture/infection: March 2016 MDRO Source:: None Past Surgical History: Appendectomy, Cholecystectomy, Hysterectomy, Orthopedic Surgery, Tubal Ligation Additional Past Surgical History / Comment(s): several upper endoscopies,13 surgerys on left knee, left wrist ganglion cystectomy, exploratory lap and biopsy Pt states she has had a total of OVER 50 surgeries. PARTIAL HYSTERECTOMY Past Anesthesia/Blood Transfusion Reactions: No Reported Reaction Additional Past Anesthesia/Blood Transfusion Reaction / Comment(s): clausterphobia Past Psychological History: ADD/ADHD, Anxiety, Bipolar, PTSD Smoking Status: Current every day smoker Past Alcohol Use History: None Reported Past Drug Use History: None Reported - Past Family History Father History Unknown: Yes Family Medical History: Cancer Additional Family Medical History / Comment(s): does'nt know her real dad's med hx. but grandpa had cancer Mother Family Medical History: Cancer, Diabetes Mellitus, Hypertension Additional Family Medical History / Comment(s): past etoh abuse, breast cancer, cardiac problems General Exam - General Exam Comments Initial Comments: 31-year-old female. No acute distress. Patient is anxious and tearful. General appearance: alert, in no apparent distress Head exam: Present: atraumatic, normocephalic, normal inspection Eye exam: Present: normal appearance, PERRL, EOMI. Absent: scleral icterus, conjunctival injection, periorbital swelling ENT exam: Present: normal exam, mucous membranes moist Neck exam: Present: normal inspection. Absent: tenderness, meningismus, lymphadenopathy Respiratory exam: Present: normal lung sounds bilaterally. Absent: respiratory distress, wheezes, rales, rhonchi, stridor Cardiovascular Exam: Present: regular rate, normal rhythm, normal heart sounds. Absent: systolic murmur, diastolic murmur, rubs, gallop, clicks GI/Abdominal exam: Present: soft, normal bowel sounds. Absent: distended, tenderness, guarding, rebound, rigid Extremities exam: Present: normal inspection, full ROM, normal capillary refill. Absent: tenderness, pedal edema, joint swelling, calf tenderness Back exam: Present: normal inspection Neurological exam: Present: alert, oriented X3, CN II-XII intact Psychiatric exam: Present: normal mood, anxious. Absent: normal affect Skin exam: Present: warm, dry, intact, normal color. Absent: rash Course Vital Signs 09/08/17 09/08/17 17:43 20:03 Temperature 97.1 F L 98.3 F Pulse Rate 116 H 120 H Respiratory 20 18 Rate Blood Pressure 150/84 144/84 O2 Sat by Pulse 97 100 Oximetry - Reevaluation(s) Reevaluation #1: 09/08/17 19:08 patient was reevaluated, she reports she's been feeling somewhat better, less anxious after receiving the Ativan. She reports she still continues to have occasional tightness in her throat and chest. Patient will receive an EKG. Medical Decision Making - Medical Decision Making 31-year-old female presents emergency Department chief complaint of anxiety attack. Patient reports that she woke up this morning and had it. Patient states that she suffered from anxiety for a long time. PAtient given PO ativan and reevaluated. Patient was feeling better afterward, at that time she related that she has had intermittent chest discomfort, her EKG shows no acute abnormalities. Patient relates that her symptoms are sprarted from her anxiety. She states that she does not see a counselor at this time. Patent was no suicidal thoughts, and does not want to seek help form EPS at this time. PAtient will be discharged with short Rx ofor ativan for acute anxiety attack. Discussed close follow up with [facility] or PCP. Return paramters discussed. 09/08/17 19:51 EKG shows sinus tachycardia, possible left atrial margin. Anterior septal infarct. Age undetermined. Ventricular rate of 110 bpm. : 42 muscles. Yazidism 82 ms. QT QTc is 320/433 ms. No evidence of ST elevation or T-wave inversion. EKG was compared to previous EKG of 02/04/2016 and shows no acute changes. Disposition Clinical Impression: Acute anxiety Disposition: HOME SELF-CARE Condition: Good Instructions: Generalized Anxiety Disorder (ED) Additional Instructions: Is advised to follow up with [facility]. Patient should return to the emergency department if any alarming signs or symptoms occur. Prescriptions: LORazepam [Ativan] 0.5 mg PO BID #8 tab Referrals: Nura Roe PAC [REFERRING] - 1-2 days Time of Disposition: 19:47
[2017-09-08] MEDS ORDERED: ACETAMINOPHEN TAB 500 MG TAB PO STA (19:25)
[2017-09-08] MEDS ORDERED: IBUPROFEN 600 MG STARTER PACK 4 TAB BTL PO STA (19:25)
[2017-09-08 20:04] VITALS: BP 144/84; PULSE 120; RESP 18; TEMP 98.3
== END 2017-09-08 20:11 | disposition home or self-care (01) ==
LOC: EC 17:41
DX: F41.9 Anxiety disorder, unspecified (principal); J45.909 Unspecified asthma, uncomplicated; M79.7 Fibromyalgia; F31.9 Bipolar disorder, unspecified; F43.10 Post-traumatic stress disorder, unspecified; K21.9 Gastro-esophageal reflux disease without esophagitis; F17.200 Nicotine dependence, unspecified, uncomplicated; Z85.41 Personal history of malignant neoplasm of cervix uteri; Z79.1 Long term (current) use of non-steroidal anti-inflammatories (NSAID); Z79.51 Long term (current) use of inhaled steroids; Z79.899 Other long term (current) drug therapy; Z88.0 Allergy status to penicillin; Z88.5 Allergy status to narcotic agent; Z88.8 Allergy status to other drugs, medicaments and biological substances; Z91.041 Radiographic dye allergy status
CPT/HCPCS: 93005; 99284

== ENCOUNTER 2018-03-02 15:25 | Emergency (ER) | payer OTHER ==
[2018-03-02 15:51] VITALS: BP 143/90; PULSE 85; RESP 20; TEMP 98.8
--- NOTE | 2018-03-02 16:34 | ED ---
General Adult HPI - General Chief complaint: Recheck/Abnormal Lab/Rx Stated complaint: med refill Time Seen by Provider: 03/02/18 16:10 Source: patient, RN notes reviewed Mode of arrival: ambulatory Limitations: no limitations - History of Present Illness Initial comments: This is a 32-year-old female who presents to the emergency department with chief complaint of dental pain and request for med refill. Patient states that she recently moved to [place] from [place] a couple of days ago. She requests to have Ritalin and Valium refilled. Patient also complains of right lower dental pain that has been present for the past one week. Patient states that she has been taking Motrin with minimal relief. Patient states that pain radiates to her right here but denies radiation to her neck. Denies recent fevers or chills, abdominal pain, chest pain or shortness breath, nausea or vomiting. - Related Data Home Medications Medication Instructions Recorded Confirmed Ibuprofen [Motrin Ib] 800 mg PO TID PRN 03/02/18 03/02/18 Allergies Allergy/AdvReac Type Severity Reaction Status Date / Time codeine Allergy Rash/Hives Verified 03/02/18 16:25 morphine Allergy Itching/Bur Verified 03/02/18 16:25 kasi Penicillins Allergy Unknown Verified 03/02/18 16:25 Childhood haloperidol [From Haldol] AdvReac Dystonic Verified 03/02/18 16:25 Reaction Iodinated Contrast- Oral and AdvReac Kidney Verified 03/02/18 16:25 IV Dye Failure [Iodinated Contrast Media - IV Dye] steriods Allergy Unknown Uncoded 03/02/18 15:51 Review of Systems ROS Statement: Those systems with pertinent positive or pertinent negative responses have been documented in the HPI. ROS Other: All systems not noted in ROS Statement are negative. Past Medical History Past Medical History: Asthma, Cancer, Fibromyalgia, GERD/Reflux, Osteoarthritis (OA), Renal Disease Additional Past Medical History / Comment(s): egd-antral ulcer, kidney failure x2 due to iodine allergy, "possibly lupus", hypoglycemia, chronic back pain, sciatica, cervical CA with sx, "?crohns", had c diff february 2016(first dx 4 years ago) , L knee injury, ovarian cysts, scoliosis History of Any Multi-Drug Resistant Organisms: None Reported Date of last positivie culture/infection: March 2016 MDRO Source:: None Past Surgical History: Appendectomy, Cholecystectomy, Hysterectomy, Orthopedic Surgery, Tubal Ligation Additional Past Surgical History / Comment(s): several upper endoscopies,13 surgerys on left knee, left wrist ganglion cystectomy, exploratory lap and biopsy Pt states she has had a total of OVER 50 surgeries. PARTIAL HYSTERECTOMY Past Anesthesia/Blood Transfusion Reactions: No Reported Reaction Additional Past Anesthesia/Blood Transfusion Reaction / Comment(s): clausterphobia Past Psychological History: ADD/ADHD, Anxiety, Bipolar, PTSD Smoking Status: Current every day smoker Past Alcohol Use History: None Reported Past Drug Use History: None Reported - Past Family History Father History Unknown: Yes Family Medical History: Cancer Additional Family Medical History / Comment(s): does'nt know her real dad's med hx. but grandpa had cancer Mother Family Medical History: Cancer, Diabetes Mellitus, Hypertension Additional Family Medical History / Comment(s): past etoh abuse, breast cancer, cardiac problems General Exam - General Exam Comments Initial Comments: General: Awake and alert, well-developed; in no apparent distress. HEENT: Head atraumatic, normocephalic. Pupils are equal, round and reactive to light. Extraocular movements intact. Oropharynx moist without erythema or exudate. Poor dentition throughout. Teeth #29 through 31 are fractured and cavities are noted. Gumline is tender on palpation. No masses or areas of fluctuance noted. Neck: Supple. Normal ROM. Cardiovascular: Regular rate and rhythm. No murmurs, rubs or gallops. Chest symmetrical. Respiratory: Lungs clear to auscultation bilaterally. No wheezes, rales or rhonchi. Normal respiratory effort with no use of accessory muscles. Musculoskeletal: Normal ROM, no tenderness bilateral upper and lower extremities. Ambulating normally. Skin: [place], warm and dry without rashes or lesions. Neurological: Alert and oriented x3. CN II-XII grossly intact. Speech is fluent and answers are appropriate. No focal neuro deficits. Psychiatric: Normal mood and affect. No overt signs of depression or anxiety noted. Limitations: no limitations Course Vital Signs 03/02/18 15:49 Temperature 98.8 F Pulse Rate 85 Respiratory 20 Rate Blood Pressure 143/90 O2 Sat by Pulse 98 Oximetry Medical Decision Making - Medical Decision Making This is a 32-year-old female who presents to the emergency department with chief complaint of dental pain and request for med refill. Patient requests to have Ritalin and Valium refilled. I spoke with Dr. Das and patient is to find a primary care provider to prescribe these medications. Patient will be provided with contact information for on-call medical physicians. Patient also complained of dental pain for the past week. On physical examination, there are multiple dental caries and teeth 29 through 31 are fractured. Gumline is tender on palpation, however no abscesses are noted. Patient has a penicillin allergy from childhood and is unsure of her reaction. She also admits to 6 C. diff infections in the past 2 years. Due to clindamycin's profile of causing C. diff, it is recommended that patient does not take this medication. Patient is in agreement to this plan. I did recommend that she follow up as soon as possible with a dentist. Patient does state that she has [employer] and will call local dentists upon discharge. Patient's vital signs are stable and she is in no acute distress. She will be discharged home at this time. All questions answered. Disposition Clinical Impression: Toothache Disposition: HOME SELF-CARE Condition: Good Instructions: Toothache (ED) Additional Instructions: Please follow-up with a dentist as soon as possible. Please follow up with a primary care provider to receive refills for your medications. Return to emergency department if symptoms should worsen or any concerns arise. Is patient prescribed a controlled substance at d/c from ED?: No Referrals: None,Stated [Primary Care Provider] - 1-2 days Eleno Hill MD [REFERRING] - 1-2 days Alexia Talley MD [REFERRING] - 1-2 days Efren Sylvester MD [REFERRING] - 1-2 days Roshni Monreal MD [STAFF PHYSICIAN] - 1-2 days Time of Disposition: 16:33
== END 2018-03-02 16:45 | disposition home or self-care (01) ==
LOC: EC 15:25
DX: S02.5XXA Fracture of tooth (traumatic), initial encounter for closed fracture (principal); K02.9 Dental caries, unspecified; F17.200 Nicotine dependence, unspecified, uncomplicated; Z88.0 Allergy status to penicillin; Z88.5 Allergy status to narcotic agent; Z88.8 Allergy status to other drugs, medicaments and biological substances; Z91.041 Radiographic dye allergy status; X58.XXXA Exposure to other specified factors, initial encounter
CPT/HCPCS: 99282

== ENCOUNTER 2018-05-21 22:02 | Observation (INO) | payer OTHER ==
[2018-05-21] MEDS ORDERED: ONDANSETRON 4 MG/2 ML VIAL IVP STA (22:43)
[2018-05-21] MEDS ORDERED: SODIUM CHLORIDE 0.9% 1,000 ML IV STA (22:43)
[2018-05-21 23:19] LABS: Appearance,Urine Clear (Clear); Bilirubin,Urine Negative (Negative); Blood,Urine Negative (Negative); Color,Urine Colorless; Glucose,Urine (UA) Negative (Negative); Ketones,Urine Negative (Negative); Leukocyte Esterase,Urine Negative (Negative); Nitrite,Urine Negative (Negative); PH, Urine 6.5 (5.0-8.0); Protein,Urine Negative (Negative); Specific Gravity,Urine 1.003 (1.001-1.035); Urobilinogen,Urine <2.0 mg/dL (<2.0)
[2018-05-21 23:26] LABS: ALT 22 U/L (9-52); AST 16 U/L (14-36); Albumin 4.4 g/dL (3.5-5.0); Alkaline Phosphatase 76 U/L (38-126); Amylase 69 U/L (30-110); Anion Gap 8 mmol/L; Blood Urea Nitrogen 3 mg/dL (7-17); Calcium 10.1 mg/dL (8.4-10.2); Carbon Dioxide 20 mmol/L (22-30); Chloride 111 mmol/L (98-107); Glucose 109 mg/dL (74-99); Lipase 48 U/L (23-300); Potassium 4.8 mmol/L (3.5-5.1); Sodium 139 mmol/L (137-145); Total Bilirubin 0.2 mg/dL (0.2-1.3); Total Protein 6.8 g/dL (6.3-8.2)
[2018-05-21] MEDS ORDERED: KETOROLAC 30 MG/ML 1 ML VIAL IVP STA (23:30)
[2018-05-21 23:38] LABS: Basophils % (A) 1 %; Eosinophils # (A) 0.2 k/uL (0-0.7); Eosinophils % (A) 2 %; HCT 43.3 % (34.0-46.0); HGB 14.8 gm/dL (11.4-16.0); Lymphocytes # (A) 2.3 k/uL (1.0-4.8); Lymphocytes % (A) 27 %; MCH 31.6 pg (25.0-35.0); MCHC 34.1 g/dL (31.0-37.0); MCV 92.6 fL (80.0-100.0); Mean Platelet Volume 7.7; Monocytes # (A) 0.4 k/uL (0-1.0); Monocytes % (A) 4 %; Neutrophils # (A) 5.4 k/uL (1.3-7.7); Neutrophils % (A) 65 %; Platelet Count 348 k/uL (150-450); RBC 4.68 m/uL (3.80-5.40); RDW 13.2 % (11.5-15.5); WBC 8.3 k/uL (3.8-10.6)
--- NOTE | 2018-05-22 00:04 | XR ---
EXAMINATION TYPE: XR KUB DATE OF EXAM: 05/22/2018 COMPARISON: 08/01/2017 HISTORY: Abdominal pain TECHNIQUE: 2 upright views FINDINGS: There is no sign of intestinal obstruction or pneumoperitoneum. Fecal pattern is normal. Th ere are clips from cholecystectomy. There are no pathologic calcifications over the kidneys. IMPRESSION: Nonacute abdomen. No change.
[2018-05-22] MEDS ORDERED: MORPHINE SULFATE 4 MG/ML SYRINGE IVP STA (00:32)
[2018-05-22] MEDS ORDERED: diphenhydrAMINE 50 MG/ML 1 ML VIAL IVP STA (00:33)
[2018-05-22] MEDS ORDERED: METOCLOPRAMIDE 5 MG/ML 2 ML VIAL IVP STA (00:36)
--- NOTE | 2018-05-22 00:36 | ED ---
General Adult HPI - General Chief complaint: Abdominal Pain Stated complaint: Abd Pain/Vomiting Time Seen by Provider: 05/21/18 22:30 Source: patient, RN notes reviewed Mode of arrival: ambulatory Limitations: no limitations - History of Present Illness Initial comments: 32-year-old female presents to the emergency department for a chief complaint of abdominal pain for 2 days. Patient has been nauseous but has not vomited. Patient has had multiple bouts of diarrhea every hour for the past day. Patient has a history of cholecystectomy and appendectomy. Patient states last time she got IV contrast she was put into kidney failure. Patient states she has a history of C. diff infections multiple times and has been admitted for this. Patient denies any chance of . Patient has no other complaints at this time including shortness of breath, chest pain, abdominal pain, nausea or vomiting, headache, or visual changes. - Related Data Home Medications Medication Instructions Recorded Confirmed Ibuprofen [Motrin Ib] 800 mg PO TID PRN 03/02/18 03/02/18 Allergies Allergy/AdvReac Type Severity Reaction Status Date / Time codeine Allergy Rash/Hives Verified 05/21/18 22:24 morphine Allergy Itching/Bur Verified 05/21/18 22:24 kasi Penicillins Allergy Unknown Verified 05/21/18 22:24 Childhood haloperidol [From Haldol] AdvReac Dystonic Verified 05/21/18 22:24 Reaction Iodinated Contrast- Oral and AdvReac Kidney Verified 05/21/18 22:24 IV Dye Failure [Iodinated Contrast Media - IV Dye] steriods Allergy Unknown Uncoded 05/21/18 22:24 Review of Systems ROS Statement: Those systems with pertinent positive or pertinent negative responses have been documented in the HPI. ROS Other: All systems not noted in ROS Statement are negative. Past Medical History Past Medical History: Asthma, Cancer, Fibromyalgia, GERD/Reflux, Osteoarthritis (OA), Renal Disease Additional Past Medical History / Comment(s): egd-antral ulcer, kidney failure x2 due to iodine allergy, "possibly lupus", hypoglycemia, chronic back pain, sciatica, cervical CA with sx, "?crohns", had c diff february 2016(first dx 4 years ago) , L knee injury, ovarian cysts, scoliosis History of Any Multi-Drug Resistant Organisms: None Reported Date of last positivie culture/infection: March 2016 MDRO Source:: None Past Surgical History: Appendectomy, Cholecystectomy, Hysterectomy, Orthopedic Surgery, Tubal Ligation Additional Past Surgical History / Comment(s): several upper endoscopies,13 surgerys on left knee, left wrist ganglion cystectomy, exploratory lap and biopsy Pt states she has had a total of OVER 50 surgeries. PARTIAL HYSTERECTOMY Past Anesthesia/Blood Transfusion Reactions: No Reported Reaction Additional Past Anesthesia/Blood Transfusion Reaction / Comment(s): clausterphobia Past Psychological History: ADD/ADHD, Anxiety, Bipolar, PTSD Smoking Status: Current every day smoker Past Alcohol Use History: None Reported Past Drug Use History: None Reported - Past Family History Father History Unknown: Yes Family Medical History: Cancer Additional Family Medical History / Comment(s): does'nt know her real dad's med hx. but grandpa had cancer Mother Family Medical History: Cancer, Diabetes Mellitus, Hypertension Additional Family Medical History / Comment(s): past etoh abuse, breast cancer, cardiac problems General Exam Limitations: no limitations General appearance: alert, in no apparent distress Head exam: Present: atraumatic, normocephalic, normal inspection Eye exam: Present: normal appearance ENT exam: Present: normal exam, mucous membranes moist Neck exam: Present: normal inspection, full ROM. Absent: tenderness, meningismus, lymphadenopathy Respiratory exam: Present: normal lung sounds bilaterally. Absent: respiratory distress, wheezes, rales, rhonchi, stridor Cardiovascular Exam: Present: regular rate, normal rhythm, normal heart sounds. Absent: systolic murmur, diastolic murmur, rubs, gallop, clicks GI/Abdominal exam: Present: soft, tenderness (Right mid abdominal tenderness, NO RUQ tenderness, or pelvic tenderness), normal bowel sounds. Absent: distended, guarding, rebound, rigid Course Vital Signs 05/21/18 05/22/18 22:21 00:07 Temperature 99 F 97.6 F Pulse Rate 142 H 106 H Respiratory 18 18 Rate Blood Pressure 105/65 126/63 O2 Sat by Pulse 100 100 Oximetry Medical Decision Making - Medical Decision Making Patient has mid right abdominal tenderness. History of cholecystectomy and appendectomy. X-ray shows a nonacute abdomen CBC and CMP were unremarkable. Patient was given fluids. Urine showed no evidence of infection. C. diff was negative. CT of the abdomen shows appendix is not seen. No sign of renal stone or obstruction. No sign of acute abdomen and pelvis. There is clearing of the minimal free fluid in the pelvis compared to old exam. Patient was given multiple different forms of pain medication and pain is intractable. Patient is crying in the emergency department after all testing modalities were negative. Patient requests to be admitted for pain management. She states she cannot tolerate the pain and cannot go home like this. Patient will be admitted for pain management. - Lab Data Result diagrams: 05/21/18 23:05 05/21/18 23:05 Lab Results 05/21/18 05/21/18 05/21/18 Range/Units 23:05 23:05 23:05 WBC 8.3 (3.8-10.6) k/uL RBC 4.68 (3.80-5.40) m/uL Hgb 14.8 (11.4-16.0) gm/dL Hct 43.3 (34.0-46.0) % MCV 92.6 (80.0-100.0) fL MCH 31.6 (25.0-35.0) pg MCHC 34.1 (31.0-37.0) g/dL RDW 13.2 (11.5-15.5) % Plt Count 348 (150-450) k/uL Neutrophils % 65 % Lymphocytes % 27 % Monocytes % 4 % Eosinophils % 2 % Basophils % 1 % Neutrophils # 5.4 (1.3-7.7) k/uL Lymphocytes # 2.3 (1.0-4.8) k/uL Monocytes # 0.4 (0-1.0) k/uL Eosinophils # 0.2 (0-0.7) k/uL Basophils # 0.0 (0-0.2) k/uL Sodium 139 (137-145) mmol/L Potassium 4.8 (3.5-5.1) mmol/L Chloride 111 H (98-107) mmol/L Carbon Dioxide 20 L (22-30) mmol/L Anion Gap 8 mmol/L BUN 3 L (7-17) mg/dL Creatinine 0.60 (0.52-1.04) mg/dL Est GFR (CKD-EPI)AfAm >90 (>60 ml/min/1.73 sqM) Est GFR (CKD-EPI)NonAf >90 (>60 ml/min/1.73 sqM) Glucose 109 H (74-99) mg/dL Calcium 10.1 (8.4-10.2) mg/dL Total Bilirubin 0.2 (0.2-1.3) mg/dL AST 16 (14-36) U/L ALT 22 (9-52) U/L Alkaline Phosphatase 76 (38-126) U/L Total Protein 6.8 (6.3-8.2) g/dL Albumin 4.4 (3.5-5.0) g/dL Amylase 69 (30-110) U/L Lipase 48 (23-300) U/L Urine Color Urine Appearance (Clear) Urine pH (5.0-8.0) Ur Specific [place] (1.001-1.035) Urine Protein (Negative) Urine Glucose (UA) (Negative) Urine Ketones (Negative) Urine Blood (Negative) Urine Nitrite (Negative) Urine Bilirubin (Negative) Urine Urobilinogen (<2.0) mg/dL Ur Leukocyte Esterase (Negative) Urine HCG, Qual (Not Detectd) C. difficile (EIA) Intrp Negative (Negative) 05/21/18 05/21/18 Range/Units 23:05 23:07 WBC (3.8-10.6) k/uL RBC (3.80-5.40) m/uL Hgb (11.4-16.0) gm/dL Hct (34.0-46.0) % MCV (80.0-100.0) fL MCH (25.0-35.0) pg MCHC (31.0-37.0) g/dL RDW (11.5-15.5) % Plt Count (150-450) k/uL Neutrophils % % Lymphocytes % % Monocytes % % Eosinophils % % Basophils % % Neutrophils # (1.3-7.7) k/uL Lymphocytes # (1.0-4.8) k/uL Monocytes # (0-1.0) k/uL Eosinophils # (0-0.7) k/uL Basophils # (0-0.2) k/uL Sodium (137-145) mmol/L Potassium (3.5-5.1) mmol/L Chloride (98-107) mmol/L Carbon Dioxide (22-30) mmol/L Anion Gap mmol/L BUN (7-17) mg/dL Creatinine (0.52-1.04) mg/dL Est GFR (CKD-EPI)AfAm (>60 ml/min/1.73 sqM) Est GFR (CKD-EPI)NonAf (>60 ml/min/1.73 sqM) Glucose (74-99) mg/dL Calcium (8.4-10.2) mg/dL Total Bilirubin (0.2-1.3) mg/dL AST (14-36) U/L ALT (9-52) U/L Alkaline Phosphatase (38-126) U/L Total Protein (6.3-8.2) g/dL Albumin (3.5-5.0) g/dL Amylase (30-110) U/L Lipase (23-300) U/L Urine Color Colorless Urine Appearance Clear (Clear) Urine pH 6.5 (5.0-8.0) Ur Specific [place] 1.003 (1.001-1.035) Urine Protein Negative (Negative) Urine Glucose (UA) Negative (Negative) Urine Ketones Negative (Negative) Urine Blood Negative (Negative) Urine Nitrite Negative (Negative) Urine Bilirubin Negative (Negative) Urine Urobilinogen <2.0 (<2.0) mg/dL Ur Leukocyte Esterase Negative (Negative) Urine HCG, Qual Not Detected (Not Detectd) C. difficile (EIA) Intrp (Negative) Disposition Clinical Impression: Intractable abdominal pain Disposition: ADMITTED IP TO THIS HOSP Is patient prescribed a controlled substance at d/c from ED?: No Referrals: None,Stated [Primary Care Provider] - 1-2 days Time of Disposition: 02:07
--- NOTE | 2018-05-22 01:28 | CT ---
EXAMINATION TYPE: CT abdomen pelvis wo con DATE OF EXAM: 05/22/2018 COMPARISON: 04/12/2017 HISTORY: Abdominal pain CT DLP: mGycm Automated exposure control for dose reduction was used. TECHNIQUE: Helical acquisition of images was performed from the lung bases through the pelvis. FINDINGS: Lung bases are clear. There is no pleural effusion. Heart size is normal. Liver spleen pancreas appear normal. Bile ducts are not dilated. There are clips from cholecystectomy . There is no adrenal mass. Kidneys show normal size and contour. There is no hydronephrosis. There is no retroperitoneal adenopathy. There is no ascites. There is no intestinal wall thickening. There are no dilated loops. Bladder distends smoothly. Appendix is not seen. There is no sign of appendicitis. The bony structures are intact. IMPRESSION: APPENDIX IS NOT SEEN. NO SIGN OF RENAL STONE OR OBSTRUCTION. NO SIGN OF ACUTE ABDOMEN AND PELVIS. THE RE IS CLEARING OF THE MINIMAL FREE FLUID IN THE PELVIS COMPARED TO OLD EXAM.
[2018-05-22] MEDS ORDERED: HYDROmorphone 1 MG/ML 1 ML SYRINGE IVP STA ×3 (01:53→09:05)
[2018-05-22] MEDS ORDERED: NALOXONE 0.4 MG/ML 1 ML VIAL IV PRN (02:08)
[2018-05-22] MEDS ORDERED: ONDANSETRON 4 MG/2 ML VIAL IVP PRN (02:08)
[2018-05-22] MEDS: SODIUM CHLORIDE 0.9% 1,000 ML IV SCH ×3 (02:16→20:20)
[2018-05-22] MEDS: HYDROcodone/APAP 5-325MG 1 EACH TAB PO PRN ×5 (04:11→20:19)
[2018-05-22 05:22] VITALS: BMI 22.9
[2018-05-22] MEDS: KETOROLAC 30 MG/ML 1 ML VIAL IVP PRN ×4 (05:26→22:56)
[2018-05-22] MEDS ORDERED: HYDROmorphone 1 MG/ML 1 ML SYRINGE IM STA (06:42)
[2018-05-22 08:20] VITALS: RESP 20
[2018-05-22] MEDS ORDERED: FAMOTIDINE 20 MG TAB PO SCH (09:00)
[2018-05-22] MEDS: PARoxetine 20 MG TAB PO SCH ×2 (09:17→09:18)
[2018-05-22] MEDS: CYCLOBENZAPRINE 10 MG TAB PO SCH ×3 (10:09→21:18)
[2018-05-22] MEDS: HYDROmorphone 1 MG/ML 1 ML SYRINGE IVP PRN ×3 (12:04→23:58)
[2018-05-22] MEDS ORDERED: TEMAZEPAM 15 MG CAP PO PRN (13:19)
[2018-05-22] MEDS ORDERED: LORazepam 0.5 MG TAB PO PRN (13:19)
[2018-05-22] MEDS: ONDANSETRON 4 MG/2 ML VIAL IVP PRN ×2 (13:24→21:22)
--- NOTE | 2018-05-22 14:47 | HP ---
HISTORY AND PHYSICAL CHIEF COMPLAINT: Abdominal pain. HISTORY OF PRESENT ILLNESS: This 32-year-old woman with a past medical history of multiple medical problems including history of fibromyalgia, history of chronic disease to Crohn's disease, history of ADD, ADHD, anxiety, bipolar, PTSD, was complaining of severe abdominal pain. The patient was complaining of abdominal pain which is situated in the right lower part. The patient also had cholecystectomy and appendectomy also. The patient also had history of C difficile multiple times and the patient also had diarrhea. Because of multiple symptomatology, patient came to [facility] and was admitted for further evaluation and treatment. A CT scan did not show any acute abnormality. There is no history of fever, rigors or chills. No history of headache, loss of consciousness or seizures. Please refer to the CT scan report for further details. PAST MEDICAL HISTORY: Crohn's disease, chronic pain syndrome, fibromyalgia, history of irritable bowel syndrome. MEDICATIONS: Home medications are: 1. Ranitidine 150 mg p.o. b.i.d. 2. Paxil 40 mg p.o. daily. 3. [place] 5 mg t.i.d. p.r.n. 4. Flexeril 10 mg t.i.d. ALLERGIES: CODEINE, MORPHINE, PENICILLIN, HALOPERIDOL, IODINATED CONTRAST DYE AND STEROIDS. FAMILY HISTORY: Family history of cancer. SOCIAL HISTORY: History of smoking. No history of alcohol intake. REVIEW OF SYSTEMS: ENT: No diminished hearing or vision. CARDIOVASCULAR: No angina or palpitations. RESPIRATORY: No cough. GI as mentioned earlier. : No dysuria or hematuria. NERVOUS SYSTEM: No numbness or weakness. ALLERGY/IMMUNOLOGY: No asthma or hayfever. MUSCULOSKELETAL: As mentioned earlier. HEMATOLOGY/ONCOLOGY: No history of anemia. ENDOCRINE: No history of diabetes or hypothyroidism. CONSTITUTIONAL: As mentioned earlier. DERMATOLOGY: Negative. RHEUMATOLOGY: Negative. PSYCHIATRY: As mentioned earlier. PHYSICAL EXAMINATION: GENERAL: The patient is alert and oriented times three. VITAL SIGNS: Pulse 95, blood pressure 121/85, respiration 20, temperature 98.7, pulse ox 97% on room air. HEENT: Conjunctivae normal. Oral mucosa moist. NECK is no jugular venous distention. No carotid bruit. No lymph node enlargement. CARDIOVASCULAR SYSTEM: S1, S2. No S3, no S4. RESPIRATORY: Breath sounds diminished in the bases. No rhonchi. No crackles. ABDOMEN: Soft, mild diffuse tenderness present. No guarding. No rigidity. No mass palpable. LEGS: No edema. No swelling. CENTRAL NERVOUS SYSTEM: Higher functions as mentioned earlier. Moves all four limbs. No focal motor or sensory deficits. LYMPHATICS: No lymph nodes palpable in the neck, axillae or groin. SKIN: No ulcer, rash or bleeding. LABS: CBC within normal limits. CO2 is 20, otherwise glucose 109. ASSESSMENT: 1. Abdominal pain diarrhea possible Crohn's disease acute exacerbation. 2. Severe abdominal pain. 3. Chronic pain syndrome. 4. History of fibromyalgia. 5. History of anxiety state. 6. History of degenerative joint disease. 7. History of hypoglycemia. 8. Chronic back pain. 9. History of appendectomy. 10.History of cholecystectomy. 11.History of attention-deficit disorder, attention-deficit/hyperactivity disorder, PTSD and as well as bipolar disorder. RECOMMENDATIONS AND DISCUSSION: In this 32-year-old woman who presented with multiple complex medical issues, we will monitor the patient closely. Continue the current medications, management and symptomatic treatment. Otherwise, at this time, I recommend symptomatic treatment. I would also recommend a stool C diff, gastroenterology and surgical evaluations and guarded prognosis. Further recommendations to follow. Symptomatic treatment of pain and empiric treatment with steroids also will be recommended. MMODL / IJN: [id number] /
--- NOTE | 2018-05-22 16:21 | P.GSCN ---
History of Present Illness Consult date: 05/22/18 Reason for Consult: Abdominal pain History of present illness: This is a 32-year-old female well-known to myself. Patient has had multiple hospital admissions for chronic abdominal pain. She's had significant abdominal pain the past with response to narcotics. Patient has had a previous history of C. diff colitis in the distant past. Today she states she has pain. However she was sleeping comfortably in her bed prior to my arrival in her room. Past Medical History Past Medical History: Asthma, Cancer, Fibromyalgia, GERD/Reflux, Osteoarthritis (OA), Renal Disease Additional Past Medical History / Comment(s): egd-antral ulcer, kidney failure x2 due to iodine allergy, "possibly lupus", hypoglycemia, chronic back pain, sciatica, cervical CA with sx, "?crohns", had c diff february 2016(first dx 4 years ago) , L knee injury, ovarian cysts, scoliosis History of Any Multi-Drug Resistant Organisms: None Reported Year Discovered:: none MDRO Source:: None Past Surgical History: Appendectomy, Cholecystectomy, Hysterectomy, Orthopedic Surgery, Tubal Ligation Additional Past Surgical History / Comment(s): several upper endoscopies,13 surgerys on left knee, left wrist ganglion cystectomy, exploratory lap and biopsy Pt states she has had a total of OVER 50 surgeries. PARTIAL HYSTERECTOMY Past Anesthesia/Blood Transfusion Reactions: No Reported Reaction Additional Past Anesthesia/Blood Transfusion Reaction / Comm: clausterphobia Past Psychological History: ADD/ADHD, Anxiety, Bipolar, PTSD Additional Psychological History / Comment(s): Pt states she is bipolar, manic/ ' depressive, and has anxiety. She is on meds for these and states that they help her. She resides with her parents. She has 2 daughters that live with her .PPO against previous significant other. She is normally independent. Smoking Status: Current every day smoker Past Alcohol Use History: None Reported Additional Past Alcohol Use History / Comment(s): Pt states she started smoking at age 11, was smoking 3 ppd now down to 1 ppd. Past Drug Use History: None Reported - Past Family History Father History Unknown: Yes Family Medical History: Cancer Additional Family Medical History / Comment(s): does'nt know her real dad's med hx. but grandpa had cancer Mother Family Medical History: Cancer, Diabetes Mellitus, Hypertension Additional Family Medical History / Comment(s): past etoh abuse, breast cancer, cardiac problems Medications and Allergies Home Medications Medication Instructions Recorded Confirmed Type Cyclobenzaprine [Flexeril] 10 mg PO TID 05/22/18 05/22/18 History HYDROcodone/APAP 5-325MG [[place] 1 tab PO TID PRN 05/22/18 05/22/18 History 5-325] PARoxetine HCL 40 mg PO DAILY 05/22/18 05/22/18 History Ranitidine HCl 150 mg PO BID 05/22/18 05/22/18 History Allergies Allergy/AdvReac Type Severity Reaction Status Date / Time codeine Allergy Rash/Hives Verified 05/22/18 08:52 morphine Allergy Itching/Bur Verified 05/22/18 08:52 kasi Penicillins Allergy Unknown Verified 05/22/18 08:52 Childhood haloperidol [From Haldol] AdvReac Dystonic Verified 05/22/18 08:52 Reaction Iodinated Contrast- Oral and AdvReac Kidney Verified 05/22/18 08:52 IV Dye Failure [Iodinated Contrast Media - IV Dye] steriods Allergy Unknown Uncoded 05/22/18 05:46 Surgical - Exam Vital Signs Temp Pulse Resp BP Pulse Ox 99 F 142 H 18 105/65 100 05/21/18 22:21 05/21/18 22:21 05/21/18 22:21 05/21/18 22:21 05/21/18 22:21 - General well developed, no distress - Eyes PERRL - ENT normal pinna - Neck no masses - Respiratory normal expansion - Cardiovascular Rhythm: regular - Abdomen An esophagram there is some minimal tenderness. There is no rebound or guarding. Results - Labs 05/21/18 23:05 05/21/18 23:05 Abnormal Lab Results - Last 24 Hours (Table) 05/21/18 Range/Units 23:05 Chloride 111 H (98-107) mmol/L Carbon Dioxide 20 L (22-30) mmol/L BUN 3 L (7-17) mg/dL Glucose 109 H (74-99) mg/dL Microbiology - Last 24 Hours (Table) 05/21/18 23:05 Stool Culture - Preliminary Stool Diabetes panel 05/21/18 Range/Units 23:05 Sodium 139 (137-145) mmol/L Potassium 4.8 (3.5-5.1) mmol/L Chloride 111 H (98-107) mmol/L Carbon Dioxide 20 L (22-30) mmol/L BUN 3 L (7-17) mg/dL Creatinine 0.60 (0.52-1.04) mg/dL Glucose 109 H (74-99) mg/dL Calcium 10.1 (8.4-10.2) mg/dL AST 16 (14-36) U/L ALT 22 (9-52) U/L Alkaline Phosphatase 76 (38-126) U/L Total Protein 6.8 (6.3-8.2) g/dL Albumin 4.4 (3.5-5.0) g/dL Calcium panel 05/21/18 Range/Units 23:05 Calcium 10.1 (8.4-10.2) mg/dL Albumin 4.4 (3.5-5.0) g/dL Pituitary panel 05/21/18 Range/Units 23:05 Sodium 139 (137-145) mmol/L Potassium 4.8 (3.5-5.1) mmol/L Chloride 111 H (98-107) mmol/L Carbon Dioxide 20 L (22-30) mmol/L BUN 3 L (7-17) mg/dL Creatinine 0.60 (0.52-1.04) mg/dL Glucose 109 H (74-99) mg/dL Calcium 10.1 (8.4-10.2) mg/dL Adrenal panel 05/21/18 Range/Units 23:05 Sodium 139 (137-145) mmol/L Potassium 4.8 (3.5-5.1) mmol/L Chloride 111 H (98-107) mmol/L Carbon Dioxide 20 L (22-30) mmol/L BUN 3 L (7-17) mg/dL Creatinine 0.60 (0.52-1.04) mg/dL Glucose 109 H (74-99) mg/dL Calcium 10.1 (8.4-10.2) mg/dL Total Bilirubin 0.2 (0.2-1.3) mg/dL AST 16 (14-36) U/L ALT 22 (9-52) U/L Alkaline Phosphatase 76 (38-126) U/L Total Protein 6.8 (6.3-8.2) g/dL Albumin 4.4 (3.5-5.0) g/dL - Imaging CT scan - abdomen: report reviewed (No evidence of appendicitis. There is no inflammatory changes.) Assessment and Plan Assessment: Abdominal pain. It is unclear the etiology of the patient's abdominal pain. Patient does have a drug-seeking behavior with her pain. No surgical intervention planned. I will recommend stopping narcotics and discharging as soon as possible.
[2018-05-22] MEDS: PANTOPRAZOLE 40 MG/10 ML VIAL IVP SCH ×2 (16:42→20:19)
[2018-05-22] MEDS: methylPREDNISolone SOD SUCCI 125 MG/2 ML VIAL IV SCH ×2 (17:00→22:00)
[2018-05-22 17:13] LABS: Glucose,Whole Blood 92 mg/dL (75-99)
[2018-05-22] MEDS: INSULIN ASPART 100 UNIT/ML 1 ML 10 ML VIAL SQ SCH ×2 (20:12→21:59)
[2018-05-22 20:54] LABS: Glucose,Whole Blood 137 mg/dL (75-99)
[2018-05-22] MEDS ORDERED: HEPARIN SODIUM,PORCINE 5,000 UNIT/ML 1 ML VIAL SQ SCH (21:00)
[2018-05-22 21:04] LABS: Hemoglobin A1C 5.4 % (4.0-6.0)
[2018-05-22 21:35] VITALS: BP 128/70; PULSE 110; TEMP 98.9
[2018-05-23] MEDS: HYDROcodone/APAP 5-325MG 1 EACH TAB PO PRN ×2 (00:31→04:28)
[2018-05-23] MEDS: methylPREDNISolone SOD SUCCI 125 MG/2 ML VIAL IV SCH ×2 (01:52→06:07)
[2018-05-23] MEDS: SODIUM CHLORIDE 0.9% 1,000 ML IV SCH (04:30)
[2018-05-23] MEDS: KETOROLAC 30 MG/ML 1 ML VIAL IVP PRN (06:07)
[2018-05-23] MEDS: HYDROmorphone 1 MG/ML 1 ML SYRINGE IVP PRN (06:07)
[2018-05-23 06:41] LABS: Glucose,Whole Blood 115 mg/dL (75-99)
[2018-05-23 07:03] LABS: Basophils % (A) 0 %; Eosinophils % (A) 0 %; HCT 40.7 % (34.0-46.0); HGB 12.9 gm/dL (11.4-16.0); Lymphocytes # (A) 1.2 k/uL (1.0-4.8); Lymphocytes % (A) 14 %; MCH 30.1 pg (25.0-35.0); MCHC 31.7 g/dL (31.0-37.0); MCV 94.9 fL (80.0-100.0); Mean Platelet Volume 7.6; Monocytes # (A) 0.3 k/uL (0-1.0); Monocytes % (A) 3 %; Neutrophils # (A) 7.2 k/uL (1.3-7.7); Neutrophils % (A) 83 %; Platelet Count 343 k/uL (150-450); RBC 4.29 m/uL (3.80-5.40); RDW 13.1 % (11.5-15.5); WBC 8.6 k/uL (3.8-10.6)
[2018-05-23 07:13] LABS: Anion Gap 9 mmol/L; Blood Urea Nitrogen 9 mg/dL (7-17); Calcium 9.2 mg/dL (8.4-10.2); Carbon Dioxide 19 mmol/L (22-30); Chloride 111 mmol/L (98-107); Glucose 114 mg/dL (74-99); Potassium 4.3 mmol/L (3.5-5.1); Sodium 139 mmol/L (137-145)
--- NOTE | 2018-05-23 20:35 | DS ---
DISCHARGE SUMMARY DATE OF SERVICE: 05/24/2018 FINAL DIAGNOSES: 1. Abdominal pain possible Crohn's disease, acute exacerbation. 2. Multiple medical issues. HISTORY OF PRESENT ILLNESS: This 32-year-old woman with past medical history of multiple medical problems was admitted with abdominal pain. However, the patient left the hospital AGAINST MEDICAL ADVICE. Please refer to the previous dictations and consultations for further details. The prognosis remains guarded. MMODL / IJN: [id number] /
== END 2018-05-23 07:40 | disposition left against medical advice (07) ==
LOC: EC 22:02 → INTOOBSV 05-22 04:01 → 6PED 05-22 04:01 → UNDODISIN 05-23 07:40
PROVIDERS: ADMIT Hospitalist; ATTEND Hospitalist
DX: R10.9 Unspecified abdominal pain (principal); K50.90 Crohn's disease, unspecified, without complications; M79.7 Fibromyalgia; F90.9 Attention-deficit hyperactivity disorder, unspecified type; F43.10 Post-traumatic stress disorder, unspecified; F41.9 Anxiety disorder, unspecified; F31.9 Bipolar disorder, unspecified; K58.9 Irritable bowel syndrome, unspecified; Z76.5 Malingerer [conscious simulation]; G89.4 Chronic pain syndrome; M19.90 Unspecified osteoarthritis, unspecified site; M54.9 Dorsalgia, unspecified; F40.240 Claustrophobia; F17.210 Nicotine dependence, cigarettes, uncomplicated; K21.9 Gastro-esophageal reflux disease without esophagitis; J45.909 Unspecified asthma, uncomplicated; N28.9 Disorder of kidney and ureter, unspecified; Z79.899 Other long term (current) drug therapy; Z90.89 Acquired absence of other organs; Z90.49 Acquired absence of other specified parts of digestive tract; Z88.5 Allergy status to narcotic agent; Z88.0 Allergy status to penicillin; Z88.8 Allergy status to other drugs, medicaments and biological substances; Z91.041 Radiographic dye allergy status; Z87.11 Personal history of peptic ulcer disease; Z85.41 Personal history of malignant neoplasm of cervix uteri; Z90.710 Acquired absence of both cervix and uterus; Z80.3 Family history of malignant neoplasm of breast; Z80.9 Family history of malignant neoplasm, unspecified; Z81.1 Family history of alcohol abuse and dependence; Z83.3 Family history of diabetes mellitus; Z82.49 Family history of ischemic heart disease and other diseases of the circulatory system
CPT/HCPCS: 99285 ×2; 96374 ×2; 96361 ×4; 96375 ×7; 96372; 96376 ×2; 36415; 80053; 80048; 85652; 82150; 83690; 85025 ×2; 86140; 81003; 81025; 87324; 87045; 83630; 87046; 83036; 74018; 74176; G0378 ×2; J2270; J1200; J1644; J2765; J2930 ×2; J2405 ×2; J1885 ×2; J1170 ×2; C9113

== ENCOUNTER 2018-09-15 06:08 | Inpatient (IN) | payer OTHER ==
[2018-09-15] MEDS ORDERED: SODIUM CHLORIDE 0.9% 1,000 ML IV STA (07:54)
[2018-09-15] MEDS ORDERED: HYDROmorphone 1 MG/ML 1 ML SYRINGE IVP STA ×2 (08:34→10:47)
[2018-09-15] MEDS ORDERED: ACETAMINOPHEN IV (For NPO) 1,000 MG in EMPTY BAG 1 BAG IVPB STA (08:34)
[2018-09-15] MEDS ORDERED: ONDANSETRON 4 MG/2 ML VIAL IVP STA (08:34)
[2018-09-15 08:40] LABS: Basophils # (A) 0.1 k/uL (0-0.2); Basophils % (A) 0 %; Eosinophils # (A) 0.1 k/uL (0-0.7); Eosinophils % (A) 1 %; HCT 43.5 % (34.0-46.0); HGB 14.2 gm/dL (11.4-16.0); Lymphocytes # (A) 3.4 k/uL (1.0-4.8); Lymphocytes % (A) 27 %; MCH 30.9 pg (25.0-35.0); MCHC 32.6 g/dL (31.0-37.0); MCV 94.9 fL (80.0-100.0); Mean Platelet Volume 7.5; Monocytes # (A) 0.5 k/uL (0-1.0); Monocytes % (A) 4 %; Neutrophils # (A) 8.3 k/uL (1.3-7.7); Neutrophils % (A) 67 %; Platelet Count 482 k/uL (150-450); RBC 4.58 m/uL (3.80-5.40); RDW 13.9 % (11.5-15.5); WBC 12.4 k/uL (3.8-10.6)
[2018-09-15 08:55] LABS: ALT 16 U/L (9-52); AST 13 U/L (14-36); Albumin 4.2 g/dL (3.5-5.0); Alkaline Phosphatase 99 U/L (38-126); Amylase 77 U/L (30-110); Anion Gap 11 mmol/L; Blood Urea Nitrogen <2 mg/dL (7-17); Calcium 9.9 mg/dL (8.4-10.2); Carbon Dioxide 17 mmol/L (22-30); Chloride 113 mmol/L (98-107); Glucose 100 mg/dL (74-99); Lipase 143 U/L (23-300); Potassium 3.7 mmol/L (3.5-5.1); Sodium 141 mmol/L (137-145); Total Bilirubin 0.4 mg/dL (0.2-1.3)
--- NOTE | 2018-09-15 09:09 | ED ---
Nausea/Vomiting/Diarrhea HPI - General Source: patient, RN notes reviewed Mode of arrival: ambulatory Limitations: no limitations <Tom Castillo - Last Filed: 09/15/18 10:54> <Obed Guy - Last Filed: 09/15/18 11:04> - General Chief complaint: Nausea/Vomiting/Diarrhea Stated complaint: vomiting Time Seen by Provider: 09/15/18 08:10 - History of Present Illness Initial comments: 32-year-old female presents emergency Department chief complaint abdominal pain , nausea vomiting diarrhea. Patient states that she started with diarrhea days ago. She states she has severe diffuse abdominal cramping. Patient states that she has a history of C. diff multiple times. Patient is an antibiotic for month ago. Patient states that the pain is all over and now localize one area. Patient's had a prior cholecystectomy. Patient denies any flank pain, back pain, fever, chills, headache or dizziness. No chest pain or shortness breath. (Tom Castillo) - Related Data Home Medications Medication Instructions Recorded Confirmed Cyclobenzaprine [Flexeril] 10 mg PO TID 05/22/18 09/15/18 HYDROcodone/APAP 5-325MG [[place] 1 tab PO TID PRN 05/22/18 09/15/18 5-325] PARoxetine HCL 40 mg PO DAILY 05/22/18 09/15/18 Ranitidine HCl 150 mg PO BID 05/22/18 09/15/18 Ibuprofen [Motrin Ib] 800 mg PO Q4H PRN 09/15/18 09/15/18 Allergies Allergy/AdvReac Type Severity Reaction Status Date / Time codeine Allergy Rash/Hives Verified 09/15/18 07:14 methylprednisolone Allergy kidney Verified 09/15/18 07:14 failure morphine Allergy Itching/Bur Verified 09/15/18 07:14 kasi Penicillins Allergy Unknown Verified 09/15/18 07:14 Childhood haloperidol [From Haldol] AdvReac Dystonic Verified 09/15/18 07:14 Reaction Iodinated Contrast- Oral and AdvReac Kidney Verified 09/15/18 07:14 IV Dye Failure [Iodinated Contrast Media - IV Dye] Review of Systems ROS Other: All systems not noted in ROS Statement are negative. <Tom Castillo - Last Filed: 09/15/18 10:54> ROS Other: All systems not noted in ROS Statement are negative. <Obed Guy - Last Filed: 09/15/18 11:04> ROS Statement: Those systems with pertinent positive or pertinent negative responses have been documented in the HPI. Past Medical History Past Medical History: Asthma, Cancer, Fibromyalgia, GERD/Reflux, Osteoarthritis (OA), Renal Disease Additional Past Medical History / Comment(s): egd-antral ulcer, kidney failure x2 due to iodine allergy, "possibly lupus", hypoglycemia, chronic back pain, sciatica, cervical CA with sx, "?crohns", had c diff february 2016(first dx 4 years ago) , L knee injury, ovarian cysts, scoliosis History of Any Multi-Drug Resistant Organisms: C-DIFF Date of last positivie culture/infection: 2015 MDRO Source:: stool Past Surgical History: Appendectomy, Cholecystectomy, Hysterectomy, Orthopedic Surgery, Tubal Ligation Additional Past Surgical History / Comment(s): several upper endoscopies,13 surgerys on left knee, left wrist ganglion cystectomy, exploratory lap and biopsy Pt states she has had a total of OVER 50 surgeries. PARTIAL HYSTERECTOMY Past Anesthesia/Blood Transfusion Reactions: No Reported Reaction Additional Past Anesthesia/Blood Transfusion Reaction / Comment(s): clausterphobia Past Psychological History: ADD/ADHD, Anxiety, Bipolar, PTSD Smoking Status: Current every day smoker Past Alcohol Use History: None Reported Past Drug Use History: None Reported - Past Family History Father History Unknown: Yes Family Medical History: Cancer Additional Family Medical History / Comment(s): does'nt know her real dad's med hx. but grandpa had cancer Mother Family Medical History: Cancer, Diabetes Mellitus, Hypertension Additional Family Medical History / Comment(s): past etoh abuse, breast cancer, cardiac problems <Tom Castillo - Last Filed: 09/15/18 10:54> General Exam Limitations: no limitations General appearance: alert, in no apparent distress Head exam: Present: atraumatic, normocephalic, normal inspection Eye exam: Present: normal appearance, PERRL, EOMI. Absent: scleral icterus, conjunctival injection, periorbital swelling ENT exam: Present: normal exam, normal oropharynx, mucous membranes moist Neck exam: Present: normal inspection. Absent: tenderness, meningismus, lymphadenopathy Respiratory exam: Present: normal lung sounds bilaterally. Absent: respiratory distress, wheezes, rales, rhonchi, stridor Cardiovascular Exam: Present: normal rhythm, tachycardia, normal heart sounds. Absent: systolic murmur, diastolic murmur, rubs, gallop, clicks GI/Abdominal exam: Present: soft, tenderness (Diffuse moderate tenderness), normal bowel sounds. Absent: distended, guarding, rebound, rigid Psychiatric exam: Present: anxious Skin exam: Present: warm, dry, intact, normal color. Absent: rash <Tom Castillo - Last Filed: 09/15/18 10:54> Course <Tom Castillo - Last Filed: 09/15/18 10:54> <Obed Guy - Last Filed: 09/15/18 11:04> Vital Signs 09/15/18 09/15/18 06:16 10:59 Temperature 99.0 F 99 F Pulse Rate 135 H 106 H Respiratory 20 16 Rate Blood Pressure 138/92 132/97 O2 Sat by Pulse 97 96 Oximetry - Reevaluation(s) Reevaluation #1: 09/15/18 11:03 PA supervision: I proceeded [id number] evaluation the patient including history physical. Patient having abdominal pain and diarrhea for the past 3 days she apparently has a prior history of colitis and C. diff C. diff test is negative for today. States she still having a lot of pain she has had some nausea vomiting decreased oral intake. Patient does have some abdominal pain very minimal on my exam however. Patient will be admitted for inpatient treatment. I do agree with the assessment and plan. (Obed Guy) Medical Decision Making - Lab Data Result diagrams: 09/15/18 08:16 09/15/18 08:16 <Tom Castillo - Last Filed: 09/15/18 10:54> - Lab Data Result diagrams: 09/15/18 08:16 09/15/18 08:16 <Obed Guy - Last Filed: 09/15/18 11:04> - Lab Data Lab Results 09/15/18 09/15/18 09/15/18 Range/Units 06:25 08:16 08:16 WBC 12.4 H (3.8-10.6) k/uL RBC 4.58 (3.80-5.40) m/uL Hgb 14.2 (11.4-16.0) gm/dL Hct 43.5 (34.0-46.0) % MCV 94.9 (80.0-100.0) fL MCH 30.9 (25.0-35.0) pg MCHC 32.6 (31.0-37.0) g/dL RDW 13.9 (11.5-15.5) % Plt Count 482 H (150-450) k/uL Neutrophils % 67 % Lymphocytes % 27 % Monocytes % 4 % Eosinophils % 1 % Basophils % 0 % Neutrophils # 8.3 H (1.3-7.7) k/uL Lymphocytes # 3.4 (1.0-4.8) k/uL Monocytes # 0.5 (0-1.0) k/uL Eosinophils # 0.1 (0-0.7) k/uL Basophils # 0.1 (0-0.2) k/uL Sodium 141 (137-145) mmol/L Potassium 3.7 (3.5-5.1) mmol/L Chloride 113 H (98-107) mmol/L Carbon Dioxide 17 L (22-30) mmol/L Anion Gap 11 mmol/L BUN <2 L (7-17) mg/dL Creatinine 0.59 (0.52-1.04) mg/dL Est GFR (CKD-EPI)AfAm >90 (>60 ml/min/1.73 sqM) Est GFR (CKD-EPI)NonAf >90 (>60 ml/min/1.73 sqM) Glucose 100 H (74-99) mg/dL Calcium 9.9 (8.4-10.2) mg/dL Total Bilirubin 0.4 (0.2-1.3) mg/dL AST 13 L (14-36) U/L ALT 16 (9-52) U/L Alkaline Phosphatase 99 (38-126) U/L Total Protein 7.0 (6.3-8.2) g/dL Albumin 4.2 (3.5-5.0) g/dL Amylase 77 (30-110) U/L Lipase 143 (23-300) U/L C. difficile (EIA) Intrp Negative (Negative) Disposition <Tom Castillo - Last Filed: 09/15/18 10:54> <Obed Guy - Last Filed: 09/15/18 11:04> Clinical Impression: Intractable abdominal pain, Diarrhea Disposition: ADMITTED IP TO THIS HOSP Condition: Fair Referrals: None,Stated [Primary Care Provider] - 1-2 days
[2018-09-15] MEDS ORDERED: NALOXONE 0.4 MG/ML 1 ML VIAL IV PRN (10:55)
[2018-09-15] MEDS: ONDANSETRON 4 MG/2 ML VIAL IVP PRN (12:59)
[2018-09-15] MEDS: SODIUM CHLORIDE 0.9% 1,000 ML IV SCH ×2 (13:00→19:00)
[2018-09-15] MEDS: HYDROmorphone 1 MG/ML 1 ML SYRINGE IVP PRN ×3 (14:09→21:09)
[2018-09-15] MEDS: KETOROLAC 30 MG/ML 1 ML VIAL IVP PRN ×2 (15:46→22:31)
[2018-09-15] MEDS: METOCLOPRAMIDE 5 MG/ML 2 ML VIAL IVP PRN ×2 (15:46→22:32)
--- NOTE | 2018-09-15 19:23 | CT ---
EXAMINATION TYPE: CT abdomen wo con DATE OF EXAM: 09/15/2018 COMPARISON: 05/22/2018 HISTORY: abdominal pain, diarrhea CT DLP: 168 mGycm Automated exposure control for dose reduction was used. TECHNIQUE: Helical acquisition of images was performed from the lung bases through the top of iliac crest to include entire abdomen. CONTRAST: Performed without Oral Contrast and without IV contrast. FINDINGS: Lung bases are clear. There is no pleural effusion. Heart size is normal. Liver spleen pancreas appea r normal. There are clips from cholecystectomy. Stomach appears normal. Bile ducts are not dilated. There is no adrenal mass. Kidneys have normal size and contour. There is no hydronephrosis. There is no retroperitoneal adenopathy. I see no intestinal wall thickening. There are no dilated loops. There is no evidence of mesenteric edema or adenopathy. Lumbar spine is intact. IMPRESSION: NEGATIVE CT SCAN OF THE ABDOMEN. No adverse change compared to old exam.
--- NOTE | 2018-09-15 19:52 | HP ---
HISTORY AND PHYSICAL SUBJECTIVE: A white female with history of C diff colitis. She states this is similar to this pain she is having now in the left mid quadrant with diarrhea and vomiting for the past 4 days. She is admitted to the hospital for a gastroenteritis and dehydration. She states it is similar to her C diff. She wants to be checked for C diff over and over again as she has dry heaves, persistent. CARDIOVASCULAR: S1, S2. ALLERGIES: CODEINE, METHYLPREDNISOLONE, MORPHINE, PENICILLIN, HALDOL, IODINE. ACTIVE MEDICATION: Flexeril, Pepcid, Dilaudid, Toradol, Reglan, Narcan, Zofran, Paxil. HOME MEDICATIONS: Paroxetine, Flexeril, [place], Ranitidine. REVIEW OF SYSTEMS: 14-point review of systems negative except for . PSYCH: She appears anxious, nervous. Vital signs show temp 99, pulse 102-106, respiratory 16-20, blood pressure 118 to 132 over 60s to 90s, O2 is 96-100 percent on room air. CARDIOVASCULAR: S1, S2. LUNGS: Transmitted upper sounds. GI: Soft. Tense to palpation left mid quadrant. HEMATOLOGY: Negative Homans. ASSESSMENT: 1. Left lower quadrant mid-quadrant abdominal pain with gastroenteritis with progressive vomiting. 2. Mild leukocytosis. CT scan abdomen without contrast. Surgery will be done. Surgical consult. Please see further orders. Treat gastroenteritis and dehydration. MMODL / IJN: [id number] /
[2018-09-15] MEDS: FAMOTIDINE 20 MG TAB PO SCH ×2 (21:08→22:37)
[2018-09-15] MEDS: CYCLOBENZAPRINE 10 MG TAB PO SCH ×2 (21:08→22:37)
[2018-09-16] MEDS: HYDROmorphone 1 MG/ML 1 ML SYRINGE IVP PRN ×8 (00:09→22:47)
[2018-09-16] MEDS: SODIUM CHLORIDE 0.9% 1,000 ML IV SCH ×4 (02:54→12:17)
[2018-09-16] MEDS: KETOROLAC 30 MG/ML 1 ML VIAL IVP PRN ×4 (04:25→22:51)
[2018-09-16] MEDS: METOCLOPRAMIDE 5 MG/ML 2 ML VIAL IVP PRN ×5 (04:29→22:51)
[2018-09-16] MEDS: ONDANSETRON 4 MG/2 ML VIAL IVP PRN (07:49)
[2018-09-16] MEDS: PARoxetine 20 MG TAB PO SCH (07:52)
[2018-09-16] MEDS: FAMOTIDINE 20 MG TAB PO SCH (07:52)
[2018-09-16] MEDS: CYCLOBENZAPRINE 10 MG TAB PO SCH ×3 (07:52→22:55)
[2018-09-16 11:04] LABS: ALT 14 U/L (9-52); AST 28 U/L (14-36); Albumin 3.3 g/dL (3.5-5.0); Alkaline Phosphatase 73 U/L (38-126); Anion Gap 4 mmol/L; Blood Urea Nitrogen 3 mg/dL (7-17); Calcium 8.6 mg/dL (8.4-10.2); Carbon Dioxide 21 mmol/L (22-30); Chloride 115 mmol/L (98-107); Glucose 79 mg/dL (74-99); Potassium 3.8 mmol/L (3.5-5.1); Sodium 140 mmol/L (137-145); Total Bilirubin 0.9 mg/dL (0.2-1.3); Total Protein 5.6 g/dL (6.3-8.2)
[2018-09-16 11:11] LABS: Basophils % (A) 0 %; Eosinophils # (A) 0.2 k/uL (0-0.7); Eosinophils % (A) 3 %; HCT 35.7 % (34.0-46.0); Lymphocytes # (A) 3.7 k/uL (1.0-4.8); Lymphocytes % (A) 52 %; MCHC 33.5 g/dL (31.0-37.0); MCV 95.7 fL (80.0-100.0); Mean Platelet Volume 7.6; Monocytes # (A) 0.4 k/uL (0-1.0); Monocytes % (A) 5 %; Neutrophils # (A) 2.6 k/uL (1.3-7.7); Neutrophils % (A) 37 %; Platelet Count 328 k/uL (150-450); RBC 3.73 m/uL (3.80-5.40); RDW 13.9 % (11.5-15.5); WBC 7.1 k/uL (3.8-10.6)
--- NOTE | 2018-09-16 13:44 | P.GSCN ---
History of Present Illness Consult date: 09/16/18 History of present illness: CHIEF COMPLAINT: Abdominal pain HISTORY OF PRESENT ILLNESS: Patient is a 32-year-old female who was admitted after having intractable nausea and vomiting. She reports initial epigastric abdominal pain with pain radiating to the chest suspicious for esophageal reflux disease. She reports developing right upper quadrant abdominal pain after eating pork chops as well as potato. She reports not being able to tolerate anything by mouth since admission. She still reports mild to moderate abdominal pain. She has had previous surgery including cholecystectomy and appendectomy. As a result of her presentation, Gen. surgery consultation is obtained. PAST MEDICAL HISTORY: See list. PAST SURGICAL HISTORY: See list. MEDICATIONS: See list. ALLERGIES: See list. SOCIAL HISTORY: Tobacco abuse FAMILY HISTORY: Noncontributory REVIEW OF ORGAN SYSTEMS: CONSTITUTIONAL: No fevers or chills HEENT: No troubles with vision or hearing. No reports of dysphagia. ENDOCRINE: No reports of thyroid disorders. No diabetes. CARDIOVASCULAR: No heart attack. No chest pain. RESPIRATORY: No shortness of breath or pneumonia. GASTROINTESTINAL: No reports of recent blood in stools. NEURO: No reports of stroke or seizure disorders. PSYCH: Has depression. No suicidal ideation HEMATOLOGIC: No easy bruising or bleeding LYMPHATIC: The patient denies any lumps and bumps around the neck. GENITOURINARY: Denies any blood in urine or increased urinary frequency. MUSCULOSKELETAL: Has back pain, stiffness or joint arthritis. SKIN: No skin cancer or rash. PHYSICAL EXAM: VITAL SIGNS: Currently stable. GENERAL: Well-developed in no acute distress. HEENT: No sclera icterus. Extraocular movements grossly intact. Moist buccal mucosa. Head is atraumatic, normocephalic. Hears conversational speech. No nasal drainage. Poor dentition. NECK: Supple without lymphadenopathy. CHEST: Non-labored respirations and equal bilateral excursions. CARDIOVASCULAR: Regular rate with regular rhythm. Palpable 2+ radial pulses. ABDOMEN: Soft. Nondistended. No peritonitis. Mild tenderness epigastrium. MUSCULOSKELETAL: No clubbing, cyanosis or edema. NEUROLOGIC: No focal or lateralizing signs. Cranial nerves II through XII grossly intact. PSYCH: Appropriate affect. Alert and oriented to person, place and time. SKIN: Well perfused. Good skin turgor. LABS: Reviewed ASSESSMENT: 1. Intractable nausea and vomiting. 2. Epigastric abdominal pain. 3. Dehydration. 4. Right upper quadrant abdominal pain. 5. Tobacco use PLAN: 1. May benefit from upper endoscopies her symptoms are highly suspicious of gastroesophageal reflux disease. 2. IV fluid hydration advised at least 2 L normal saline bolus 3. Adjust Pepcid to Protonix for treatment of gastritis and gastroesophageal reflux disease 4. Intractable nausea and vomiting, recommend correction of low magnesium serum levels including correction of low potassium. 5. No surgical intervention at this time. 6. Recommended tobacco cessation counseling. Thank you for this kind consultation. Past Medical History Past Medical History: Asthma, Cancer, Fibromyalgia, GERD/Reflux, Osteoarthritis (OA), Renal Disease Additional Past Medical History / Comment(s): Multiple cdiff, bronchitis, cervical cancer with surgery, antral ulcer, chronic back pain, DDD, sciatica and scoliosis, renal failure twice r/t iodine allergy, chron's, unsure if has lupus, ovarian cysts, hypoglycemia. History of Any Multi-Drug Resistant Organisms: C-DIFF Year Discovered:: 2016 MDRO Source:: stool Past Surgical History: Appendectomy, Cholecystectomy, Hysterectomy, Orthopedic Surgery, Tubal Ligation Additional Past Surgical History / Comment(s): several upper endoscopies, 13 surgies on left knee, left wrist ganglion cystectomy, exploratory lap and biopsy Pt states she has had a total of OVER 50 surgeries. PARTIAL HYSTERECTOMY , nasal surgery, oral surgery. Past Anesthesia/Blood Transfusion Reactions: No Reported Reaction Additional Past Anesthesia/Blood Transfusion Reaction / Comm: clausterphobia Smoking Status: Current every day smoker - Past Family History Father History Unknown: Yes Family Medical History: Cancer Additional Family Medical History / Comment(s): does'nt know her real dad's med hx. but grandpa had cancer Mother Family Medical History: Cancer, Diabetes Mellitus, Hypertension Additional Family Medical History / Comment(s): past etoh abuse, breast cancer, cardiac problems Medications and Allergies Home Medications Medication Instructions Recorded Confirmed Type Cyclobenzaprine [Flexeril] 10 mg PO TID 05/22/18 09/15/18 History HYDROcodone/APAP 5-325MG [[place] 1 tab PO TID PRN 05/22/18 09/15/18 History 5-325] PARoxetine HCL 40 mg PO DAILY 05/22/18 09/15/18 History Ranitidine HCl 150 mg PO BID 05/22/18 09/15/18 History Ibuprofen [Motrin Ib] 800 mg PO Q4H PRN 09/15/18 09/15/18 History Allergies Allergy/AdvReac Type Severity Reaction Status Date / Time codeine Allergy Rash/Hives Verified 09/15/18 07:14 methylprednisolone Allergy kidney Verified 09/15/18 07:14 failure morphine Allergy Itching/Bur Verified 09/15/18 07:14 kasi Penicillins Allergy Unknown Verified 09/15/18 07:14 Childhood haloperidol [From Haldol] AdvReac Dystonic Verified 09/15/18 07:14 Reaction Iodinated Contrast- Oral and AdvReac Kidney Verified 09/15/18 07:14 IV Dye Failure [Iodinated Contrast Media - IV Dye] Surgical - Exam Vital Signs Temp Pulse Resp BP Pulse Ox 99.0 F 135 H 20 138/92 97 09/15/18 06:16 09/15/18 06:16 09/15/18 06:16 09/15/18 06:16 09/15/18 06:16 Results - Labs 09/16/18 10:27 09/16/18 10:27 Abnormal Lab Results - Last 24 Hours (Table) 09/16/18 09/16/18 Range/Units 10:27 10:27 RBC 3.73 L (3.80-5.40) m/uL Chloride 115 H (98-107) mmol/L Carbon Dioxide 21 L (22-30) mmol/L BUN 3 L (7-17) mg/dL Creatinine 0.46 L (0.52-1.04) mg/dL Total Protein 5.6 L (6.3-8.2) g/dL Albumin 3.3 L (3.5-5.0) g/dL Microbiology - Last 24 Hours (Table) 09/15/18 06:25 Stool Culture - Preliminary Stool Diabetes panel 09/16/18 Range/Units 10:27 Sodium 140 (137-145) mmol/L Potassium 3.8 (3.5-5.1) mmol/L Chloride 115 H (98-107) mmol/L Carbon Dioxide 21 L (22-30) mmol/L BUN 3 L (7-17) mg/dL Creatinine 0.46 L (0.52-1.04) mg/dL Glucose 79 (74-99) mg/dL Calcium 8.6 (8.4-10.2) mg/dL AST 28 (14-36) U/L ALT 14 (9-52) U/L Alkaline Phosphatase 73 (38-126) U/L Total Protein 5.6 L (6.3-8.2) g/dL Albumin 3.3 L (3.5-5.0) g/dL Calcium panel 09/16/18 Range/Units 10:27 Calcium 8.6 (8.4-10.2) mg/dL Albumin 3.3 L (3.5-5.0) g/dL Pituitary panel 09/16/18 Range/Units 10:27 Sodium 140 (137-145) mmol/L Potassium 3.8 (3.5-5.1) mmol/L Chloride 115 H (98-107) mmol/L Carbon Dioxide 21 L (22-30) mmol/L BUN 3 L (7-17) mg/dL Creatinine 0.46 L (0.52-1.04) mg/dL Glucose 79 (74-99) mg/dL Calcium 8.6 (8.4-10.2) mg/dL Adrenal panel 09/16/18 Range/Units 10:27 Sodium 140 (137-145) mmol/L Potassium 3.8 (3.5-5.1) mmol/L Chloride 115 H (98-107) mmol/L Carbon Dioxide 21 L (22-30) mmol/L BUN 3 L (7-17) mg/dL Creatinine 0.46 L (0.52-1.04) mg/dL Glucose 79 (74-99) mg/dL Calcium 8.6 (8.4-10.2) mg/dL Total Bilirubin 0.9 (0.2-1.3) mg/dL AST 28 (14-36) U/L ALT 14 (9-52) U/L Alkaline Phosphatase 73 (38-126) U/L Total Protein 5.6 L (6.3-8.2) g/dL Albumin 3.3 L (3.5-5.0) g/dL - Imaging CT scan - abdomen: report reviewed, image reviewed (No evidence of bowel obstruction free air identified) Assessment and Plan (1) Nausea & vomiting Current Visit: Yes Status: Acute Code(s): R11.2 - NAUSEA WITH VOMITING, UNSPECIFIED SNOMED Code(s): 57914347 (2) Tobacco abuse Current Visit: Yes Status: Acute Code(s): Z72.0 - TOBACCO USE SNOMED Code( s): 229852842 (3) Dehydration Current Visit: Yes Status: Acute Code(s): E86.0 - DEHYDRATION SNOMED Code( s): 00130535 (4) Gastritis Current Visit: Yes Status: Acute Code(s): K29.70 - GASTRITIS, UNSPECIFIED, WITHOUT BLEEDING SNOMED Code(s): 9676094 (5) Intractable abdominal pain Current Visit: Yes Status: Acute Code(s): R10.9 - UNSPECIFIED ABDOMINAL PAIN SNOMED Code(s): 98274176 (6) GERD (gastroesophageal reflux disease) Current Visit: No Status: Acute Code(s): K21.9 - GASTRO-ESOPHAGEAL REFLUX DISEASE WITHOUT ESOPHAGITIS SNOMED Code(s): 927707359 (7) Low blood potassium Current Visit: Yes Status: Acute Code(s): E87.6 - HYPOKALEMIA SNOMED Code( s): 66450382
[2018-09-16] MEDS ORDERED: SODIUM CHLORIDE 0.9% 2,000 ML IV ONE (13:47)
[2018-09-16] MEDS ORDERED: POTASSIUM CHLORIDE 20 MEQ in WATER FOR INJECTION 1 100ML.BAG IVPB STA (13:48)
[2018-09-16] MEDS ORDERED: SODIUM CHLORIDE 0.9% 1,000 ML with POTASSIUM CHLORIDE 20 MEQ IV SCH ×2 (14:00)
[2018-09-16] MEDS: PANTOPRAZOLE 40 MG/10 ML VIAL IVP SCH (14:26)
[2018-09-16 14:55] LABS: Appearance,Urine Clear (Clear); Bilirubin,Urine Negative (Negative); Blood,Urine Negative (Negative); Color,Urine Colorless; Glucose,Urine (UA) Negative (Negative); Ketones,Urine Negative (Negative); Leukocyte Esterase,Urine Negative (Negative); Nitrite,Urine Negative (Negative); Protein,Urine Negative (Negative); Specific Gravity,Urine 1.004 (1.001-1.035); Urobilinogen,Urine <2.0 mg/dL (<2.0)
[2018-09-16 15:04] VITALS: BMI 22.4
[2018-09-16] MEDS: 0.9% NACL WITH KCL 20 MEQ/L 1,000 ML IV SCH (15:13)
--- NOTE | 2018-09-16 16:34 | PN ---
PROGRESS NOTE She complains of persistent abdominal pain and diarrhea. Her vomiting has been dry heaving. She states she is little bit better than yesterday, taking pain control and nausea medications. surgical and GI consultations. CARDIOVASCULAR: S1, S2. GI: Soft. HEMATOLOGY: Negative Homans. PSYCH: Fair mood and affect. Lungs are clear. ASSESSMENT: 1. Gastroenteritis. 2. Dehydration. 3. Normal CT scan. She was seen in surgical consult by Dr. Chandler, who states no surgical intervention. IV fluid hydration. Treatment of gastritis and GERD. Low sodium, low potassium. Highly suspicious for GERD, possibly EGD if not improving. MMODL / IJN: [id number] /
[2018-09-17] MEDS: HYDROmorphone 1 MG/ML 1 ML SYRINGE IVP PRN ×8 (02:07→22:51)
[2018-09-17] MEDS: ONDANSETRON 4 MG/2 ML VIAL IVP PRN (02:55)
[2018-09-17] MEDS: METOCLOPRAMIDE 5 MG/ML 2 ML VIAL IVP PRN ×4 (05:11→22:48)
[2018-09-17] MEDS: KETOROLAC 30 MG/ML 1 ML VIAL IVP PRN ×4 (05:11→22:48)
[2018-09-17] MEDS: 0.9% NACL WITH KCL 20 MEQ/L 1,000 ML IV SCH ×2 (05:18→17:46)
[2018-09-17] MEDS: PANTOPRAZOLE 40 MG/10 ML VIAL IVP SCH (08:19)
[2018-09-17] MEDS: PARoxetine 20 MG TAB PO SCH (08:19)
[2018-09-17] MEDS: CYCLOBENZAPRINE 10 MG TAB PO SCH ×3 (08:19→20:21)
[2018-09-17] MEDS: MAGNESIUM SULFATE-D5W PMX 1 GM in DEXTROSE/WATER 1 100ML.BAG IVPB SCH ×2 (11:52→13:20)
--- NOTE | 2018-09-17 15:16 | P.PN ---
Subjective Progress Note Date: 09/17/18 CHIEF COMPLAINT: Intractable nausea and vomiting HISTORY OF PRESENT ILLNESS: The patient is a 32-year-old female admitted secondary to intractable nausea and vomiting including epigastric abdominal pain. Her medications were adjusted to Protonix. Since then her abdominal pain has improved. She has history of gastritis. She is pending upper endoscopy evaluation. PHYSICAL EXAM: VITAL SIGNS: Currently stable. GENERAL: Well-developed in no acute distress. HEENT: No sclera icterus. Extraocular movements grossly intact. Moist buccal mucosa. Head is atraumatic, normocephalic. Hears conversational speech. No nasal drainage. NECK: Supple without lymphadenopathy. CHEST: Non-labored respirations and equal bilateral excursions. CARDIOVASCULAR: Regular rate with regular rhythm. ABDOMEN: Soft, nondistended. Decreased tenderness in epigastrium MUSCULOSKELETAL: No clubbing, cyanosis or edema. NEUROLOGIC: No focal or lateralizing signs. Cranial nerves II through XII grossly intact. PSYCH: Alert and oriented to person, place and time. SKIN: Well perfused. Good skin turgor. LABS: Reviewed ASSESSMENT: 1. Intractable nausea and vomiting 2. Gastroesophageal reflux disease PLAN: 1. Continue IV fluid hydration 2. Will recommend upper endoscopy for further evaluation and assessment. Objective - Vital Signs Vital signs: Vital Signs Temp 98.1 F 09/17/18 14:44 Pulse 93 09/17/18 14:44 Resp 16 09/17/18 14:44 BP 137/91 09/17/18 14:44 Pulse Ox 97 09/17/18 14:44 Intake & Output 09/16/18 09/17/18 09/17/18 18:59 06:59 18:59 Intake Total 4340 650 Output Total 100 Balance 4340 550 Weight 57.606 kg Intake: IV 4100 Potassium Chloride 20 meq 100 In Water For Injection 1 100ml.bag @ 50 mls/hr IVPB ONCE STA Rx#: [id number] Sodium Chloride 0.9% 1, 1000 000 ml @ 125 mls/hr IV . Q8H MAC Rx#:[id number] Sodium Chloride 0.9% 1, 1000 000 ml @ 999 mls/hr IV . Q1H1M MAC Rx#:[id number] Sodium Chloride 0.9% 2, 2000 000 ml @ 999 mls/hr IV . Q2H1M ONE Rx#:[id number] Oral 240 650 Output: Emesis 100 Other: Voiding Method Toilet # Voids 2 2 2 # Bowel Movements 0 0 - Labs CBC & Chem 7: 09/16/18 10:27 09/16/18 10:27 Labs: Microbiology - Last 24 Hours (Table) 09/15/18 06:25 Stool Culture - Preliminary Stool Assessment and Plan (1) Nausea & vomiting Current Visit: Yes Status: Acute Code(s): R11.2 - NAUSEA WITH VOMITING, UNSPECIFIED SNOMED Code(s): 34642474 (2) Tobacco abuse Current Visit: Yes Status: Acute Code(s): Z72.0 - TOBACCO USE SNOMED Code( s): 457026364 (3) Dehydration Current Visit: Yes Status: Acute Code(s): E86.0 - DEHYDRATION SNOMED Code( s): 18620211 (4) Gastritis Current Visit: Yes Status: Acute Code(s): K29.70 - GASTRITIS, UNSPECIFIED, WITHOUT BLEEDING SNOMED Code(s): 7353280 (5) Intractable abdominal pain Current Visit: Yes Status: Acute Code(s): R10.9 - UNSPECIFIED ABDOMINAL PAIN SNOMED Code(s): 98535316 (6) GERD (gastroesophageal reflux disease) Current Visit: No Status: Acute Code(s): K21.9 - GASTRO-ESOPHAGEAL REFLUX DISEASE WITHOUT ESOPHAGITIS SNOMED Code(s): 024382848 (7) Low blood potassium Current Visit: Yes Status: Acute Code(s): E87.6 - HYPOKALEMIA SNOMED Code( s): 90234060
[2018-09-17] MEDS: HEPARIN SODIUM,PORCINE 5,000 UNIT/ML 1 ML VIAL SQ SCH (20:24)
--- NOTE | 2018-09-17 23:05 | PN ---
PROGRESS NOTE DATE OF SERVICE: 09/17/2018. HISTORY: She has less nausea, no emesis today, and is feeling somewhat better overall. PHYSICAL EXAMINATION: Her blood pressure is 143/91, respiratory rate of 18, pulse of 102, temperature 98.4, O2 saturation on room air is 99%. HEENT is unremarkable. Chest is clear. Cardiovascular system reveals S1, S2. Abdomen is soft. Bowel sounds are heard. There is no edema. White count of 7.1, hemoglobin of 12. Sodium 140, potassium 3.8, chloride 115, bicarb 29, BUN 3, creatinine 0.46. IMPRESSION: 1. Intractable nausea and vomiting secondary to gastritis. 2. Dehydration. 3. Nicotine dependence. 4. Electrolyte abnormalities. At this point in time, would continue IV fluids. Continue antacid medications. Appreciate surgery input. She may require EGD. Depending on how she does, we shall make further changes to her care. MMODL / IJN: [id number] /
[2018-09-18] MEDS: HYDROmorphone 1 MG/ML 1 ML SYRINGE IVP PRN ×4 (02:19→12:04)
[2018-09-18] MEDS: KETOROLAC 30 MG/ML 1 ML VIAL IVP PRN ×2 (05:39→12:03)
[2018-09-18] MEDS: METOCLOPRAMIDE 5 MG/ML 2 ML VIAL IVP PRN ×2 (05:41→12:02)
[2018-09-18] MEDS: 0.9% NACL WITH KCL 20 MEQ/L 1,000 ML IV SCH (05:47)
[2018-09-18 08:17] VITALS: BP 148/92; PULSE 104; RESP 16; TEMP 99.4
[2018-09-18] MEDS: HEPARIN SODIUM,PORCINE 5,000 UNIT/ML 1 ML VIAL SQ SCH ×2 (08:57→09:02)
[2018-09-18] MEDS: PANTOPRAZOLE 40 MG/10 ML VIAL IVP SCH (08:57)
[2018-09-18] MEDS: PARoxetine 20 MG TAB PO SCH (08:57)
[2018-09-18] MEDS: CYCLOBENZAPRINE 10 MG TAB PO SCH (08:57)
[2018-09-18] MEDS ORDERED: IV FLUID CONTINUATION 1,000 ML IV ONE (10:19)
--- NOTE | 2018-09-18 10:39 | P.OP ---
Date of Procedure: 09/18/18 Preoperative Diagnosis: Epigastric pain Postoperative Diagnosis: Mild antral gastritis Procedure(s) Performed: EGD Anesthesia: MAC Surgeon: Shaan Gonzalez Pathology: other (Antrum) Condition: stable Disposition: PACU Description of Procedure: The patient's placed on the endoscopy table in the lateral position. She received IV sedation. The gastroscope placed oropharynx passed in the esophagus into the stomach. Scope was then placed through the pylorus. The first and second portion of duodenum appeared normal. Scope was then brought back the antrum this. Mildly inflamed. A biopsies performed. Scope was then retroflexed and the remainder of the stomach appeared normal. There is no significant hiatal hernia. The GE junction was at 40 cm. s. The distal esophagus appeared normal. The proximal esophagus appeared normal. Scope was withdrawn for patient.
== END 2018-09-18 14:54 | disposition home or self-care (01) | DRG 392 ==
LOC: EC 06:08 → 4MS4W 10:55 → OBSVTOIN 09-17 14:12
PROVIDERS: ADMIT Family Medicine; ATTEND Family Medicine
PROC: 0DB68ZX Excision of Stomach, Via Natural or Artificial Opening Endoscopic, Diagnostic (ICD-10-PCS; principal; 2018-09-18 08:30)
DX: K52.9 Noninfective gastroenteritis and colitis, unspecified (principal); E86.0 Dehydration; J45.909 Unspecified asthma, uncomplicated; K21.9 Gastro-esophageal reflux disease without esophagitis; M79.7 Fibromyalgia; M41.9 Scoliosis, unspecified; F40.240 Claustrophobia; F17.200 Nicotine dependence, unspecified, uncomplicated; Z90.49 Acquired absence of other specified parts of digestive tract; Z79.899 Other long term (current) drug therapy; Z88.5 Allergy status to narcotic agent; Z88.0 Allergy status to penicillin; Z88.8 Allergy status to other drugs, medicaments and biological substances; Z91.041 Radiographic dye allergy status; Z87.11 Personal history of peptic ulcer disease; Z85.41 Personal history of malignant neoplasm of cervix uteri; Z86.19 Personal history of other infectious and parasitic diseases; Z90.710 Acquired absence of both cervix and uterus
CPT/HCPCS: 36415; 43239; 74150; 80053; 81003; 82150; 83630; 83690; 83735; 85025; 87045; 87046; 87324; 88305; 96361; 96365; 96366; 96375; 96376; 99284

== ENCOUNTER 2018-11-19 22:40 | Observation (INO) | payer OTHER ==
[2018-11-19] MEDS ORDERED: SODIUM CHLORIDE 0.9% 1,000 ML IV STA (22:59)
[2018-11-19] MEDS ORDERED: HYDROmorphone 0.5 MG/0.5 ML SYRINGE IVP STA (23:24)
--- NOTE | 2018-11-19 23:26 | ED ---
General Adult HPI - General Chief complaint: Abdominal Pain Stated complaint: Diarrhea, Nausea Source: patient Mode of arrival: ambulatory Limitations: no limitations - Related Data Home Medications Medication Instructions Recorded Confirmed Cyclobenzaprine [Flexeril] 10 mg PO TID 05/22/18 09/15/18 HYDROcodone/APAP 5-325MG [[place] 1 tab PO TID PRN 05/22/18 09/15/18 5-325] PARoxetine HCL 40 mg PO DAILY 05/22/18 09/15/18 Ranitidine HCl 150 mg PO BID 05/22/18 09/15/18 Ibuprofen [Motrin Ib] 800 mg PO Q4H PRN 09/15/18 09/15/18 Allergies Allergy/AdvReac Type Severity Reaction Status Date / Time codeine Allergy Rash/Hives Verified 11/19/18 22:55 methylprednisolone Allergy kidney Verified 11/19/18 22:55 failure morphine Allergy Itching/Bur Verified 11/19/18 22:55 kasi Penicillins Allergy Unknown Verified 11/19/18 22:55 Childhood haloperidol [From Haldol] AdvReac Dystonic Verified 11/19/18 22:55 Reaction Iodinated Contrast- Oral and AdvReac Kidney Verified 11/19/18 22:55 IV Dye Failure [Iodinated Contrast Media - IV Dye] Review of Systems ROS Statement: Those systems with pertinent positive or pertinent negative responses have been documented in the HPI. ROS Other: All systems not noted in ROS Statement are negative. Past Medical History Past Medical History: Asthma, Cancer, Fibromyalgia, GERD/Reflux, Osteoarthritis (OA), Renal Disease Additional Past Medical History / Comment(s): Multiple cdiff, bronchitis, cervical cancer with surgery, antral ulcer, chronic back pain, DDD, sciatica and scoliosis, renal failure twice r/t iodine allergy, chron's, unsure if has lupus, ovarian cysts, hypoglycemia. History of Any Multi-Drug Resistant Organisms: C-DIFF, MRSA Date of last positivie culture/infection: 2006 MDRO Source:: Left knee Past Surgical History: Appendectomy, Cholecystectomy, Hysterectomy, Orthopedic Surgery, Tubal Ligation Additional Past Surgical History / Comment(s): several upper endoscopies, 13 surgies on left knee, left wrist ganglion cystectomy, exploratory lap and biopsy Pt states she has had a total of OVER 50 surgeries. PARTIAL HYSTERECTOMY , nasal surgery, oral surgery. Past Anesthesia/Blood Transfusion Reactions: No Reported Reaction Additional Past Anesthesia/Blood Transfusion Reaction / Comment(s): clausterphobia Past Psychological History: ADD/ADHD, Anxiety, Bipolar, PTSD Smoking Status: Current every day smoker Past Alcohol Use History: None Reported Past Drug Use History: None Reported - Past Family History Father History Unknown: Yes Family Medical History: Cancer Additional Family Medical History / Comment(s): does'nt know her real dad's med hx. but grandpa had cancer Mother Family Medical History: Cancer, Diabetes Mellitus, Hypertension Additional Family Medical History / Comment(s): past etoh abuse, breast cancer, cardiac problems General Exam Limitations: no limitations Course Vital Signs 11/19/18 11/20/18 22:52 00:51 Temperature 98.6 F Pulse Rate 130 H 100 Respiratory 20 17 Rate Blood Pressure 147/99 143/89 O2 Sat by Pulse 100 98 Oximetry Medical Decision Making - Medical Decision Making Dictation was produced using [employer] dictation software. please excuse any grammatical, word or spelling errors. Chief Complaint: 32-year-old female with history of chronic abdominal pain presents with nausea, vomiting, diarrhea and abdominal pain. History of Present Illness: 32-year-old female with past medical history of chronic abdominal pain. Patient states that she's been having these symptoms for approximately 2 days. Patient has history of cholecystectomy and appendectomy. Patient complains of previous attacks of Clostridium difficile. She states she hasn't been on antibiotics recently. Patient has not been exposed to any fecal contaminated food or water. No recent travel. Patient denies any constitutional symptoms. Patient reports that her symptoms are located to the right groin/right flank area. She states it is a constant dull ache with intermittent episodes of exacerbations. The ROS documented in this emergency department record has been reviewed and confirmed by me. Those systems with pertinent positive or negative responses have been documented in the HPI. All other systems are other negative and/or noncontributory. PHYSICAL EXAM: General Impression: Alert and oriented x3, not in acute distress HEENT: Normocephalic atraumatic, extra-ocular movements intact, pupils equal and reactive to light bilaterally, mucous membranes moist. Cardiovascular: Heart regular rate and rhythm, S1&S2 audible, no murmurs, rubs or gallops Chest: Lungs clear to auscultation bilaterally, no rhonchi, no wheeze, no rales Abdomen: Bowel sounds present, abdomen soft, non-tender, non-distended, no organomegaly Musculoskeletal: Pulses present and equal in all extremities, no peripheral edema Motor: Power 5/5 bilaterally, no focal deficits noted Neurological: CN II-XII grossly intact, no focal motor or sensory deficits noted Skin: Intact with no visualized rashes Psych: Normal affect and mood ED course: 32-year-old female presents with nausea, vomiting and abdominal pain. she has history of chronic abdominal pain. Report was performed. Patient just had 90 tablets of [place] filled. Patient reports she is ALLERGIC to morphine. Patient exhibiting drug-seeking behavior vital signs upon arrival are within acceptable limits.Laboratory evaluation obtained. CBC, metabolic panel is unremarkable. Urinalysis is negative. Computed tomography scan of the abdomen and pelvis without contrast shows no acute processes. No stones. KUB is unremarkable. Patient reevaluated and given multiple doses of IV analgesics. She states she still having pain. Chart was reviewed. She has been in the hospital before for concerns of C. diff colitis. At this point highly doubt C. diff colitis. Patient's stool sent for culture and C. diff assay. Patient appears comfortable at this time. Transvaginal ultrasound was ordered. 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 Patient's symptoms are right.Transvaginal ultrasound was obtained showing no acute processes. Patient states her symptoms are severe. Like to place patient in observation unit with GI consultation. - Lab Data Result diagrams: 11/19/18 22:59 11/19/18 22:59 Lab Results 11/19/18 11/19/18 11/19/18 Range/Units 22:59 22:59 22:59 WBC 10.6 (3.8-10.6) k/uL RBC 4.68 (3.80-5.40) m/uL Hgb 14.7 (11.4-16.0) gm/dL Hct 44.5 (34.0-46.0) % MCV 95.1 (80.0-100.0) fL MCH 31.5 (25.0-35.0) pg MCHC 33.1 (31.0-37.0) g/dL RDW 13.8 (11.5-15.5) % Plt Count 387 (150-450) k/uL Neutrophils % 58 % Lymphocytes % 34 % Monocytes % 4 % Eosinophils % 2 % Basophils % 1 % Neutrophils # 6.1 (1.3-7.7) k/uL Lymphocytes # 3.6 (1.0-4.8) k/uL Monocytes # 0.4 (0-1.0) k/uL Eosinophils # 0.2 (0-0.7) k/uL Basophils # 0.1 (0-0.2) k/uL Sodium 140 (137-145) mmol/L Potassium 4.0 (3.5-5.1) mmol/L Chloride 112 H (98-107) mmol/L Carbon Dioxide 20 L (22-30) mmol/L Anion Gap 8 mmol/L BUN 5 L (7-17) mg/dL Creatinine 0.63 (0.52-1.04) mg/dL Est GFR (CKD-EPI)AfAm >90 (>60 ml/min/1.73 sqM) Est GFR (CKD-EPI)NonAf >90 (>60 ml/min/1.73 sqM) Glucose 86 (74-99) mg/dL Calcium 10.1 (8.4-10.2) mg/dL Total Bilirubin 0.3 (0.2-1.3) mg/dL AST 17 (14-36) U/L ALT 23 (9-52) U/L Alkaline Phosphatase 81 (38-126) U/L Total Protein 7.4 (6.3-8.2) g/dL Albumin 4.6 (3.5-5.0) g/dL Lipase 44 (23-300) U/L Urine Color Urine Appearance (Clear) Urine pH (5.0-8.0) Ur Specific [place] (1.001-1.035) Urine Protein (Negative) Urine Glucose (UA) (Negative) Urine Ketones (Negative) Urine Blood (Negative) Urine Nitrite (Negative) Urine Bilirubin (Negative) Urine Urobilinogen (<2.0) mg/dL Ur Leukocyte Esterase (Negative) Urine HCG, Qual Not Detected (Not Detectd) 11/19/18 Range/Units 22:59 WBC (3.8-10.6) k/uL RBC (3.80-5.40) m/uL Hgb (11.4-16.0) gm/dL Hct (34.0-46.0) % MCV (80.0-100.0) fL MCH (25.0-35.0) pg MCHC (31.0-37.0) g/dL RDW (11.5-15.5) % Plt Count (150-450) k/uL Neutrophils % % Lymphocytes % % Monocytes % % Eosinophils % % Basophils % % Neutrophils # (1.3-7.7) k/uL Lymphocytes # (1.0-4.8) k/uL Monocytes # (0-1.0) k/uL Eosinophils # (0-0.7) k/uL Basophils # (0-0.2) k/uL Sodium (137-145) mmol/L Potassium (3.5-5.1) mmol/L Chloride (98-107) mmol/L Carbon Dioxide (22-30) mmol/L Anion Gap mmol/L BUN (7-17) mg/dL Creatinine (0.52-1.04) mg/dL Est GFR (CKD-EPI)AfAm (>60 ml/min/1.73 sqM) Est GFR (CKD-EPI)NonAf (>60 ml/min/1.73 sqM) Glucose (74-99) mg/dL Calcium (8.4-10.2) mg/dL Total Bilirubin (0.2-1.3) mg/dL AST (14-36) U/L ALT (9-52) U/L Alkaline Phosphatase (38-126) U/L Total Protein (6.3-8.2) g/dL Albumin (3.5-5.0) g/dL Lipase (23-300) U/L Urine Color Light Yellow Urine Appearance Clear (Clear) Urine pH 6.5 (5.0-8.0) Ur Specific [place] 1.007 (1.001-1.035) Urine Protein Negative (Negative) Urine Glucose (UA) Negative (Negative) Urine Ketones Negative (Negative) Urine Blood Negative (Negative) Urine Nitrite Negative (Negative) Urine Bilirubin Negative (Negative) Urine Urobilinogen <2.0 (<2.0) mg/dL Ur Leukocyte Esterase Negative (Negative) Urine HCG, Qual (Not Detectd) Disposition Clinical Impression: Abdominal pain Disposition: ADMITTED IP TO THIS HOSP Condition: Fair Referrals: None,Stated [Primary Care Provider] - 1-2 days Time of Disposition: 02:33
[2018-11-19 23:39] LABS: Appearance,Urine Clear (Clear); Bilirubin,Urine Negative (Negative); Blood,Urine Negative (Negative); Color,Urine Light Yellow; Glucose,Urine (UA) Negative (Negative); Ketones,Urine Negative (Negative); Leukocyte Esterase,Urine Negative (Negative); Nitrite,Urine Negative (Negative); PH, Urine 6.5 (5.0-8.0); Protein,Urine Negative (Negative); Specific Gravity,Urine 1.007 (1.001-1.035); Urobilinogen,Urine <2.0 mg/dL (<2.0)
[2018-11-19 23:40] LABS: Basophils # (A) 0.1 k/uL (0-0.2); Basophils % (A) 1 %; Eosinophils # (A) 0.2 k/uL (0-0.7); Eosinophils % (A) 2 %; HCT 44.5 % (34.0-46.0); HGB 14.7 gm/dL (11.4-16.0); Lymphocytes # (A) 3.6 k/uL (1.0-4.8); Lymphocytes % (A) 34 %; MCH 31.5 pg (25.0-35.0); MCHC 33.1 g/dL (31.0-37.0); MCV 95.1 fL (80.0-100.0); Mean Platelet Volume 7.5; Monocytes # (A) 0.4 k/uL (0-1.0); Monocytes % (A) 4 %; Neutrophils # (A) 6.1 k/uL (1.3-7.7); Neutrophils % (A) 58 %; Platelet Count 387 k/uL (150-450); RBC 4.68 m/uL (3.80-5.40); RDW 13.8 % (11.5-15.5); WBC 10.6 k/uL (3.8-10.6)
[2018-11-19 23:51] LABS: ALT 23 U/L (9-52); AST 17 U/L (14-36); Albumin 4.6 g/dL (3.5-5.0); Alkaline Phosphatase 81 U/L (38-126); Anion Gap 8 mmol/L; Blood Urea Nitrogen 5 mg/dL (7-17); Calcium 10.1 mg/dL (8.4-10.2); Carbon Dioxide 20 mmol/L (22-30); Chloride 112 mmol/L (98-107); Glucose 86 mg/dL (74-99); Lipase 44 U/L (23-300); Sodium 140 mmol/L (137-145); Total Bilirubin 0.3 mg/dL (0.2-1.3); Total Protein 7.4 g/dL (6.3-8.2)
--- NOTE | 2018-11-19 23:52 | XR ---
EXAMINATION TYPE: XR KUB DATE OF EXAM: 11/19/2018 COMPARISON: 05/21/2018 HISTORY: Appendectomy abdominal pain TECHNIQUE: 2 views upright FINDINGS: There is no sign of intestinal obstruction or pneumoperitoneum. Fecal pattern is normal. Th ere are clips from cholecystectomy. Lung bases are clear. There is a 2 mm calcification over the lowe r pole right kidney. There is no evidence of a mass. IMPRESSION: Possible right renal calculus. Nonacute abdomen.
[2018-11-20] MEDS ORDERED: fentaNYL (PF) 50 MCG/ML 2 ML AMP IVP STA (00:25)
[2018-11-20] MEDS ORDERED: KETOROLAC 30 MG/ML 1 ML VIAL IVP STA (00:30)
[2018-11-20] MEDS ORDERED: ONDANSETRON 4 MG/2 ML VIAL IVP STA (00:57)
--- NOTE | 2018-11-20 01:06 | CT ---
EXAMINATION TYPE: CT abdomen pelvis wo con DATE OF EXAM: 11/20/2018 COMPARISON: 09/15/2018 HISTORY: right sided flank pain CT DLP: 371.5 mGycm Automated exposure control for dose reduction was used. TECHNIQUE: Helical acquisition of images was performed from the lung bases through the pelvis. FINDINGS: The lung bases are clear. There is no pleural effusion. Heart size is normal. There is no pericardial effusion. Liver spleen pancreas appear normal. There are clips from cholecystectomy. Bile ducts are not dilated. There is no adrenal mass. The kidneys have normal size and contour. There is no hydronep hrosis. There is no retroperitoneal adenopathy. There is no free fluid in the pelvis. Ureters are not dilated. Bladder distends smoothly. There is no inguinal hernia. There is flexion of the right hip j oint. There appears to be hysterectomy. I see no intestinal wall thickening. There are no dilated loo ps. There is no evidence of free air. There is no ascites. There is no mesenteric edema. There is no inguinal hernia. Lumbar vertebra have normal spacing and alignment. The posterior elements are intact. Bony pelvis is intact. Appendix is not seen. There is no sign of a thickened appendix. IMPRESSION: NEGATIVE CT SCAN ABDOMEN AND PELVIS. HYSTERECTOMY. NO RENAL STONE OR OBSTRUCTION. NO SIGN OF APPENDIC ITIS. No adverse change compared to old exam.
--- NOTE | 2018-11-20 02:19 | US ---
EXAMINATION TYPE: US transvaginal DATE OF EXAM: 11/20/2018 COMPARISON: 11/21/2016 CLINICAL HISTORY: Pain. Partial hysterectomy x 15 years ago--- still has both ovaries. RLQ pain. TECHNIQUE: Transvaginal (TV). Date of LMP: Partial hystectomy EXAM MEASUREMENTS: Right Ovary: 3.2 x 1.6 x 2.5 cm Left Ovary: 2.9 x 1.4 x 2.1 cm 1. Uterus: Surgically absent 2. Endometrium: Surgically absent 3. Right Ovary: wnl 4. Left Ovary: wnl Spectral, color and waveform doppler imaging shows good arterial and venous flow within the ovaries ; there is no evidence for ovarian torsion. 5. Bilateral Adnexa: wnl 6. Posterior cul-de-sac: no free fluid IMPRESSION: No adnexal mass or free fluid. No evidence of ovarian torsion.
[2018-11-20] MEDS ORDERED: NALOXONE 0.4 MG/ML 1 ML VIAL IV PRN (02:31)
[2018-11-20] MEDS ORDERED: ACETAMINOPHEN TAB 325 MG TAB PO PRN (02:31)
[2018-11-20] MEDS: SODIUM CHLORIDE 0.9% 1,000 ML IV SCH ×3 (03:16→22:35)
[2018-11-20 03:40] VITALS: BMI 22.3
[2018-11-20] MEDS: KETOROLAC 30 MG/ML 1 ML VIAL IVP PRN ×4 (03:49→21:26)
[2018-11-20] MEDS: HYDROmorphone 0.5 MG/0.5 ML SYRINGE IVP PRN ×7 (05:17→23:03)
[2018-11-20] MEDS ORDERED: DICYCLOMINE 10 MG CAP PO PRN (12:33)
[2018-11-20] MEDS: PARoxetine 20 MG TAB PO SCH (15:33)
[2018-11-20] MEDS: PROPRANOLOL LA 60 MG CAP.SA.24H PO SCH (15:33)
[2018-11-20] MEDS: CYCLOBENZAPRINE 10 MG TAB PO SCH ×2 (15:33→20:05)
[2018-11-20] MEDS: HYDROcodone/APAP 5-325MG 1 EACH TAB PO PRN ×2 (15:38→23:36)
[2018-11-20] MEDS: ONDANSETRON 4 MG/2 ML VIAL IVP PRN (19:12)
[2018-11-20] MEDS: FAMOTIDINE 20 MG TAB PO SCH (20:05)
--- NOTE | 2018-11-21 00:06 | HP ---
HISTORY AND PHYSICAL DATE OF ADMISSION: 11/20/2018. DATE OF SERVICE: 11/20/2018. PRESENTING COMPLAINT: Abdominal pain, diarrhea, nausea. HISTORY OF PRESENTING COMPLAINT: This is a 32-year-old patient, it is unclear who her family doctor is. The patient has multiple medical problems listed including , fibromyalgia, GERD, cervical cancer with surgery, antral ulcer, chronic back pain, she had scoliosis, questionable Crohn, even listed as c diff. The patient also was in the hospital back in August, at that time in August Dr. Gonzalez did do an EGD that showed mild antral gastritis. The patient has previously had a cholecystectomy by Dr. Gonzalez. The patient did have a CT scan of the abdomen and pelvis on this admission, it was essentially negative. The patient also had a transvaginal ultrasound which was essentially negative. The patient presented with fluctuating abdominal pain, diffuse, along with nausea and vomiting, variable amounts of diarrhea. No fever or chills. Decided to come in. GI was initially consulted from the ER and then Dr. Gonzalez was consulted. No fever, no chills. Sometimes able to eat. REVIEW OF SYSTEMS: CONSTITUTIONAL: Tired. HEENT: None. RESPIRATORY: None. CARDIOVASCULAR: None. GASTROINTESTINAL: As above. GENITOURINARY: None. MUSCULOSKELETAL: Chronic low back pain. DERMATOLOGICAL: None. HEMATOLOGICAL: None. LYMPHATICS: None. PSYCHIATRY: Very anxious. NEUROLOGICAL: None. PAST MEDICAL HISTORY: Fibromyalgia, GERD, osteoarthritis, cervical cancer surgery, antral ulcer, chronic back pain, sciatica, scoliosis, questionable Crohn's, questionable lupus, hypoglycemia. PAST SURGICAL HISTORY: Appendectomy, cholecystectomy, hysterectomy, orthopedic surgery, tubal ligation, several upper endoscopies, 13 surgeries of the left knee, left wrist ganglion cystectomy, exploratory lap and biopsy, partial hysterectomy, nasal surgery, oral surgery. PSYCH HISTORY: History of ADD, anxiety, bipolar, PTSD. She lives alone, sometimes the boyfriend stays with her. She is disabled, no longer drives. The patient is smoking about a pack a day, was smoking up to 3 packs a day, smoking since the age of 11. No alcohol. No recreational drugs. FAMILY HISTORY: Grandfather had cancer. HOME MEDICATIONS: 1. Zantac 150 mg b.i.d. 2. Inderal LA 60 mg p.o. daily. 3. Paxil 40 mg a day. 4. Motrin 800 mg p.o. every 4 hours p.r.n. 5. Al[place] 5 one tablet t.i.d. p.r.n. 6. Flexeril 10 mg p.o. t.i.d. ALLERGIES: CODEINE, METHYLPREDNISONE, MORPHINE, PENICILLIN, HALDOL, IV CONTRAST DYE. PHYSICAL EXAMINATION: VITAL SIGNS: Vital signs on presentation, temperature 98.6, pulse 100, respiration 17, blood pressure 143/89, pulse ox 98% on room air. GENERAL APPEARANCE: Average built, sitting up, somewhat anxious-appearing/ EYES: Pupils equal. Conjunctivae normal. HEENT: External nose and ears normal. Oral cavity normal. NECK: JVD not raised. Mass not palpable. Respiratory effort normal. LUNGS: Mild wheezing. CARDIOVASCULAR: First and second sounds normal. No edema. ABDOMEN: Soft, tender. No guarding or rigidity. Bowel sounds are present. LYMPHATIC: No lymph node palpable. PSYCHIATRY: Alert, oriented x3. Mood and affect anxious appearing. NEUROLOGICAL: Pupils equal. Cranial nerves grossly intact. Power and sensation grossly intact. INVESTIGATIONS: Reviewed in the clinical context. White count 10.6, hemoglobin 14.7, platelets 387,000, potassium 4.0, BUN 5, creatinine 0.63. UA negative. CT scan of the abdomen with transvaginal ultrasound as above. ASSESSMENT: 1. This is a patient with intermittent long-standing pain with intermittent diarrhea and nausea, who has had multiple abdominal surgeries including EGDs. No recent colonoscopy. Presents yet again with nausea, vomiting, some abdominal pain. There is no fever, no white count. 2. Chronic fibromyalgia. 3. Gastroesophageal reflux disease. 4. Bipolar disorder. 5. Chronic nicotine dependence. Patient is a cigarette smoker. PLAN: Consultation both to GI and Surgery has been made. The patient is put on IV fluids. Home medications resumed. Will hold off patient's NSAIDs. The patient is on H2 michael. We will await further input from GI and General Surgery. Care was discussed with the patient. The patient is currently n.p.o. MMODL / IJN: [id number] /
[2018-11-21] MEDS: LACTATED RINGERS 1,000 ML IV SCH ×2 (00:08→06:24)
[2018-11-21] MEDS: HYDROmorphone 0.5 MG/0.5 ML SYRINGE IVP PRN ×4 (02:01→11:17)
[2018-11-21] MEDS: ONDANSETRON 4 MG/2 ML VIAL IVP PRN ×2 (03:27→11:17)
[2018-11-21] MEDS: KETOROLAC 30 MG/ML 1 ML VIAL IVP PRN ×3 (03:27→15:19)
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
[2018-11-21] MEDS ORDERED: ENOXAPARIN 40 MG/0.4 ML SYRINGE SQ SCH (09:00)
[2018-11-21] MEDS: HYDROcodone/APAP 5-325MG 1 EACH TAB PO PRN ×2 (09:04→15:18)
[2018-11-21] MEDS: FAMOTIDINE 20 MG TAB PO SCH (09:05)
[2018-11-21] MEDS: CYCLOBENZAPRINE 10 MG TAB PO SCH ×2 (09:05→15:18)
[2018-11-21] MEDS: PARoxetine 20 MG TAB PO SCH (09:29)
[2018-11-21] MEDS: PROPRANOLOL LA 60 MG CAP.SA.24H PO SCH (09:29)
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
[2018-11-21 15:45] VITALS: BP 108/66; PULSE 89; RESP 16; TEMP 98.5
--- NOTE | 2018-11-22 09:44 | DS ---
DISCHARGE SUMMARY DATE OF ADMISSION: 11/20/2018 DATE OF DISCHARGE: 11/21/2018 FINAL DIAGNOSES: 1. Probably chronic functional non physical abdominal pain next. 2. Chronic fibromyalgia. 3. Gastroesophageal reflux disease. 4. Bipolar disorder. 5. Chronic nicotine dependence, patient is a cigarette smoker. 6. Chronic gastritis. HOSPITAL COURSE: This is a patient with multiple abdominal surgeries, endoscopies; presented with nausea, vomiting, abdominal pain. Patient was seen by Dr. Jackson from GI and I spoke to Gladys today from GI and from their standpoint, nothing further to be done. Also patient was seen by Dr. Gonzalez's team, nothing further for done to be done patient to be discharged on the current medications on examination temperature 98.5 pulse 89 16 blood pressure 100/66. abdomen is soft. No guarding or rigidity investigations white count is normal. The patient did have a CT scan abdominal and pelvis, nonspecific. DISCHARGE MEDICATIONS: 1. Flexeril 10 mg p.o. t.i.d. 2. [place] 5 one tablet p.o. t.i.d. p.r.n., Paxil 40 mg a day. 3. Zantac 150 mg b.i.d. 4. Motrin 800 mg q.4 p.r.n. 5. Inderal LA 60 mg p.o. daily. 6. Bentyl 10 mg p.o. q.i.d. p.r.n. FOLLOWUP: Follow up with Dr. Brigid Curiel on 11/29/2018; follow up with Dr. Gonzalez in 11/28/2018. DIET: Soft, bland. MMODL / IJN: [id number] /
== END 2018-11-21 16:29 | disposition home or self-care (01) ==
LOC: EC 22:40 → 4SSUR 11-20 02:32
PROVIDERS: ADMIT Hospitalist; ATTEND Hospitalist
DX: R10.9 Unspecified abdominal pain (principal); G89.29 Other chronic pain; K50.90 Crohn's disease, unspecified, without complications; K29.50 Unspecified chronic gastritis without bleeding; M79.7 Fibromyalgia; K21.9 Gastro-esophageal reflux disease without esophagitis; J45.909 Unspecified asthma, uncomplicated; M54.40 Lumbago with sciatica, unspecified side; M41.9 Scoliosis, unspecified; M19.90 Unspecified osteoarthritis, unspecified site; F40.240 Claustrophobia; F31.9 Bipolar disorder, unspecified; Z16.24 Resistance to multiple antibiotics; F17.210 Nicotine dependence, cigarettes, uncomplicated; F90.9 Attention-deficit hyperactivity disorder, unspecified type; F43.10 Post-traumatic stress disorder, unspecified; F41.9 Anxiety disorder, unspecified; Z79.899 Other long term (current) drug therapy; Z88.5 Allergy status to narcotic agent; Z88.0 Allergy status to penicillin; Z88.8 Allergy status to other drugs, medicaments and biological substances; Z91.041 Radiographic dye allergy status; Z86.19 Personal history of other infectious and parasitic diseases; Z87.42 Personal history of other diseases of the female genital tract; Z86.39 Personal history of other endocrine, nutritional and metabolic disease; Z86.14 Personal history of Methicillin resistant Staphylococcus aureus infection; Z90.49 Acquired absence of other specified parts of digestive tract; Z87.11 Personal history of peptic ulcer disease; Z85.41 Personal history of malignant neoplasm of cervix uteri; Z90.710 Acquired absence of both cervix and uterus; Z82.49 Family history of ischemic heart disease and other diseases of the circulatory system; Z83.3 Family history of diabetes mellitus; Z80.3 Family history of malignant neoplasm of breast; Z81.1 Family history of alcohol abuse and dependence; Z80.9 Family history of malignant neoplasm, unspecified; Z76.5 Malingerer [conscious simulation]
CPT/HCPCS: 96376 ×2; 96361 ×2; 96374; 96375; 99285; 36415; 80053; 83690; 85025; 81003; 81025; 74018; 93975; 76830; 74176; G0378 ×2; J2405 ×2; J3010; J1885 ×2; J1170 ×3

== ENCOUNTER 2019-12-09 14:30 | Emergency (ER) | payer OTHER ==
[2019-12-09 14:40] VITALS: RESP 20; TEMP 98
[2019-12-09] MEDS ORDERED: KETOROLAC 60 MG/2 ML VIAL IM STA (14:58)
--- NOTE | 2019-12-09 15:05 | ED ---
Lower Extremity Injury HPI - General Chief Complaint: Extremity Injury, Lower Stated Complaint: Hip pain Time Seen by Provider: 12/09/19 14:46 Source: patient Mode of arrival: ambulatory Limitations: no limitations - History of Present Illness Initial Comments: Patient is a 34-year-old female presenting to the emergency Department with complaints of left posterior hip pain since last night. 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 She denies any injuries or trauma. She denies any fever, chills. She has no other complaints at this time. Upon arrival to the ER, her vitals are stable. - Related Data Home Medications Medication Instructions Recorded Confirmed Cyclobenzaprine [Flexeril] 10 mg PO TID 05/22/18 11/20/18 HYDROcodone/APAP 5-325MG [[place] 1 tab PO TID PRN 05/22/18 11/20/18 5-325] PARoxetine HCL 40 mg PO DAILY 05/22/18 11/20/18 Ranitidine HCl 150 mg PO BID 05/22/18 11/20/18 Ibuprofen [Motrin Ib] 800 mg PO Q4H PRN 09/15/18 11/20/18 Propranolol HCl [Inderal LA] 60 mg PO DAILY 11/20/18 11/20/18 Previous Rx's Medication Instructions Recorded Dicyclomine [Bentyl] 10 mg PO QID PRN #60 cap 11/21/18 predniSONE [Deltasone] 20 mg PO BID 5 Days #10 tab 12/09/19 Allergies Allergy/AdvReac Type Severity Reaction Status Date / Time codeine Allergy Rash/Hives Verified 12/09/19 14:42 methylprednisolone Allergy kidney Verified 12/09/19 14:42 failure morphine Allergy Itching/Bur Verified 12/09/19 14:42 kasi Penicillins Allergy Unknown Verified 12/09/19 14:42 Childhood haloperidol [From Haldol] AdvReac Dystonic Verified 12/09/19 14:42 Reaction Iodinated Contrast Media AdvReac Kidney Verified 12/09/19 14:42 [Iodinated Contrast Media - Failure IV Dye] Review of Systems ROS Statement: Those systems with pertinent positive or pertinent negative responses have been documented in the HPI. ROS Other: All systems not noted in ROS Statement are negative. Past Medical History Past Medical History: Asthma, Cancer, Fibromyalgia, GERD/Reflux, Osteoarthritis (OA), Renal Disease Additional Past Medical History / Comment(s): Multiple cdiff, bronchitis, cervical cancer with surgery, antral ulcer, chronic back pain, DDD, sciatica and scoliosis, renal failure twice r/t iodine allergy, chron's, unsure if has lupus, ovarian cysts, hypoglycemia. History of Any Multi-Drug Resistant Organisms: C-DIFF, MRSA Date of last positivie culture/infection: 2006 MDRO Source:: Left knee Past Surgical History: Appendectomy, Cholecystectomy, Hysterectomy, Orthopedic Surgery, Tubal Ligation Additional Past Surgical History / Comment(s): several upper endoscopies, 13 surgies on left knee, left wrist ganglion cystectomy, exploratory lap and biopsy Pt states she has had a total of OVER 50 surgeries. PARTIAL HYSTERECTOMY, nasal surgery, oral surgery. Past Anesthesia/Blood Transfusion Reactions: No Reported Reaction Additional Past Anesthesia/Blood Transfusion Reaction / Comment(s): clausterphobia Past Psychological History: ADD/ADHD, Anxiety, Bipolar, PTSD Smoking Status: Current every day smoker Past Alcohol Use History: None Reported Past Drug Use History: None Reported - Past Family History Father History Unknown: Yes Family Medical History: Cancer Additional Family Medical History / Comment(s): does'nt know her real dad's med hx. but grandpa had cancer Mother Family Medical History: Cancer, Diabetes Mellitus, Hypertension Additional Family Medical History / Comment(s): past etoh abuse, breast cancer, cardiac problems General Exam - General Exam Comments Initial Comments: GENERAL: Well-appearing, well-nourished and in no acute distress. HEAD: Atraumatic, normocephalic. EYES: Pupils equal round and reactive to light, extraocular movements intact, sclera anicteric, conjunctiva are normal. ENT: Moist mucous membranes. NECK: Normal range of motion, supple without lymphadenopathy or JVD. LUNGS: Breath sounds clear to auscultation bilaterally and equal. No wheezes rales or rhonchi. HEART: Regular rate and rhythm without murmurs, rubs or gallops. ABDOMEN: Soft, nontender, normoactive bowel sounds. No guarding, no rebound. No masses appreciated. EXTREMITIES: Pain with palpation of the posterior hip, sciatic nerve. Patient sensation is equal in bilateral lower extremities. Strength is 5 out of 5 lower extremities. Normal range of motion of bilateral hips. no pitting or edema. No clubbing or cyanosis. Neurovascular intact. NEUROLOGICAL: Normal speech, normal gait. PSYCH: Normal mood, normal affect. SKIN: Warm, Dry, normal turgor, no rashes or lesions noted. Limitations: no limitations Course Vital Signs 12/09/19 12/09/19 14:37 15:17 Temperature 98 F 98 F Pulse Rate 125 H 101 H Respiratory 20 20 Rate Blood Pressure 164/98 139/66 O2 Sat by Pulse 100 100 Oximetry Medical Decision Making - Medical Decision Making Patient is a 34-year-old female presenting with left hip pain consistent with sciatica. She has a history of sciatica. No red flag symptoms today. Vitals are normal. Patient is already taking Herculaneum's and Flexeril at home for chronic back pain. Patient will be given Toradol injection today and she requests steroids. She will follow up with her PCP if symptoms persist. She is in agreement with this plan of care. Return parameters were discussed with the patient she verbalized understanding. Disposition Clinical Impression: Left sided sciatica Disposition: HOME SELF-CARE Condition: Stable Instructions (If sedation given, give patient instructions): Sciatica (ED) Additional Instructions: Please return to the Emergency Department if symptoms worsen or any other concerns. Continue with artery prescribed pain medicine and Flexeril. Trial of Toradol today for pain. Follow-up with PCP if symptoms persist. Prescriptions: predniSONE [Deltasone] 20 mg PO BID 5 Days #10 tab Is patient prescribed a controlled substance at d/c from ED?: No Referrals: Tom Sanchez DO [Primary Care Provider] - 1-2 days
[2019-12-09 15:18] VITALS: BP 139/66; PULSE 101
== END 2019-12-09 15:18 | disposition home or self-care (01) ==
LOC: EC 14:30
DX: M54.42 Lumbago with sciatica, left side (principal); G89.29 Other chronic pain; F43.10 Post-traumatic stress disorder, unspecified; F41.9 Anxiety disorder, unspecified; F31.9 Bipolar disorder, unspecified; K21.9 Gastro-esophageal reflux disease without esophagitis; M19.90 Unspecified osteoarthritis, unspecified site; F17.200 Nicotine dependence, unspecified, uncomplicated; Z79.891 Long term (current) use of opiate analgesic; Z79.899 Other long term (current) drug therapy; Z88.0 Allergy status to penicillin; Z88.8 Allergy status to other drugs, medicaments and biological substances; Z88.5 Allergy status to narcotic agent; Z98.890 Other specified postprocedural states
CPT/HCPCS: 96372; 99283; J1885

== ENCOUNTER 2020-07-12 04:35 | Emergency (ER) | payer OTHER ==
[2020-07-12 04:44] VITALS: BP 140/83; PULSE 98; RESP 20; TEMP 98.4
--- NOTE | 2020-07-12 05:03 | ED ---
Abdominal Pain HPI - General Chief Complaint: Abdominal Pain Stated Complaint: Abd pain Time Seen by Provider: 07/12/20 04:46 Source: patient Mode of arrival: ambulatory Limitations: no limitations - History of Present Illness Initial Comments: This patient is a 34-year-old woman presenting with left upper abdominal pain. She states it came on after she lifted a heavy object at work about 26 or 27 hours ago. She states that went resolve she is not able to work tonight and came here to have evaluation. No nausea or vomiting. Patient states she did have a loose bowel movement, no blood or dark tarry material. No change in urination. No vaginal discharge. MD Complaint: abdominal pain Onset/Timin -: hour(s) Location: epigastric Radiation: none Migration to: no migration Severity: moderate Quality: aching, sharp Consistency: constant Improves With: rest Worsens With: other (Lifting or tensing abdominal wall) Associated Symptoms: denies other symptoms - Related Data Home Medications Medication Instructions Recorded Confirmed Cyclobenzaprine [Flexeril] 10 mg PO TID 05/22/18 11/20/18 HYDROcodone/APAP 5-325MG [[place] 1 tab PO TID PRN 05/22/18 11/20/18 5-325] PARoxetine HCL 40 mg PO DAILY 05/22/18 11/20/18 Ranitidine HCl 150 mg PO BID 05/22/18 11/20/18 Ibuprofen [Motrin Ib] 800 mg PO Q4H PRN 09/15/18 11/20/18 Propranolol HCl [Inderal LA] 60 mg PO DAILY 11/20/18 11/20/18 Previous Rx's Medication Instructions Recorded Dicyclomine [Bentyl] 10 mg PO QID PRN #60 cap 11/21/18 predniSONE [Deltasone] 20 mg PO BID 5 Days #10 tab 12/09/19 Allergies Allergy/AdvReac Type Severity Reaction Status Date / Time codeine Allergy Rash/Hives Verified 07/12/20 04:43 methylprednisolone Allergy kidney Verified 07/12/20 04:43 failure morphine Allergy Itching/Bur Verified 07/12/20 04:43 kasi Penicillins Allergy Unknown Verified 07/12/20 04:43 Childhood haloperidol [From Haldol] AdvReac Dystonic Verified 07/12/20 04:43 Reaction Iodinated Contrast Media AdvReac Kidney Verified 07/12/20 04:43 [Iodinated Contrast Media - Failure IV Dye] Review of Systems ROS Statement: Those systems with pertinent positive or pertinent negative responses have been documented in the HPI. ROS Other: All systems not noted in ROS Statement are negative. Constitutional: Denies: fever, chills Respiratory: Denies: cough, dyspnea Cardiovascular: Denies: chest pain, palpitations, edema Gastrointestinal: Reports: as per HPI, abdominal pain. Denies: nausea, vomiting, diarrhea, constipation, melena, hematochezia Genitourinary: Denies: dysuria, hematuria Skin: Denies: rash Neurological: Denies: headache Past Medical History Past Medical History: Asthma, Cancer, Fibromyalgia, GERD/Reflux, Osteoarthritis (OA), Renal Disease Additional Past Medical History / Comment(s): Multiple cdiff, bronchitis, cervical cancer with surgery, antral ulcer, chronic back pain, DDD, sciatica and scoliosis, renal failure twice r/t iodine allergy, chron's, unsure if has lupus, ovarian cysts, hypoglycemia. History of Any Multi-Drug Resistant Organisms: C-DIFF, MRSA Date of last positivie culture/infection: 2006 MDRO Source:: Left knee Past Surgical History: Appendectomy, Cholecystectomy, Hysterectomy, Orthopedic Surgery, Tubal Ligation Additional Past Surgical History / Comment(s): several upper endoscopies, 13 surgies on left knee, left wrist ganglion cystectomy, exploratory lap and biopsy Pt states she has had a total of OVER 50 surgeries. PARTIAL HYSTERECTOMY, nasal surgery, oral surgery. Past Anesthesia/Blood Transfusion Reactions: No Reported Reaction Additional Past Anesthesia/Blood Transfusion Reaction / Comment(s): clausterphobia Past Psychological History: ADD/ADHD, Anxiety, Bipolar, PTSD Smoking Status: Current every day smoker Past Alcohol Use History: None Reported Past Drug Use History: None Reported - Past Family History Father History Unknown: Yes Family Medical History: Cancer Additional Family Medical History / Comment(s): does'nt know her real dad's med hx. but grandpa had cancer Mother Family Medical History: Cancer, Diabetes Mellitus, Hypertension Additional Family Medical History / Comment(s): past etoh abuse, breast cancer, cardiac problems General Exam Limitations: no limitations General appearance: alert, in no apparent distress Head exam: Present: atraumatic, normocephalic Eye exam: Present: normal appearance. Absent: scleral icterus, conjunctival injection Respiratory exam: Present: normal lung sounds bilaterally. Absent: respiratory distress, wheezes, rales, rhonchi, stridor Cardiovascular Exam: Present: regular rate, normal rhythm, normal heart sounds. Absent: systolic murmur, diastolic murmur, rubs, gallop GI/Abdominal exam: Present: soft, tenderness (Along the costal margin in the left epigastric area), guarding, normal bowel sounds, hernia. Absent: distended, rebound, rigid, mass, pulsatile mass Extremities exam: Present: normal inspection, normal capillary refill. Absent: pedal edema, calf tenderness Back exam: Present: normal inspection. Absent: CVA tenderness (R), CVA tenderness (L) Neurological exam: Present: alert Skin exam: Present: warm, dry, intact, normal color. Absent: rash Course Vital Signs 07/12/20 04:39 Temperature 98.4 F Pulse Rate 98 Respiratory 20 Rate Blood Pressure 140/83 O2 Sat by Pulse 100 Oximetry Disposition Clinical Impression: Abdominal wall strain Disposition: HOME SELF-CARE Condition: Good Instructions (If sedation given, give patient instructions): Muscle Strain (DC) Is patient prescribed a controlled substance at d/c from ED?: No Referrals: Tom Sanchez DO [Primary Care Provider] - 1-2 days
--- NOTE | 2020-07-12 05:42 | CT ---
EXAMINATION TYPE: CT abdomen pelvis wo con DATE OF EXAM: 07/12/2020 COMPARISON: 11/20/2018 HISTORY: pain CT DLP: 369.2 mGycm Automated exposure control for dose reduction was used. Lung bases are clear. There is no pleural effusion. Heart size is normal. Liver spleen stomach pancreas appear normal. There are clips from cholecystectomy. The bile ducts are not dilated. There is no adrenal mass. Kidneys show normal size and contour. There is no hydronephrosis. Ureters a re not dilated. There is no retroperitoneal adenopathy. Bladder distends smoothly. There is no inguin al hernia. There is no free fluid in the pelvis. There is hysterectomy. There is no evidence of pelvic mass. Lumbar vertebra have normal spacing and a lignment. Posterior elements are intact. Bony pelvis is intact. Appendix is not seen. There is no sig n of thickened appendix. There is no mesenteric edema. There is no ascites or free air. There is no sign of a bowel obstructio n. IMPRESSION: No sign of acute abdomen and pelvis. No adverse change compared to old exam.
[2020-07-12] MEDS ORDERED: MORPHINE SULFATE 4 MG/ML SYRINGE IM STA (05:59)
[2020-07-12] MEDS ORDERED: HYDROmorphone 0.5 MG/0.5 ML SYRINGE IM STA (06:12)
== END 2020-07-12 06:45 | disposition home or self-care (01) ==
LOC: EC 04:35
DX: S39.011A Strain of muscle, fascia and tendon of abdomen, initial encounter (principal); F41.9 Anxiety disorder, unspecified; F31.9 Bipolar disorder, unspecified; K21.9 Gastro-esophageal reflux disease without esophagitis; M19.90 Unspecified osteoarthritis, unspecified site; M79.7 Fibromyalgia; F43.10 Post-traumatic stress disorder, unspecified; F17.200 Nicotine dependence, unspecified, uncomplicated; Z79.899 Other long term (current) drug therapy; Z88.0 Allergy status to penicillin; Z88.5 Allergy status to narcotic agent; Z88.8 Allergy status to other drugs, medicaments and biological substances; Z91.041 Radiographic dye allergy status; Z90.89 Acquired absence of other organs; Z90.49 Acquired absence of other specified parts of digestive tract; Z85.41 Personal history of malignant neoplasm of cervix uteri; X50.0XXA Overexertion from strenuous movement or load, initial encounter; Y92.69 Other specified industrial and construction area as the place of occurrence of the external cause; Y99.0 Civilian activity done for income or pay; Z86.14 Personal history of Methicillin resistant Staphylococcus aureus infection
CPT/HCPCS: 74176; 99284; 96372; J1170

== ENCOUNTER 2020-08-29 08:56 | Emergency (ER) | payer OTHER ==
--- NOTE | 2020-08-29 09:27 | ED ---
Female Urogenital HPI - General Chief complaint: Urogenital Stated complaint: Female /foreign body Time Seen by Provider: 08/29/20 09:07 Source: patient, RN notes reviewed, old records reviewed Mode of arrival: ambulatory - History of Present Illness Initial comments: Patient is a 34-year-old female who presents emergency department today for evaluation with chief complaint of piece of condom likely secondary vaginal vault. She reports that it's been in there for over 24 hours. Patient reportedly has had no fevers or chills. She reports complaints of some pelvic cramping. She states also concern for possible STDs. Patient also wants to be evaluated for right posterior leg pain. She felt a bump in her posterior knee has concern for possible blood clot. No history of blood clots. Denies any chest pain or shortness breath. - Related Data Home Medications Medication Instructions Recorded Confirmed Cyclobenzaprine [Flexeril] 10 mg PO TID 05/22/18 08/29/20 PARoxetine HCL 40 mg PO DAILY 05/22/18 08/29/20 Propranolol HCl [Inderal LA] 60 mg PO DAILY 11/20/18 08/29/20 ALPRAZolam [Xanax] 1 mg PO BID PRN 08/29/20 08/29/20 Hydrocodone/Acetaminophen [[place] 1 tab PO TID 08/29/20 08/29/20 7.5-325] Ibuprofen [Motrin] 800 mg PO Q8H 08/29/20 08/29/20 Previous Rx's Medication Instructions Recorded Clotrimazole [Clotrimazole 2% (3 1 applicator VAGINAL DAILY #21 gm 08/29/20 day)] Fluconazole [Diflucan] 150 mg PO DAILY #3 tab 08/29/20 Allergies Allergy/AdvReac Type Severity Reaction Status Date / Time codeine Allergy Rash/Hives Verified 08/29/20 09:50 methylprednisolone Allergy kidney Verified 08/29/20 09:50 failure morphine Allergy Itching/Bur Verified 08/29/20 09:50 kasi Penicillins Allergy Unknown Verified 08/29/20 09:50 Childhood haloperidol [From Haldol] AdvReac Dystonic Verified 08/29/20 09:50 Reaction Iodinated Contrast Media AdvReac Kidney Verified 08/29/20 09:50 [Iodinated Contrast Media - Failure IV Dye] Review of Systems ROS Statement: Those systems with pertinent positive or pertinent negative responses have been documented in the HPI. ROS Other: All systems not noted in ROS Statement are negative. Past Medical History Past Medical History: Asthma, Cancer, Fibromyalgia, GERD/Reflux, Osteoarthritis (OA), Renal Disease Additional Past Medical History / Comment(s): Multiple cdiff, bronchitis, cervical cancer with surgery, antral ulcer, chronic back pain, DDD, sciatica and scoliosis, renal failure twice r/t iodine allergy, chron's, unsure if has lupus, ovarian cysts, hypoglycemia. History of Any Multi-Drug Resistant Organisms: C-DIFF, MRSA Date of last positivie culture/infection: 2006 MDRO Source:: Left knee Past Surgical History: Appendectomy, Cholecystectomy, Hysterectomy, Orthopedic Surgery, Tubal Ligation Additional Past Surgical History / Comment(s): several upper endoscopies, 13 surgies on left knee, left wrist ganglion cystectomy, exploratory lap and biopsy Pt states she has had a total of OVER 50 surgeries. PARTIAL HYSTERECTOMY, nasal surgery, oral surgery. Past Anesthesia/Blood Transfusion Reactions: No Reported Reaction Additional Past Anesthesia/Blood Transfusion Reaction / Comment(s): clausterphobia Past Psychological History: ADD/ADHD, Anxiety, Bipolar, PTSD Smoking Status: Current every day smoker Past Alcohol Use History: None Reported Past Drug Use History: None Reported - Past Family History Father History Unknown: Yes Family Medical History: Cancer Additional Family Medical History / Comment(s): does'nt know her real dad's med hx. but grandpa had cancer Mother Family Medical History: Cancer, Diabetes Mellitus, Hypertension Additional Family Medical History / Comment(s): past etoh abuse, breast cancer, cardiac problems General Exam - General Exam Comments Initial Comments: Alert and oriented 34-year-old [employer]. No distress. General appearance: alert, in no apparent distress Head exam: Present: atraumatic, normocephalic, normal inspection Eye exam: Present: normal appearance, PERRL, EOMI. Absent: scleral icterus, conjunctival injection, periorbital swelling ENT exam: Present: normal exam, mucous membranes moist Neck exam: Present: normal inspection. Absent: tenderness, meningismus, lymphadenopathy Respiratory exam: Present: normal lung sounds bilaterally. Absent: respiratory distress, wheezes, rales, rhonchi, stridor Cardiovascular Exam: Present: regular rate, normal rhythm, normal heart sounds. Absent: systolic murmur, diastolic murmur, rubs, gallop, clicks GI/Abdominal exam: Present: soft, normal bowel sounds. Absent: distended, tenderness, guarding, rebound, rigid External exam: Present: normal external exam Speculum exam: Present: vaginal discharge (white adherant vaginal discharge, likely yeast infection). Absent: normal speculum exam By manual exam: Present: normal by manual exam Extremities exam: Present: normal inspection, full ROM, normal capillary refill. Absent: tenderness, pedal edema, joint swelling, calf tenderness Back exam: Present: normal inspection Neurological exam: Present: alert, oriented X3, CN II-XII intact Psychiatric exam: Present: normal affect, normal mood Skin exam: Present: warm, dry, intact, normal color. Absent: rash Course Vital Signs 08/29/20 09:00 Temperature 97.6 F Pulse Rate 69 Respiratory 18 Rate Blood Pressure 168/119 O2 Sat by Pulse 99 Oximetry Medical Decision Making - Medical Decision Making 34-year-old male presents emergency department today for complaints of vaginal irritation concern for STDs as a condom ripped and she could not remove the whole condom per vagina. Patient had evidence of white adherent discharge more likely concerning for yeast infection. Patient also complained of right posterior knee pain. She states that she is concerned for possible blood clot. There is no significant swelling. Normal pulses distally. Patient ultrasound completed and this was negative for DVT. Patient did express concern for STDs and Patient will be treated with Rocephin and azithromycin and Flagyl. I discussed putting the Patient on Diflucan for home for at least infection. Advised following up with primary care doctor. - Lab Data Lab Results 08/29/20 08/29/20 Range/Units 09:29 09:29 Urine Color Colorless Urine Appearance Clear (Clear) Urine pH 6.5 (5.0-8.0) Ur Specific [place] 1.004 (1.001-1.035) Urine Protein Negative (Negative) Urine Glucose (UA) Negative (Negative) Urine Ketones Negative (Negative) Urine Blood Negative (Negative) Urine Nitrite Negative (Negative) Urine Bilirubin Negative (Negative) Urine Urobilinogen <2.0 (<2.0) mg/dL Ur Leukocyte Esterase Negative (Negative) Urine HCG, Qual Not Detected (Not Detectd) - Radiology Data Radiology results: report reviewed Ultrasound is negative for DVT. Disposition Clinical Impression: Yeast infection, Suspected condition not found, Reoccurring knee pain Disposition: HOME SELF-CARE Condition: Good Instructions (If sedation given, give patient instructions): Yeast Infection (ED) Additional Instructions: Take the medication as prescribed. Return to ED if any alarming signs or symptoms occur. Prescriptions: Clotrimazole [Clotrimazole 2% (3 day)] 1 applicator VAGINAL DAILY #21 gm Fluconazole [Diflucan] 150 mg PO DAILY #3 tab Is patient prescribed a controlled substance at d/c from ED?: No Referrals: Tom Sanchez DO [Primary Care Provider] - 1-2 days Time of Disposition: 10:45
[2020-08-29 09:40] LABS: Appearance,Urine Clear (Clear); Bilirubin,Urine Negative (Negative); Blood,Urine Negative (Negative); Color,Urine Colorless; Glucose,Urine (UA) Negative (Negative); Ketones,Urine Negative (Negative); Leukocyte Esterase,Urine Negative (Negative); Nitrite,Urine Negative (Negative); PH, Urine 6.5 (5.0-8.0); Protein,Urine Negative (Negative); Specific Gravity,Urine 1.004 (1.001-1.035); Urobilinogen,Urine <2.0 mg/dL (<2.0)
[2020-08-29] MEDS ORDERED: AZITHROMYCIN 500 MG TAB PO STA (09:41)
[2020-08-29] MEDS ORDERED: cefTRIAXone 250 MG VIAL IM STA (09:41)
[2020-08-29] MEDS ORDERED: metroNIDAZOLE 500 MG TAB PO STA (09:41)
--- NOTE | 2020-08-29 10:34 | US ---
EXAMINATION TYPE: US venous doppler duplex LE RT DATE OF EXAM: 08/29/2020 10:03 AM COMPARISON: NONE CLINICAL HISTORY: pain. Pain SIDE PERFORMED: Right TECHNIQUE: The lower extremity deep venous system is examined utilizing real time linear array sonog brooke with graded compression, doppler sonography and color-flow sonography. VESSELS IMAGED: External Iliac Vein (EIV) Common Femoral Vein Deep Femoral Vein Greater Saphenous Vein * Femoral Vein Popliteal Vein Small Saphenous Vein * Proximal Calf Veins (* superficial vessels) Right Leg: Negative for DVT. Normal flow, compressibility, and vascular waveforms. All IMPRESSION: No deep venous thrombosis of the right lower extremity.
[2020-08-29] MEDS ORDERED: KETOROLAC 15 MG/ML 1 ML VIAL IM STA (10:52)
[2020-08-29 11:14] VITALS: BP 143/99; PULSE 99; RESP 16; TEMP 98.4
== END 2020-08-29 11:00 | disposition home or self-care (01) ==
LOC: EC 08:56
DX: B37.9 Candidiasis, unspecified (principal); M25.561 Pain in right knee; M79.7 Fibromyalgia; G89.29 Other chronic pain; M54.9 Dorsalgia, unspecified; M19.90 Unspecified osteoarthritis, unspecified site; M54.30 Sciatica, unspecified side; F41.9 Anxiety disorder, unspecified; F43.10 Post-traumatic stress disorder, unspecified; F17.200 Nicotine dependence, unspecified, uncomplicated; Z79.891 Long term (current) use of opiate analgesic; Z79.899 Other long term (current) drug therapy; Z79.1 Long term (current) use of non-steroidal anti-inflammatories (NSAID); Z88.5 Allergy status to narcotic agent; Z88.8 Allergy status to other drugs, medicaments and biological substances; Z88.0 Allergy status to penicillin; Z91.041 Radiographic dye allergy status; Z85.41 Personal history of malignant neoplasm of cervix uteri
CPT/HCPCS: 81003; 81025; 87808; 87491; 87591; 87070; 93971; 99284; 96372 ×2; J0696; J1885

== ENCOUNTER 2020-12-05 13:14 | Emergency (ER) | payer OTHER ==
[2020-12-05] MEDS ORDERED: DIPH,PERTUS(ACELL)TETVAC-LF 0.5 ML VIAL IM ONE (13:18)
[2020-12-05 13:25] LABS: Glucose,Whole Blood 125 mg/dL (75-99)
--- NOTE | 2020-12-05 13:34 | XR ---
EXAMINATION TYPE: XR pelvis AP view DATE OF EXAM: 12/05/2020 CLINICAL HISTORY: pain TECHNIQUE: Single view the pelvis is submitted. FINDINGS: No evidence for fracture, dislocation or bony lesion. Joint spaces are well-preserved. S I joints appear symmetric. IMPRESSION: 1. No acute fracture or dislocation seen. ICD 10 NO FRACTURE, INITIAL EVALUATION
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
[2020-12-05 14:09] LABS: Basophils % (A) 0 %; Eosinophils # (A) 0.1 k/uL (0-0.7); Eosinophils % (A) 1 %; HCT 29.2 % (34.0-46.0); HGB 9.8 gm/dL (11.4-16.0); Lymphocytes # (A) 2.2 k/uL (1.0-4.8); Lymphocytes % (A) 15 %; MCH 33.3 pg (25.0-35.0); MCHC 33.7 g/dL (31.0-37.0); MCV 98.6 fL (80.0-100.0); Mean Platelet Volume 7.6; Monocytes # (A) 0.4 k/uL (0-1.0); Monocytes % (A) 3 %; Neutrophils # (A) 11.8 k/uL (1.3-7.7); Neutrophils % (A) 81 %; Platelet Count 276 k/uL (150-450); RBC 2.96 m/uL (3.80-5.40); RDW 12.9 % (11.5-15.5); WBC 14.5 k/uL (3.8-10.6)
[2020-12-05 14:18] LABS: ALT 122 U/L (4-34); AST 183 U/L (14-36); African American GFR (CKD) >90 (>60 ml/min/1.73 sqM); Albumin 2.6 g/dL (3.5-5.0); Alcohol <10 mg/dL; Alkaline Phosphatase 52 U/L (38-126); Anion Gap 14 mmol/L; Blood Urea Nitrogen 6 mg/dL (7-17); Calcium 7.3 mg/dL (8.4-10.2); Carbon Dioxide 21 mmol/L (22-30); Chloride 111 mmol/L (98-107); Glucose 90 mg/dL (74-99); Non-African American GFR(CKD) >90 (>60 ml/min/1.73 sqM); Sodium 146 mmol/L (137-145); Total Bilirubin 0.2 mg/dL (0.2-1.3); Total Protein 4.5 g/dL (6.3-8.2)
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
[2020-12-05 14:19] LABS: INR 1.3 (<1.2); Partial Thromboplastin Time 28.7 sec (22.0-30.0); Prothrombin Time 13.1 sec (9.0-12.0)
[2020-12-05 14:26] LABS: Potassium 2.5 mmol/L (3.5-5.1)
[2020-12-05 14:31] LABS: Appearance,Urine Clear (Clear); Bacteria,Urine Rare /hpf; Bilirubin,Urine Negative (Negative); Blood,Urine Moderate (Negative); Color,Urine Light Yellow; Glucose,Urine (UA) Negative (Negative); Ketones,Urine Negative (Negative); Leukocyte Esterase,Urine Negative (Negative); Nitrite,Urine Negative (Negative); Protein,Urine 1+ (Negative); RBC,Urine 3 /hpf (0-5); Specific Gravity,Urine 1.013 (1.001-1.035); Squamous Epithelial Cell,Urine <1 /hpf (0-4); Urobilinogen,Urine <2.0 mg/dL (<2.0); WBC,Urine 4 /hpf (0-5)
[2020-12-05 14:40] LABS: Amphetamine Screen,Urine Not Detected (NotDetected); Barbiturate Screen,Urine Not Detected (NotDetected); Benzodiazepines Screen,Urine Detected (NotDetected); Cocaine Screen,Urine Not Detected (NotDetected); Methadone Screen, Urine Not Detected (NotDetected); Opiate Screen,Urine Detected (NotDetected); Oxycodone Screen, Urine Not Detected (NotDetected); Phencyclidine Screen,Urine Not Detected (NotDetected); Tricyclic Antidepressant,Urine Detected (NotDetected); Urn Cannabinoid Scrn Not Detected (NotDetected)
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
--- NOTE | 2020-12-05 15:11 | XR ---
EXAMINATION TYPE: XR chest 1V portable DATE OF EXAM: 12/05/2020 COMPARISON: Examination from earlier in the day. HISTORY: Chest pain TECHNIQUE: Single frontal view of the chest is obtained. FINDINGS: Right-sided chest tube is now in place. Visualized is a pneumothorax which persists and is estimated at 25%. Consider repositioning of the chest tube. Underlying infiltrate noted. Small amount of subcut aneous air. Displaced rib fractures seen. Left lung is clear. No evidence for mediastinal shift. IMPRESSION: 1. Estimated right-sided pneumothorax 25% despite chest tube being in place.
[2020-12-05] MEDS ORDERED: MIDAZOLAM 1 MG/ML 5 ML VIAL IV STA (15:43)
[2020-12-05] MEDS ORDERED: LIDOCAINE 1% INJ 10MG/ML (20 ML MDV) SQ ONE (15:43)
--- NOTE | 2020-12-05 17:51 | XR ---
EXAMINATION TYPE: XR chest 1V portable DATE OF EXAM: 12/05/2020 COMPARISON: Today HISTORY: Follow-up pneumothorax TECHNIQUE: Single view FINDINGS: There is right-sided chest tube with the tip over the right upper lobe. There is small righ t-sided pneumothorax that appears less than 5%. Heart size is normal. There is no heart failure. Ther e are multiple right-sided rib fractures. There are chest leads. There is some interstitial infiltrat es in the lower lung hopson. There is soft tissue air on the right chest wall. IMPRESSION: There is decrease in the right side pneumothorax compared to exam one hour ago. There is increased soft tissue air on the right chest wall. There is some mild interstitial infiltrates and at electasis in the lower lung hopson.
[2020-12-05 20:35] VITALS: BP 107/73; PULSE 92; RESP 12; TEMP 98
== END 2020-12-05 16:04 | disposition other institution (70) ==
LOC: EC 13:14
DX: S06.0X1A Concussion with loss of consciousness of 30 minutes or less, initial encounter (principal); S22.41XA Multiple fractures of ribs, right side, initial encounter for closed fracture; S42.109A Fracture of unspecified part of scapula, unspecified shoulder, initial encounter for closed fracture; S42.302A Unspecified fracture of shaft of humerus, left arm, initial encounter for closed fracture; S32.10XA Unspecified fracture of sacrum, initial encounter for closed fracture; S01.01XA Laceration without foreign body of scalp, initial encounter; S27.892A Contusion of other specified intrathoracic organs, initial encounter; J93.9 Pneumothorax, unspecified; E87.6 Hypokalemia; Z23 Encounter for immunization; F41.9 Anxiety disorder, unspecified; F31.9 Bipolar disorder, unspecified; F90.9 Attention-deficit hyperactivity disorder, unspecified type; F43.10 Post-traumatic stress disorder, unspecified; F17.200 Nicotine dependence, unspecified, uncomplicated; J45.909 Unspecified asthma, uncomplicated; K21.9 Gastro-esophageal reflux disease without esophagitis; M19.90 Unspecified osteoarthritis, unspecified site; Z79.899 Other long term (current) drug therapy; Z88.0 Allergy status to penicillin; Z88.5 Allergy status to narcotic agent; Z88.8 Allergy status to other drugs, medicaments and biological substances; Z85.41 Personal history of malignant neoplasm of cervix uteri; Z91.041 Radiographic dye allergy status; Z86.14 Personal history of Methicillin resistant Staphylococcus aureus infection; Z90.49 Acquired absence of other specified parts of digestive tract; Z90.710 Acquired absence of both cervix and uterus; Z98.51 Tubal ligation status; V43.52XA Car driver injured in collision with other type car in traffic accident, initial encounter; Y93.89 Activity, other specified; Y92.410 Unspecified street and highway as the place of occurrence of the external cause; Z80.3 Family history of malignant neoplasm of breast
CPT/HCPCS: 36415; 93005; 80053; 84484; 85025; 85610; 85730; 81001; 80306; 72170; 73060; 71045; 72125; 70450; 71260; 74177; 90715; 99291; 96365; 96375; 90471; 32551; G0480; J0690; J2001; J2250; Q9967; 80320

== ENCOUNTER 2021-01-07 10:09 | Emergency (ER) | payer OTHER ==
[2021-01-07 10:40] VITALS: RESP 18; TEMP 98.2
--- NOTE | 2021-01-07 13:03 | XR ---
EXAMINATION TYPE: XR chest 2V DATE OF EXAM: 01/07/2021 COMPARISON: Chest x-ray December 05, 2020 HISTORY: Weakness. TECHNIQUE: Frontal and lateral views of the chest are obtained. FINDINGS: There is improved inspiration on current study without suspicious new no focal air space o pacity, pleural effusion, or pneumothorax seen. Interval removal of right-sided chest tube. The cardi ac silhouette size is within normal limits. Subacute multiple right posterolateral upper to midrib fr actures are noted. Cholecystectomy clips are redemonstrated. Partial visualization of new change in t he left humerus. AC joint separation or subluxation injury noted. IMPRESSION: Improved inspiration. No new acute pulmonary process.
[2021-01-07 13:08] LABS: INR 0.9 (<1.2); Partial Thromboplastin Time 25.2 sec (22.0-30.0); Prothrombin Time 9.6 sec (9.0-12.0)
[2021-01-07 13:09] LABS: Basophils # (A) 0.1 k/uL (0-0.2); Basophils % (A) 1 %; Eosinophils # (A) 0.4 k/uL (0-0.7); Eosinophils % (A) 6 %; Lymphocytes # (A) 2.3 k/uL (1.0-4.8); Lymphocytes % (A) 36 %; MCH 33.9 pg (25.0-35.0); MCHC 33.6 g/dL (31.0-37.0); Macrocytosis Slight; Mean Platelet Volume 7.6; Monocytes # (A) 0.3 k/uL (0-1.0); Monocytes % (A) 4 %; Neutrophils # (A) 3.5 k/uL (1.3-7.7); Neutrophils % (A) 53 %; Platelet Count 377 k/uL (150-450); RBC 3.76 m/uL (3.80-5.40); RDW 14.6 % (11.5-15.5); WBC 6.6 k/uL (3.8-10.6)
[2021-01-07 13:11] LABS: HGB 12.8 gm/dL (11.4-16.0)
[2021-01-07 13:17] LABS: ALT 15 U/L (4-34); AST 20 U/L (14-36); African American GFR (CKD) >90 (>60 ml/min/1.73 sqM); Albumin 3.7 g/dL (3.5-5.0); Alkaline Phosphatase 168 U/L (38-126); Anion Gap 10 mmol/L; Blood Urea Nitrogen 4 mg/dL (7-17); Calcium 9.4 mg/dL (8.4-10.2); Carbon Dioxide 25 mmol/L (22-30); Chloride 106 mmol/L (98-107); Glucose 96 mg/dL (74-99); Non-African American GFR(CKD) >90 (>60 ml/min/1.73 sqM); Potassium 3.8 mmol/L (3.5-5.1); Sodium 141 mmol/L (137-145); Total Bilirubin 0.3 mg/dL (0.2-1.3); Total Protein 6.1 g/dL (6.3-8.2)
[2021-01-07] MEDS ORDERED: HYDROmorphone 1 MG/ML 1 ML SYRINGE IM STA (13:32)
[2021-01-07 13:46] LABS: Appearance,Urine Clear (Clear); Bilirubin,Urine Negative (Negative); Blood,Urine Negative (Negative); Color,Urine Light Yellow; Glucose,Urine (UA) Negative (Negative); Ketones,Urine Negative (Negative); Leukocyte Esterase,Urine Negative (Negative); Nitrite,Urine Negative (Negative); Protein,Urine Negative (Negative); Specific Gravity,Urine 1.009 (1.001-1.035); Urobilinogen,Urine <2.0 mg/dL (<2.0)
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
[2021-01-07 14:47] VITALS: BP 123/72; PULSE 89
== END 2021-01-07 14:46 | disposition home or self-care (01) ==
LOC: EC 10:09
DX: R53.1 Weakness (principal); M79.7 Fibromyalgia; J45.909 Unspecified asthma, uncomplicated; G89.29 Other chronic pain; M54.9 Dorsalgia, unspecified; M17.12 Unilateral primary osteoarthritis, left knee; F43.10 Post-traumatic stress disorder, unspecified; F41.9 Anxiety disorder, unspecified; F17.200 Nicotine dependence, unspecified, uncomplicated; Z79.1 Long term (current) use of non-steroidal anti-inflammatories (NSAID); Z79.891 Long term (current) use of opiate analgesic; Z79.01 Long term (current) use of anticoagulants; Z79.899 Other long term (current) drug therapy; Z88.5 Allergy status to narcotic agent; Z88.8 Allergy status to other drugs, medicaments and biological substances; Z88.0 Allergy status to penicillin; Z91.041 Radiographic dye allergy status; Z85.41 Personal history of malignant neoplasm of cervix uteri
CPT/HCPCS: 36415; 93005; 80053; 83605; 84484; 85025; 85610; 85730; 81003; 71046; 99285; 96372; J1170

== ENCOUNTER 2021-01-19 06:24 | Emergency (ER) | payer OTHER ==
[2021-01-19 06:31] VITALS: TEMP 97.9
[2021-01-19] MEDS ORDERED: HYDROmorphone 1 MG/ML 1 ML SYRINGE IM STA (06:51)
[2021-01-19] MEDS ORDERED: LORazepam 1 MG TAB PO STA (06:51)
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
[2021-01-19] MEDS ORDERED: ACET/COD 300 MG/30 MG STARTER PACK 6 TAB BTL PO STA ×2 (08:16→08:49)
[2021-01-19] MEDS ORDERED: traMADol 50 MG STARTER PACK 3 TAB BTL PO STA (08:39)
[2021-01-19 09:05] VITALS: RESP 18
[2021-01-19 09:06] VITALS: BP 117/95; PULSE 104
== END 2021-01-19 09:09 | disposition home or self-care (01) ==
LOC: EC 06:24
DX: M79.602 Pain in left arm (principal); M54.5 Low back pain; R07.81 Pleurodynia; M25.552 Pain in left hip; J45.909 Unspecified asthma, uncomplicated; K21.9 Gastro-esophageal reflux disease without esophagitis; M19.91 Primary osteoarthritis, unspecified site; F41.9 Anxiety disorder, unspecified; F90.9 Attention-deficit hyperactivity disorder, unspecified type; F17.200 Nicotine dependence, unspecified, uncomplicated; Z88.0 Allergy status to penicillin
CPT/HCPCS: 99283; 96372; J1170

== ENCOUNTER 2021-01-21 12:41 | Emergency (ER) | payer OTHER ==
[2021-01-21 12:56] VITALS: BP 151/97; PULSE 113; RESP 18; TEMP 98.8
[2021-01-21] MEDS ORDERED: HYDROmorphone 1 MG/ML 1 ML SYRINGE IM STA (13:42)
[2021-01-21] MEDS ORDERED: traMADol 50 MG STARTER PACK 3 TAB BTL PO STA (13:42)
[2021-01-21] MEDS ORDERED: ACET/COD 300 MG/30 MG STARTER PACK 6 TAB BTL PO STA (13:42)
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
== END 2021-01-21 14:07 | disposition home or self-care (01) ==
LOC: EC 12:41
DX: Z76.0 Encounter for issue of repeat prescription (principal); R52 Pain, unspecified; J45.909 Unspecified asthma, uncomplicated; F41.9 Anxiety disorder, unspecified; F31.9 Bipolar disorder, unspecified; F17.200 Nicotine dependence, unspecified, uncomplicated; Z79.01 Long term (current) use of anticoagulants; Z79.899 Other long term (current) drug therapy; Z88.5 Allergy status to narcotic agent; Z88.0 Allergy status to penicillin; Z88.8 Allergy status to other drugs, medicaments and biological substances; Z91.041 Radiographic dye allergy status; Z85.41 Personal history of malignant neoplasm of cervix uteri
CPT/HCPCS: 99283; 96372; J1170

== ENCOUNTER 2021-09-19 23:47 | Observation (INO) | payer OTHER ==
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
[2021-09-20] MEDS ORDERED: HYDROmorphone 1 MG/ML 1 ML SYRINGE IVP STA ×3 (01:45→06:12)
[2021-09-20 01:58] LABS: Appearance,Urine Clear (Clear); Bacteria,Urine Rare /hpf; Bilirubin,Urine Negative (Negative); Blood,Urine Small (Negative); Color,Urine Light Yellow; Glucose,Urine (UA) Negative (Negative); Ketones,Urine Negative (Negative); Leukocyte Esterase,Urine Small (Negative); Nitrite,Urine Negative (Negative); PH, Urine 6.5 (5.0-8.0); Protein,Urine Negative (Negative); RBC,Urine 1 /hpf (0-5); Specific Gravity,Urine 1.005 (1.001-1.035); Squamous Epithelial Cell,Urine 2 /hpf (0-4); Urobilinogen,Urine <2.0 mg/dL (<2.0); WBC,Urine 8 /hpf (0-5)
[2021-09-20 02:00] LABS: Basophils # (A) 0.1 k/uL (0-0.2); Basophils % (A) 1 %; Eosinophils # (A) 0.3 k/uL (0-0.7); Eosinophils % (A) 2 %; HCT 46.7 % (34.0-46.0); HGB 15.3 gm/dL (11.4-16.0); Lymphocytes # (A) 4.2 k/uL (1.0-4.8); Lymphocytes % (A) 31 %; MCH 31.7 pg (25.0-35.0); MCHC 32.9 g/dL (31.0-37.0); MCV 96.5 fL (80.0-100.0); Mean Platelet Volume 7.8; Monocytes # (A) 0.5 k/uL (0-1.0); Monocytes % (A) 4 %; Neutrophils # (A) 8.1 k/uL (1.3-7.7); Neutrophils % (A) 61 %; Platelet Count 458 k/uL (150-450); RBC 4.84 m/uL (3.80-5.40); RDW 13.1 % (11.5-15.5); WBC 13.3 k/uL (3.8-10.6)
[2021-09-20 02:33] LABS: ALT 14 U/L (4-34); AST 16 U/L (14-36); African American GFR (CKD) >90 (>60 ml/min/1.73 sqM); Albumin 4.4 g/dL (3.5-5.0); Alkaline Phosphatase 93 U/L (38-126); Amylase 79 U/L (30-110); Anion Gap 9 mmol/L; Blood Urea Nitrogen 7 mg/dL (7-17); Calcium 9.9 mg/dL (8.4-10.2); Carbon Dioxide 21 mmol/L (22-30); Chloride 111 mmol/L (98-107); Glucose 94 mg/dL (74-99); Lipase 70 U/L (23-300); Non-African American GFR(CKD) >90 (>60 ml/min/1.73 sqM); Potassium 4.1 mmol/L (3.5-5.1); Sodium 141 mmol/L (137-145); Total Bilirubin 0.5 mg/dL (0.2-1.3)
[2021-09-20] MEDS ORDERED: HYDROmorphone 1 MG/ML 1 ML SYRINGE IVP PRN (06:47)
[2021-09-20] MEDS ORDERED: NALOXONE 0.4 MG/ML 1 ML VIAL IV PRN (06:47)
[2021-09-20] MEDS ORDERED: ACETAMINOPHEN TAB 325 MG TAB PO PRN (06:47)
[2021-09-20] MEDS ORDERED: ALBUTEROL NEBULIZED 2.5 MG/3 ML INHALATION PRN (07:18)
[2021-09-20] MEDS ORDERED: ALPRAZolam 1 MG TAB PO PRN (07:18)
[2021-09-20] MEDS: SODIUM CHLORIDE 0.9% 1,000 ML IV SCH ×3 (07:19→23:05)
[2021-09-20] MEDS: ONDANSETRON 4 MG/2 ML VIAL IVP PRN ×2 (07:21→23:11)
[2021-09-20] MEDS ORDERED: IBUPROFEN 800 MG TAB PO SCH (07:30)
[2021-09-20] MEDS ORDERED: HYDROcodone/APAP 7.5-325MG 1 EACH TAB PO SCH (08:00)
[2021-09-20] MEDS ORDERED: FAMOTIDINE 20 MG TAB PO SCH (09:00)
[2021-09-20] MEDS: PARoxetine 20 MG TAB PO SCH (10:44)
[2021-09-20] MEDS: PROPRANOLOL LA 60 MG CAP.SA.24H PO SCH (10:45)
[2021-09-20] MEDS: KETOROLAC 30 MG/ML 1 ML VIAL IVP SCH ×2 (11:32→16:38)
[2021-09-20] MEDS: HYDROmorphone 1 MG/ML 1 ML SYRINGE IVP PRN ×5 (12:22→21:59)
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
--- NOTE | 2021-09-20 13:03 | HP ---
HISTORY AND PHYSICAL HISTORY OF PRESENT ILLNESS: 35-year-old white female admitted with severe abdominal pain. She has a history of 20 bowel movements a day and severe diarrhea. History of positive C diff colitis. She has severe abdominal pain and cramping, multiple episodes of watery diarrhea, await for C diff culture to come back. She cannot take it anymore. She is dehydrated. She has severe pain. She cannot tolerate medications orally. MEDICATIONS: Home medicines include: Paroxetine 40 daily, Flexeril 10 mg t.i.d., Xanax 1 mg b.i.d., propranolol 60 mg p.o. daily, [place] every 8 hours 7.5/325, Motrin 800 q.6h, albuterol 1 to 2 puffs q.4 and p.r.n., loratadine 10 mg daily, Xarelto 15 mg b.i.d. daily. ALLERGIES: MORPHINE, PENICILLIN, METHYLPREDNISONE, TRAMADOL, HALDOL. REVIEW OF SYMPTOMS: 14-point review of systems otherwise is negative. PAST MEDICAL HISTORY: Asthma, cancer, fibromyalgia, GERD, osteoarthritis, renal disease, multiple C diff, cervical surgery, chronic back pain. Scoliosis, DDD, chronic renal failure, Crohn's, possible lupus, ovarian cyst, hypoglycemia, history of C diff and MRSA. SURGERIES: Appendectomy, cholecystectomy, hysterectomy, orthopedic surgery, tubal ligation. She has ADHD, anxiety, bipolar, PTSD. SOCIAL HISTORY: Current everyday smoker. FAMILY HISTORY: Father with cancer. Mother diabetes mellitus and cancer. PHYSICAL EXAMINATION: Temperature 98.3, pulse is 80s and 90s, respiratory 16 to 18, blood pressure is 140s to 160s over 92-118, O2 100 percent. White count high at 12.3, hemoglobin 15.3, platelets 258, BUN 7, creatinine 0.65, sodium 141, potassium 4.1. She has elevated neutrophils and elevated platelets. Urine appears to be negative. Lipase is normal. Liver enzymes are normal. She is not . Lactic acid 0.8. Waiting for C diff. ASSESSMENT AND PLAN: 1. Acute on chronic abdominal pain. 2. History of C diff with progressive diarrhea. 3. Get Gastroenterology and surgical consult. 4. CT scan her abdomen. 5. Possibly use IV pain medications and maybe add some Bentyl for cramping. 6. Questran to slow down the stools. 7. Prognosis guarded. MMODL / IJN: [id number] /
[2021-09-20] MEDS ORDERED: hydrALAZINE HCL 20 MG/ML 1 ML VIAL IVP PRN (13:32)
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
[2021-09-20] MEDS: LORazepam 2 MG/ML INJ IM PRN ×2 (14:43→21:09)
[2021-09-20] MEDS: PANTOPRAZOLE 40 MG/10 ML VIAL IVP SCH (16:39)
[2021-09-20] MEDS: CHOLESTYRAMINE (WITH SUGAR) 4 GM PACKET PO SCH (17:45)
[2021-09-20] MEDS: HYDROcodone/APAP 7.5-325MG 1 EACH TAB PO PRN (17:45)
[2021-09-20] MEDS: METOCLOPRAMIDE 5 MG/ML 2 ML VIAL IVP SCH (18:17)
--- NOTE | 2021-09-20 21:42 | US ---
EXAMINATION TYPE: US transvaginal DATE OF EXAM: 09/20/2021 COMPARISON: Same day CT CLINICAL HISTORY: ovary cyst. Pain, abnormal CT, uterus surgically absent TECHNIQUE: Transvaginal (TV). Transvaginal sonographic images of the pelvis were acquired. EXAM MEASUREMENTS: Left Ovary: 6.1 x 4.5 x 3.5 cm 1. Uterus: Surgically absent 2. Endometrium: Surgically absent 3. Right Ovary: Obscured by overlying bowel gas 4. Left Ovary: Cyst= 4.6 x 3.6 x 4.1 cm Spectral, color and waveform doppler imaging shows good arterial and venous flow within the left ov carter; there is no evidence for ovarian torsion. 5. Bilateral Adnexa: wnl 6. Posterior cul-de-sac: wnl IMPRESSION: There is a large simple cyst on the left ovary. There is smaller adjacent 1.5 cm left ovarian cyst. N o free fluid. No solid pelvic mass. No evidence of ovarian torsion.
[2021-09-21] MEDS: KETOROLAC 30 MG/ML 1 ML VIAL IVP SCH ×3 (00:01→12:01)
[2021-09-21] MEDS: METOCLOPRAMIDE 5 MG/ML 2 ML VIAL IVP SCH ×3 (00:01→12:03)
[2021-09-21] MEDS: HYDROmorphone 1 MG/ML 1 ML SYRINGE IVP PRN ×6 (00:02→12:26)
[2021-09-21] MEDS: HYDROcodone/APAP 7.5-325MG 1 EACH TAB PO PRN ×2 (01:47→10:36)
[2021-09-21] MEDS: LORazepam 2 MG/ML INJ IV PRN ×2 (03:28→09:28)
[2021-09-21 03:41] VITALS: RESP 18
[2021-09-21] MEDS: SODIUM CHLORIDE 0.9% 1,000 ML IV SCH (06:11)
[2021-09-21 07:59] VITALS: BP 167/107; PULSE 91; TEMP 97.9
[2021-09-21] MEDS ORDERED: metroNIDAZOLE 500 MG TAB PO SCH (09:00)
[2021-09-21] MEDS: PANTOPRAZOLE 40 MG/10 ML VIAL IVP SCH (09:16)
[2021-09-21] MEDS: PROPRANOLOL LA 60 MG CAP.SA.24H PO SCH (09:16)
[2021-09-21] MEDS: PARoxetine 20 MG TAB PO SCH (09:16)
[2021-09-21] MEDS: ONDANSETRON 4 MG/2 ML VIAL IVP PRN (09:27)
[2021-09-21] MEDS: CHOLESTYRAMINE (WITH SUGAR) 4 GM PACKET PO SCH (10:37)
--- NOTE | 2021-09-21 12:09 | XR ---
EXAMINATION TYPE: XR chest 2V DATE OF EXAM: 09/21/2021 COMPARISON: Chest x-ray 01/07/2021, CT 09/20/2021 HISTORY: Abnormal CT TECHNIQUE: Frontal and lateral views of the chest are obtained. FINDINGS: Interval herniation of a portion of the liver suspected along the right hemidiaphragm liana elates with CT findings, is an interval finding compared to prior chest x-ray. Multiple right-sided r ib fractures are again seen. The acromioclavicular separation of the right shoulder is again noted. T his noted pneumothorax or pleural effusion. Prominent lung volume may be indicative of underlying [employer] D. Postop changes are noted in the left humerus, some dystrophic calcification may be present, diffic ult to exclude a nonunion, lucencies present about the humeral nail which could be due to loosening. Cardiac mediastinal silhouette is within normal limits. Surgical clips are present in the right upper quadrant. There is a slight spinal curvature. IMPRESSION: Posttraumatic findings as described.
[2021-09-21 13:01] LABS: Basophils # (A) 0.1 k/uL (0-0.2); Basophils % (A) 1 %; Eosinophils # (A) 0.5 k/uL (0-0.7); Eosinophils % (A) 5 %; Lymphocytes % (A) 28 %; MCH 31.8 pg (25.0-35.0); MCHC 32.7 g/dL (31.0-37.0); MCV 97.3 fL (80.0-100.0); Mean Platelet Volume 7.8; Monocytes # (A) 0.4 k/uL (0-1.0); Monocytes % (A) 3 %; Neutrophils # (A) 6.8 k/uL (1.3-7.7); Neutrophils % (A) 62 %; Platelet Count 420 k/uL (150-450); RBC 4.73 m/uL (3.80-5.40); WBC 10.9 k/uL (3.8-10.6)
[2021-09-21 13:17] LABS: ALT 24 U/L (4-34); African American GFR (CKD) >90 (>60 ml/min/1.73 sqM); Albumin 4.8 g/dL (3.5-5.0); Albumin/Globulin Ratio 1.7; Anion Gap 14 mmol/L; Blood Urea Nitrogen 4 mg/dL (7-17); C Reactive Protein <0.5 mg/dL (<1.0); Carbon Dioxide 16 mmol/L (22-30); Chloride 109 mmol/L (98-107); Globulin 2.9 g/dL; Glucose 86 mg/dL (74-99); Non-African American GFR(CKD) >90 (>60 ml/min/1.73 sqM); Sodium 139 mmol/L (137-145); Total Bilirubin 0.6 mg/dL (0.2-1.3); Total Protein 7.7 g/dL (6.3-8.2)
[2021-09-21 13:25] LABS: AST 32 U/L (14-36); Alkaline Phosphatase 112 U/L (38-126); Potassium 4.1 mmol/L (3.5-5.1)
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
== END 2021-09-21 13:55 | disposition left against medical advice (07) ==
LOC: EC 23:47 → 6PED 09-20 06:47 → 6NMEDSUR 09-20 09:18
PROVIDERS: ADMIT Family Medicine; ATTEND Family Medicine
DX: K50.90 Crohn's disease, unspecified, without complications (principal); E86.0 Dehydration; J43.9 Emphysema, unspecified; N83.292 Other ovarian cyst, left side; F17.210 Nicotine dependence, cigarettes, uncomplicated; Z20.822 Contact with and (suspected) exposure to COVID-19; Z72.89 Other problems related to lifestyle; G89.29 Other chronic pain; M79.7 Fibromyalgia; M41.9 Scoliosis, unspecified; M19.90 Unspecified osteoarthritis, unspecified site; K21.9 Gastro-esophageal reflux disease without esophagitis; M54.30 Sciatica, unspecified side; K76.89 Other specified diseases of liver; F31.9 Bipolar disorder, unspecified; F40.240 Claustrophobia; F41.9 Anxiety disorder, unspecified; F43.10 Post-traumatic stress disorder, unspecified; F90.9 Attention-deficit hyperactivity disorder, unspecified type; Z79.899 Other long term (current) drug therapy; Z79.01 Long term (current) use of anticoagulants; Z88.5 Allergy status to narcotic agent; Z88.0 Allergy status to penicillin; Z88.8 Allergy status to other drugs, medicaments and biological substances; Z91.041 Radiographic dye allergy status; Z85.41 Personal history of malignant neoplasm of cervix uteri; Z90.49 Acquired absence of other specified parts of digestive tract; Z86.14 Personal history of Methicillin resistant Staphylococcus aureus infection; Z86.19 Personal history of other infectious and parasitic diseases; Z87.11 Personal history of peptic ulcer disease; Z90.711 Acquired absence of uterus with remaining cervical stump; Z98.51 Tubal ligation status; Z98.891 History of uterine scar from previous surgery; Z83.3 Family history of diabetes mellitus; Z82.49 Family history of ischemic heart disease and other diseases of the circulatory system; Z80.3 Family history of malignant neoplasm of breast; Z87.81 Personal history of (healed) traumatic fracture
CPT/HCPCS: 99284; 96376 ×3; 96365; 96366; 96375 ×2; 96361; 36415; 80053 ×2; 82150; 83605 ×2; 83690; 85025 ×2; 86140; 81001; 81025; 87040; 87086; 84145; 87635; 71046; 93976; 76830; 74176; G0378 ×2; J2060 ×2; J2765 ×2; J2405 ×2; J0696; J1885 ×2; J1170 ×2; C9113 ×2

== ENCOUNTER 2021-10-05 12:19 | Emergency (ER) | payer OTHER ==
[2021-10-05 12:24] VITALS: BP 141/89; PULSE 116; RESP 18; TEMP 98.3
--- NOTE | 2021-10-05 13:38 | XR ---
EXAMINATION TYPE: XR ankle complete LT DATE OF EXAM: 10/05/2021 COMPARISON: NONE HISTORY: Pain TECHNIQUE: 3 views of the left ankle are submitted for evaluation. FINDINGS: There is no evidence for fracture or dislocation. Ankle mortise is intact. Soft tissues are within normal limits. IMPRESSION: 1. No evidence for acute fracture.
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
[2021-10-05] MEDS ORDERED: HYDROmorphone 0.5 MG/0.5 ML SYRINGE IM STA (14:02)
[2021-10-05] MEDS ORDERED: ONDANSETRON ODT 4 MG TAB PO STA (14:02)
== END 2021-10-05 14:35 | disposition home or self-care (01) ==
LOC: EC 12:19
DX: S93.402A Sprain of unspecified ligament of left ankle, initial encounter (principal); M19.90 Unspecified osteoarthritis, unspecified site; J45.909 Unspecified asthma, uncomplicated; F17.200 Nicotine dependence, unspecified, uncomplicated; Z79.51 Long term (current) use of inhaled steroids; Z88.0 Allergy status to penicillin; Z88.8 Allergy status to other drugs, medicaments and biological substances; Z88.5 Allergy status to narcotic agent; Z88.6 Allergy status to analgesic agent; Z79.1 Long term (current) use of non-steroidal anti-inflammatories (NSAID)
CPT/HCPCS: 73610; 99283; 96372; J1170

== ENCOUNTER 2022-01-06 01:46 | Emergency (ER) | payer OTHER ==
[2022-01-06 01:51] VITALS: BP 116/73; PULSE 118; RESP 20; TEMP 98.9
[2022-01-06] MEDS ORDERED: ONDANSETRON ODT 4 MG TAB PO STA (02:29)
--- NOTE | 2022-01-06 03:04 | XR ---
EXAMINATION TYPE: XR foot complete LT DATE OF EXAM: 01/06/2022 COMPARISON: NONE HISTORY: Pain TECHNIQUE: 3 views FINDINGS: Metatarsals are intact. I see no fracture nor dislocation. Toes appear intact. IMPRESSION: Negative left foot exam.
--- NOTE | 2022-01-06 03:05 | XR ---
EXAMINATION TYPE: XR ankle complete LT DATE OF EXAM: 01/06/2022 COMPARISON: NONE HISTORY: Pain TECHNIQUE: 3 views FINDINGS: There is soft tissue swelling over the lateral malleolus. I see no fracture nor dislocation . Joint spaces are normal. IMPRESSION: Lateral soft tissue swelling. No fracture.
[2022-01-06] MEDS ORDERED: HYDROcodone/APAP 5-325MG 1 EACH TAB PO STA (03:17)
[2022-01-06] MEDS ORDERED: IBUPROFEN 600 MG TAB PO STA (03:17)
[2022-01-06] MEDS ORDERED: MORPHINE SULFATE 4 MG/ML SYRINGE IM STA (03:43)
[2022-01-06] MEDS ORDERED: diphenhydrAMINE 50 MG/ML 1 ML VIAL IM STA (03:44)
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
== END 2022-01-06 03:50 | disposition home or self-care (01) ==
LOC: EC 01:46
DX: S93.402A Sprain of unspecified ligament of left ankle, initial encounter (principal); J45.909 Unspecified asthma, uncomplicated; F17.200 Nicotine dependence, unspecified, uncomplicated; Z88.5 Allergy status to narcotic agent; Z88.0 Allergy status to penicillin; Z88.8 Allergy status to other drugs, medicaments and biological substances; Z91.041 Radiographic dye allergy status; W18.49XA Other slipping, tripping and stumbling without falling, initial encounter
CPT/HCPCS: 73610; 73630; 99283; 96372; J2270; J1200

== ENCOUNTER 2022-05-21 09:02 | Emergency (ER) | payer OTHER ==
[2022-05-21] MEDS ORDERED: HYDROcodone/APAP 7.5-325MG 1 EACH TAB PO ONE (09:23)
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
--- NOTE | 2022-05-21 10:06 | XR ---
EXAMINATION TYPE: XR shoulder complete LT DATE OF EXAM: 05/21/2022 CLINICAL HISTORY: pain COMPARISON: NONE TECHNIQUE: Three views of the left shoulder are obtained. FINDINGS: There is no acute fracture/dislocation evident. Intramedullary neymar and fixation screws ar e noted to be in place within the humerus. The acromioclavicular and glenohumeral joint spaces appear within normal limits. The visualized ribs are intact and unremarkable. IMPRESSION: 1. There is no acute fracture or dislocation. ICD 10 NO FRACTURE, INITIAL EVALUATION
[2022-05-21 11:21] VITALS: BP 121/93; PULSE 103; RESP 18; TEMP 98.2
== END 2022-05-21 11:21 | disposition home or self-care (01) ==
LOC: EC 09:02
DX: S46.912A Strain of unspecified muscle, fascia and tendon at shoulder and upper arm level, left arm, initial encounter (principal); J45.909 Unspecified asthma, uncomplicated; K21.9 Gastro-esophageal reflux disease without esophagitis; N18.9 Chronic kidney disease, unspecified; M19.90 Unspecified osteoarthritis, unspecified site; F41.9 Anxiety disorder, unspecified; F31.9 Bipolar disorder, unspecified; F17.200 Nicotine dependence, unspecified, uncomplicated; Z88.5 Allergy status to narcotic agent; Z88.6 Allergy status to analgesic agent; Z88.0 Allergy status to penicillin; Z88.8 Allergy status to other drugs, medicaments and biological substances; Z91.041 Radiographic dye allergy status; Z79.899 Other long term (current) drug therapy; X50.0XXA Overexertion from strenuous movement or load, initial encounter
CPT/HCPCS: 99283

== ENCOUNTER 2022-07-03 03:47 | Emergency (ER) | payer OTHER ==
[2022-07-03 06:23] VITALS: RESP 18
[2022-07-03] MEDS ORDERED: HYDROmorphone 1 MG/ML 1 ML SYRINGE IVP STA (06:36)
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
[2022-07-03 07:40] VITALS: TEMP 97.9
[2022-07-03 07:58] LABS: Basophils # (A) 0.1 k/uL (0-0.2); Basophils % (A) 1 %; Eosinophils # (A) 0.3 k/uL (0-0.7); Eosinophils % (A) 2 %; HCT 40.9 % (34.0-46.0); HGB 13.4 gm/dL (11.4-16.0); Lymphocytes % (A) 27 %; MCH 31.5 pg (25.0-35.0); MCHC 32.7 g/dL (31.0-37.0); MCV 96.5 fL (80.0-100.0); Mean Platelet Volume 9.1; Monocytes # (A) 0.4 k/uL (0-1.0); Monocytes % (A) 4 %; Neutrophils # (A) 7.4 k/uL (1.3-7.7); Neutrophils % (A) 66 %; Platelet Count 312 k/uL (150-450); RBC 4.24 m/uL (3.80-5.40); RDW 12.6 % (11.5-15.5); WBC 11.3 k/uL (3.8-10.6)
--- NOTE | 2022-07-03 08:25 | XR ---
EXAMINATION TYPE: XR humerus LT DATE OF EXAM: 07/03/2022 8:02 AM INDICATION: Patient age:Female; 36 years old; Reason for study: Pain; PHH. COMPARISON: Left shoulder radiograph 05/21/2022, left humerus radiograph 12/05/2020 TECHNIQUE: The left humerus was examined in frontal and lateral FINDINGS: Postsurgical changes of the left humerus with intramedullary neymar and transverse fixation sc rews. Hardware appears intact. There is increased lucency around the transverse fixation screws and d istal aspect of the intramedullary neymar. Transverse fracture is redemonstrated along the mid shaft of the humerus with surrounding incomplete callus formation. No new fracture or dislocation. No soft tis kathleen edema. Visualized chest is unremarkable. IMPRESSION: 1. Postsurgical changes of the left humerus with intramedullary neymar and transverse fixation screws w ith surrounding increased lucency concerning for hardware loosening. 2. Incomplete healing/nonunion of the transverse mid shaft humerus fracture.
[2022-07-03] MEDS ORDERED: ONDANSETRON 4 MG/2 ML VIAL IVP STA (08:48)
[2022-07-03] MEDS ORDERED: KETOROLAC 15 MG/ML 1 ML VIAL IVP STA (08:48)
[2022-07-03 09:19] VITALS: BP 124/90; PULSE 62
[2022-07-03 09:29] LABS: African American GFR (CKD) >90 (>60 ml/min/1.73 sqM); Anion Gap 8 mmol/L; Blood Urea Nitrogen 11 mg/dL (7-17); Calcium 9.2 mg/dL (8.4-10.2); Carbon Dioxide 23 mmol/L (22-30); Chloride 109 mmol/L (98-107); Glucose 100 mg/dL (74-99); Non-African American GFR(CKD) >90 (>60 ml/min/1.73 sqM); Potassium 4.3 mmol/L (3.5-5.1); Sodium 140 mmol/L (137-145)
== END 2022-07-03 09:40 | disposition home or self-care (01) ==
LOC: EC 03:47
DX: S42.302A Unspecified fracture of shaft of humerus, left arm, initial encounter for closed fracture (principal); J45.909 Unspecified asthma, uncomplicated; F17.200 Nicotine dependence, unspecified, uncomplicated; Z88.5 Allergy status to narcotic agent; Z88.0 Allergy status to penicillin; Z88.8 Allergy status to other drugs, medicaments and biological substances; Z91.041 Radiographic dye allergy status; V89.2XXA Person injured in unspecified motor-vehicle accident, traffic, initial encounter
CPT/HCPCS: 36415; 80048; 85025; 73060; 99284; 96374; 96375; J2405; J1170; J1885

== ENCOUNTER 2022-08-28 13:03 | Emergency (ER) | payer OTHER ==
[2022-08-28 13:30] VITALS: BP 144/102; PULSE 90; RESP 20; TEMP 98.5
[2022-08-28] MEDS ORDERED: HYDROmorphone 1 MG/ML 1 ML SYRINGE IVP STA (13:37)
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
[2022-08-28] MEDS ORDERED: HYDROmorphone 0.5 MG/0.5 ML SYRINGE IVP STA (14:44)
--- NOTE | 2022-08-28 15:07 | XR ---
EXAMINATION TYPE: XR humerus LT DATE OF EXAM: 08/28/2022 COMPARISON: 07/01/2022 HISTORY: Pain TECHNIQUE: 2 views FINDINGS: There is intramedullary neymar fixing old fracture mid shaft of the humerus. There is some loo sening around the neymar at the distal end. Fracture line is still visible. IMPRESSION: There is loosening of the hardware at the distal end of the neymar. 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 No significant change compared to the old exam.
== END 2022-08-28 16:02 | disposition home or self-care (01) ==
LOC: EC 13:03
DX: M79.602 Pain in left arm (principal); J45.909 Unspecified asthma, uncomplicated; K21.9 Gastro-esophageal reflux disease without esophagitis; M19.90 Unspecified osteoarthritis, unspecified site; F90.9 Attention-deficit hyperactivity disorder, unspecified type; F41.9 Anxiety disorder, unspecified; F31.9 Bipolar disorder, unspecified; F17.200 Nicotine dependence, unspecified, uncomplicated
CPT/HCPCS: 73060; 99283; 96374; 96376; J1170 ×2

== ENCOUNTER 2022-09-26 14:56 | Emergency (ER) | payer OTHER ==
[2022-09-26] MEDS ORDERED: KETOROLAC 15 MG/ML 1 ML VIAL IVP STA (15:24)
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
[2022-09-26 15:48] LABS: Appearance,Urine Clear (Clear); Bacteria,Urine Rare /hpf; Bilirubin,Urine Negative (Negative); Blood,Urine Negative (Negative); Color,Urine Colorless; Glucose,Urine (UA) Negative (Negative); Ketones,Urine Negative (Negative); Leukocyte Esterase,Urine Moderate (Negative); Mucus,Urine Rare /hpf; Nitrite,Urine Negative (Negative); PH, Urine 5.5 (5.0-8.0); Protein,Urine Negative (Negative); RBC,Urine 1 /hpf (0-5); Specific Gravity,Urine 1.006 (1.001-1.035); Squamous Epithelial Cell,Urine 2 /hpf (0-4); Urobilinogen,Urine <2.0 mg/dL (<2.0); WBC,Urine 15 /hpf (0-5)
[2022-09-26 15:53] LABS: Amphetamine Screen,Urine Not Detected (NotDetected); Barbiturate Screen,Urine Not Detected (NotDetected); Benzodiazepines Screen,Urine Detected (NotDetected); Cocaine Screen,Urine Not Detected (NotDetected); Methadone Screen, Urine Not Detected (NotDetected); Opiate Screen,Urine Not Detected (NotDetected); Oxycodone Screen, Urine Not Detected (NotDetected); Phencyclidine Screen,Urine Not Detected (NotDetected); Tricyclic Antidepressant,Urine Not Detected (NotDetected); Urn Cannabinoid Scrn Not Detected (NotDetected)
--- NOTE | 2022-09-26 16:07 | XR ---
EXAMINATION TYPE: XR humerus LT DATE OF EXAM: 09/26/2022 COMPARISON: 08/28/2022 HISTORY: Pain TECHNIQUE: 2 views FINDINGS: There is intramedullary neymar fixating old fracture of the mid shaft of the humerus. Fracture line is still visible. There is some lucency around the distal neymar. IMPRESSION: Ununited fracture mid shaft of the humerus. No change in position compared to the old exa m. Lucency around the distal intramedullary neymar without change.
[2022-09-26 16:22] LABS: Basophils # (A) 0.1 k/uL (0-0.2); Basophils % (A) 1 %; Eosinophils # (A) 0.1 k/uL (0-0.7); Eosinophils % (A) 1 %; HCT 42.9 % (34.0-46.0); Lymphocytes # (A) 1.6 k/uL (1.0-4.8); Lymphocytes % (A) 12 %; MCH 32.4 pg (25.0-35.0); MCV 92.5 fL (80.0-100.0); Mean Platelet Volume 8.7; Monocytes # (A) 0.4 k/uL (0-1.0); Monocytes % (A) 3 %; Neutrophils # (A) 10.5 k/uL (1.3-7.7); Neutrophils % (A) 82 %; Platelet Count 345 k/uL (150-450); RBC 4.64 m/uL (3.80-5.40); RDW 12.9 % (11.5-15.5); WBC 12.8 k/uL (3.8-10.6)
[2022-09-26 16:26] VITALS: BP 129/99; PULSE 106; RESP 16
[2022-09-26 16:37] LABS: African American GFR (CKD) >90 (>60 ml/min/1.73 sqM); Anion Gap 9 mmol/L; Blood Urea Nitrogen 4 mg/dL (7-17); Calcium 10.1 mg/dL (8.4-10.2); Carbon Dioxide 19 mmol/L (22-30); Chloride 111 mmol/L (98-107); Glucose 127 mg/dL (74-99); Non-African American GFR(CKD) >90 (>60 ml/min/1.73 sqM); Potassium 4.2 mmol/L (3.5-5.1); Sodium 139 mmol/L (137-145)
[2022-09-26 16:57] VITALS: TEMP 98
== END 2022-09-26 16:55 | disposition home or self-care (01) ==
LOC: EC 14:56
DX: M79.622 Pain in left upper arm (principal); G89.29 Other chronic pain; J45.909 Unspecified asthma, uncomplicated; M19.90 Unspecified osteoarthritis, unspecified site; F90.9 Attention-deficit hyperactivity disorder, unspecified type; F41.9 Anxiety disorder, unspecified; F31.9 Bipolar disorder, unspecified; F17.200 Nicotine dependence, unspecified, uncomplicated; Z79.891 Long term (current) use of opiate analgesic; Z88.5 Allergy status to narcotic agent; Z88.8 Allergy status to other drugs, medicaments and biological substances; Z88.0 Allergy status to penicillin; Z91.041 Radiographic dye allergy status; Z90.49 Acquired absence of other specified parts of digestive tract; W08.XXXA Fall from other furniture, initial encounter
CPT/HCPCS: 36415; 80048; 85025; 81001; 80306; 87086; 73060; 99284; 96374; J1885; 87077; 87186